=== PATIENT | male | born 1955 | race Caucasian/White ===

== ENCOUNTER 2018-05-04 19:13 | Emergency (ER) | payer OTHER ==
[2018-05-04] MEDS ORDERED: LIDOCAINE 1% MPF 2 ML AMPULE ONE (19:31)
--- NOTE | 2018-05-04 21:12 | RAD REPORT ---
EXAM DESCRIPTION: RAD - Hand Left 3 View - 05/04/2018 8:42 pm CLINICAL HISTORY: Hand pain, table saw injury, laceration to the first, second, fourth and fifth dig its. COMPARISON: None. FINDINGS: There is posttraumatic bone loss to the base and shaft of the first distal phalanx. Bandag ing is in place. No foreign body identified. There is fracture deformity of the tuft fifth distal pha lanx. Soft tissue wound is present. There is soft tissue injury second and fourth digits without asso ciated bone abnormality. Again, no foreign body seen. IMPRESSION: Bone and soft tissue wounds to the distal phalanx of the thumb and tuft of the fifth dig it. Soft tissue injury to the second and fourth digits without bone abnormality seen. No foreign body.
--- NOTE | 2018-05-04 21:56 | ER ---
Nurse's Notes [facility] Name: Juancarlos Quinones Jr Age: 62 yrs Sex: Male : 1955 Arrival Date: 05/04/2018 Time: 19:15 Bed 28 Private MD: Baltazar George S Diagnosis: Laceration without foreign body of left thumb without damage to nail;Displaced fracture of distal phalanx of left thumb;Displaced fracture of distal phalanx of left little finger;Laceration without foreign body of left little finger with damage to nail Presentation: 05/04 19:24 Presenting complaint: Patient states: pt cut thumb and all his fingers (except the tl3 middle finger) across the left hand with a table saw. Transition of care: patient was not received from another setting of care. Complicating Factors: There are no complicating factors for this patient. Onset of symptoms was May 04, 2018. Risk Assessment: Do you want to hurt yourself or someone else? Patient reports no desire to harm self or others. Initial Sepsis Screen: Does the patient meet any 2 criteria? No. Patient's initial sepsis screen is negative. Does the patient have a suspected source of infection? No. Patient's initial sepsis screen is negative. Care prior to arrival: wrapped. Mechanism of Injury: table saw. 19:24 Method Of Arrival: Ambulatory tl3 19:24 Acuity: SUNITA 3 tl3 Triage Assessment: 19:35 General: Appears distressed, uncomfortable, well groomed, well developed, well tl3 nourished, Behavior is cooperative, appropriate for age, anxious. Pain: Complains of pain in right hand. EENT: No deficits noted. No signs and/or symptoms were reported regarding the EENT system. Neuro: Level of Consciousness is awake, alert, obeys commands, Oriented to person, place, time, situation, Appropriate for age. Cardiovascular: Patient's skin is warm and dry. Respiratory: Airway is patent Respiratory effort is even, unlabored, Respiratory pattern is regular, symmetrical. Respiratory: No deficits noted. Reports. GI: No deficits noted. No signs and/or symptoms were reported involving the gastrointestinal system. : No deficits noted. No signs and/or symptoms were reported regarding the genitourinary system. Derm: Wound noted left hand. Musculoskeletal: multiple lacerations to left hand. Injury Description: Laceration sustained to left hand is jagged. Historical: - Allergies: 19:35 Codeine; tl3 19:35 Morphine; tl3 - Home Meds: 19:35 Adderall XR 20 mg oral cp24 1 cap twice a day [Active]; Clonidine Oral [Active]; tl3 Nitroglycerin Oral [Active]; OxyContin Oral [Active]; - PMHx: 19:35 Chronic pain; Hypertension; Myocardial infarction; tl3 - Immunization history:: Adult Immunizations unknown. - Social history:: Smoking status: unknown. - Ebola Screening: : No symptoms or risks identified at this time. Screenin:30 Abuse screen: Denies threats or abuse. Denies injuries from another. Nutritional rv screening: No deficits noted. Tuberculosis screening: No symptoms or risk factors identified. Fall Risk None identified. Assessment: 21:00 General: Appears in no apparent distress. uncomfortable, Behavior is calm, cooperative. rv 21:00 Pain: Complains of pain in left hand. Neuro: Level of Consciousness is awake, alert, rv obeys commands, Oriented to person, place, time, situation. Cardiovascular: Capillary refill < 3 seconds. Respiratory: Airway is patent. GI: No signs and/or symptoms were reported involving the gastrointestinal system. : No signs and/or symptoms were reported regarding the genitourinary system. EENT: No signs and/or symptoms were reported regarding the EENT system. Derm: Wound noted left hand. Musculoskeletal: Reports pain in left hand. Injury Description: Laceration sustained to left hand is clean, jagged, 0.5 to 2.5 cm long, bleeding moderately. Vital Signs: 19:35 BP 134 / 65; Pulse 64; Resp 18; Pulse Ox 96% on R/A; tl3 ED Course: 19:15 Patient arrived in ED. al2 19:15 Baltazar George MD is Private Physician. al2 19:25 Catie Mayorga FNP-C is [facility]. kb 19:25 Marvel Mora MD is Attending Physician. kb 19:28 Triage completed. tl3 19:35 Arm band placed on right ankle. tl3 19:57 X-ray completed. Portable x-ray completed in exam room. Patient tolerated procedure la2 well. 22:30 Patient has correct armband on for positive identification. Bed in low position. Call rv light in reach. Side rails up X 1. Pulse ox on. NIBP on. 22:31 No provider procedures requiring assistance completed. Patient did not have IV access rv during this emergency room visit. 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 Exp: rv 06/07/2020. Lot #: [id number]. } Route: IM; Site: right deltoid; 22:31 Follow up: Response: No adverse reaction rv 19:44 Drug: [place] 10 mg-325 mg 1 tabs Route: PO; rv 22:31 Follow up: Response: Pain is decreased rv 19:44 Drug: KeFLEX 500 mg Route: PO; rv 22:31 Follow up: Response: No adverse reaction rv Outcome: 21:56 Discharge ordered by . kb 22:33 Discharged to home ambulatory. rv 22:33 Condition: good 22:39 Discharge instructions given to patient, family, Instructed on discharge instructions, rv follow up and referral plans. medication usage, wound care, Demonstrated understanding of instructions, follow-up care, medications, wound care. 22:39 Patient left the ED. rv Signatures: Catie Mayorga, LAUNDRY MANAGER-C LAUNDRY MANAGER-Ckb Kacy Verma2 Romana Garg2 Candy Otero RN RN tl3 Ron Hinojosa, RN RN rv
--- NOTE | 2018-05-04 21:56 | EDPHYS ---
Physician Documentation [facility] Name: Juancarlos Quinones Jr Age: 62 yrs Sex: Male : 1955 Arrival Date: 05/04/2018 Time: 19:15 Bed 28 Private MD: Baltazar George S ED Physician Marvel Mora HPI: 05/04 22:29 This 62 yrs old Male presents to ER via Ambulatory with complaints of kb Laceration To Hand. 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 The injury was accidental. The laceration(s) is(are) located on the left little finger and left ring finger and left index finger and left thumb. Onset: The symptoms/episode began/occurred just prior to arrival. Associated signs and symptoms: The patient has no apparent associated signs or symptoms. The patient has not experienced similar symptoms in the past. The patient has not recently seen a physician. Pt was working with table saw. Reports he was tired and thought his hand was too close to the blade so he moved it and it went into the blade. Multiple skin flaps, avulsions and lacerations to left hand. Historical: - Allergies: 19:35 Codeine; tl3 19:35 Morphine; tl3 - Home Meds: 19:35 Adderall XR 20 mg oral cp24 1 cap twice a day [Active]; Clonidine Oral [Active]; tl3 Nitroglycerin Oral [Active]; OxyContin Oral [Active]; - PMHx: 19:35 Chronic pain; Hypertension; Myocardial infarction; tl3 - Immunization history:: Adult Immunizations unknown. - Social history:: Smoking status: unknown. - Ebola Screening: : No symptoms or risks identified at this time. ROS: 22:27 Constitutional: Negative for fever, chills, and weight loss, Cardiovascular: Negative kb for chest pain, palpitations, and edema, Respiratory: Negative for shortness of breath, cough, wheezing, and pleuritic chest pain, Abdomen/GI: Negative for abdominal pain, nausea, vomiting, diarrhea, and constipation, Back: Negative for injury and pain, Neuro: Negative for headache, weakness, numbness, tingling, and seizure. 22:27 MS/extremity: Positive for injury or acute deformity, abrasion, laceration, pain, of the left thumb, left index finger, left ring finger and left little finger. Exam: 22:27 Constitutional: This is a well developed, well nourished patient who is awake, alert, kb and in no acute distress. Head/Face: Normocephalic, atraumatic. Chest/axilla: Normal chest wall appearance and motion. Nontender with no deformity. No lesions are appreciated. Cardiovascular: Regular rate and rhythm with a normal S1 and S2. No gallops, murmurs, or rubs. Normal PMI, no JVD. No pulse deficits. Respiratory: Lungs have equal breath sounds bilaterally, clear to auscultation and percussion. No rales, rhonchi or wheezes noted. No increased work of breathing, no retractions or nasal flaring. Abdomen/GI: Soft, non-tender, with normal bowel sounds. No distension or tympany. No guarding or rebound. No evidence of tenderness throughout. MS/ Extremity: Pulses equal, no cyanosis. Neurovascular intact. Full, normal range of motion. Neuro: Awake and alert, GCS 15, oriented to person, place, time, and situation. Cranial nerves II-XII grossly intact. Motor strength 5/5 in all extremities. Sensory grossly intact. Cerebellar exam normal. Normal gait. 22:27 Skin: injury, avulsion(s), a small A moderate sized of the left little finger and left ring finger and left index finger and left thumb, multiple lacerations, abrasions, avulsions, and skin flaps noted to left thumb, index, ring and little fingers. . Vital Signs: 19:35 BP 134 / 65; Pulse 64; Resp 18; Pulse Ox 96% on R/A; tl3 Procedures: 20:43 Nerve block: (digital) of palmar aspect of proximal phalanx of left little finger and kb palmar aspect of proximal phalanx of left thumb Medication: Lidocaine 1% without epinephrine Marcaine 0.5%, Amount: 8 mls were injected, Effect: the patient has resolution of the pain, Set up for procedure. Performed by Catie HERNANDEZ Patient tolerated well. Laceration: 21:50 Wound Repair of 4cm ( 1.6in ) subcutaneous laceration to dorsal aspect of distal kb phalanx of left little finger and palmar aspect of distal phalanx of left little finger. Irregularly shaped.. Skin/tissue flap noted.. Distal neuro/vascular/tendon intact. Anesthesia: Digital block administered with 1% lidocaine. Wound prep: Extensive cleansing with betadine by nurse, Wound irrigation with saline by nurse by me. Skin closed with 4 4-0 Prolene using interrupted sutures and sterile technique. Dressed with tube gauze. Patient tolerated well. 21:50 Wound Repair of 5cm ( 2.0in ) subcutaneous laceration to palmar aspect of proximal kb phalanx of left thumb. Skin/tissue flap noted.. multiple skin flaps/avulsed areas. Distal neuro/vascular/tendon intact. Anesthesia: Digital block administered with 1% lidocaine. Wound prep: Extensive cleansing with betadine by nurse, Wound irrigation with saline by nurse by me, Wound margin revised moderately. Skin closed with 11 4-0 Prolene using interrupted sutures and sterile technique. Dressed with tube gauze. Patient tolerated well. MDM: 19:25 Patient medically screened. kb 20:44 Data reviewed: vital signs, nurses notes. Data interpreted: Pulse oximetry: on room air kb is 96 %. Interpretation: normal. 21:50 Counseling: I had a detailed discussion with the patient and/or guardian regarding: the kb historical points, exam findings, and any diagnostic results supporting the discharge/admit diagnosis, radiology results, the need for outpatient follow up, a hand specialist, to return to the emergency department if symptoms worsen or persist or if there are any questions or concerns that arise at home. ED course: wounds approximated where able, avulsed areas cleaned and dressed. 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 Exp: rv 06/07/2020. Lot #: [id number]. } Route: IM; Site: right deltoid; 22:31 Follow up: Response: No adverse reaction rv 19:44 Drug: [place] 10 mg-325 mg 1 tabs Route: PO; rv 22:31 Follow up: Response: Pain is decreased rv 19:44 Drug: KeFLEX 500 mg Route: PO; rv 22:31 Follow up: Response: No adverse reaction rv Disposition: 05/04/18 21:56 Discharged to Home. Impression: Laceration without foreign body of left thumb without damage to nail, Displaced fracture of distal phalanx of left thumb, Displaced fracture of distal phalanx of left little finger, Laceration without foreign body of left little finger with damage to nail. - Condition is Stable. - Discharge Instructions: Laceration Care, Adult, [id number]. - Prescriptions for Keflex 500 mg Oral Capsule - take 1 capsule by ORAL route every 8 hours for 10 days; 30 capsule. Tramadol 50 mg Oral Tablet - take 1 tablet by ORAL route every 8 hours as needed; 12 tablet. - Medication Reconciliation Form, Thank You Letter, Antibiotic Education, Prescription Opioid Use form. - Follow up: Private Physician; When: 2 - 3 days; Reason: Recheck today's complaints, Continuance of care, Re-evaluation by your physician. Follow up: Emergency Department; When: As needed; Reason: Worsening of condition. Signatures: Dispatcher [employer] EDMS Catie Mayorga, NGUYỄN-C DORMITORY MAID-Candy Callaway RN RN tl3 Ron Hinojosa RN RN rv Corrections: (The following items were deleted from the chart) 22:39 21:56 05/04/2018 21:56 Discharged to Home. Impression: Laceration without foreign body rv of left thumb without damage to nail; Displaced fracture of distal phalanx of left thumb; Displaced fracture of distal phalanx of left little finger; Laceration without foreign body of left little finger with damage to nail. Condition is Stable. Forms are Medication Reconciliation Form, Thank You Letter, Antibiotic Education, Prescription Opioid Use. Follow up: Private Physician; When: 2 - 3 days; Reason: Recheck today's complaints, Continuance of care, Re-evaluation by your physician. Follow up: Emergency Department; When: As needed; Reason: Worsening of condition. kb
[2018-05-04 22:45] VITALS: BP 134/65; O2SAT 96
[2018-05-05] MEDS ORDERED: CEPHALEXIN 250 MG CAP ONE (00:18)
[2018-05-05] MEDS ORDERED: LIDOCAINE 1% MPF 2 ML AMPULE ONE (00:18)
[2018-05-05] MEDS ORDERED: HYDROCODONE/APAP 10/325 TAB ONE (00:18)
[2018-05-05] MEDS ORDERED: TETANUS & DIPHTHERIA TOX,ADULT 0.5 ML VIAL ONE (00:18)
== END 2018-05-04 22:39 | disposition home or self-care (01) ==
LOC: ER 19:13
PROC: 0JQK0ZZ Repair Left Hand Subcutaneous Tissue and Fascia, Open Approach (ICD-10-PCS; principal; 2018-05-04)
DX: S61.012A Laceration without foreign body of left thumb without damage to nail, initial encounter (principal); S61.317A Laceration without foreign body of left little finger with damage to nail, initial encounter; S62.637B Displaced fracture of distal phalanx of left little finger, initial encounter for open fracture; W29.8XXA Contact with other powered hand tools and household machinery, initial encounter; Y93.89 Activity, other specified; Y92.9 Unspecified place or not applicable; Z23 Encounter for immunization; Z88.5 Allergy status to narcotic agent; I10 Essential (primary) hypertension; I25.2 Old myocardial infarction
CPT/HCPCS: 12004; 64450; 73130; 90714; 99283; J2001

== ENCOUNTER 2019-01-12 08:24 | Day surgery (SDC) | payer OTHER ==
[2019-01-08 16:20] LABS: Absolute Lymphocytes (CBC) 1.2 K/uL (0.7-4.9); Basophils % 0.7 % (0-1.3); Hematocrit 39.8 % (39.6-49.0); Lymphocytes % 20.5 % (15.3-44.8); MPV 8.3 fL (7.6-11.3); RBC Red Blood Cell Count 4.53 M/uL (4.33-5.43)
--- NOTE | 2019-01-08 16:24 | RAD REPORT ---
EXAM DESCRIPTION: RAD - Chest Pa And Lat (2 Views) - 01/08/2019 4:17 pm CLINICAL HISTORY: preop Chest pain. COMPARISON: <Comparisons> FINDINGS: The lungs are mildly emphysematous but clear. The heart is normal in size. No displaced fr actures. Sternotomy wires present. IMPRESSION: Mild COPD.
[2019-01-08 16:34] LABS: Potassium 4.2 mmol/L (3.5-5.1)
[~2019-01-12 08:24] MED LIST: FENTANYL CITR 100 MCG/2 ML ONE; LIDOCAINE 2% MPF 5 ML VIAL ONE; MIDAZOLAM HCL 2 MG/2 ML INJ ONE; PROPOFOL 200 MG/20 ML VIAL IV ONE; ROCURONIUM 50 MG/5 ML VIAL IV ONE
--- OUTSIDE RECORDS SUMMARY | 2019-01-12 08:30 | XMS REPORT | Summary of Care ---
:1955 Author Organization [facility] Address [address] [place] [id number] Care Team Providers Name Role Phone Baltazar George MD Primary Care Provider Reason for Visit Reason Comments Refill Request Encounter Details Date Type Department Care Team Description 12/15/2018 Refill [facility] Family Medicine Baltazar George MD Refill Request - [address] [place] [address] [place] [phone] Allergies Active Allergy Reactions Severity Noted Date Comments Amoxicillin-Pot Clavulanate Unknown - See comments 03/30/2015 Codeine Unknown - See comments 03/30/2015 Morphine Unknown - See comments 03/30/2015 documented as of this encounter (statuses as of 12/15/2018) Medications Medication Sig Dispensed Refills Start Date End Date Status oxyCODONE 0 03/22/2015 Active (ROXICODONE) 15 mg immediate release tablet venlafaxine XR 150 Take 1 capsule 90 capsule 1 03/28/2017 Active mg 24 hr capsule by mouth daily with breakfast. Syringe with Use as directed 10 Syringe 2 06/27/2017 Active Needle, Disp, (SYRINGE 3CC/25GX1") 3 mL 25 gauge x 1" Syrg zolpidem 10 mg Take 1 tablet by 30 tablet 5 09/24/2017 Active tablet mouth at bedtime as needed for Insomnia. pantoprazole Take 1 tablet by 90 tablet 1 03/27/2018 Active (PROTONIX) 40 mg EC mouth daily. tablet azithromycin 500 mg Take 1 tablet by 3 tablet 0 08/06/2018 Active tabletIndications: mouth daily. Rhinosinusitis dextroamphetamine-a Take 1 tablet by 60 tablet 0 12/01/2018 Active mphetamine mouth 2 (two) (ADDERALL) 20 mg times daily. tabletIndications: ADD (attention deficit disorder) without hyperactivity clonazePAM 1 mg TAKE 1 TABLET BY 120 tablet 0 12/01/2018 Active tabletIndications: MOUTH 4 TIMES A Anxiety DAY NEEDED FOR ANXIETY cyanocobalamin INJECT INTO THE 10 mL 0 12/15/2018 Active 1,000 mcg/mL MUSCLE 1 injectionIndication MILLILITERS s: Fatigue, EVERY WEEK unspecified type cyanocobalamin INJECT INTO THE 10 mL 0 09/30/2018 12/16/19 Discontinued 1,000 mcg/mL MUSCLE 1 19 injectionIndication MILLILITERS s: Fatigue, EVERY WEEK unspecified type documented as of this encounter (statuses as of 12/15/2018) Active Problems Problem Noted Date Anxiety 06/30/2018 Right inguinal hernia 04/23/2017 Insomnia 08/11/2015 Depression 04/29/2015 ADD (attention deficit disorder) without 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 documented as of this encounter Last Filed Vital Signs Not on filedocumented in this encounter Plan of Treatment Date Type Specialty Care Team Description 12/31/2018 Office Visit Family Medicine Baltazar George MD [address] [place] [phone] Health Maintenance Due Date Last Done Comments HEPATITIS C (HCV) SCREEN 1955 DTaP,Tdap,and Td Vaccines (1 - Tdap) 1972 COLONOSCOPY 08/16/2003 Zoster Recombinant Vaccine (SHINGRIX) (1 of 2) 08/16/2003 LUNG CANCER SCREEN: Recommended for age 55-80 with 30 + 2008 pack year history Medicare Wellness Visit 2018 PNEUMOCOCCAL VACCINES 65+ (1 of 2 - PCV13) 2018 INFLUENZA VACCINE 01/18/2019 documented as of this encounter Results Not on filedocumented in this encounter Visit Diagnoses Diagnosis Fatigue, unspecified type documented in this encounter Insurance Payer Benefit Plan / Subscriber ID Effective Dates Phone Address Type Group MEDICARE MEDICARE PART A xxxxxxxxxxx 2014-[place]rist[place] [id number] [place] [phone] [employer] AETNA INDEMNITY [id number] 2014-[place] Indemnity nt documented as of this encounter
--- OUTSIDE RECORDS SUMMARY | 2019-01-12 08:30 | XMS REPORT ---
:1955 [facility] Address [address] [place] [address] Dr. Murillo [address] [place] [id number] Care Team Providers Name Role Phone Unavailable Unavailable Unavailable Problems This patient has no known problems. Allergies, Adverse Reactions, Alerts This patient has no known allergies or adverse reactions. Medications This patient has no known medications.
--- OUTSIDE RECORDS SUMMARY | 2019-01-12 08:31 | XMS REPORT | Summary of Care ---
:1955 Author Organization [facility] - [facility] Address [address] [place] [id number] Care Team Providers Name Role Phone Baltazar George MD Primary Care Provider Reason for Visit Reason Comments ADD Anxiety Refill Request Encounter Details Date Type Department Care Team Description 12/31/2018 Office Visit [facility] Family Baltazar George, ADD (attention deficit disorder) without hyperactivity (Primary Dx); Medicine - Suzanna ECHOLS Anxiety; [address] Chronic fatigue; Drive [address] Fatigue, [place] [phone] Allergies Active Allergy Reactions Severity Noted Date Comments Amoxicillin-Pot Clavulanate Unknown - See comments 03/30/2015 Codeine Unknown - See comments 03/30/2015 Morphine Unknown - See comments 03/30/2015 documented as of this encounter (statuses as of 12/31/2018) Medications Medication Sig Dispensed Refills Start Date [...] Take 1 tablet by 60 tablet 0 12/31/2018 Active mphetamine mouth 2 (two) (ADDERALL) 20 mg times daily. tabletIndications: ADD (attention deficit disorder) without hyperactivity clonazePAM 1 mg TAKE 1 TABLET BY 120 tablet 0 12/31/2018 Active tabletIndications: MOUTH 4 TIMES A Anxiety DAY NEEDED FOR ANXIETY cyanocobalamin INJECT INTO THE 10 mL 0 12/31/2018 Active 1,000 mcg/mL MUSCLE 1 injectionIndication MILLILITERS s: Fatigue, EVERY WEEK unspecified type dextroamphetamine-a Take 1 tablet by 60 tablet 0 12/01/2018 01/01/20 Discontinued mphetamine mouth 2 (two) 19 (ADDERALL) 20 mg times daily. tabletIndications: ADD (attention deficit disorder) without hyperactivity clonazePAM 1 mg TAKE 1 TABLET BY 120 tablet 0 12/01/2018 01/01/20 Discontinued tabletIndications: MOUTH 4 TIMES A 19 Anxiety DAY NEEDED FOR ANXIETY cyanocobalamin INJECT INTO THE 10 mL 0 12/15/2018 01/01/20 Discontinued 1,000 mcg/mL MUSCLE 1 19 injectionIndication MILLILITERS s: Fatigue, EVERY WEEK unspecified type documented as of this encounter (statuses as of 12/31/2018) Active Problems Problem Noted Date Anxiety 06/30/2018 Right inguinal hernia 04/23/2017 Insomnia 08/11/2015 Depression 04/29/2015 ADD (attention deficit disorder) without hyperactivity 04/29/2015 Headache 04/29/2015 Sinusitis 04/29/2015 documented as of this encounter (statuses as of 12/31/2018) Social History Tobacco Use Types Packs/Day Years [...] of this encounter Last Filed Vital Signs Vital Sign Reading Time Taken Comments Blood Pressure 130/62 12/31/2018 9:20 AM CDT Pulse - - Temperature - - Respiratory Rate - - Oxygen Saturation - - Inhaled Oxygen Concentration - - Weight 74.8 kg (165 lb) 12/31/2018 9:20 AM CDT Height - - Body Mass Index 24.37 08/06/2018 4:22 PM CDT documented in this encounter Progress Notes Baltazar George MD - 12/31/2018 9:15 AM CDT Cc: ADD, anxiety, low B-12 Chief Complaint Patient presents with ADD Anxiety Refill Request Juancarlos Quinones Jr. is a 63 year old male. Here for routine f/u Allergies Juancarlos is allergic to augmentin [amoxicillin-pot clavulanate]; codeine; and morphine. Medications Outpatient Medications Prior to Visit Medication Sig Dispense Refill cyanocobalamin 1,000 mcg/mL injection INJECT INTO THE MUSCLE 1 MILLILITERS EVERY WEEK 10 mL 0 clonazePAM 1 mg tablet TAKE 1 TABLET BY MOUTH 4 TIMES A DAY NEEDED FOR ANXIETY 120 tablet 0 dextroamphetamine-amphetamine (ADDERALL) 20 mg tablet Take 1 tablet by mouth 2 (two) times daily. 60 tablet 0 Syringe with Needle, Disp, (SYRINGE 3CC/25GX1") 3 mL 25 gauge x 1" Syrg Use as directed 10 Syringe 2 oxyCODONE (ROXICODONE) 15 mg immediate release tablet 0 azithromycin 500 mg tablet Take 1 tablet by mouth daily. 3 tablet 0 pantoprazole (PROTONIX) 40 mg EC tablet Take 1 tablet by mouth daily. 90 tablet 1 zolpidem 10 mg tablet Take 1 tablet by mouth at bedtime as needed for Insomnia. 30 tablet 5 venlafaxine XR 150 mg 24 hr capsule Take 1 capsule by mouth daily with breakfast. 90 capsule 1 No facility-administered medications prior to visit. Histories Past Medical History: Diagnosis Date ADHD (attention deficit hyperactivity disorder) Anxiety CAD (coronary artery disease) Depression Hypertension Myocardial infarction 08/24/2000 Right inguinal hernia 04/23/2017 Stroke minor strokes Past Surgical History: Procedure Laterality Date CARDIOPULMONARY BYPASS 08/24/2000 CORONARY ARTERY BYPASS GRAFT HERNIA REPAIR JOINT SURGERY big toe SHOULDER ABDUCTION JOINT RIC right STENT PLACEMENT (SHX) stents placed, failed and then had triple bypass Social History Socioeconomic History Marital status: Spouse name: Not on file Number of children: Not on file Years of education: Not on file Highest education level: Not on file Occupational History Not on file Social Needs Financial resource strain: Not on file Food insecurity: Worry: Not on file Inability: Not on file Transportation needs: Medical: Not on file Non-medical: Not on file Tobacco Use Smoking status: Current Every Day Smoker Packs/day: 1.00 Types: Cigarettes Start date: 05/20/1971 Smokeless tobacco: Never Used Substance and Sexual Activity Alcohol use: No Alcohol/week: 0.0 oz Drug use: No Sexual activity: Not on file Lifestyle Physical activity: Days per week: Not on file Minutes per session: Not on file Stress: Not on file Relationships Social connections: Talks on phone: Not on file Gets together: Not on file Attends methodist service: Not on file Active member of club or organization: Not on file Attends meetings of clubs or organizations: Not on file Relationship status: Not on file Intimate partner violence: Fear of current or ex partner: Not on file Emotionally abused: Not on file Physically abused: Not on file Forced sexual activity: Not on file Other Topics Concern Not on file Social History Narrative Not on file Family History Problem Relation Age of Onset Other - see comments Mother copd Depression Mother Coronary Heart Disease Father Stroke Father Depression Sister Diabetes Sister Other - see comments Maternal Uncle copd non smoker Review of Systems Vital Signs BP 130/62 | Wt 165 lb (74.8 kg) | BMI 24.37 kg/m Physical Exam Constitutional: He is oriented to person, place, and time. He appears well- developed and well-nourished. HENT: Head: Normocephalic and atraumatic. Right Ear: External ear normal. Left Ear: External ear normal. Eyes: Pupils are equal, round, and reactive to light. EOM are normal. Cardiovascular: Normal rate, regular rhythm and normal heart sounds. Pulmonary/Chest: Effort normal. Abdominal: Soft. Musculoskeletal: Normal range of motion. Neurological: He is alert and oriented to person, place, and time. Skin: Skin is warm. Vitals reviewed. Assessment/Plan ADD, medication refill Anxiety, medication refill B-12, medication refill This visit did not involve counseling and coordination that comprised more than 50% of the visit time.Electronically signed by Baltazar George MD at 2018 9:34 AM CDTdocumented in this encounter Plan of Treatment Date Type Specialty Care Team Description 04/02/2019 Office Visit Family Medicine Baltazar George MD [address] [place] [phone] Health Maintenance Due Date Last Done [...] filedocumented in this encounter Visit Diagnoses Diagnosis ADD (attention deficit disorder) without hyperactivity - Primary Attention deficit disorder without mention of hyperactivity Anxiety Anxiety state, unspecified Fatigue, unspecified type documented in this encounter Insurance Payer Benefit Plan / Subscriber ID Effective Dates Phone Address Type Group MEDICARE MEDICARE PART A xxxxxxxxxxx 2014-[place]rist[place]ian [id number] [place] [address] [employer] AETNA INDEMNITY [id number] 2014-[place] Indemnity nt documented as of this encounter
--- OUTSIDE RECORDS SUMMARY | 2019-01-12 08:31 | XMS REPORT | Summary of Care ---
:1955 Author Organization [facility] - [facility] Address [address] [place] [address] Care Team Providers Name Role Phone Baltaazr George MD Primary Care Provider Reason for Visit Reason Comments ADD Anxiety Refill Request Encounter Details Date Type Department Care Team Description 12/31/2018 Office Visit [facility] Family Baltazar George, ADD (attention deficit disorder) without hyperactivity (Primary Dx); Medicine - Suzanna ECHOLS Anxiety; [address] Chronic fatigue; Drive [address] Fatigue, [place] [phone] Allergies Active Allergy Reactions Severity Noted Date [...] file Gets together: Not on file Attends jehovah's witness service: Not on file Active member of [...] CDTdocumented in this encounter Plan of Treatment Health Maintenance Due Date Last Done Comments [...] [address] Medicare & B [place] [id number] [place] [phone] [employer] AET[employer] INDEMNITY [id number] 2014-[place] Indemnity nt documented as of this encounter
--- OUTSIDE RECORDS SUMMARY | 2019-01-12 08:31 | XMS REPORT | Summary of Care ---
:1955 Author Organization [facility] - Health Address [address] [place] [address] Care Team Providers Name Role Phone Baltazar George MD Primary Care Provider Encounter Details Date Type Department Care Team Description 12/31/2018 Orders Only [facility] Doctor Unassigned, No [address] [facility] [place] [address] [address] [place] [address] Allergies Active Allergy Reactions Severity Noted Date Comments Amoxicillin-Pot Clavulanate Unknown - See comments 03/30/2015 Codeine Unknown - See comments 03/30/2015 Morphine Unknown - See comments 03/30/2015 documented as of this encounter (statuses as of 12/31/2018) Medications Medication Sig Dispensed Refills Start Date End Date Status oxyCODONE 0 03/22/2015 Active (ROXICODONE) 15 mg immediate release tablet venlafaxine XR 150 mg Take 1 capsule by 90 capsule 1 03/28/2017 Active 24 hr capsule mouth daily with breakfast. Syringe with Needle, Use as directed 10 Syringe 2 06/27/2017 Active Disp, (SYRINGE 3CC/25GX1") 3 mL 25 gauge x 1" Syrg zolpidem 10 mg tablet Take 1 tablet by 30 tablet 5 09/24/2017 Active mouth at bedtime as needed for Insomnia. pantoprazole Take 1 tablet by 90 tablet 1 03/27/2018 Active (PROTONIX) 40 mg EC mouth daily. tablet azithromycin 500 mg Take 1 tablet by 3 tablet 0 08/06/2018 Active tabletIndications: mouth daily. Rhinosinusitis dextroamphetamine-amp Take 1 tablet by 60 tablet 0 12/01/2018 Active hetamine (ADDERALL) mouth 2 (two) 20 mg times daily. tabletIndications: ADD (attention deficit disorder) without hyperactivity clonazePAM 1 mg TAKE 1 TABLET BY 120 tablet 0 12/01/2018 Active tabletIndications: MOUTH 4 TIMES A Anxiety DAY NEEDED FOR ANXIETY cyanocobalamin 1,000 INJECT INTO THE 10 mL 0 12/15/2018 Active mcg/mL MUSCLE 1 injectionIndications: MILLILITERS EVERY Fatigue, unspecified WEEK type documented as of this encounter (statuses [...] filedocumented in this encounter Plan of Treatment Health [...] VACCINE 01/18/2019 documented as of this encounter Procedures Procedure Name Priority Date/Time Associated Diagnosis Comments ASSIGNMENT OF BENEFITS Routine 12/31/2018 9:17 AM CDT documented in this encounter Results Not on filedocumented in this encounter Insurance Payer Benefit Plan / Subscriber ID Effective Dates Phone Address Type Group MEDICARE MEDICARE PART A xxxxxxxxxxx 2014-[place]rist[place]ian [phone] [id number] [place] [address] A[employer]NA AETNA INDEMNITY [id number] 2014-Pre[place] Indemnity nt documented as of this encounter
--- OUTSIDE RECORDS SUMMARY | 2019-01-12 08:31 | XMS REPORT | Summary of Care ---
:1955 Author Organization [facility] - [facility] Address [address] [place] [address] Care Team Providers Name Role Phone Baltazar George MD Primary Care Provider Reason for Visit Reason Comments ADD Anxiety Refill Request Encounter Details Date Type Department Care Team Description 12/31/2018 Office Visit [facility] Family Baltazar George, ADD (attention deficit disorder) without hyperactivity (Primary Dx); Medicine - Suzanna ECHOLS Anxiety; [address] Chronic fatigue; Drive [address] Fatigue, [place] [phone] Allergies Active Allergy Reactions Severity Noted Date [...] file Gets together: Not on file Attends yarsanism service: Not on file Active member of [...] [address] Medicare & B nt 82 [id number] [place] [phone] [employer] AETNA INDEMNITY [id number] 2014-[place] Indemnity nt documented as of this encounter
[2019-01-12] MEDS ORDERED: Ringers Lactate 1,000 ML IV ONE ×2 (08:40→10:28)
[2019-01-12] MEDS ORDERED: CEFOXITIN/SWI 1gm 1 GM/10 ML SYR ONE (08:43)
[2019-01-12] MEDS ORDERED: EPHEDRINE SULF 50 MG/ML VIAL ONE ×2 (09:22→10:21)
[2019-01-12] MEDS ORDERED: MIDAZOLAM HCL 2 MG/2 ML INJ ONE (10:21)
[2019-01-12] MEDS ORDERED: FENTANYL CITR 100 MCG/2 ML ONE (10:21)
[2019-01-12] MEDS ORDERED: LIDOCAINE 2% MPF 5 ML VIAL ONE (10:21)
[2019-01-12] MEDS ORDERED: ROCURONIUM 50 MG/5 ML VIAL IV ONE (10:21)
[2019-01-12] MEDS ORDERED: PROPOFOL 200 MG/20 ML VIAL IV ONE (10:21)
[2019-01-12] MEDS ORDERED: NEOSTIGMINE 1 MG/ML -10 ML VIAL ONE (10:22)
[2019-01-12] MEDS ORDERED: GLYCOPYRROLATE 0.2 MG/ML SYR ONE (10:22)
--- NOTE | 2019-01-12 10:30 | P.BOP ---
Preoperative diagnosis: right inguinal hernia Postoperative diagnosis: same Primary procedure: Laparoscopic repair of right inguinal hernia with mesh Block And Case Maker: CARLITO MALONEY (CERTIFIED PEDORTHOTIST) Estimated blood loss: <10cc Specimen: none Findings: as above Anesthesia: General Complications: None Implants: 3d mesh Transferred to: Recovery Room Condition: Good
[2019-01-12] MEDS: HYDROMORPHONE HCL 1 MG/ML INJ ONE ×2 (10:52→10:57)
[2019-01-12] MEDS: HYDROMORPHONE HCL 2 MG/ML inj ONE ×3 (11:02→11:18)
[2019-01-12] MEDS ORDERED: KETOROLAC 30 MG/ML INJ ONE (11:23)
[2019-01-12 11:34] VITALS: O2SAT 96
[2019-01-12 12:27] VITALS: BP 112/49; TEMP 97.9
--- NOTE | 2019-01-13 00:05 | OP ---
Date of Procedure: 01/12/2019 Surgeon: Juan Allison MD Materials Technician: TOYA Harris. Preoperative Diagnosis: Tender right inguinal hernia. Postoperative Diagnosis: Tender right inguinal hernia. Procedure: Laparoscopic repair of tender right inguinal hernia with mesh. Specimens: None. Anesthesia: General plus local. Implants: A 3D mesh right side medium. Indications: This is a case of a male, who comes to us with right inguinal hernia, tender. Fully ex plained benefits, alternatives, and risks of laparoscopic, possible open, repair of right inguinal he rnia with mesh which include, but not limited to infection, bleeding, damage to adjacent structures, anesthesia complications, chronic pain, chronic numbness, recurrence, ME, even . He also unders tands this may not relieve any symptoms. He might need more than one surgical intervention. He sign ed a consent. Patient was also explained mesh placement in that region, pros and cons of mesh placem ent. He was allowed to ask questions and they were answered to his satisfaction and he did allow me to use mesh. Description Of Procedure: Patient was brought to the operating room, placed in supine position. Ane sthesia was done without complication. The abdomen was prepped and draped in a sterile fashion. The patient was placed in Trendelenburg position. Local anesthesia was applied for every incision. Inc ision was made in the infraumbilical region. Incision was carried down until we found the anterior r ectus sheath that was open on the right side. The muscle retracted laterally to expose the posterior rectus sheath. A balloon tipped trocar was placed in the space directed to the pubic symphysis. A laparoscope was inserted and the balloon was inflated under direct visualization. The balloon was re moved. This created the extraperitoneal space. After we inflated the area, we placed a 5 mm trocar just above the previous symphysis, another one prison between the first and the second one. The pre peritoneal space was further developed by exposing the inferior epigastric vessels and keeping them a nterior. Emmanuel's ligament was dissected laterally to the junction with the iliac veins. The dissec tion was continued inferiorly to the iliopubic tract, avoiding damage to the femoral branch of the ge nitofemoral nerve and lateral femoral cutaneous nerve. The cord structure was identified, skeletoniz ed, hernia was identified, carefully reduced back into the abdominal cavity. At that moment the mesh was rolled and put it through the trocar site, placed into the working space. The mesh was aligned in a way that covered direct and indirect spaces. The mesh was secured in place with SorbaFix latera l and superior to the iliopubic tract and inferior and medial to the Emmanuel ligament. After ensuring adequate hemostasis and also spraying some local anesthetic, then under direct visualization holding the mesh in place and making sure the hernia sac was still reduced into the abdominal cavity, we pro ceeded to deflate the area under direct visualization. Trocars were removed. Anterior rectus sheath was approximated with #1 Vicryl and the skin in subcuticular fashion with 3-0 chromic with Steri-Str ips on top. At the end of the case the testicles were in the scrotum. Patient tolerated the procedu re well. Patient was sent to recovery in stable condition. Disposition: Home. Activity: As tolerated. No heavy lifting. Followup: Follow up in my office in 1 week. Call for appointment [phone]. Keep area dry for 48 ho urs, then may shower. Keep Steri-Strips intact. Medications: See orders. IVANNA/MODL Voice ID: [id number] Report ID: [id number]
== END 2019-01-12 12:18 | disposition home or self-care (01) ==
LOC: OR 08:24
PROVIDERS: ATTEND Surgery
PROC: 0YU54JZ Supplement Right Inguinal Region with Synthetic Substitute, Percutaneous Endoscopic Approach (ICD-10-PCS; principal; 2019-01-12 09:45)
DX: K40.90 Unilateral inguinal hernia, without obstruction or gangrene, not specified as recurrent (principal); I25.10 Atherosclerotic heart disease of native coronary artery without angina pectoris; K21.9 Gastro-esophageal reflux disease without esophagitis; Z95.1 Presence of aortocoronary bypass graft; Z98.61 Coronary angioplasty status; F17.210 Nicotine dependence, cigarettes, uncomplicated; Z88.6 Allergy status to analgesic agent; Z82.49 Family history of ischemic heart disease and other diseases of the circulatory system
CPT/HCPCS: 85025; 80048; 36415; 71046; 49650; J2704; J2710; J2250; J1170 ×2; J3010

== ENCOUNTER 2020-08-04 10:31 | Day surgery (SDC) | payer OTHER ==
[2020-08-02 13:13] VITALS: BMI 25.8
--- NOTE | 2020-08-02 13:49 | RAD REPORT ---
EXAM DESCRIPTION: RAD - Chest Pa And Lat (2 Views) - 08/02/2020 1:40 pm CLINICAL HISTORY: Pre-op cath procedure Chest pain. COMPARISON: <Comparisons> FINDINGS: The lungs are clear. The heart is normal in size. No displaced fractures. Sternotomy wires present. Old left posterior rib fractures. IMPRESSION: No acute or concerning finding suspected.
[2020-08-02 14:05] LABS: Absolute Lymphocytes (CBC) 1.2 K/uL (0.7-4.9); Basophils % 0.8 % (0-1.3); Hematocrit 43.2 % (39.6-49.0); MPV 8.2 fL (7.6-11.3); RBC Red Blood Cell Count 4.95 M/uL (4.33-5.43)
[2020-08-02 14:22] LABS: Protime INR 0.98
[2020-08-02 15:20] LABS: Potassium 4.4 mmol/L (3.5-5.1)
--- NOTE | 2020-08-03 16:49 | EKG ---
Test Date: 2020-08-02 Test Time: 12:27:55 Power Barker Operator: BARBARA MEASUREMENT RESULTS: Intervals: Rate: 56 AK: 236 QRSD: 102 QT: 434 QTc: 418 Sidney: P: 81 AK: 236 QRS: 48 T: 57 INTERPRETIVE STATEMENTS: Sinus bradycardia with 1st degree AV block Possible Left atrial enlargement Borderline ECG Compared to ECG 11/14/2016 07:39:27 Sinus rhythm no longer present Sinus arrhythmia no longer present Electronically Signed On 08-03-20 16:47:56 CDT by Eladio Hernandez
[2020-08-04] MEDS ORDERED: LIDOCAINE 1% 20 ML MDV ONE (10:51)
[2020-08-04] MEDS ORDERED: HEPA 1000U/500MLS 2,000 UNIT/1,000 ML BAG IV ONE (10:51)
[2020-08-04] MEDS ORDERED: NA CHLORIDE 0.9% 500 ML ONE (10:58)
[2020-08-04 11:17] VITALS: O2SAT 100
[2020-08-04] MEDS ORDERED: ASPIRIN 325 MG TAB ONE (11:47)
[2020-08-04] MEDS ORDERED: MIDAZOLAM HCL 2 MG/2 ML INJ ONE (11:47)
[2020-08-04] MEDS ORDERED: TICAGRELOR 90 MG TABLET PO ONE (11:47)
[2020-08-04] MEDS ORDERED: FENTANYL CITR 100 MCG/2 ML ONE (11:47)
[2020-08-04] MEDS ORDERED: NITROGLYCERIN 100 MCG/ML SYR (for cath lab use only) IV ONE (11:47)
[2020-08-04] MEDS ORDERED: ATROPINE SULF 1 MG/10 ML SYR IV ONE (11:48)
[2020-08-04] MEDS ORDERED: NITROGLYCERIN/D5W 0 MG/0 ML BTL IV ONE (11:48)
[2020-08-04] MEDS ORDERED: HEPARIN 5000 UNIT/ML 1 ML VIAL ONE (11:54)
--- NOTE | 2020-08-04 14:36 | OP ---
Date of Procedure: 08/04/2020 Surgeon: RENETTA CUTLER Procedure Performed: Selective coronary angiogram with bypass graft study. Access: Right femoral artery 6-[place]ri [place]ankan, closed with a 6-[place]ank[place] Angio-Seal. Indication: Unstable angina. Complications: None. Bleeding: Less than 10 mL. Description Of Procedure: After risks, benefits, and alternatives were explained, the patient agreed to proceed and signed informed consent. The patient was brought in the cardiac catheterization [facility], prepped and draped in usual sterile fashion. Then, we accessed the right femoral artery unde r ultrasound guidance and fluoroscopy and using micropuncture kit, placed 6-[place]ri [place]ankan Epworth sheath. Then, we took a 6-[place]ankan JL4 catheter into the aortic root over a J-wire, engaged left main, took sta ndard views and then 6-[place]ri [place]ankan JR4 catheter was taken to the aortic root, engaged the RCA and SVG to t he diagonal and took standard views. Then, the catheter was navigated into the left subclavian and e ngaged the edema and took standard views and removed the catheter and sheath was removed. A 6-[place]ankan Angio-Seal was deployed successfully with good hemostasis. Findings: 1.Left main is large, normal with luminal irregularities. 2.LAD, 100% totally occluded osteally, currently total occlusion. 3.Left circumflex, moderate-size vessel, proximal 20%, mid 30%, and the OM1 is 90% stenosis of both . 4.RCA, proximal stent 20% ISR and distal stent to 30% ISR, otherwise luminal irregularities. 5.The graft is patent TAPIA to LAD. 6.Patent SVG to diagonal 1. 7.Occluded SVG to . Conclusion: Severe [place] coronary artery disease with patent TAPIA to LAD and patent SVG to diagonal . Good flow through the RCA and left circumflex. Recommendations: Medical management. SR/MODL Voice ID: [id number] Report ID: [id number]
[2020-08-04 14:47] VITALS: TEMP 97.5
[2020-08-04 14:50] VITALS: BP 125/68
== END 2020-08-04 15:15 | disposition home or self-care (01) ==
LOC: CCL 10:31
PROVIDERS: ATTEND Internal Medicine
DX: I25.110 Atherosclerotic heart disease of native coronary artery with unstable angina pectoris (principal); T82.855A Stenosis of coronary artery stent, initial encounter; E78.5 Hyperlipidemia, unspecified; Z95.1 Presence of aortocoronary bypass graft; Z88.6 Allergy status to analgesic agent; Z20.822 Contact with and (suspected) exposure to COVID-19
CPT/HCPCS: 93005; 85025; 80048; 36415; 85610; 85730; 71046; 93455; U0003; C1893; C1760; J2250; J3010; J7040; J1644

== ENCOUNTER 2022-03-18 18:06 | Observation (INO) | payer OTHER ==
--- OUTSIDE RECORDS SUMMARY | 2022-03-18 18:12 | XMS REPORT | Continuity of Care Document ---
:1955 Author Organization [facility] t Address [address] [place] [address] Care Team Providers Name Role Phone Roberta ECHOLS, Mark Primary Care Physician MARK GRANADOS Attending Clinician Unavailable Roberta ECHOLS, Mark Attending Clinician MILAN DOBBS Attending Clinician Unavailable Lab, Ang - Db Attending Clinician Unavailable Sammie Hopkins Attending Clinician SAMMIE OCONNOR Attending Clinician Unavailable Doctor Unassigned, [place] Attending Clinician Unavailable Gopal ECHOLS, Pawel Pandya Attending Clinician Monica ECHOLS, Alexei Belle Attending Clinician Payers Payer Name Policy Type Policy Number Effective Date Expiration Date S josephce MEDICARE PART A [id number] 2014 \\T\\ B 00:00:00 [employer] INDEMNITY [id number] 2014 00:00:00 Problems Condition Condition Condition Status Onset Resolution Last Treating Co mments Source Name Details Category Date Date Treatment Clinician Date Anxiety Anxiety Disease Active Univers 2-11 ity of 00:00: [address] Right Right Disease Active 2016-05 Univers inguinal inguinal 2-05 ity of hernia hernia 00:00: [address] Insomnia Insomnia Disease Active Unive rs 3-24 ity of 00:00: [address] Depression Depression Disease Active 2014-05 U nivers 2-11 ity of 00:00: [address] ADD ADD Disease Active 2014-05 Univers (attention (attention 2-11 it y of deficit deficit 00:00: [place] disorder) disorder) 00 Medi frannie without without Branch hyperactiv hyperactiv ity ity Headache Headache Disease Active 2014-05 Unive rs 2-11 ity of 00:00: [place] 00 Medical Branch Sinusitis Sinusitis Disease Active 2014-05 Uni vers 2-11 ity of 00:00: [place] 00 Medical Branch Allergies, Adverse Reactions, Alerts Allergy Allergy Status Severity Reaction(s) Onset Inactive Treating Comm ents Source Name Type Date Date Clinician AMOXICIL DRUG Active Unknown-Cmnt 2014-05 Un karolina LUCIO-POT 1-11 ity of CLAVULAN 00:00: [place] ATE 00 Medical Branch CODEINE DRUG Active Unknown-Cmnt 2014-05 Uni vers INGREDI 1-11 ity of 00:00: [place] 00 Medical Branch MORPHINE DRUG Active Unknown-Cmnt 2014-05 Un karolina INGREDI 1-11 ity of 00:00: [place] 00 Medical Branch Amoxicil Propensi Active Unknown - 2014-05 Uni vers lucio-Pot ty to See comments 1-11 ity of Clavulan adverse 00:00: [place] ate reaction 00 Medical s Branch Codeine Propensi Active Unknown - 2014-05 Univ ers ty to See comments 1-11 ity of adverse 00:00: [place] reaction 00 Medical s Branch Morphine Propensi Active Unknown - 2014-05 Uni vers ty to See comments 1-11 ity of adverse 00:00: [place] reaction 00 Medical s Branch Social History Social Habit Start Date Stop Date Quantity Comments Source History of tobacco 1971-05-20 Cigarette Smoker University of use 00:00:00 [facility] Exposure to 2021-12-30 2022-01-09 Not sure [facility] SARS-CoV-2 (event) 00:00:00 08:58:00 [facility] Cigarettes smoked 2021-12-08 2021-12-08 Univers ity of current (pack per 00:00:00 00:00:00 ) - Reported Branch Alcohol intake 2021-12-08 2021-12-08 0 /d University of 00:00:00 00:00:00 [facility] Tobacco use and 2021-12-08 2021-12-08 Smokeless Universit y of exposure 00:00:00 00:00:00 tobacco non-user [facility] Sex [birth year] At [birth year] Universit y of 00:00:00 00:00:00 [facility] Smoking Status Start Date Stop Date Source Smokes tobacco daily 2021-12-08 00:00:00 [facility]ations Ordered Filled Start Stop Current Ordering Indication Dosage Frequency Signature Comments Components Source Medication Medication Date Date Medication? Clinician (SIG) Name Name dextroamphe 2021-05 Yes [id number] 20mg Take 1 Univers tamine-amph 0-20 tablet by ity of etamine 00:00: mouth in [place] (ADDERALL) 00 the Medical 20 mg morning Branch tablet and 1 tablet in the evening. clonazePAM 2021-05 Yes [id number] TAKE 1 U nivers 1 mg tablet 0-20 TABLET BY ity of 00:00: MOUTH 4 [place] 00 TIMES A Medical DAY Branch NEEDED FOR ANXIETY dextroamphe 2021-0 Yes [id number] 20mg Take 1 Univers tamine-amph 9-07 tablet by ity of etamine 00:00: mouth in [place] (ADDERALL) 00 the Medical 20 mg morning Branch tablet and 1 tablet in the evening. dextroamphe 2021-0 2021- No [id number] 20mg Take 1 Univers tamine-amph 9-07 10-20 tablet by it y of etamine 00:00: 00:00 mouth in [place] (ADDERALL) 00 :00 the Medical 20 mg morning Branch tablet and 1 tablet in the evening. clonazePAM 2021-0 Yes [id number] TAKE 1 U nivers 1 mg tablet 8-23 TABLET BY ity of 00:00: MOUTH 4 [place] 00 TIMES A Medical DAY Branch NEEDED FOR ANXIETY clonazePAM 2-0 Yes [id number] TAKE 1 U nivers 1 mg tablet 8-23 TABLET BY ity of 00:00: MOUTH 4 [place] 00 TIMES A Medical DAY Branch NEEDED FOR ANXIETY clonazePAM 2-0 Yes [id number] TAKE 1 U nivers 1 mg tablet 8-23 TABLET BY ity of 00:00: MOUTH 4 [place] 00 TIMES A Medical DAY Branch NEEDED FOR ANXIETY clonazePAM 2-0 2022- No [id number] TAKE 1 Univers 1 mg tablet 8-23 10-20 TABLET BY it y of 00:00: 00:00 MOUTH 4 [place] 00 :00 TIMES A Medical DAY Branch NEEDED FOR ANXIETY dextroamphe 2021-0 Yes [id number] 20mg Take 1 Univers tamine-amph 8-01 tablet by ity of etamine 00:00: mouth in [place] (ADDERALL) 00 the Medical 20 mg morning Branch tablet and 1 tablet in the evening. dextroamphe 2-0 Yes [id number] 20mg Take 1 Univers tamine-amph 8-01 tablet by ity of etamine 00:00: mouth in [place] (ADDERALL) 00 the Medical 20 mg morning Branch tablet and 1 tablet in the evening. dextroamphe 2-0 Yes [id number] 20mg Take 1 Univers tamine-amph 8-01 tablet by ity of etamine 00:00: mouth in [place] (ADDERALL) 00 the Medical 20 mg morning Branch tablet and 1 tablet in the evening. dextroamphe 2021-0 2022- No [id number] 20mg Take 1 Univers tamine-amph 8-01 09-07 tablet by it y of etamine 00:00: 00:00 mouth in [place] (ADDERALL) 00 :00 the Medical 20 mg morning Branch tablet and 1 tablet in the evening. lisinopriL 2021-0 Yes 10mg Take 10 mg U nivers 10 mg 7-04 by mouth ity of tablet 00:00: in the [place] 00 morning. Medical Branch lisinopriL 2-0 Yes 10mg Take 10 mg U nivers 10 mg 7-04 by mouth ity of tablet 00:00: in the [place] 00 morning. Medical Branch lisinopriL 2022-0 Yes 10mg Take 10 mg U nivers 10 mg 7-04 by mouth ity of tablet 00:00: in the [place] 00 morning. Medical Branch lisinopriL 2022-0 Yes 10mg Take 10 mg U nivers 10 mg 7-04 by mouth ity of tablet 00:00: in the [place] 00 morning. Medical Branch SERTraline 2-0 Yes [id number] 50mg Take 1 U nivers (ZOLOFT) 50 2-21 tablet by ity of mg tablet 00:00: mouth [place] 00 daily. Medical Branch SERTraline 2022-0 Yes [id number] 50mg Take 1 U nivers (ZOLOFT) 50 2-21 tablet by ity of mg tablet 00:00: mouth [place] 00 daily. Medical Branch SERTraline 2022-0 Yes [id number] 50mg Take 1 U nivers (ZOLOFT) 50 2-21 tablet by ity of mg tablet 00:00: mouth [place] 00 daily. Medical Branch SERTraline 0 Yes [id number] 50mg Take 1 U nivers (ZOLOFT) 50 2-21 tablet by ity of mg tablet 00:00: mouth [place] 00 daily. Medical Branch SERTraline 0 Yes [id number] 50mg Take 1 U nivers (ZOLOFT) 50 2-21 tablet by ity of mg tablet 00:00: mouth [place] 00 daily. Medical Branch sildenafiL 2020-05 Yes [id number] 50mg Take 1 Univers 50 mg 1-18 tablet by ity of tablet 00:00: mouth as [place] 00 needed for Medical Other Branch (prior to sexual activity). sildenafiL 2020-05 Yes [id number] 50mg Take 1 Univers 50 mg 1-18 tablet by ity of tablet 00:00: mouth as [place] 00 needed for Medical Other Branch (prior to sexual activity). sildenafiL 2020-05 Yes [id number] 50mg Take 1 Univers 50 mg 1-18 tablet by ity of tablet 00:00: mouth as [place] 00 needed for Medical Other Branch (prior to sexual activity). sildenafiL 2020-05 Yes [id number] 50mg Take 1 Univers 50 mg 1-18 tablet by ity of tablet 00:00: mouth as [place] 00 needed for Medical Other Branch (prior to sexual activity). sildenafiL 2020-05 Yes [id number] 50mg Take 1 Univers 50 mg 1-18 tablet by ity of tablet 00:00: mouth as [place] 00 needed for Medical Other Branch (prior to sexual activity). cyanocobala Yes [id number] INJECT Univers min 1,000 1-13 INTO THE ity of mcg/mL 00:00: MUSCLE 1 [place] injection 00 MILLILITER Medi frannie S EVERY Branch WEEK cyanocobala 0 Yes [id number] INJECT Univers min 1,000 1-13 INTO THE ity of mcg/mL 00:00: MUSCLE 1 [place] injection 00 MILLILITER Medi frannie S EVERY Branch WEEK cyanocobala Yes [id number] INJECT Univers min 1,000 1-13 INTO THE ity of mcg/mL 00:00: MUSCLE 1 [place] injection 00 MILLILITER Medi frannie S EVERY Branch WEEK cyanocobala 2021-0 Yes [id number] INJECT Univers min 1,000 1-13 INTO THE ity of mcg/mL 00:00: MUSCLE 1 [place] injection 00 MILLILITER Medi frannie S EVERY Branch WEEK cyanocobala 2020-0 Yes [id number] INJECT Univers min 1,000 1-13 INTO THE ity of mcg/mL 00:00: MUSCLE 1 [place] injection 00 MILLILITER Medi frannie S EVERY Branch WEEK pantoprazol 2020-0 Yes [id number] 40mg Take 1 Univers e 3-26 tablet by ity of (PROTONIX) 00:00: mouth [place] 40 mg EC 00 daily. Medical tablet Branch pantoprazol 2020-0 Yes [id number] 40mg Take 1 Univers e 3-26 tablet by ity of (PROTONIX) 00:00: mouth [place] 40 mg EC 00 daily. Medical tablet Branch pantoprazol 2020-0 Yes [id number] 40mg Take 1 Univers e 3-26 tablet by ity of (PROTONIX) 00:00: mouth [place] 40 mg EC 00 daily. Medical tablet Branch pantoprazol 2020-0 Yes [id number] 40mg Take 1 Univers e 3-26 tablet by ity of (PROTONIX) 00:00: mouth [place] 40 mg EC 00 daily. Medical tablet Branch pantoprazol 2020-0 Yes [id number] 40mg Take 1 Univers e 3-26 tablet by ity of (PROTONIX) 00:00: mouth [place] 40 mg EC 00 daily. Medical tablet Branch Syringe 2020-0 Yes [id number] Use as Uni vers with 2-26 directed ity of Needle, 00:00: [place] Disp, 00 Medical (SYRINGE Branch 3CC/25GX1") 3 mL 25 gauge x 1" Syrg Syringe 2020-0 Yes [id number] Use as Uni vers with 2-26 directed ity of Needle, 00:00: [place] Disp, 00 Medical (SYRINGE Branch 3CC/25GX1") 3 mL 25 gauge x 1" Syrg Syringe 2020-0 Yes [id number] Use as Uni vers with 2-26 directed ity of Needle, 00:00: [place] Disp, 00 Medical (SYRINGE Branch 3CC/25GX1") 3 mL 25 gauge x 1" Syrg Syringe 2020-0 Yes [id number] Use as Uni vers with 2-26 directed ity of Needle, 00:00: [place] Disp, 00 Medical (SYRINGE Branch 3CC/25GX1") 3 mL 25 gauge x 1" Syrg Syringe Yes [id number] Use as Uni vers with 2-26 directed ity of Needle, 00:00: [place] Disp, 00 Medical (SYRINGE Branch 3CC/25GX1") 3 mL 25 gauge x 1" Syrg zolpidem 10 Yes 10mg Take 1 Univ ers mg tablet 5-08 tablet by ity o f 00:00: mouth at [place] 00 bedtime as Medical needed for Branch Insomnia. zolpidem 10 Yes 10mg Take 1 Univ ers mg tablet 5-08 tablet by ity o f 00:00: mouth at [place] 00 bedtime as Medical needed for Branch Insomnia. zolpidem 10 Yes 10mg Take 1 Univ ers mg tablet 5-08 tablet by ity o f 00:00: mouth at [place] 00 bedtime as Medical needed for Branch Insomnia. zolpidem 10 Yes 10mg Take 1 Univ ers mg tablet 5-08 tablet by ity o f 00:00: mouth at [place] 00 bedtime as Medical needed for Branch Insomnia. zolpidem 10 Yes 10mg Take 1 Univ ers mg tablet 5-08 tablet by ity o f 00:00: mouth at [place] 00 bedtime as Medical needed for Branch Insomnia. oxyCODONE 2014-05 Yes Univers (ROXICODONE 1-03 ity of ) 15 mg 00:00: [place] immediate 00 Medical release Branch tablet oxyCODONE 2014-05 Yes Univers (ROXICODONE 1-03 ity of ) 15 mg 00:00: [place] immediate 00 Medical release Branch tablet oxyCODONE 2014-05 Yes Univers (ROXICODONE 1-03 ity of ) 15 mg 00:00: [place] immediate 00 Medical release Branch tablet oxyCODONE 2014-05 Yes Univers (ROXICODONE 1-03 ity of ) 15 mg 00:00: [place] immediate 00 Medical release Branch tablet oxyCODONE 2014-05 Yes Univers (ROXICODONE 1-03 ity of ) 15 mg 00:00: [place] immediate 00 Medical release Branch tablet Vital Signs Vital Name Observation Time Observation Value Comments Source Body height 2022-01-10 14:50:00 175.3 cm [facility] Medical Branch Body weight 2022-01-10 14:50:00 77.111 kg [facility] BMI 2022-01-10 14:50:00 25.10 kg/m2 [facility] Procedures Procedure Date / Time Performed Performing Clinician Adán riki GARCIA 2021-12-21 05:01:00 Doctor Unassigned, Kylah Hester [facility] RELEASE/CLEARANCE Name [facility] FORMS Encounters Start End Encounter Admission Attending Care Care Encounter Source Date/Time Date/Time Type Type Clinicians Facility Department ID 2022-04-10 2022-04-10 [facility] [id number] Univers 10:00:00 10:00:[address] [facility] 2022-03-08 2022-03-08 [facility] [id number] Univers 00:00:00 00:00:00 [facility] [id number] it y of [facility] [id number] Karlos as AARON?BLEA [phone] [address] MEDICAL OFFICE [facility] 2022-02-13 2022-02-13 Outpatient Hannah DOBBS [facility] [id number] Univers 09:00:00 09:00:00 MILAN [facility] [place] [facility] 2022-01-24 2022-01-24 Charity [facility] [id number] Univers 00:00:00 00:00:00 [facility] [id number] it y of [facility] [id number] Karlos as AARON?BLEA [phone] [address] MEDICAL OFFICE [facility] 2022-01-10 2022-01-10 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, Ang - Db [facility] 1.2.840.1 [id number] Univers 10:30:00 10:45:00 Visit Sammie Oconnor [facility] [id number] ity of [facility] [id number] Karlos as AARON?BLEA [phone] [facility] [address] MEDICAL OFFICE [facility] 2022-01-10 2022-01-10 Outpatient [facility] [id number] Univers 10:30:00 10:30:00 [facility] 2022-01-10 2022-01-10 Office [facility] [id number] Univers 09:45:00 10:00:00 Visit Sammie [facility] [id number] it y of [facility] [id number] Karlos as AARON?BLEA [phone] In gerda [place] [address] [facility] OFFICE [facility] 2022-01-10 2022-01-10 Outpatient R [facility] [id number] Univers 09:45:00 09:45:00 [facility] 2022-01-10 2022-01-10 Outpatient Hannah [facility] [id number] Univers 09:45:00 09:45:00 [facility] 2022-01-09 2022-01-09 Office [facility]RE[facility] [id number] Univers 08:45:00 09:04:23 Visit [facility] [id number] it y of [place] [id number] Karlos as AARON?BLEA [phone] In gerda [address] OFFICE [facility] 2022-01-09 2022-01-09 Outpatient Hannah [facility] [id number] Univers 08:45:00 09:04:[address] [facility] 2022-01-09 2022-01-09 Office [facility] [id number] [id number] Univers 08:45:00 09:04:23 Visit [facility] [id number] it y of [facility] [id number] Karlos as AARON?BLEA [phone] In gerda [address] OFFICE [facility] 2022-01-09 2022-01-09 Outpatient Hannah GRANADOS [facility] [id number] Univers 08:45:00 08:45:[address] [facility] 2022-01-09 2022-01-09 Outpatient [facility] [id number] Univers 08:45:00 08:45:[address] [facility] 2022-01-09 2022-01-09 Telephone [facility]taREH[facility] [id number] Univers 00:00:00 00:00:00 Mark HEALTH [id number] it y of [place] [id number] Karlos as AARON?BLEA [id number] In gerda [place] [address] [facility] 2022-01-08 2022-01-08 Outpatient R [facility] [id number] Univers 14:45:00 14:45:00 MARK ity [facility] 2022-01-03 2022-01-03 Outpatient R [facility] [id number] Univers 13:15:00 13:15:00 SAMMIE ity [facility] 2022-01-01 2022-01-01 Outpatient R [facility] [id number] Univers 14:15:00 14:15:00 SAMMIE ity [facility] 2022-01-01 2022-01-01 Orders Doctor MARY ALICE [id number] [id number] Univers 00:00:00 00:00:00 Only Unassigned, REINALDO [id number] ity of [place] [facility] [id number] Karlos as [id number] [address] 2021-12-25 2021-12-25 Outpatient R [facility] [id number] Univers 11:45:00 11:45:00 ity of [facility] 2021-12-22 2021-12-22 Telephone [facility]RE[facility] [id number] [id number] Univers 00:00:00 00:00:00 Pawel L HEALTH [id number] it y of [place] [id number] Karlos as AARON?BLEA [phone] In giovannamoni [place] [address] [facility] 2021-12-21 2021-12-21 Orders Doctor MARY ALICE 1.2.840.114 [id number] Univers 00:00:00 00:00:00 Only Unassigned, REINALDO [id number] ity of [place] [facility] [id number] Karlos as [id number] [address] 2021-12-14 2021-12-14 Refill [facility]RE[facility] [id number] [id number] Univers 00:00:00 00:00:00 Mark HEALTH [id number] it y of [place] [id number] Karlos as AARON?BLEA [phone] In gerda [place] [address] [facility] OFFICE [facility] 2021-12-08 2021-12-08 Office Anast[facility]RE[facility] [id number] [id number] Univers 09:15:00 09:30:00 Visit [facility] [id number] it y of [facility] [id number] Karlos as AARON?BLEA [id number] In gerda [place] [address] [facility] 2021-12-08 2021-12-08 Outpatient Hannah [facility] [id number] Univers 09:15:00 09:15:00 [facility] 2021-12-01 2021-12-01 Outpatient Hannah [facility] [id number] Univers 09:34:35 23:59:00 [facility] 2021-12-01 2021-12-01 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, Ang - [facility] 1.2.840.1 [id number] Univers 10:45:00 11:00:00 Visit Anastasia [facility] [id number] ity of [place] [id number] Karlos as AARON?BLEA [phone] In gerda [place] [address] [facility] 2021-12-01 2021-12-01 Office [facility]RE[facility] [id number] [id number] Univers 09:30:00 10:00:00 Visit [facility] [id number] it y of [place] [id number] Karlos as AARON?BLEA [id number] In gerda [place] [address] [facility] 2021-12-01 2021-12-01 Outpatient Hannah [facility] [id number] Univers 09:30:00 09:30:00 [facility] 2021-11-24 2021-11-24 Telephone RobertaREHOB[facility] [id number] Univers 00:00:00 00:00:00 [facility] [id number] it y of [place] [id number] Karlos as AARON?BLEA [id number] In gerda [place] [address] [facility] OFFICE [facility] 2021-11-23 2021-11-23 Outpatient Hannah OCONNOR [facility] [id number] Univers 15:15:00 15:15:00 SAMMIE moises [facility] 2021-11-22 2021-11-22 Refill [facility]RE[facility] [id number] [id number] Univers 00:00:00 00:00:00 [facility] [id number] it y of [place] [id number] Karlos as AARON?BLEA [phone] [facility] 044 [facility] 2021-10-25 2021-10-25 Outpatient R [facility] [id number] Univers 09:45:00 10:03:02 MARK [facility] [place] [facility] 2021-10-25 2021-10-25 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, [facility] 1.2.840.1 [id number] Univers 09:45:00 10:00:00 Visit Mark Granados [facility] [id number] ity of [place] [id number] Karlos as AARON?BLEA [phone] In gerda [place] [address] [facility] OFFICE [facility] 2021-10-25 2021-10-25 Office Rober[facility]RE[facility] [id number] [id number] Univers 09:30:00 09:45:00 Visit [facility] [id number] it y of [place] [id number] Karlos as AARON?BLEA [phone] In giovanname MER[place] 044 [facility] OFFICE [facility] 2021-10-25 2021-10-25 Outpatient Hannah [facility] [id number] Univers 09:30:00 09:30:00 MARK [facility] [place] [facility] 2021-10-09 2021-10-09 Outpatient Hannah [facility] [id number] Univers 09:45:00 09:45:[address] [facility] 2021-09-21 2021-09-21 Charity [facility]REH[facility] 1.2.840.114 [id number] Univers 00:00:00 00:00:00 Mark HEALTH [id number] it y of [place] [id number] Karlos as AARON?BLEA [id number] In gerda [place] [address] [place] [address] OFFICE [facility] 2021-09-01 2021-09-01 Outpatient Hannah [facility] [id number] Univers 09:40:00 23:59:00 [facility] 2021-09-01 2021-09-01 Office [facility]RE[facility] 1.2.840.114 [id number] Univers 09:30:00 10:46:30 Visit [facility] [id number] it y of [place] [id number] Karlos as AARON?BLEA [id number] In gerda [place] [address] [facility] OFFICE [facility] 2021-09-01 2021-09-01 Outpatient Hannah OCONNOR [facility] [id number] Univers 09:40:00 09:40:00 [facility] 2021-08-30 2021-08-30 Charity [facility]RE[facility] 1.2.840.114 [id number] Univers 00:00:00 00:00:00 [place] [facility] [id number] it y of [place] [id number] Karlos as AARON?BLEA [id number] In gerda [place] [address] [place] [address] OFFICE [facility] 2021-08-24 2021-08-24 Charity [facility]RE[facility] [id number] [id number] Univers 00:00:00 00:00:00 Mark HEALTH [id number] it y of [place] [id number] Karlos as AARON?BLEA [id number] In gerda [place] [address] [place] [address] OFFICE [facility] 2021-07-10 2021-07-10 Outpatient Hannah [facility] [id number] Univers 09:45:00 10:01:[address] [facility] 2021-07-10 2021-07-10 Office [facility]RE[facility] [id number] [id number] Univers 09:45:00 10:00:00 Visit [facility] [id number] it y of [place] [id number] Karlos as AARON?BLEA [phone] [address] MEDICAL OFFICE [facility] 2021-07-10 2021-07-10 Outpatient Hannah GRANADOS [facility] [id number] Univers 09:45:00 09:45:00 MARK [facility] 2021-06-16 2021-06-16 Telephone [facility]RE[facility] [id number] Univers 00:00:00 00:00:00 [place] [id number] it y of [place] [id number] Karlos as AARON?BLEA [phone] [address] MEDICAL OFFICE [facility] 2021-06-13 2021-06-13 Refill [facility] 1.2.840.114 [id number] Univers 00:00:00 00:00:00 [place] [id number] it y of [place] 4.2.7.2.686 Karlos as AARON?BLEA [phone] [address] OFFICE [facility] 2021-05-15 2021-05-15 Refill [facility] 1.2.840.114 [id number] Univers 00:00:00 00:00:00 [facility] 350.1.13.10 it y of [place] 4.2.7.2.686 Karlos as AARON?BLEA [phone] [address] MEDICAL OFFICE [facility] 2021-04-06 2021-04-06 Office [facility] 1.2.840.114 [id number] Univers 10:04:54 10:19:54 Visit [facility] 350.1.13.10 it y of [place] [id number] Karlos as AARON?BLEA [phone] [address] MEDICAL OFFICE [facility] 2021-04-06 2021-04-06 Outpatient R ROBERTA [facility] [id number] Univers 10:00:00 10:18:30 MARK moises [facility] 2021-04-06 2021-04-06 Outpatient Hannah GRANADOS [facility] [id number] Univers 10:00:00 10:00:00 MARK guzman [facility] 2021-03-29 2021-03-29 Charity [facility]RE[facility] 1.2.840.114 [id number] Univers 00:00:00 00:00:00 Mark HEALTH 350.1.13.10 it y of [place] 4.2.7.2.686 Karlos as AARON?BLEA [phone] [address] OFFICE [facility] 2021-03-10 2021-03-10 Charity [facility] 1.2.840.114 [id number] Univers 00:00:00 00:00:00 [facility] 350.1.13.10 it y of [place] 4.2.7.2.686 Karlos as Aaron?Blea [phone] [address] Office [facility] 2021-02-21 2021-02-21 [facility] 1.2.840.114 [id number] Univers 00:00:00 00:00:00 [facility] 350.1.13.10 it y of [place] 4.2.7.2.686 Karlos as Aaron?Blea [phone] [address] Office [facility] 2021-02-09 2021-02-09 Charity [facility] 1.2.840.114 [id number] Univers 00:00:00 00:00:00 [facility] 350.1.13.10 it y of [place] 4.2.7.2.686 Karlos as Aaron?Blea [phone] [address] Office [facility] 2021-01-05 2021-01-05 Outpatient Hannah OLIVARESGRANADOS [facility] [id number] Univers 14:15:00 14:15:00 MARK guzman [facility] 2021-01-04 2021-01-04 Outpatient Hannah OLIVARESGRANADOS [facility] [id number] Univers 14:30:00 14:30:00 MARK guzman [facility] 2021-01-04 2021-01-04 Outpatient Hannah GRANADOS [facility] [id number] Univers 13:15:00 13:15:00 MARK guzman [facility] 2021-01-04 2021-01-04 Outpatient Hannah GRANADOS [facility] [id number] Univers 09:45:00 09:45:00 MARK guzman [facility] 2020-12-16 2020-12-16 Refill [facility] 1.2.840.114 [id number] Univers 00:00:00 00:00:00 [facility] 350.1.13.10 it y of [place] 4.2.7.2.686 Karlos as Professio [phone] [address] Office [facility] 2020-12-06 2020-12-06 Refill [facility] 1.2.840.114 [id number] Univers 00:00:00 00:00:00 [facility] 350.1.13.10 it y of [place] 4.2.7.2.686 Karlos as Professio [phone] [facility] nal [address] [place] [address] Office [facility] 2020-11-24 2020-11-24 Office [facility]RE[facility] 1.2.840.114 [id number] Univers 12:44:01 13:46:00 Visit [facility] 350.1.13.10 it y of [place] 4.2.7.2.686 Karlos as Professio [phone] [address] Office [facility] 2020-11-24 2020-11-24 Outpatient R ROBERTA [facility] [id number] Univers 12:45:00 12:45:00 MARK guzman [facility] 2020-11-24 2020-11-24 Telephone RobertaREH[facility] [id number] [id number] Univers 00:00:00 00:00:00 [facility] 350.1.13.10 it y of [place] 4.2.7.2.686 Karlos as Professio [phone] [address] Office [facility] 2020-11-04 2020-11-04 Charity Gran[facility]RE[facility] 1.2.840.114 [id number] Univers 00:00:00 00:00:00 [facility] 350.1.13.10 it y of [place] 4.2.7.2.686 Karlos as Professio [phone] [facility] nal [address] [place] [address] Office [facility] 2020-10-25 2020-10-25 Charity [facility] 1.2.840.114 [id number] Univers 00:00:00 00:00:00 [facility] 350.1.13.10 it y of [place] 4.2.7.2.686 Karlos as Professio [phone] [facility] nal [address] [place] [address] Office [facility] 2020-10-05 2020-10-05 Rina [facility]RE[facility] [id number] [id number] Univers 00:00:00 00:00:00 [facility] 350.1.13.10 it y of [place] 4.2.7.2.686 Karlos as Professio [phone] [facility] nal [address] [place] [address] Office [facility] 2020-10-04 2020-10-04 Charity [facility]RE[facility] 1.2.840.114 [id number] Univers 00:00:00 00:00:00 [facility] 350.1.13.10 it y of [place] 4.2.7.2.686 Karlos as Professio [phone] [facility] nal [address] [place] [address] Office [facility] 2020-09-06 2020-09-06 Charity [facility] 1.2.840.114 [id number] Univers 00:00:00 00:00:00 [facility] 350.1.13.10 it y of [place] 4.2.7.2.686 Karlos as Professio [phone] [facility] [address] [place] [address] Office [facility] 2020-08-31 2020-08-31 Office Rober[facility]RE[facility] 1.2.840.114 [id number] Univers 09:22:05 09:37:05 Visit [facility] 350.1.13.10 it y of [place] 4.2.7.2.686 Karlos as Professio [phone] [address] Office [facility] 2020-08-31 2020-08-31 Outpatient R GRANADOS [facility] [id number] Univers 09:30:00 09:30:00 MARK guzman [facility] 2020-08-08 2020-08-08 Refkaye Gran[facility]RE[facility] 1.2.840.114 [id number] Univers 00:00:00 00:00:00 [facility] 350.1.13.10 it y of [place] 4.2.7.2.686 Karlos as Professio [phone] [address] Office [facility] 2020-07-08 2020-07-08 Refkaye RobertaREHOB[facility] 1.2.840.114 [id number] Univers 00:00:00 00:00:00 [facility] 350.1.13.10 it y of [place] 4.2.7.2.686 Karlos as Professio [phone] [address] Office [facility] 2020-07-01 2020-07-01 Telephone [facility]RE[facility] [id number] [id number] Univers 00:00:00 00:00:00 [facility] 350.1.13.10 it y of [place] 4.2.7.2.686 Karlos as Professio [phone] [address] Office [facility] 2020-06-01 2020-06-01 Office RobertaRE[facility] 1.2.840.114 [id number] Univers 09:18:52 09:33:52 Visit [facility] 350.1.13.10 it y of [place] 4.2.7.2.686 Karlos as Professio [phone] [address] Office [facility] 2020-06-01 2020-06-01 Outpatient R ROBERTA [facility] [id number] Univers 09:30:00 09:30:00 MARK ity [facility] 2020-05-04 2020-05-04 Refkaye [facility]RE[facility] 1.2.840.114 [id number] Univers 00:00:00 00:00:00 [facility] 350.1.13.10 it y of [place] 4.2.7.2.686 Karlos as Professio [phone] [address] Office [facility] 2020-04-26 2020-04-26 Refkaye Granados [facility] 1.2.840.114 [id number] Univers 00:00:00 00:00:00 [facility] 350.1.13.10 it y of [place] 4.2.7.2.686 Karlos as Professio [phone] [address] Office [facility] 2020-04-04 2020-04-04 Refkaye RobertaREH[facility] 1.2.840.114 [id number] Univers 00:00:00 00:00:00 [facility] 350.1.13.10 it y of [place] 4.2.7.2.686 Karlos as Professio [phone] [address] Office [facility] 2020-03-24 2020-03-24 Refkaye Gran[facility]RE[facility] 1.2.840.114 [id number] Univers 00:00:00 00:00:00 [facility] 350.1.13.10 it y of [place] 4.2.7.2.686 Karlos as Professio [phone] [address] Office [facility] 2020-02-29 2020-02-29 Office Roberta [facility] 1.2.840.114 [id number] Univers 13:54:59 14:09:59 Visit [facility] 350.1.13.10 it y of [place] 4.2.7.2.686 Karlos as Professio [phone] [address] Office [facility] 2020-02-29 2020-02-29 Outpatient R ROBERTA [facility] [id number] Univers 14:00:00 14:00:00 MARK ity of [facility] 2020-02-29 2020-02-29 Letter Doctor MARY ALICE 1.2.840.114 [id number] Univers 00:00:00 00:00:00 (Out) Unassigned, REINALDO 350.1.13.10 ity of [place] [facility] 4.2.7.2.686 Karlos as [phone] [address] 2020-02-18 2020-02-18 Refkaye [facility]RE[facility] 1.2.840.114 [id number] Univers 00:00:00 00:00:00 [facility] 350.1.13.10 it y of [place] 4.2.7.2.686 Karlos as Professio [phone] [address] One 2020-01-31 2020-01-31 Charity Granados, [facility] 1.2.840.114 [id number] Univers 00:00:00 00:00:00 [facility] 350.1.13.10 it y of [place] 4.2.7.2.686 Karlos as Professio [phone] [facility] nal [address] [place] [address] Office [facility] 2020-01-28 2020-01-28 Charity [facility]RE[facility] 1.2.840.114 [id number] Univers 00:00:00 00:00:00 Mark Briseno 350.1.13.10 i ty of [place].2.7.2.686 [place] Profess[place] [phone] [address] 2020-01-12 2020-01-12 Charity Gran[facility]RE[facility] 1.2.840.114 [id number] Univers 00:00:00 00:00:00 [facility] 350.1.13.10 it y of [place] 4.2.7.2.686 Karlos as Professio [phone] [address] One 2019-12-28 2019-12-28 Charity Gran[facility]RE[facility] 1.2.840.114 [id number] Univers 00:00:00 00:00:00 [facility] 350.1.13.10 it y of [place] 4.2.7.2.686 Karlos as Professio [phone] [facility] nal [address] [place] [address] Office [facility] 2019-11-25 2019-11-25 Michaelkaye Granados [facility] 1.2.840.114 [id number] Univers 00:00:00 00:00:00 [facility] 350.1.13.10 it y of [place] 4.2.7.2.686 Karlos as Professio [phone] [facility] nal [address] [place] [address] Office [facility] 2019-11-24 2019-11-24 Charity [facility]RE[facility] 1.2.840.114 [id number] Univers 00:00:00 00:00:00 [facility] 350.1.13.10 it y of [place] 4.2.7.2.686 Karlos as Professio [phone] [address] One 2019-11-12 2019-11-12 Refill Rober[facility]RE[facility] 1.2.840.114 [id number] Univers 00:00:00 00:00:00 [facility] 350.1.13.10 it y of [place] 4.2.7.2.686 Karlos as Professio [phone] [address] One 2019-10-26 2019-10-26 Outpatient Hannah GRANADOS [facility] [id number] Univers 09:15:00 09:15:00 MARK guzman [facility] 2019-10-21 2019-10-21 Telemedici RobertaREH[facility] 1.2.840.114 [id number] Univers 07:01:10 10:32:59 ne Visit Mark Briseno 350.1.13.10 ity of [place] 4.2.7.2.686 [place] Professio [phone] [address] 2019-10-21 2019-10-21 Outpatient Hannah GRANADOS [facility] [id number] Univers 10:15:00 10:15:00 MARK guzman [facility] 2019-09-17 2019-09-17 Refill Monica [facility] 1.2.840.114 [id number] Univers 00:00:00 00:00:00 [facility] 350.1.13.10 it y of [place] 4.2.7.2.686 Karlos as Professio [phone] [address] Office [facility] 2019-09-07 2019-09-07 Refill [facility]RE[facility] 1.2.840.114 [id number] Univers 00:00:00 00:00:00 [facility] 350.1.13.10 it y of [place] 4.2.7.2.686 Karlso as Professio [phone] [address] Office [facility] 2019-08-13 2019-08-13 Refkaye [facility]RE[facility] 1.2.840.114 [id number] Univers 00:00:00 00:00:00 [facility] 350.1.13.10 it y of [place] 4.2.7.2.686 Karlos as Professio [phone] [address] Office [facility] 2019-08-05 2019-08-05 Refkaye [facility]RE[facility] 1.2.840.114 [id number] Univers 00:00:00 00:00:00 [facility] 350.1.13.10 it y of [place] 4.2.7.2.686 Karlos as Professio [phone] In dical nal [address] [place] [address] Office [facility] 2019-07-28 2019-07-28 Refkaye [facility]RE[facility] 1.2.840.114 [id number] Univers 00:00:00 00:00:00 [facility] 350.1.13.10 it y of [place] 4.2.7.2.686 Karlos as Professio [phone] [facility] nal [address] [place] [address] Office [facility] 2019-07-15 2019-07-15 Office [facility] 1.2.840.114 [id number] Univers 08:50:45 09:05:45 Visit [facility] 350.1.13.10 it y of [place] 4.2.7.2.686 Karlos as Professio [phone] [address] Office [facility] 2019-07-15 2019-07-15 Outpatient R ROBERTA [facility] [id number] Univers 09:00:00 09:00:00 MARK ity of [facility] 2019-06-17 2019-06-17 Refkaye [facility]RE[facility] 1.2.840.114 [id number] Univers 00:00:00 00:00:00 [facility] 350.1.13.10 it y of [place] 4.2.7.2.686 Karlos as Professio [phone] [address] Office [facility] 2019-02-03 2019-02-03 Refkaye [facility]RE[facility] 1.2.840.114 [id number] Univers 00:00:00 00:00:00 [facility] 350.1.13.10 it y of [place] 4.2.7.2.686 Karlos as Professio [phone] [address] Office [facility] 2019-01-26 2019-01-26 Refkaye [facility] 1.2.840.114 [id number] Univers 00:00:00 00:00:00 [facility] 350.1.13.10 it y of [place] 4.2.7.2.686 Karlos as Professio [phone] [address] Office [facility] 2019-01-26 2019-01-26 Orders Doctor MARY ALICE 1.2.840.114 [id number] Univers 00:00:00 00:00:00 Only Unassigned, REINALDO 350.1.13.10 ity of [place] [facility] 4.2.7.2.686 Karols as [phone] [address] 2018-12-31 2018-12-31 [facility] 1.2.840.114 [id number] Univers 09:19:02 09:41:42 Visit [facility] 350.1.13.10 it y of [place] 4.2.7.2.686 Karlos as Professio [phone] [address] Office [facility] 2018-12-31 2018-12-31 Orders Doctor MARY ALICE 1.2.840.114 [id number] Univers 00:00:00 00:00:00 Only Unassigned, REINALDO 350.1.13.10 ity of [place] [facility] 4.2.7.2.686 Karlos as [phone] [address] 2018-12-15 2018-12-15 Refill [facility] 1.2.840.114 [id number] Univers 00:00:00 00:00:00 [facility] 350.1.13.10 it y of [place] 4.2.7.2.686 Karlos as Professio [phone] [address] Office [facility] Results This patient has no known results.
[2022-03-18 19:08] LABS: Absolute Lymphocytes (CBC) 1.5 K/uL (0.7-4.9); Hematocrit 40.5 % (39.6-49.0); Lymphocytes % 14.2 % (15.3-44.8); MCV 84.6 fL (80-100); RBC Red Blood Cell Count 4.79 M/uL (4.33-5.43)
--- NOTE | 2022-03-18 19:15 | RAD REPORT ---
EXAM DESCRIPTION: Natasha Single View03/18/2022 7:00 pm CLINICAL HISTORY: Chest pain COMPARISON: 2020 FINDINGS: The lungs appear clear of acute infiltrate. The heart is normal size IMPRESSION: No acute abnormalities displayed
[2022-03-18 19:20] LABS: Potassium 4.2 mmol/L (3.5-5.1); Troponin High Sensitivity 7.5 pg/mL (<58.9)
--- NOTE | 2022-03-18 19:52 | EDPHYS ---
Physician Documentation [facility] Name: Juancarlos Quinones Jr Age: 66 yrs Sex: Male : 1955 Arrival Date: 03/18/2022 Time: 18:08 Bed 6 Private MD: ED Physician Bakari Chowdary HPI: 03/18 19:44 This 66 yrs old Male presents to ER via Ambulatory with complaints of Chest pantera Pain. 19:44 This 66 yrs old Male presents to ER via Ambulatory with complaints of Chest pantera Pain. 19:44 The patient or guardian reports chest pain that is located primarily in the substernal pantera area. Onset: 1 day(s) ago. The pain radiates to both arms. Associated signs and symptoms: The patient has no apparent associated signs or symptoms. The chest pain is described as a pressure. Duration: The patient or guardian reports multiple episodes, with no pattern. Modifying factors: The symptoms are alleviated by nothing. the symptoms are aggravated by activity. Severity of pain: At its worst the pain was mild in the emergency department the pain is unchanged. The patient has not experienced similar symptoms in the past. Historical: - Allergies: 18:34 Codeine; ll1 18:34 Morphine; ll1 - PMHx: 18:34 Chronic pain; Hypertension; Myocardial infarction; RA; ll1 - PSHx: 18:34 triple bypass; ll1 - Immunization history:: Client reports having NOT received the Covid vaccine. - Social history:: Smoking status: Patient reports the use of cigarette tobacco products, smokes one-half pack cigarettes per day. - Family history:: not pertinent. ROS: 19:44 Constitutional: Negative for fever, chills, and weight loss, Eyes: Negative for injury, pantera pain, redness, and discharge, ENT: Negative for injury, pain, and discharge, Neck: Negative for injury, pain, and swelling, Cardiovascular: Negative for chest pain, palpitations, and edema, Respiratory: Negative for shortness of breath, cough, wheezing, and pleuritic chest pain, Abdomen/GI: Negative for abdominal pain, nausea, vomiting, diarrhea, and constipation, Back: Negative for injury and pain, : Negative for injury, bleeding, discharge, and swelling, MS/Extremity: Negative for injury and deformity, Skin: Negative for injury, rash, and discoloration, Neuro: Negative for headache, weakness, numbness, tingling, and seizure, Psych: Negative for depression, anxiety, suicide ideation, homicidal ideation, and hallucinations, Allergy/Immunology: Negative for hives, rash, and allergies, Endocrine: Negative for neck swelling, polydipsia, polyuria, polyphagia, and marked weight changes, Hematologic/Lymphatic: Negative for swollen nodes, abnormal bleeding, and unusual bruising. 19:44 MS/extremity: Negative for acute changes. Exam: 19:44 Constitutional: This is a well developed, well nourished patient who is awake, alert, pantera and in no acute distress. Head/Face: Normocephalic, atraumatic. Eyes: Pupils equal round and reactive to light, extra-ocular motions intact. Lids and lashes normal. Conjunctiva and sclera are non-icteric and not injected. Cornea within normal limits. Periorbital areas with no swelling, redness, or edema. ENT: Nares patent. No nasal discharge, no septal abnormalities noted. Tympanic membranes are normal and external auditory canals are clear. Oropharynx with no redness, swelling, or masses, exudates, or evidence of obstruction, uvula midline. Mucous membranes moist. Neck: Trachea midline, no thyromegaly or masses palpated, and no cervical lymphadenopathy. Supple, full range of motion without nuchal rigidity, or vertebral point tenderness. No Meningismus. Chest/axilla: Normal chest wall appearance and motion. Nontender with no deformity. No lesions are appreciated. Cardiovascular: Regular rate and rhythm with a normal S1 and S2. No gallops, murmurs, or rubs. Normal PMI, no JVD. No pulse deficits. Respiratory: Lungs have equal breath sounds bilaterally, clear to auscultation and percussion. No rales, rhonchi or wheezes noted. No increased work of breathing, no retractions or nasal flaring. Abdomen/GI: Soft, non-tender, with normal bowel sounds. No distension or tympany. No guarding or rebound. No evidence of tenderness throughout. Back: No spinal tenderness. No costovertebral tenderness. Full range of motion. Male : Normal genitalia with no discharge or lesions. Skin: Warm, dry with normal turgor. Normal color with no rashes, no lesions, and no evidence of cellulitis. MS/ Extremity: Pulses equal, no cyanosis. Neurovascular intact. Full, normal range of motion. Neuro: Awake and alert, GCS 15, oriented to person, place, time, and situation. Cranial nerves II-XII grossly intact. Motor strength 5/5 in all extremities. Sensory grossly intact. Cerebellar exam normal. Normal gait. Psych: Awake, alert, with orientation to person, place and time. Behavior, mood, and affect are within normal limits. 19:44 ECG was reviewed by the Attending Physician. Vital Signs: 18:33 BP 144 / 71; Pulse 65; Resp 16; Temp 97.3; Pulse Ox 100% ; Weight 77.11 kg; Height 5 ll1 ft. 9 in. (175.26 cm); Pain 7/10; 18:53 BP 172 / 75; Pulse 65; Resp 19; Pulse Ox 100% on R/A; Pain 7/10; mb9 20:35 BP 139 / 71; Pulse 56; Resp 22; Pulse Ox 97% on R/A; ll3 21:42 BP 113 / 65; Pulse 61; Resp 21; Pulse Ox 98% on R/A; ll3 18:33 Body Mass Index 25.10 (77.11 kg, 175.26 cm) ll1 MDM: 19:09 Patient medically screened. pantera 19:46 Differential diagnosis: abnormal EKG, acute myocardial infarction, acute pericarditis, pantera anxiety, chest wall pain, congestive heart failure Cholelithiasis costochondritis, hiatal hernia, pleurisy, stable angina, unstable angina. HEART Score: History: Slightly Suspicious (0), ECG: Non specific repolarization disturbance / LBTB / PM (1), Age: > 45 and < 65 years (1), Risk Factors: > or = 3 Risk factors for atherosclerotic disease (2), [Hypertension] [+ Family HX] Troponin: < or = 1 x Normal Limit (0). The patient was given aspirin in the Emergency Department. The patient's deep vein thrombosis risk score was calculated as follows: Total Score: 0. This patient was found to be at low risk for a deep vein thrombosis by using the Well's assessment criteria. The patient's pulmonary embolism risk score was calculated as follows: Total Score: 0-2 points. This patient was found to be at low risk for a pulmonary embolism by using the Well's assessment criteria. KULDIP Risk Score: 1 - Three or more CAD risk factors, [Family Hx], [HTN], [Elevated Cholesterol]. Data reviewed: vital signs, nurses notes, lab test result(s), EKG, radiologic studies, plain films. 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 Test interpretation: by ED physician or midlevel provider: ECG, plain radiologic studies. 03/18 18:45 Order name: Basic Metabolic Panel mb9 03/18 18:45 Order name: CBC with Diff mb9 03/18 18:45 Order name: Troponin HS mb9 03/18 19:09 Order name: CBC with Automated Diff EDMS 03/18 19:21 Order name: Basic Metabolic Panel EDMS 03/18 19:21 Order name: Troponin High Sensitivity EDMS 03/18 18:35 Order name: EKG; Complete Time: 18:37 ll1 03/18 18:45 Order name: XRAY Chest (1 view) mb9 03/18 19:16 Order name: RAD EDMS 03/18 19:44 Order name: SARS RAPID; Complete Time: 20:53 pantera 03/18 18:35 Order name: EKG; Complete Time: 18:37 ll1 03/18 18:35 Order name: EKG - Nurse/Tech; Complete Time: 18:35 ll1 03/18 18:45 Order name: Cardiac monitoring; Complete Time: 18:52 mb9 03/18 18:45 Order name: IV Saline Lock; Complete Time: 18:52 mb9 03/18 18:45 Order name: Labs collected and sent; Complete Time: 18:52 mb9 03/18 18:45 Order name: O2 Per Protocol; Complete Time: 18:52 mb9 03/18 18:45 Order name: O2 Sat Monitoring; Complete Time: 18:52 mb9 EC:44 Rate is 68 beats/min. Rhythm is regular. QRS [place] is Normal. [place] interval is normal. QRS pantera interval is normal. QT interval is normal. No Q waves. T waves are Normal. No ST changes noted. Clinical impression: NSR w/ Non-specific ST/T Changes and No evidence of ischemia. Interpreted by me. Reviewed by me. Administered Medications: 20:06 Drug: Dilaudid (HYDROmorphone) 1 mg Route: IVP; Site: right antecubital; ll3 20:45 Follow up: Response: No adverse reaction; Marked relief of symptoms; Pain is decreased ll3 20:06 Drug: Zofran (Ondansetron) 4 mg Route: IVP; Site: right antecubital; ll3 21:41 Follow up: Response: No adverse reaction ll3 20:06 Drug: Aspirin Chewable Tablet 162 mg Route: PO; ll3 21:41 Follow up: Response: No adverse reaction ll3 20:06 Drug: Lovenox (enoxaparin) 1 mg/kg Route: Sub-Q; Site: abdomen; ll3 21:41 Follow up: Response: No adverse reaction ll3 Disposition Summary: 03/18/22 19:51 Hospitalization Ordered Hospitalization Status: Observation pantera Provider: Curly Flores cha Location: Telemetry/MedSurg (observation) pantera Condition: Fair pantera Problem: new pantera Symptoms: have improved pantera Bed/Room Type: [facility] Room Assignment: 214(03/18/22 21:12) cg Diagnosis - Chest pain, unspecified pantera - Essential (primary) hypertension pantera Forms: - Medication Reconciliation Form pantera - SBAR form pantera Signatures: Dispatcher [employer] EDBakari Traylor MD MD cha Garcia, Cindy RN RN cg Yvette Gar RN RN ll1 Steph Santamaria RN RN ll3 Yamilka Walker PA-C PA-C sb4 Shantell Reeves RN RN mb9 Corrections: (The following items were deleted from the chart) 21:12 19:51 pantera cg
--- NOTE | 2022-03-18 19:52 | ER ---
Nurse's Notes [facility] Name: Juancarlos Quinones Jr Age: 66 yrs Sex: Male : 1955 Arrival Date: 03/18/2022 Time: 18:08 Bed 6 Private MD: Diagnosis: Chest pain, unspecified;Essential (primary) hypertension Presentation: 03/18 18:33 Chief complaint: Patient states: CP off/on for 2 days. + SOB. Coronavirus screen: ll1 Vaccine status: Patient reports being unvaccinated. Client denies travel out of the [place] in the last 14 days. At this time, the client does not indicate any symptoms associated with coronavirus-19. Ebola Screen: Patient denies travel to an Ebola-affected area in the 21 days before illness onset. Initial Sepsis Screen: Does the patient meet any 2 criteria? No. Patient's initial sepsis screen is negative. Does the patient have a suspected source of infection? No. Patient's initial sepsis screen is negative. Risk Assessment: Do you want to hurt yourself or someone else? Patient reports no desire to harm self or others. Onset of symptoms was March 17, 2022. 18:33 Method Of Arrival: Ambulatory ll1 18:33 Acuity: SUNITA 2 ll1 Historical: - Allergies: 18:34 Codeine; ll1 18:34 Morphine; ll1 - PMHx: 18:34 Chronic pain; Hypertension; Myocardial infarction; RA; ll1 - PSHx: 18:34 triple bypass; ll1 - Immunization history:: Client reports having NOT received the Covid vaccine. - Social history:: Smoking status: Patient reports the use of cigarette tobacco products, smokes one-half pack cigarettes per day. - Family history:: not pertinent. Screenin:42 Abuse screen: Denies threats or abuse. Denies injuries from another. Nutritional ll3 screening: No deficits noted. Tuberculosis screening: No symptoms or risk factors identified. Fall Risk None identified. Assessment: 18:54 General: Appears in no apparent distress. comfortable, Behavior is calm, cooperative, mb9 appropriate for age. Pain: Complains of pain in chest Pain radiates to back Pain currently is 7 out of 10 on a pain scale. Quality of pain is described as heavy, pressure, Pain began 2-3 days ago. Neuro: Level of Consciousness is awake, alert, obeys commands, Oriented to person, place, time, situation, Appropriate for age. Cardiovascular: Reports chest pain, nausea, shortness of breath, Heart tones S1 S2 present Rhythm is regular Chest pain. Respiratory: Airway is patent Respiratory effort is even, unlabored, Respiratory pattern is regular, symmetrical, Breath sounds are clear bilaterally. Parent/caregiver reports the patient having shortness of breath since this morning. GI: Abdomen is round Abdomen is tender to palpation X 4 quads. : No signs and/or symptoms were reported regarding the genitourinary system. EENT: No signs and/or symptoms were reported regarding the EENT system. Derm: Skin is pink, warm \T\ dry. Musculoskeletal: Range of motion: intact in all extremities. 19:14 Reassessment: report given to CEE Rojas. mb9 Vital Signs: 18:33 BP 144 / 71; Pulse 65; Resp 16; Temp 97.3; Pulse Ox 100% ; Weight 77.11 kg; Height 5 ll1 ft. 9 in. (175.26 cm); Pain 7/10; 18:53 BP 172 / 75; Pulse 65; Resp 19; Pulse Ox 100% on R/A; Pain 7/10; mb9 20:35 BP 139 / 71; Pulse 56; Resp 22; Pulse Ox 97% on R/A; ll3 21:42 BP 113 / 65; Pulse 61; Resp 21; Pulse Ox 98% on R/A; ll3 18:33 Body Mass Index 25.10 (77.11 kg, 175.26 cm) ll1 ED Course: 18:08 Patient arrived in ED. as 18:34 Triage completed. ll1 18:35 Arm band placed on. EKG completed in triage. Results shown to . ll1 18:44 Shantell Reeves, RN is Primary Nurse. mb9 18:52 Basic Metabolic Panel Sent. mb9 18:52 CBC with Diff Sent. mb9 18:52 Troponin HS Sent. mb9 18:53 Inserted saline lock: 20 gauge in right antecubital area, using aseptic technique. mb9 Blood collected. 18:53 EKG done, by ED staff, reviewed by Miguel Frederick MD. mb9 18:57 Placed in gown. Bed in low position. Call light in reach. Side rails up X 1. Client mb9 placed on continuous cardiac and pulse oximetry monitoring. NIBP monitoring applied. surveillance system monitor on. 19:09 Bakari Chowdary MD is Attending Physician[facility] 19:26 RAD In Process Unspecified. EDNH 19:49 Curly Flores MD is Hospitalizing Provider. pantera 21:42 Patient maintains SpO2 saturation greater than 95% on room air. ll3 21:42 No provider procedures requiring assistance completed. ll3 22:05 Patient admitted, IV remains in place. ll3 Administered Medications: 20:06 Drug: Dilaudid (HYDROmorphone) 1 mg Route: IVP; Site: right antecubital; ll3 20:45 Follow up: Response: No adverse reaction; Marked relief of symptoms; Pain is decreased ll3 20:06 Drug: Zofran (Ondansetron) 4 mg Route: IVP; Site: right antecubital; ll3 21:41 Follow up: Response: No adverse reaction ll3 20:06 Drug: Aspirin Chewable Tablet 162 mg Route: PO; ll3 21:41 Follow up: Response: No adverse reaction ll3 20:06 Drug: Lovenox (enoxaparin) 1 mg/kg Route: Sub-Q; Site: abdomen; ll3 21:41 Follow up: Response: No adverse reaction ll3 Medication: 21:42 VIS not applicable for this client. ll3 Outcome: 19:51 Decision to Hospitalize [facility] Provider[facility] 22:05 Admitted to Med/surg accompanied by tech, via wheelchair, room 214, with chart, Report ll3 called to CEE Peña 22:05 Condition: stable 22:05 Instructed on the need for admit, Demonstrated understanding of instructions. 22:06 Patient left the ED. ll3 Signatures: Dispatcher [employer] EDNH Bakari Chowdary MD MD cha Martinez, Amelia as Lewis, Lynsay, RN RN ll1 Steph Santamaria RN RN ll3 Shantell Reeves RN RN mb9
[2022-03-18] MEDS ORDERED: ASPIRIN 81 MG CHEWABLE TABLET ONE (19:54)
[2022-03-18] MEDS ORDERED: HYDROMORPHONE HCL 1 MG/ML INJ ONE (19:55)
[2022-03-18] MEDS ORDERED: ENOXAPARIN 80 MG/0.8 ML SQ ONE (19:55)
[2022-03-18] MEDS ORDERED: ONDANSETRON 4 MG/2 ML VIAL ONE (19:55)
[2022-03-18 20:25] LABS: SARS-CoV-2 Antigen Rapid Res Negative (Negative)
[2022-03-18] MEDS ORDERED: ATORVASTATIN 40 MG TAB PO SCH (22:03)
[2022-03-18] MEDS ORDERED: ONDANSETRON 4 MG/2 ML VIAL IV PRN (22:03)
[2022-03-18] MEDS ORDERED: ACETAMINOPHEN 500 MG TAB PO PRN (22:03)
[2022-03-18 22:22] VITALS: BMI 25.2
[2022-03-18] MEDS ORDERED: CYCLOBENZAPRINE 10 MG TAB PO ONE (22:37)
[2022-03-18] MEDS ORDERED: clonazePAM 1 MG TAB PO PRN (22:37)
[2022-03-18 22:40] VITALS: O2SAT 98
[2022-03-18] MEDS ORDERED: HYDROMORPHONE HCL 1 MG/ML INJ IV ONE (22:49)
--- NOTE | 2022-03-18 23:55 | P.HP ---
Certification for Inpatient Patient admitted to: Observation With expected LOS: <2 Midnights Patient will require the following post-hospital care: None Practitioner: I am a practitioner with admitting privileges, knowledge of patient current condition, hospital course, and medical plan of care. Services: Services provided to patient in accordance with Admission requirements found in Title 42 Section 412.3 of the Code of Federal Regulations Patient History Date of Service: 03/19/22 Reason for admission: Chest Pain History of Present Illness: Patient is a 61 year old male with history of CAD s/p CABG stents, hypertension, and chronic pain 2/2 spinal stenosis who presented to the ED with complaints of chest pain. He reports the chest pain has been occurring on and off for 2 days now and is associated with shortness of breath. He states it feels like pressure in the center of his chest and radiates down both arms. No alleviating or aggravating factors. His vital signs are stable today. Labs are unremarkable. Patient had a coronary angiogram with bypass graft study done about 1 year ago that revealed "Severe [place] coronary artery disease with patent TAPIA to LAD and patent SVG to diagonal. Good flow through the RCA and left circumflex." Cardiology recommended medical management. In the ED, he was given aspirin and lovenox. Given cardiac history, ED provider wishes to admit patient for observation for ACS rule out. Allergies morphine Adverse Reaction (Mild, Verified 01/08/19 16:01) Rash codeine Adverse Reaction (Verified 01/08/19 16:01) Nausea/Vomiting Home Medications: Oxycodone HCl 15 mg PO QID 11/09/16 clonazePAM [Klonopin*] 1 mg PO QID 11/09/16 Dextroamphetamine/Amphetamine [Adderall 10 mg Tablet] 20 mg PO BID 01/08/19 Aspirin [Aspirin EC] 81 mg PO DAILY 03/18/22 Lisinopril [Zestril] 1 tab PO DAILY 03/18/22 - Past Medical/Surgical History Has patient received pneumonia vaccine in the past: No Diabetic: No -: CAD -: spinal stenosis -: chronic pain (sees pain management) -: triple bypass 2000 -: 6 shoulder surgeries -: hernia repair -: knee surgery Psychosocial/ Personal History: Patient lives at home. - Family History Father -: Heart disease, Stroke Notes: heart attacks and bypass surgery half sister -: Diabetes - Social History Smoking Status: Current some day smoker Alcohol use: No CD- Drugs: No Caffeine use: Yes Place of Residence: Home Review of Systems Cardiovascular: Chest Pain Physical Examination - Vital Signs Temperature: 97.8 F Blood Pressure: 156/76 Pulse: 58 Respirations: 16 Pulse Ox (%): 100 - Physical Exam General: Alert, In no apparent distress HEENT: Atraumatic, PERRLA, EOMI, Sclerae nonicteric Neck: Supple, 2+ carotid pulse no bruit, No LAD, Without JVD or thyroid abnormality Respiratory: Clear to auscultation bilaterally, Normal air movement Cardiovascular: Regular rate/rhythm, Normal S1 S2 Gastrointestinal: Normal bowel sounds, No tenderness Musculoskeletal: No tenderness Integumentary: No rashes Neurological: Normal speech, Normal strength at 5/5 x4 extr, Normal tone, Normal affect - Studies Laboratory Data (last 24 hrs) 03/18/22 18:49: WBC 10.40, Hgb 13.8, Hct 40.5, Plt Count 345 03/18/22 18:49: Sodium 137, Potassium 4.2, BUN 14, Creatinine 1.19, Glucose 107 H Assessment and Plan - Problems (Diagnosis) (1) Hypertension Current Visit: Yes Status: Chronic Qualifiers: Hypertension type: primary hypertension Qualified Code(s): I10 - Essential (primary) hypertension (2) CAD (coronary artery disease) Current Visit: Yes Status: Acute Qualifiers: Coronary Disease-Associated Artery/Lesion type: bypass graft, autologous vein Associated angina: with unstable angina Qualified Code(s): I25.710 - Atherosclerosis of autologous vein coronary artery bypass graft(s) with unstable angina pectoris (3) Chronic pain syndrome Current Visit: Yes Status: Chronic (4) Tobacco abuse Current Visit: Yes Status: Chronic - Plan -Patient is admitted for observation. Monitor on telemetry -Initial troponin negative. Will trend -Cardiology consult. They have previously recommended medical management. -Lipid panel, TSH, and A1C ordered for morning -Aspirin and atorvastatin daily -Patient has chronic pain and has been requesting dilaudid. He does see pain management. -Tobacco cessation counseling -Monitor and replete electrolytes per protocol -Reconcile and continue home medications -Lovenox for VTE prophylaxis -Full code Discharge Plan: Home Plan to discharge in: 24 Hours - Advance Directives Does patient have a Living Will: Yes Does patient have a Durable POA for Healthcare: Yes - Code Status/Comfort Care Code Status Assessed: Yes (Full) Critical Care: No Time Spent Managing Pts Care (In Minutes): 50
[2022-03-19] MEDS: [UNRECOGNIZED DRUG - CODE] PO SCH ×2 (03:16→07:58)
[2022-03-19 03:57] LABS: Specific Gravity 1.029 (1.005-1.030); Urine Bilirubin NEGATIVE (Negative); Urine Blood Negative (Negative); Urine Clarity Clear (Clear); Urine Color Yellow (Yellow); Urine Glucose NEGATIVE (Negative); Urine Mucus 2+ /HPF (None Seen); Urine Protein TRACE (Negative); Urine RBC <5 /HPF (None Seen); Urine Urobilinogen 2+ (Normal)
[2022-03-19 04:05] LABS: Absolute Lymphocytes (CBC) 1.9 K/uL (0.7-4.9); Hematocrit 36.1 % (39.6-49.0); Lymphocytes % 25.1 % (15.3-44.8); MCV 84.5 fL (80-100); MPV 7.1 fL (7.6-11.3); RBC Red Blood Cell Count 4.28 M/uL (4.33-5.43)
[2022-03-19 04:34] LABS: Magnesium 2.1 mg/dL (1.8-2.4); Phosphorus 3.7 mg/dL (2.5-4.9); Potassium 3.9 mmol/L (3.5-5.1); Thyroid Stimulating Hormone 2.03 uIU/mL (0.360-3.740); Troponin High Sensitivity 7.2 pg/mL (<58.9)
[2022-03-19] MEDS ORDERED: INFLUENZA VACCINE (for 6+ mo) 0.5 ML DOSE IMVAC ONE (08:00)
[2022-03-19] MEDS ORDERED: PNEUMOCOCCAL VACCINE 0.5 ML IMVAC ONE (08:00)
--- NOTE | 2022-03-19 08:52 | RAD REPORT ---
EXAM DESCRIPTION: CT - Chest For Pe Angio - 03/19/2022 8:42 am CLINICAL HISTORY: Chest pain COMPARISON: None. TECHNIQUE: Dynamically enhanced axial 3 mm thick images of the chest were obtained during administra tion of <100> mL Isovue 370 IV contrast. Coronal and oblique reconstruction images were generated and reviewed. Exam utilizes a protocol for optimal evaluation of pulmonary arterial tree. Maximum intensity projections 3D imaging was utilized All CT scans are performed using dose optimization technique as appropriate and may include automated exposure control or mA/KV adjustment according to patient size. FINDINGS: A pulmonary embolus is not seen. A thoracic aortic aneurysm is not noted. Bovine aorta Minimal right pleural effusion. A pericardial effusion is not seen. A lung consolidation is not present. IMPRESSION: Negative for a pulmonary embolism.
[2022-03-19] MEDS ORDERED: ENOXAPARIN 40 MG/0.4 ML SQ SCH (09:00)
[2022-03-19] MEDS ORDERED: lisinopriL 10 MG TAB PO SCH (09:00)
[2022-03-19] MEDS ORDERED: POTASSIUM CL SA 10 MEQ TAB PO ONE (09:00)
[2022-03-19] MEDS ORDERED: ASPIRIN EC 81 MG TAB PO SCH (09:00)
[2022-03-19 12:27] VITALS: BP 128/64; TEMP 97.4
--- NOTE | 2022-03-19 14:26 | P.DS ---
Admission Date: 03/18/22 Discharge Date: 03/19/22 Disposition: ROUTINE DISCHARGE Discharge Condition: GOOD Reason for Admission: Chest Pain Consultations: Cardiology Dr. Schulte Brief History of Present Illness: 61 year old male with history of CAD s/p CABG stents, hypertension, and chronic pain 2/2 spinal stenosis who presented to the ED with complaints of chest pain. He reports the chest pain has been occurring on and off for 2 days now and is associated with shortness of breath. He states it feels like pressure in the center of his chest and radiates down both arms. No alleviating or aggravating factors. His vital signs are stable today. Labs are unremarkable. Patient had a coronary angiogram with bypass graft study done about 1 year ago that revealed "Severe [place] coronary artery disease with patent TAPIA to LAD and patent SVG to diagonal. Good flow through the RCA and left circumflex." Cardiology recommended medical management. In the ED, he was given aspirin and lovenox. Given cardiac history, ED provider wishes to admit patient for observation for ACS rule out. Hospital Course: Problem list Chest pain CAD, s/p CABG, PCI HTN Chronic Pain Syndrome, spinal stenosis Nicotine dependence Patient presented with chest discomfort and shortness of breath. EKG, troponins, chest x-ray were negative. Symptoms resolved. Dr. Schulte (Cardiology) was consulted. Recommended outpatient stress testing. D-dimer was elevated. CTA chest was done and normal / negative for pulmonary embolus. Patient without any pain / tenderness / significant swelling in lower extremities. He does report a recent diagnosis of rheumatoid arthritis which can lead to elevated d-dimer Follow up with PCP within 1 week. Follow up with Cardiology Hgb A1c was 6.6, which is past the threshold for diabetes diagnosis. Recommend follow up with PCP Discussed lifestyle modifications. Start metformin 500mg BID continue aspirin, lisinopril. Prescription for atorvastatin sent as well. Vital Signs/Physical Exam: Temp Pulse Resp BP Pulse Ox 97.4 F 43 L 16 128/64 98 03/19/22 12:00 03/19/22 12:00 03/19/22 12:00 03/19/22 12:00 03/19/22 12:00 General: Alert, In no apparent distress, Oriented x3 HEENT: EOMI, Sclerae nonicteric Neck: Supple, No LAD Respiratory: Clear to auscultation bilaterally, Normal air movement Cardiovascular: No edema, Regular rate/rhythm Gastrointestinal: Soft and benign, Non-distended, No tenderness Musculoskeletal: No contractures, No tenderness Integumentary: No significant lesion, No tenderness/swelling Neurological: Normal speech, Normal affect Laboratory Data at Discharge: WBC 7.60 K/uL (4.3-10.9) 03/19/22 03:50 Hgb 12.3 g/dL (13.6-17.9) L D 03/19/22 03:50 Hct 36.1 % (39.6-49.0) L 03/19/22 03:50 Plt Count 308 K/uL (152-406) 03/19/22 03:50 Sodium 137 mmol/L (136-145) 03/19/22 03:50 Potassium 3.9 mmol/L (3.5-5.1) 03/19/22 03:50 BUN 16 mg/dL (7-18) 03/19/22 03:50 Creatinine 1.09 mg/dL (0.55-1.3) 03/19/22 03:50 Glucose 111 mg/dL (74-106) H 03/19/22 03:50 Phosphorus 3.7 mg/dL (2.5-4.9) 03/19/22 03:50 Magnesium 2.1 mg/dL (1.8-2.4) 03/19/22 03:50 Triglycerides 143 mg/dL (<150) 03/19/22 03:50 Cholesterol 150 mg/dL (<200) 03/19/22 03:50 HDL Cholesterol 43 mg/dL (40-60) 03/19/22 03:50 Cholesterol/HDL Ratio 3.49 03/19/22 03:50 Home Medications: Oxycodone HCl 15 mg PO QID 11/09/16 clonazePAM [Klonopin*] 1 mg PO QID 11/09/16 Dextroamphetamine/Amphetamine [Adderall 10 mg Tablet] 20 mg PO BID 01/08/19 Aspirin [Aspirin EC] 81 mg PO DAILY 03/18/22 Lisinopril [Zestril] 1 tab PO DAILY 03/18/22 Atorvastatin Calcium [Lipitor*] 20 mg PO BEDTIME 30 Days #30 tab 03/19/22 Metformin HCl [Glucophage*] 500 mg PO BIDWM 30 Days #60 tab 03/19/22 New Medications: Metformin HCl [Glucophage*] 500 mg PO BIDWM 30 Days #60 tab Atorvastatin Calcium [Lipitor*] 20 mg PO BEDTIME 30 Days #30 tab Physician Discharge Instructions: Patient presented with chest discomfort and shortness of breath. EKG, troponins, chest x-ray were negative. Symptoms resolved. Dr. Schulte (Cardiology) was consulted. Recommended outpatient stress testing. D-dimer was elevated. CTA chest was done and normal / negative for pulmonary embolus. Patient without any pain / tenderness / significant swelling in lower extremities. He does report a recent diagnosis of rheumatoid arthritis which can lead to elevated d-dimer Follow up with PCP within 1 week. Follow up with Cardiology Hgb A1c was 6.6, which is past the threshold for diabetes diagnosis. Recommend follow up with PCP Discussed lifestyle modifications. Start metformin 500mg BID continue aspirin, lisinopril. Prescription for atorvastatin sent as well. Followup: Baltazar George MD [Primary Care Provider] - (Please call to schedule a follow up appointment in 1-2 weeks.) Time spent managing pt's care (in minutes): 45
--- NOTE | 2022-03-19 15:57 | EKG ---
Test Date: 2022-03-18 Test Time: 18:31:41 Long Term Care Administrator: VIANEY MEASUREMENT RESULTS: Intervals: Rate: 68 IA: 202 QRSD: 86 QT: 388 QTc: 412 Balsam: P: 79 IA: 202 QRS: 83 T: 8 INTERPRETIVE STATEMENTS: Sinus rhythm with premature supraventricular complexes Otherwise normal ECG Compared to ECG 08/02/2020 12:27:55 Atrial premature complex(es) now present Sinus bradycardia no longer present First degree AV block no longer present Electronically Signed On 03-19-22 15:56:20 CDT by Nghia Schulte
--- NOTE | 2022-03-19 20:38 | CON ---
Date of Consultation: 03/18/2022 Reason For Consultation: Chest pain. History Of Present Illness: A 66-year-old male with history of coronary artery disease status post C ABG and hypertension presented to the emergency room with chest discomfort on and off for the past 3 days with some shortness of breath, pressure like and no radiation and it is not related to exertion. Does not have any other complaints. Status post cardiac catheterization about a year ago with pacheco nt grafts. Patient is chest pain free. Past Medical History: As outlined above in HPI. Medications: Refer to reconciliation sheet for detailed list. Allergies: MORPHINE AND CODEINE. Family History: No premature coronary artery disease or cancer. Social History: He is a smoker. Does not drink or use any drugs. Review of Systems: All systems reviewed and they are negative except as mentioned in HPI. Physical Examination: Vital Signs: Reviewed. Head And Neck: Pupils are equal and reactive to light. Intact eye movements. No JVD. No cervical lymphadenopathy. Neck is supple. Thyroid is not enlarged. Lungs: Clear to auscultation bilaterally. No rhonchi, wheezing, or crackles. No accessory muscle u se. Heart: Regular rate and rhythm. No extra sounds. Abdomen: Soft, nontender. Bowel sounds positive. No organomegaly. No masses or hernia. No rigidi ty or rebound. Extremities: No edema, clubbing, or cyanosis. Intact pulses. Skin: No rash noted. Neurologic: Alert, awake, and oriented x3. No acute focal deficits appreciated. Investigations: BUN 16, creatinine 1.09. Investigations: Troponins x3 are negative and hemoglobin is 12.3. Assessment And Recommendations: 1.Chest pain. Cardiac enzymes are negative. Pain is atypical. The patient can be released and fol low up as an outpatient. We will plan for ischemia workup, if it was not done on him recently. 2.Smoker. The patient was counseled and encouraged to quit smoking. 3.Hypertension. Blood pressure is controlled. Continue home medications. SR/MODL Voice ID: [id number] Report ID: [id number]
--- NOTE | 2022-03-20 06:43 | ECHO ---
HEIGHT: 5 ft 9 in WEIGHT: 170 lb 8 oz DATE OF STUDY: 03/19/[address]: Yamilka Walker 2-DIMENSIONAL: YES M.MODE: YES DOPPLER: YES COLOR FLOW: YES TDS: PORTABLE: YES DEFINITY: BUBBLE STUDY: DIAGNOSIS: CHEST PAIN CARDIAC HISTORY: CATHERIZATION: YES SURGERY: YES PROSTHETIC VALVE: PACEMAKER: MEASUREMENTS (cm) DIASTOLIC (NORMALS) SYSTOLIC (NORMALS) IVSd 1.0 (0.6-1.2) LA Diam 3.6 (1.9-4.0) LVEF 55% LVIDd 4.6 (3.5-5.7) LVIDs 3.3 (2.0-3.5) %FS 28% LVPWd 1.3 (0.6-1.2) Ao Diam 3.0 (2.0-3.7) 2 DIMENSIONAL ASSESSMENT: RIGHT ATRIUM: NORMAL LEFT ATRIUM: NORMAL RIGHT VENTRICLE: NORMAL LEFT VENTRICLE: NORMAL TRICUSPID VALVE: NORMAL MITRAL VALVE: NORMAL PULMONIC VALVE: NORMAL AORTIC VALVE: NORMAL PERICARDIAL EFFUSION: NONE AORTIC ROOT: NORMAL LEFT VENTRICULAR WALL MOTION: NORMAL DOPPLER/COLOR FLOW: NORMAL COMMENTS: NORMAL LEFT VENTRICULAR EJECTION FRACTION 55-60%. NORMAL WALL MOTION. NORMAL DIASTOLIC FUNCTION. TECHNOLOGIST: LUIS KHAN
== END 2022-03-19 12:46 | disposition home or self-care (01) ==
LOC: ER 18:06 → ERHOLD 21:03 → 2ND 21:23
PROVIDERS: ADMIT Hospitalist; ATTEND Hospitalist
DX: R07.89 Other chest pain (principal); I25.710 Atherosclerosis of autologous vein coronary artery bypass graft(s) with unstable angina pectoris; I10 Essential (primary) hypertension; G89.4 Chronic pain syndrome; M48.00 Spinal stenosis, site unspecified; Z95.5 Presence of coronary angioplasty implant and graft; Z88.6 Allergy status to analgesic agent; Z72.0 Tobacco use; Z95.1 Presence of aortocoronary bypass graft; Z71.6 Tobacco abuse counseling; Z20.822 Contact with and (suspected) exposure to COVID-19
CPT/HCPCS: 93005; 93306; 85025 ×2; 81001; 80048 ×2; 36415; 83735; 84100; 80061; 85379; 84443; 83036; 84484 ×3; 71275; 71045; 96375; 96372; 96374; 99285; 87811; Q9967; J1650; J1170 ×2; J2405; G0378 ×3

== ENCOUNTER 2022-06-09 19:47 | Observation (INO) | payer OTHER ==
--- OUTSIDE RECORDS SUMMARY | 2022-06-09 19:52 | XMS REPORT | Continuity of Care Document ---
:1955 Author Organization [facility] t Address [address] [place] [address] Care Team Providers Name Role Phone Mark Granados MD Primary Care Physician MARK GRANADOS Attending Clinician Unavailable Mark Granados MD Attending Clinician Doctor Unassigned, [place] Attending Clinician Unavailable MILAN DOBBS Attending Clinician Unavailable Lab, Ang - Db Attending Clinician Unavailable Sammie Hopkins Attending Clinician SAMMIE OCONNOR Attending Clinician Unavailable Gopal ECHOLS, Pawel Pandya Attending Clinician Monica ECHOLS, Alexei Belle Attending Clinician Payers Payer Name Policy Type Policy Number Effective Date Expiration Date S ource Problems Condition Condition Condition Status Onset Resolution Last Treating Co mments Source Name Details Category Date Date Treatment Clinician Date Anxiety Anxiety Disease Active Univers 2-11 ity of 00:00: [place] 00 [facility] Branch Right Right Disease Active 2016-05 Univers inguinal inguinal 2-05 ity of hernia hernia 00:00: [place] 00 Medical Branch Insomnia Insomnia Disease Active Unive rs 3-24 ity of 00:00: [place] 00 Medical Branch Depression Depression Disease Active 2014-05 U nivers 2-11 ity of 00:00: [place] 00 Medical [facility] ADD ADD Disease Active 2014-05 Univers (attention [...] 1971-05-20 Cigarette Smoker University of use 00:00:00 [facility] Exposure to 2022-03-31 2022-04-10 Not sure [facility] SARS-CoV-2 (event) 00:00:00 09:44:00 [facility] Alcohol intake 2022-04-10 2022-04-10 0 /d University of 00:00:00 00:00:00 [facility] Cigarettes smoked 2021-12-08 2021-12-08 Univers ity of current (pack per 00:00:00 00:00:00 ) - Reported Branch Tobacco use and 2021-12-08 2021-12-08 Smokeless Universit y of exposure 00:00:00 00:00:00 tobacco non-user [facility] [place] [facility] Sex [birth year] Universit y of 00:00:00 00:00:00 [facility] Smoking Status Start Date Stop Date Source Smokes tobacco daily 2021-12-08 00:00:00 [facility] ity of [place] [facility] Medications Ordered Filled Start Stop Current Ordering Indication Dosage Frequency Signature Comments Components Source Medication Medication Date Date Medication? Clinician (SIG) Name Name amphetamine 0 Yes [id number] 20mg Take 1 Univers -dextroamph 1-18 capsule by it y of etamine 00:00: mouth [place] (ADDERALL 00 every Medical XR) 20 mg morning. Branch 24 hr capsule amphetamine 2022-0 Yes [id number] 20mg Take 1 Univers -dextroamph 1-09 capsule by it y of etamine 20 00:00: mouth in [place] as mg 24 hr 00 the Medical capsule morning Branch and 1 capsule in the evening. amphetamine 2022-0 Yes [id number] 20mg Take 1 Univers -dextroamph 1-09 capsule by it y of etamine 20 00:00: mouth in [place] as mg 24 hr 00 the Medical capsule morning Branch and 1 capsule in the evening. dextroamphe Yes [id number] 20mg Take 1 Univers tamine-amph 1-05 tablet by ity of etamine 00:00: mouth in [place] (ADDERALL) 00 the Medical 20 mg morning Branch tablet and 1 tablet in the evening. dextroamphe 2022-0 Yes [id number] 20mg Take 1 Univers tamine-amph 1-05 tablet by ity of etamine 00:00: mouth in [place] (ADDERALL) 00 the Medical 20 mg morning Branch tablet and 1 tablet in the evening. dextroamphe 2022-0 Yes [id number] 20mg Take 1 Univers tamine-amph 1-05 tablet by ity of etamine 00:00: mouth in [place] (ADDERALL) 00 the Medical 20 mg morning Branch tablet and 1 tablet in the evening. zolpidem 10 2021-05 Yes [id number] 10mg Take 1 Univers mg tablet 1-22 tablet by ity o f 00:00: mouth at [place] 00 bedtime as Medical needed for Branch Insomnia. lisinopriL 2021-05 Yes [id number] 10mg Take 1 U nivers 10 mg 1-22 tablet by ity of tablet 00:00: mouth in [place] 00 the Medical morning. Branch dextroamphe 2021-05 Yes [id number] 20mg Take 1 Univers tamine-amph 1-22 tablet by ity of etamine 00:00: mouth in [place] (ADDERALL) 00 the Medical 20 mg morning Branch tablet and 1 tablet in the evening. cyanocobala 2021-05 Yes [id number] INJECT Univers min 1,000 1-22 INTO THE ity of mcg/mL 00:00: MUSCLE 1 [place] injection 00 MILLILITER Medi frannie S EVERY Branch WEEK clonazePAM 2021-05 Yes [id number] TAKE 1 U nivers 1 mg tablet 1-22 TABLET BY ity of 00:00: MOUTH 4 [place] 00 TIMES A Medical DAY Branch NEEDED FOR ANXIETY zolpidem 10 2021-05 Yes [id number] 10mg Take 1 Univers mg tablet 1-22 tablet by ity o f 00:00: mouth at [place] 00 bedtime as Medical needed for Branch Insomnia. lisinopriL 2021-05 Yes [id number] 10mg Take 1 U nivers 10 mg 1-22 tablet by ity of tablet 00:00: mouth in [place] 00 the Medical morning. Branch dextroamphe 2021-05 Yes [id number] 20mg Take 1 Univers tamine-amph 1-22 tablet by ity of etamine 00:00: mouth in [place] (ADDERALL) 00 the Medical 20 mg morning Branch tablet and 1 tablet in the evening. cyanocobala 2021-05 Yes [id number] INJECT Univers min 1,000 1-22 INTO THE ity of mcg/mL 00:00: MUSCLE 1 [place] injection 00 MILLILITER Medi frannie S EVERY Branch WEEK clonazePAM 2021-05 Yes [id number] TAKE 1 U nivers 1 mg tablet 1-22 TABLET BY ity of 00:00: MOUTH 4 [place] 00 TIMES A Medical DAY Branch NEEDED FOR ANXIETY zolpidem 10 2021-05 Yes [id number] 10mg Take 1 Univers mg tablet 1-22 tablet by ity o f 00:00: mouth at [place] 00 bedtime as Medical needed for Branch Insomnia. lisinopriL 2021-05 Yes [id number] 10mg Take 1 U nivers 10 mg 1-22 tablet by ity of tablet 00:00: mouth in [place] 00 the Medical morning. Branch cyanocobala 2021-05 Yes [id number] INJECT Univers min 1,000 1-22 INTO THE ity of mcg/mL 00:00: MUSCLE 1 [place] injection 00 MILLILITER Medi frannie S EVERY Branch WEEK clonazePAM 2021-05 Yes [id number] TAKE 1 U nivers 1 mg tablet 1-22 TABLET BY ity of 00:00: MOUTH 4 [place] 00 TIMES A Medical DAY Branch NEEDED FOR ANXIETY zolpidem 10 2021-05 Yes [id number] 10mg Take 1 Univers mg tablet 1-22 tablet by ity o f 00:00: mouth at [place] 00 bedtime as Medical needed for Branch Insomnia. lisinopriL 2021-05 Yes [id number] 10mg Take 1 U nivers 10 mg 1-22 tablet by ity of tablet 00:00: mouth in [place] 00 the Medical morning. Branch cyanocobala 2021-05 Yes [id number] INJECT Univers min 1,000 1-22 INTO THE ity of mcg/mL 00:00: MUSCLE 1 [place] injection 00 MILLILITER Medi frannie S EVERY Branch WEEK clonazePAM 2021-05 Yes [id number] TAKE 1 U nivers 1 mg tablet 1-22 TABLET BY ity of 00:00: MOUTH 4 [place] 00 TIMES A Medical DAY Branch NEEDED FOR ANXIETY zolpidem 10 2021-05 Yes [id number] 10mg Take 1 Univers mg tablet 1-22 tablet by ity o f 00:00: mouth at [place] 00 bedtime as Medical needed for Branch Insomnia. lisinopriL 2021-05 Yes [id number] 10mg Take 1 U nivers 10 mg 1-22 tablet by ity of tablet 00:00: mouth in [place] 00 the Medical morning. Branch cyanocobala 2021-05 Yes [id number] INJECT Univers min 1,000 1-22 INTO THE ity of mcg/mL 00:00: MUSCLE 1 [place] injection 00 MILLILITER Medi frannie S EVERY Branch WEEK clonazePAM 2021-05 Yes [id number] TAKE 1 U nivers 1 mg tablet 1-22 TABLET BY ity of 00:00: MOUTH 4 [place] 00 TIMES A Medical DAY Branch NEEDED FOR ANXIETY dextroamphe 2021-05- No [id number] 20mg Take 1 Univers tamine-amph 1-22 01-05 tablet by it y of etamine 00:00: 00:00 mouth in [place] (ADDERALL) 00 :00 the Medical 20 mg morning Branch tablet and 1 tablet in the evening. dextroamphe 2021-05 Yes [id number] 20mg Take 1 Univers tamine-amph 0-20 tablet by ity of etamine 00:00: mouth in [place] (ADDERALL) 00 the Medical 20 mg morning Branch tablet and 1 tablet in the evening. clonazePAM 2021-05 Yes [id number] TAKE 1 U nivers 1 mg tablet 0-20 TABLET BY ity of 00:00: MOUTH 4 [place] 00 TIMES A Medical DAY Branch NEEDED FOR ANXIETY dextroamphe 2021-05 Yes [id number] 20mg Take 1 Univers tamine-amph 0-20 tablet by ity of etamine 00:00: mouth in [place] [facility] Medical 20 mg morning Branch tablet and 1 tablet in the evening. clonazePAM 2021-05 Yes [id number] TAKE 1 U nivers 1 mg tablet 0-20 TABLET BY ity of 00:00: MOUTH 4 [place] 00 TIMES A Medical DAY Branch NEEDED FOR ANXIETY dextroamphe 2021-05 Yes [id number] 20mg Take 1 Univers tamine-amph 0-20 tablet by ity of etamine 00:00: mouth in [place] ([facility]) 00 the Medical 20 mg morning Branch tablet and 1 tablet in the evening. clonazePAM 2021-05 Yes [id number] TAKE 1 U nivers 1 mg tablet 0-20 TABLET BY ity of 00:00: MOUTH 4 [place] 00 TIMES A Medical DAY Branch NEEDED FOR ANXIETY dextroamphe 2021-05- No [id number] 20mg Take 1 Univers tamine-amph 0-20 11-22 tablet by it y of etamine 00:00: 00:00 mouth in [place] ([facility]) 00 :00 the Medical 20 mg morning Branch tablet and 1 tablet in the evening. clonazePAM 2021-05- No [id number] TAKE 1 Univers 1 mg tablet 0-20 11-22 TABLET BY it y of 00:00: 00:00 MOUTH 4 [place] 00 :00 TIMES A Medical DAY Branch NEEDED FOR ANXIETY dextroamphe 2021-05- No [id number] 20mg Take 1 Univers tamine-amph 0-20 11-22 tablet by it y of etamine 00:00: 00:00 mouth in [place] [facility] :00 the Medical 20 mg morning Branch tablet and 1 tablet in the evening. clonazePAM 2021-05- No [id number] TAKE 1 Univers 1 mg tablet 0-20 11-22 TABLET BY it y of 00:00: 00:00 MOUTH 4 [place] 00 :00 TIMES A Medical DAY Branch NEEDED FOR ANXIETY dextroamphe 2-0 Yes [id number] 20mg Take 1 Univers tamine-amph 9-07 tablet by ity of etamine 00:00: mouth in [place] [facility] the Medical 20 mg morning Branch tablet and 1 tablet in the evening. dextroamphe 2022-0 2022- No [id number] 20mg Take 1 Univers tamine-amph 9-07 10-20 tablet by it y of etamine 00:00: 00:00 mouth in [place] [facility] :00 the Medical 20 mg morning Branch tablet and 1 tablet in the evening. clonazePAM 2022-0 Yes [id number] TAKE 1 U nivers 1 mg tablet 8-23 TABLET BY ity of 00:00: MOUTH 4 [place] 00 TIMES A Medical DAY Branch NEEDED FOR ANXIETY clonazePAM 2022-0 Yes [id number] TAKE 1 U nivers 1 mg tablet 8-23 TABLET BY ity of 00:00: MOUTH 4 [place] 00 TIMES A Medical DAY Branch NEEDED FOR ANXIETY clonazePAM 2022-0 Yes [id number] TAKE 1 U nivers 1 mg tablet 8-23 TABLET BY ity of 00:00: MOUTH 4 [place] 00 TIMES A Medical DAY Branch NEEDED FOR ANXIETY clonazePAM 2022-0 2022- No [id number] TAKE 1 Univers 1 mg tablet 8-23 10-20 TABLET BY it y of 00:00: 00:00 MOUTH 4 [place] 00 :00 TIMES A Medical DAY Branch NEEDED FOR ANXIETY dextroamphe 2022-0 Yes [id number] 20mg Take 1 Univers tamine-amph 8-01 tablet by ity of etamine 00:00: mouth in [place] [facility] the Medical 20 mg morning Branch tablet and 1 tablet in the evening. dextroamphe 2022-0 Yes [id number] 20mg Take 1 Univers tamine-amph 8-01 tablet by ity of etamine 00:00: mouth in [place] [facility] the Medical 20 mg morning Branch tablet and 1 tablet in the evening. dextroamphe 2022-0 Yes [id number] 20mg Take 1 Univers tamine-amph 8-01 tablet by ity of etamine 00:00: mouth in [place] [facility] the Medical 20 mg morning Branch tablet and 1 tablet in the evening. dextroamphe 2022-0 2022- No [id number] 20mg Take 1 Univers tamine-amph 12-18- tablet by it y of etamine 00:00: 00:00 mouth in [place] (ADDERALL) 00 :00 the Medical 20 mg morning Branch tablet and 1 tablet in the evening. lisinopriL 2-0 Yes 10mg Take 10 mg U nivers 10 mg 7-04 by mouth ity of tablet 00:00: in the [place] 00 morning. Medical Branch lisinopriL 2022-0 Yes 10mg Take 10 mg U nivers 10 mg 7-04 by mouth ity of tablet 00:00: in the [place] 00 morning. Medical Branch lisinopriL 2-0 Yes 10mg Take 10 mg U nivers 10 mg 7-04 by mouth ity of tablet 00:00: in the [place] 00 morning. Medical Branch lisinopriL 2-0 Yes 10mg Take 10 mg U nivers 10 mg 7-04 by mouth ity of tablet 00:00: in the [place] 00 morning. Medical Branch lisinopriL 2-0 Yes 10mg Take 10 mg U nivers 10 mg 7-04 by mouth ity of tablet 00:00: in the [place] 00 morning. Medical Branch lisinopriL 2-0 Yes 10mg Take 10 mg U nivers 10 mg 7-04 by mouth ity of tablet 00:00: in the [place] 00 morning. Medical Branch lisinopriL 2022-0 2022- No 10mg Take 10 mg Univers 10 mg 7-04 11-22 by mouth ity of tablet 00:00: 00:00 in the [place] 00 :00 morning. Medical Branch lisinopriL 2022-0 2022- No 10mg Take 10 mg Univers 10 mg 7-04 11-22 by mouth ity of tablet 00:00: 00:00 in the [place] 00 :00 morning. Medical Branch SERTraline 2-0 Yes [id number] 50mg Take 1 U nivers (ZOLOFT) 50 2-21 tablet by ity of mg tablet 00:00: mouth [place] 00 daily. Medical Branch SERTraline 2022-0 Yes [id number] 50mg Take 1 U nivers (ZOLOFT) 50 2-21 tablet by ity of mg tablet 00:00: mouth [place] 00 daily. Medical Branch SERTraline 2022-0 Yes [id number] 50mg Take 1 U nivers (ZOLOFT) 50 2-21 tablet by ity of mg tablet 00:00: mouth [place] 00 daily. Medical Branch SERTraline Yes [id number] 50mg Take 1 U nivers (ZOLOFT) 50 2-21 tablet by ity of mg tablet 00:00: mouth [place] 00 daily. Medical Branch SERTraline Yes [id number] 50mg Take 1 U nivers (ZOLOFT) 50 2-21 tablet by ity of mg tablet 00:00: mouth [place] 00 daily. Medical Branch SERTraline Yes [id number] 50mg Take 1 U nivers (ZOLOFT) 50 2-21 tablet by ity of mg tablet 00:00: mouth [place] 00 daily. Medical Branch SERTraline Yes [id number] 50mg Take 1 U nivers (ZOLOFT) 50 2-21 tablet by ity of mg tablet 00:00: mouth [place] 00 daily. Medical Branch SERTraline 2021- No [id number] 50mg Take 1 Univers (ZOLOFT) 50 2-21 11-22 tablet by it y of mg tablet 00:00: 00:00 mouth [place] 00 :00 daily. Medical Branch SERTraline 2021- No [id number] 50mg Take 1 Univers (ZOLOFT) 50 2-21 11-22 tablet by it y of mg tablet 00:00: 00:00 mouth [place] 00 :00 daily. Medical Branch sildenafiL 2020-05 Yes [id number] 50mg Take 1 Univers 50 mg 1-18 tablet by ity of tablet 00:00: mouth as [place] 00 needed for Medical Other Branch (prior to sexual activity). sildenafiL 2020-05 Yes [id number] 50mg Take 1 Univers 50 mg 1-18 tablet by ity of tablet 00:00: mouth as [place] 00 needed for Medical Other Branch (prior to sexual activity). sildenafiL 2020-05 Yes [id number] 50mg Take 1 Univers 50 mg 1-18 tablet by ity of tablet 00:00: mouth as [place] 00 needed for Medical Other Branch (prior to sexual activity). sildenafiL 2020-05 Yes [id number] 50mg Take 1 Univers 50 mg 1-18 tablet by ity of tablet 00:00: mouth as [place] 00 needed for Medical Other Branch (prior to sexual activity). sildenafiL 2020-05 Yes [id number] 50mg Take 1 Univers 50 mg 1-18 tablet by ity of tablet 00:00: mouth as [place] 00 needed for Medical Other Branch (prior to sexual activity). sildenafiL 2020-05 Yes [id number] 50mg Take 1 Univers 50 mg 1-18 tablet by ity of tablet 00:00: mouth as [place] 00 needed for Medical Other Branch (prior to sexual activity). sildenafiL 2020-05 Yes [id number] 50mg Take 1 Univers 50 mg 1-18 tablet by ity of tablet 00:00: mouth as [place] 00 needed for Medical Other Branch (prior to sexual activity). sildenafiL 2020-05 Yes [id number] 50mg Take 1 Univers 50 mg 1-18 tablet by ity of tablet 00:00: mouth as [place] 00 needed for Medical Other Branch (prior to sexual activity). sildenafiL 2020-05 Yes [id number] 50mg Take 1 Univers 50 mg 1-18 tablet by ity of tablet 00:00: mouth as [place] 00 needed for Medical Other Branch (prior to sexual activity). sildenafiL 2020-05 Yes [id number] 50mg Take 1 Univers 50 mg 1-18 tablet by ity of tablet 00:00: mouth as [place] 00 needed for Medical Other Branch (prior to sexual activity). sildenafiL 2020-05 Yes [id number] 50mg Take 1 Univers 50 mg 1-18 tablet by ity of tablet 00:00: mouth as [place] 00 needed for Medical Other Branch (prior to sexual activity). sildenafiL 2020-05 Yes [id number] 50mg Take 1 Univers 50 mg 1-18 tablet by ity of tablet 00:00: mouth as [place] 00 needed for Medical Other Branch (prior to sexual activity). cyanocobala 0 Yes [id number] INJECT Univers min 1,000 1-13 INTO THE ity of mcg/mL 00:00: MUSCLE 1 [place] injection 00 MILLILITER Medi frannie S EVERY Branch WEEK cyanocobala 0 Yes [id number] INJECT Univers min 1,000 1-13 INTO THE ity of mcg/mL 00:00: MUSCLE 1 [place] injection 00 MILLILITER Medi frannie S EVERY Branch WEEK cyanocobala 2020-0 Yes [id number] INJECT Univers min 1,000 1-13 INTO THE ity of mcg/mL 00:00: MUSCLE 1 [place] injection 00 MILLILITER Medi frannie S EVERY Branch WEEK cyanocobala 0 Yes [id number] INJECT Univers min 1,000 1-13 INTO THE ity of mcg/mL 00:00: MUSCLE 1 [place] injection 00 MILLILITER Medi frannie S EVERY Branch WEEK cyanocobala 0 Yes [id number] INJECT Univers min 1,000 1-13 INTO THE ity of mcg/mL 00:00: MUSCLE 1 [place] injection 00 MILLILITER Medi frannie S EVERY Branch WEEK cyanocobala 2020-0 Yes [id number] INJECT Univers min 1,000 1-13 INTO THE ity of mcg/mL 00:00: MUSCLE 1 [place] injection 00 MILLILITER Medi frannie S EVERY Branch WEEK cyanocobala 0 Yes [id number] INJECT Univers min 1,000 1-13 INTO THE ity of mcg/mL 00:00: MUSCLE 1 [place] injection 00 MILLILITER Medi frannie S EVERY Branch WEEK cyanocobala 2- No [id number] INJECT Univers min 1,000 1-13 11-22 INTO THE ity o f mcg/mL 00:00: 00:00 MUSCLE 1 [place] injection 00 :00 MILLILITER Medi frannie S EVERY Branch WEEK cyanocobala 2020-0 2- No [id number] INJECT Univers min 1,000 1-13 11-22 INTO THE ity o f mcg/mL 00:00: 00:00 MUSCLE 1 [place] injection 00 :00 MILLILITER Medi frannie S EVERY Branch WEEK pantoprazol 2020-0 Yes [id number] 40mg Take 1 Univers e 3-26 tablet by ity of (PROTONIX) 00:00: mouth [place] 40 mg EC 00 daily. Medical tablet Branch pantoprazol 2020-0 Yes [id number] 40mg Take 1 Univers e 3-26 tablet by ity of (PROTONIX) 00:00: mouth [place] 40 mg EC 00 daily. Medical tablet Branch pantoprazol 2020-0 Yes [id number] 40mg Take 1 Univers e 3-26 tablet by ity of (PROTONIX) 00:00: mouth [place] 40 mg EC 00 daily. Medical tablet Branch pantoprazol 2020-0 Yes [id number] 40mg Take 1 Univers e 3-26 tablet by ity of (PROTONIX) 00:00: mouth [place] 40 mg EC 00 daily. Medical tablet Branch pantoprazol 2020-0 Yes [id number] 40mg Take 1 Univers e 3-26 tablet by ity of (PROTONIX) 00:00: mouth [place] 40 mg EC 00 daily. Medical tablet Branch pantoprazol 2020-0 Yes [id number] 40mg Take 1 Univers e 3-26 tablet by ity of (PROTONIX) 00:00: mouth [place] 40 mg EC 00 daily. Medical tablet Branch pantoprazol 2020-0 Yes [id number] 40mg Take 1 Univers e 3-26 tablet by ity of (PROTONIX) 00:00: mouth [place] 40 mg EC 00 daily. Medical tablet Branch pantoprazol 2020-0 2021- No [id number] 40mg Take 1 Univers e 3-26 11-22 tablet by ity of (PROTONIX) 00:00: 00:00 mouth [place] 40 mg EC 00 :00 daily. Medical tablet Branch pantoprazol 2020-0 2021- No [id number] 40mg Take 1 Univers e 3-26 11-22 tablet by ity of (PROTONIX) 00:00: 00:00 mouth [place] 40 mg EC 00 :00 daily. Medical tablet Branch Syringe 2020-0 Yes [id number] Use as Uni vers with 2-26 directed ity of Needle, 00:00: [place] Disp, 00 Medical (SYRINGE Branch 3CC/25GX1") 3 mL 25 gauge x 1" Syrg Syringe 2020-0 Yes [id number] Use as Uni vers with 2-26 directed ity of Needle, 00:00: [place] Disp, 00 Medical (SYRINGE Branch 3CC/25GX1") 3 mL 25 gauge x 1" Syrg Syringe 2020-0 Yes [id number] Use as Uni vers with 2-26 directed ity of Needle, 00:00: [place] Disp, 00 Medical (SYRINGE Branch 3CC/25GX1") 3 mL 25 gauge x 1" Syrg Syringe 2020-0 Yes [id number] Use as Uni vers with 2-26 directed ity of Needle, 00:00: [place] Disp, 00 Medical (SYRINGE Branch 3CC/25GX1") 3 mL 25 gauge x 1" Syrg Syringe 2020-0 Yes [id number] Use as Uni vers with 2-26 directed ity of Needle, 00:00: [place] Disp, 00 Medical (SYRINGE Branch 3CC/25GX1") 3 mL 25 gauge x 1" Syrg Syringe 2020-0 Yes [id number] Use as Uni vers with 2-26 directed ity of Needle, 00:00: [place] Disp, 00 Medical (SYRINGE Branch 3CC/25GX1") 3 mL 25 gauge x 1" Syrg Syringe 2020-0 Yes [id number] Use as Uni vers with 2-26 directed ity of Needle, 00:00: [place] Disp, 00 Medical (SYRINGE Branch 3CC/25GX1") 3 mL 25 gauge x 1" Syrg Syringe 2020-0 Yes [id number] Use as Uni vers with 2-26 directed ity of Needle, 00:00: [place] Disp, 00 Medical (SYRINGE Branch 3CC/25GX1") 3 mL 25 gauge x 1" Syrg Syringe 2020-0 Yes [id number] Use as Uni vers with 2-26 directed ity of Needle, 00:00: [place] Disp, 00 Medical (SYRINGE Branch 3CC/25GX1") 3 mL 25 gauge x 1" Syrg Syringe 2020-0 Yes [id number] Use as Uni vers with 2-26 directed ity of Needle, 00:00: [place] Disp, 00 Medical (SYRINGE Branch 3CC/25GX1") 3 mL 25 gauge x 1" Syrg Syringe 2020-0 Yes [id number] Use as Uni vers with 2-26 directed ity of Needle, 00:00: [place] Disp, 00 Medical (SYRINGE Branch 3CC/25GX1") 3 mL 25 gauge x 1" Syrg Syringe 2020-0 Yes [id number] Use as Uni vers with 2-26 directed ity of Needle, 00:00: [place] Disp, 00 Medical (SYRINGE Branch 3CC/25GX1") 3 mL 25 gauge x 1" Syrg zolpidem 10 2017-0 Yes 10mg Take 1 Univ ers mg tablet 5-08 tablet by ity o f 00:00: mouth at [place] 00 bedtime as Medical needed for Branch Insomnia. zolpidem 10 2017-0 Yes 10mg Take 1 Univ ers mg tablet 5-08 tablet by ity o f 00:00: mouth at [place] 00 bedtime as Medical needed for Branch Insomnia. zolpidem 10 2017-0 Yes 10mg Take 1 Univ ers mg tablet 5-08 tablet by ity o f 00:00: mouth at [place] 00 bedtime as Medical needed for Branch Insomnia. zolpidem 10 2017-0 Yes 10mg Take 1 Univ ers mg tablet 5-08 tablet by ity o f 00:00: mouth at [place] 00 bedtime as Medical needed for Branch Insomnia. zolpidem Yes 10mg Take 1 Univ ers mg tablet 5-08 tablet by ity o f 00:00: mouth at [place] 00 bedtime as Medical needed for Branch Insomnia. zolpidem Yes 10mg Take 1 Univ ers mg tablet 5-08 tablet by ity o f 00:00: mouth at [place] 00 bedtime as Medical needed for Branch Insomnia. zolpidem Yes 10mg Take 1 Univ ers mg tablet 5-08 tablet by ity o f 00:00: mouth at [place] 00 bedtime as Medical needed for Branch Insomnia. zolpidem 2021- No 10mg Take 1 Uni vers mg tablet 09-24- tablet by ity of 00:00: 00:00 mouth at [place] 00 :00 bedtime as Medical needed for Branch Insomnia. zolpidem No 10mg Take 1 Uni vers mg tablet 09-24 tablet by ity of 00:00: 00:00 mouth at [place] 00 :00 bedtime as Medical needed for Branch Insomnia. oxyCODONE 2014-05 Yes Univers (ROXICODONE 1-03 ity of ) 15 mg 00:00: [place] immediate 00 Medical release Branch tablet oxyCODONE 2014- Yes Univers (ROXICODONE 1-03 ity of ) 15 mg 00:00: [place] immediate 00 Medical release Branch tablet oxyCODONE 2014- Yes Univers (ROXICODONE 1-03 ity of ) 15 mg 00:00: [place] immediate 00 Medical release Branch tablet oxyCODONE 2014- Yes Univers (ROXICODONE 1-03 ity of ) 15 mg 00:00: [place] immediate 00 Medical release Branch tablet oxyCODONE 2014- Yes Univers (ROXICODONE 1-03 ity of ) 15 mg 00:00: [place] immediate 00 Medical release Branch tablet oxyCODONE 2014- Yes Univers (ROXICODONE 1-03 ity of ) 15 mg 00:00: [place] immediate 00 Medical release Branch tablet oxyCODONE 2014- Yes Univers (ROXICODONE 1-03 ity of ) 15 mg 00:00: [place] immediate 00 Medical release Branch tablet oxyCODONE 2014-1 Yes Univers (ROXICODONE 1-03 ity of ) 15 mg 00:00: [place] immediate 00 Medical release Branch tablet oxyCODONE 2014-05 Yes Univers (ROXICODONE 1-03 ity of ) 15 mg 00:00: [place] immediate Medical release Branch tablet oxyCODONE 2014-05 Yes Univers (ROXICODONE 1-03 ity of ) 15 mg 00:00: [place] immediate Medical release Branch tablet oxyCODONE 2014-05 Yes Univers (ROXICODONE 1-03 ity of ) 15 mg 00:00: [place] immediate Medical release Branch tablet oxyCODONE 2014-05 Yes Univers (ROXICODONE 1-03 ity of ) 15 mg 00:00: [place] immediate 00 Medical release Branch tablet Vital Signs Vital Name Observation Time Observation Value Comments Source Systolic blood 2022-04-10 15:59:00 173 mm[facility]Hg[facility] Diastolic blood 2022-04-10 15:59:00 73 mm[facility]Hg] [facility] Heart rate 2022-04-10 15:58:00 65 /min [facility] Medical Branch Body height 2022-04-10 15:58:00 175.3 cm [facility] Medical Branch Body weight 2022-04-10 15:58:00 79.742 kg [facility] Medical Branch BMI 2022-04-10 15:58:00 25.96 kg/m2 [place] [facility] Oxygen saturation 2022-04-10 15:58:00 99 /min [facility] in Arterial blood Medical Br anch by Pulse oximetry Body height 2022-01-10 14:50:00 175.3 cm [facility] Body weight 2022-01-10 14:50:00 77.111 kg [facility] Medical Branch BMI 2022-01-10 14:50:00 25.10 kg/m2 [facility] Procedures Procedure Date / Time Performed Performing Clinician Sour e EXTERNAL PROVIDER 2022-03-28 06:01:00 Doctor Unassigned, No [facility] RECORDS Name Medical Branch MEDICAL 2021-12-21 05:01:00 Doctor Unassigned, No Univer [facility] RELEASE/CLEARANCE Name Medical Branch FORMS Encounters Start End Encounter Admission Attending Care Care Encounter Source Date/Time Date/Time Type Type Clinicians Facility Department ID 2022-06-04 2022-06-04 [facility] [id number] Univers 00:00:00 00:00:00 [facility] 350.1.13.10 it y of [place] 4.2.7.2.686 Karlos as AARON?BLEA [id number] [address] [facility] 2022-05-28 2022-05-28 Telephone [facility] [id number] Univers 00:00:00 00:00:00 [facility] 350.1.13.10 [facility] 4.2.7.2.686 Karlos as AARON?BLEA [id number] [address] [facility] 2022-05-24 2022-05-24 Refill [facility] 1.2.840.114 [id number] Univers 00:00:00 00:00:00 [facility] 350.1.13.10 [facility] 4.2.7.2.686 Karlos as AARON?BLEA [phone] [address] [facility] 2022-04-10 2022-04-10 Outpatient R ROBERTA [facility] [id number] Univers 10:00:00 10:13:[address] [facility] 2022-04-10 2022-04-10 Office [facility] 1.2.840.114 [id number] Univers 10:00:00 10:13:24 Visit [facility] 350.1.13.10 [facility] 4.2.7.2.686 Karlos as AARON?BLEA [phone] [address] [facility] 2022-04-10 2022-04-10 Letter Doctor WHEAT 1.2.840.114 [id number] Univers 00:00:00 00:00:00 (Out) Unassigned, REINALDO 350.1.13.10 ity of [place] [facility] 4.2.7.2.686 Karlos as [phone] [address] 2022-03-28 2022-03-28 Orders Doctor MARY ALICE 1.2.840.114 [id number] Univers 00:00:00 00:00:00 Only Unassigned, REINALDO 350.1.13.10 ity of [place] [facility] 4.2.7.2.686 Karlos as [phone] [address] 2022-03-08 2022-03-08 Charity [facility] 1.2.840.114 [id number] Univers 00:00:00 00:00:00 [facility] 350.1.13.10 [facility] 4.2.7.2.686 Karlos as AARON?BLEA [phone] [address] [facility] 2022-02-13 2022-02-13 Outpatient R DILIA [facility] [id number] Univers 09:00:00 09:00:00 MILAN [facility] 2022-01-24 2022-01-24 Charity [facility] 1.2.840.114 [id number] Univers 00:00:00 00:00:00 [facility] 350.1.13.10 it y of [place] 4.2.7.2.686 Karlos as AARON?BLEA [phone] [address] [facility] 2022-01-10 2022-01-10 Manager Development Lab, [facility] 1.2.840.1 [id number] Univers 10:30:00 10:45:00 [facility] 350.1.13.10 ity of [place] 4.2.7.2.686 Karlos as AARON?BLEA [phone] [facility] [address] [facility] 2022-01-10 2022-01-10 Outpatient [facility] [id number] Univers 10:30:00 10:30:00 [facility] 2022-01-10 2022-01-10 Office [facility] 1.2.840.114 [id number] Univers 09:45:00 10:00:00 Visit [facility] 350.1.13.10 it [facility] 4.2.7.2.686 Karlos as AARON?BLEA [phone] Md egrda [place] [address] [facility] 2022-01-10 2022-01-10 Outpatient Hannah OCONNOR [facility] [id number] Univers 09:45:00 09:45:[address] [facility] 2022-01-10 2022-01-10 Outpatient Hannah OCONNOR [facility] [id number] Univers 09:45:00 09:45:00 SAMMIE [facility] 2022-01-09 2022-01-09 Office [facility] 1.2.840.114 [id number] Univers 08:45:00 09:04:23 Visit [facility] 350.1.13.10 it y of [place] 4.2.7.2.686 Karlos as AARON?BLEA [phone] Md gerda [place] [address] [place] [address] [facility] 2022-01-09 2022-01-09 [facility] [id number] Univers 08:45:00 09:04:[address] [facility] 2022-01-09 2022-01-09 Office [facility] 1.2.840.114 [id number] Univers 08:45:00 09:04:23 Visit [facility] 350.1.13.10 it y of [place] 4.2.7.2.686 Karlos as AARON?BLEA [phone] Md gerda [place] [address] [place] [address] [facility] 2022-01-09 2022-01-09 Outpatient R ROBERTA [facility] [id number] Univers 08:45:00 08:45:[address] [facility] 2022-01-09 2022-01-09 Outpatient R ROBERTA [facility] [id number] Univers 08:45:00 08:45:[address] [facility] 2022-01-09 2022-01-09 Telephone [facility] 1.2.651.754 [id number] Univers 00:00:00 00:00:00 [facility] 350.1.13.10 it y of [place] 4.2.7.2.686 Karlos as AARON?BLEA [phone] [facility] [address] [place] [address] [facility] 2022-01-08 2022-01-08 [facility] [id number] Univers 14:45:00 14:45:00 [facility] 2022-01-03 2022-01-03 Out[facility] [id number] Univers 13:15:00 13:15:00 [facility] 2022-01-01 2022-01-01 Outpatient [facility] [id number] Univers 14:15:00 14:15:00 [facility] 2022-01-01 2022-01-01 Orders Doctor MARY ALICE 1.2.840.114 [id number] Univers 00:00:00 00:00:00 Only Unassigned, REINALDO 350.1.13.10 ity of [place] [facility] 4.2.7.2.686 Karlos as [phone] [address] 2021-12-25 2021-12-25 Outpatient R [facility] [id number] Univers 11:45:00 11:45:[address] [facility] 2021-12-22 2021-12-22 Telephone [facility] 1.2.840.114 [id number] Univers 00:00:00 00:00:00 Pawel L HEALTH 350.1.13.10 it y of [place] 4.2.7.2.686 Karlos as AARON?BLEA [phone] [facility] [address] [facility] [address] [facility] 2021-12-21 2021-12-21 Orders Doctor MARY ALICE 1.2.840.114 [id number] Univers 00:00:00 00:00:00 Only Unassigned, REINALDO 350.1.13.10 ity of [place] HOSPITAL 4.2.7.2.686 Karlos as [phone] [address] 2021-12-14 2021-12-14 Refill [facility] 1.2.840.114 [id number] Univers 00:00:00 00:00:00 Mark HEALTH 350.1.13.10 it y of [place] 4.2.7.2.686 Karlos as AARON?BLEA [phone] [address] [facility] 2021-12-08 2021-12-08 Office [facility] 1.2.840.114 [id number] Univers 09:15:00 09:30:00 Visit [facility] 350.1.13.10 it y of [place] 4.2.7.2.686 Karlos as AARON?BLEA [id number] Me gerda [place] [address] [facility] [facility] 2021-12-08 2021-12-08 Outpatient [facility] [id number] Univers 09:15:00 09:15:00 [facility] 2021-12-01 2021-12-01 Outpatient R [facility] [id number] Univers 09:34:35 23:59:00 [facility] 2021-12-01 2021-12-01 Manager Development Lab, [facility] 1.2.840.1 14 [id number] Univers 10:45:00 11:00:00 Visit [facility] 350.1.13.10 [facility]y [facility] 4.2.7.2.686 Karlos as AARON?BLEA [phone] Md gerda [place] [address] [facility] [address] [facility] 2021-12-01 2021-12-01 Office [facility] 1.2.840.114 [id number] Univers 09:30:00 10:00:00 Visit [facility] 350.1.13.10 it y of [place] 4.2.7.2.686 Karlos as AARON?BLEA [phone] Md gerda [place] [address] [facility] [facility] 2021-12-01 2021-12-01 Outpatient R [facility] [id number] Univers 09:30:00 09:30:00 [facility] 2021-11-24 2021-11-24 Telephone [facility] 1.2.793.227 [id number] Univers 00:00:00 00:00:00 [place] [facility] 350.1.13.10 it y of [place] 4.2.7.2.686 Karlos as AARON?BLEA [phone] Md gerda [place] [address] [facility] OFFICE BUILDING 2021-11-23 2021-11-23 Outpatient Hannah OCONNOR [facility] [id number] Univers 15:15:00 15:15:[address] [facility] 2021-11-22 2021-11-22 Refill [facility] 1.2.840.114 [id number] Univers 00:00:00 00:00:00 [facility] 350.1.13.10 it y of [place] 4.2.7.2.686 Karlos as AARON?BLEA [phone] [facility] RE[facility]AN [address] [facility] [facility] 2021-10-25 2021-10-25 Outpatient Hannah GRANADOS [facility] [id number] Univers 09:45:00 10:03:[address] [facility] 2021-10-25 2021-10-25 Manager Development Lab, [facility] 1.2.840.1 [id number] Univers 09:45:00 10:00:00 Visit Roberta Mark [facility] 350.1.13.10 ity of [place] 4.2.7.2.686 Karlos as AARON?BLEA [phone] Md gerda REAGAN [address] [facility] [facility] 2021-10-25 2021-10-25 Office [facility] 1.2.840.114 [id number] Univers 09:30:00 09:45:00 Visit [facility] 350.1.13.10 it y of [place] 4.2.7.2.686 Karlos as AARON?BLEA [phone] [address] [facility] 2021-10-25 2021-10-25 Outpatient Hannah GRANADOS [facility] [id number] Univers 09:30:00 09:30:[address] [facility] 2021-10-09 2021-10-09 Outpatient Hannah GRANADOS [facility] [id number] Univers 09:45:00 09:45:[address] [facility] 2021-09-21 2021-09-21 Refill [facility] 1.2.840.114 [id number] Univers 00:00:00 00:00:00 [facility] 350.1.13.10 it y of [place] 4.2.7.2.686 Karlos as AARON?BLEA [phone] Md gerda [place] [address] [facility] [facility] 2021-09-01 2021-09-01 Outpatient [facility] [id number] Univers 09:40:00 23:59:00 [facility] 2021-09-01 2021-09-01 Office [facility] 1.2.840.114 [id number] Univers 09:30:00 10:46:30 Visit [facility] 350.1.13.10 it y of [place] 4.2.7.2.686 Karlos as AARON?BLEA [phone] Md gerda [place] [address] [facility] [facility] 2021-09-01 2021-09-01 Outpatient Hannah [facility] [id number] Univers 09:40:00 09:40:00 [facility] 2021-08-30 2021-08-30 [facility] 1.2.840.114 [id number] Univers 00:00:00 00:00:00 [facility] 350.1.13.10 it y of [place] 4.2.7.2.686 Karlos as AARON?BLEA [phone] Md gerda [place] [address] [facility] [facility] 2021-08-24 2021-08-24 [facility] 1.2.840.114 [id number] Univers 00:00:00 00:00:00 [facility] 350.1.13.10 it y of [place] 4.2.7.2.686 Karlos as AARON?BLEA [phone] Md gerda [place] [address] [place] [address] [facility] 2021-07-10 2021-07-10 Outpatient [facility] [id number] Univers 09:45:00 10:01:24 [facility] 2021-07-10 2021-07-10 Office [facility] 1.2.840.114 [id number] Univers 09:45:00 10:00:00 Visit [facility] 350.1.13.10 it y of [place] 4.2.7.2.686 Karlos as AARON?BLEA [phone] [address] [facility] [facility] 2021-07-10 2021-07-10 Outpatient R ROBERTA [facility] [id number] Univers 09:45:00 09:45:[address] [facility] 2021-06-16 2021-06-16 Telephone [facility] 1.2.364.705 [id number] Univers 00:00:00 00:00:00 [place] [facility] 350.1.13.10 it y of [place] 4.2.7.2.686 Karlos as AARON?BLEA [phone] [address] MEDICAL OFF[facility] 2021-06-13 2021-06-13 [facility] 1.2.840.114 [id number] Univers 00:00:00 00:00:00 Mark HEALTH 350.1.13.10 it y of [place] 4.2.7.2.686 Karlos as AARON?BLEA [phone] [address] MEDICAL OFF[facility] 2021-05-15 2021-05-15 [facility] 1.2.840.114 [id number] Univers 00:00:00 00:00:00 Mark HEALTH 350.1.13.10 it y of [place] 4.2.7.2.686 Karlos as AARON?BLEA [phone] [address] [facility] 2021-04-06 2021-04-06 Office [facility] 1.2.840.114 [id number] Univers 10:04:54 10:19:54 Visit [facility] 350.1.13.10 it y of [place] 4.2.7.2.686 Karlos as AARON?BLEA [id number] [address] [facility] 2021-04-06 2021-04-06 Outpatient Hannah GRANADOS [facility] [id number] Univers 10:00:00 10:18:[address] [facility] 2021-04-06 2021-04-06 Outpatient Hannah GRANADOS [facility] [id number] Univers 10:00:00 10:00:00 MARK [facility] 2021-03-29 2021-03-29 Charity [facility] 1.2.840.114 [id number] Univers 00:00:00 00:00:00 Mark HEALTH 350.1.13.10 it y of [place] 4.2.7.2.686 Karlos as AARON?BLEA [phone] [address] [facility] 2021-03-10 2021-03-10 Charity [facility] 1.2.840.114 [id number] Univers 00:00:00 00:00:00 [facility] 350.1.13.10 it y of [place] 4.2.7.2.686 Karlos as Aaron?Blea [phone] [address] 2021-02-21 2021-02-21 Charity [facility] 1.2.840.114 [id number] Univers 00:00:00 00:00:00 [facility] 350.1.13.10 it y of [place] 4.2.7.2.686 Karlos as Aaron?Blea [phone] [address] 2021-02-09 2021-02-09 Charity [facility] 1.2.840.114 [id number] Univers 00:00:00 00:00:00 [facility] 350.1.13.10 it y of [place] 4.2.7.2.686 Karlos as Aaron?Blea [id number] [address] 2021-01-05 2021-01-05 Outpatient Hannah GRANADOS [facility] [id number] Univers 14:15:00 14:15:[address] [facility] 2021-01-04 2021-01-04 Outpatient Hannah GRANADOS [facility] [id number] Univers 14:30:00 14:30:[address] [facility] 2021-01-04 2021-01-04 Outpatient Hannah GRANADOS [facility] [id number] Univers 13:15:00 13:15:[address] [facility] 2021-01-04 2021-01-04 Out[facility] [id number] Univers 09:45:00 09:45:[address] [facility] 2020-12-16 2020-12-16 Refkaye [facility] 1.2.840.114 [id number] Univers 00:00:00 00:00:00 [facility] 350.1.13.10 it y of [place] 4.2.7.2.686 Karlos as Professio [phone] Md dical nal [address] [place] [address] Office [facility] One 2020-12-06 2020-12-06 Refkaye [facility] 1.2.840.114 [id number] Univers 00:00:00 00:00:00 [facility] 350.1.13.10 it y of [place] 4.2.7.2.686 Karlos as Professio [phone] Md dical nal [address] [place] [address] One 2020-11-24 2020-11-24 Office [facility] 1.2.840.114 [id number] Univers 12:44:01 13:46:00 Visit [facility] 350.1.13.10 it y of [place] 4.2.7.2.686 Karlos as Professio [phone] [facility] nal [address] [place] [address] One 2020-11-24 2020-11-24 Outpatient Hannah [facility] [id number] Univers 12:45:00 12:45:[address] [facility] 2020-11-24 2020-11-24 Telephone [facility] 1.2.339.137 [id number] Univers 00:00:00 00:00:00 [place] [facility] 350.1.13.10 it y of [place] 4.2.7.2.686 Karlos as Professio [phone] Md dical nal [address] [place] [address] One 2020-11-04 2020-11-04 Refkaye [facility] 1.2.840.114 [id number] Univers 00:00:00 00:00:00 [facility] 350.1.13.10 it y of [place] 4.2.7.2.686 Karlos as Professio [phone] [address] Office [facility] One 2020-10-25 2020-10-25 Refkaye [facility] 1.2.840.114 [id number] Univers 00:00:00 00:00:00 [facility] 350.1.13.10 it y of [place] 4.2.7.2.686 Karlos as Professio [phone] [address] Office [facility] One 2020-10-05 2020-10-05 Telephone [facility] 1.2.501.080 [id number] Univers 00:00:00 00:00:00 [facility] 350.1.13.10 it y of [place] 4.2.7.2.686 Karlos as Professio [phone] [address] One 2020-10-04 2020-10-04 Refkaye [facility] 1.2.840.114 [id number] Univers 00:00:00 00:00:00 [facility] 350.1.13.10 it y of [place] 4.2.7.2.686 Karlos as Professio [phone] [address] Office [facility] One 2020-09-06 2020-09-06 Refkaye [facility] 1.2.840.114 [id number] Univers 00:00:00 00:00:00 [facility] 350.1.13.10 it y of [place] 4.2.7.2.686 Karlos as Professio [phone] [address] Office [facility] One 2020-08-31 2020-08-31 Office Roberta [facility] 1.2.840.114 [id number] Univers 09:22:05 09:37:05 Visit [facility] 350.1.13.10 it y of [place] 4.2.7.2.686 Karlos as Professio [phone] [address] Office [facility] One 2020-08-31 2020-08-31 Outpatient R ROBERTA [facility] [id number] Univers 09:30:00 09:30:00 MARK bordeny of [facility] 2020-08-08 2020-08-08 Refkaye [facility] 1.2.840.114 [id number] Univers 00:00:00 00:00:00 [facility] 350.1.13.10 it y of [place] 4.2.7.2.686 Karlos as Professio [phone] [address] Office [facility] One 2020-07-08 2020-07-08 Refkaye [facility] 1.2.840.114 [id number] Univers 00:00:00 00:00:00 [facility] 350.1.13.10 it y of [place] 4.2.7.2.686 Karlos as Professio [phone] [facility] nal [address] [place] [address] Office Building One 2020-07-01 2020-07-01 Telephone [facility] 1.2.704.339 [id number] Univers 00:00:00 00:00:00 [facility] 350.1.13.10 it y of [place] 4.2.7.2.686 Karlos as Professio [phone] [address] Office [facility] One 2020-06-01 2020-06-01 [facility] 1.2.840.114 [id number] Univers 09:18:52 09:33:52 Visit [facility] 350.1.13.10 it y of [place] 4.2.7.2.686 Karlos as Professio [phone] [address] Office [facility] One 2020-06-01 2020-06-01 Outpatient [facility] [id number] Univers 09:30:00 09:30:00 MARK ity of [facility] 2020-05-04 2020-05-04 Refkaye [facility] 1.2.840.114 [id number] Univers 00:00:00 00:00:00 [facility] 350.1.13.10 it y of [place] 4.2.7.2.686 Karlos as Professio [phone] [address] Office [facility] One 2020-04-26 2020-04-26 [facility] 1.2.840.114 [id number] Univers 00:00:00 00:00:00 [facility] 350.1.13.10 it y of [place] 4.2.7.2.686 Karlos as Professio [phone] [address] Office Building One 2020-04-04 2020-04-04 Refill [facility] 1.2.840.114 [id number] Univers 00:00:00 00:00:00 [facility] 350.1.13.10 it y of [place] 4.2.7.2.686 Karlos as Professio [phone] [address] Office [facility] 2020-03-24 2020-03-24 Refill [facility] 1.2.840.114 [id number] Univers 00:00:00 00:00:00 [facility] 350.1.13.10 it y of [place] 4.2.7.2.686 Karlos as Professio [phone] [address] Office [facility] One 2020-02-29 2020-02-29 Office [facility] 1.2.840.114 [id number] Univers 13:54:59 14:09:59 Visit [facility] 350.1.13.10 it y of [place] 4.2.7.2.686 Karlos as Professio [phone] [address] Office [facility] One 2020-02-29 2020-02-29 Outpatient R ROBERTA [facility] [id number] Univers 14:00:00 14:00:00 MARK ity of [facility] 2020-02-29 2020-02-29 Letter Doctor [facility] 1.2.840.114 [id number] Univers 00:00:00 00:00:00 (Out) Unassigned, REINALDO 350.1.13.10 ity of [place] [facility] 4.2.7.2.686 Karlos as [phone] [address] 2020-02-18 2020-02-18 Refkaye [facility] 1.2.840.114 [id number] Univers 00:00:00 00:00:00 [place] [facility] 350.1.13.10 it y of [place] [id number] Karlos as Professio [phone] [address] Office [facility] 2020-01-31 2020-01-31 Charity [facility] 1.2.840.114 [id number] Univers 00:00:00 00:00:00 [facility] [id number] it y of [place] [id number] Karlos as Professio [phone] Md dical nal [address] [place] [address] Office [facility] 2020-01-28 2020-01-28 [facility] 1.2.840.114 [id number] Univers 00:00:00 00:00:00 Mark Briseno [id number] i ty [place] [id number] [phone] Md dical nal [address] [place] [address] 2020-01-12 2020-01-12 [facility] 1.2.840.114 [id number] Univers 00:00:00 00:00:00 [facility] [id number] it y of [place] [id number] Karl[place] as Professio [phone] [facility] [address] [place] [address] Office [facility] One 2019-12-28 2019-12-28 [facility] 1.2.840.114 [id number] Univers 00:00:00 00:00:00 [facility] [id number] it y of [place] [id number] [place] as Professio [phone] Md dical nal [address] [place] [address] Office [facility] One 2019-11-25 2019-11-25 [facility] 1.2.840.114 [id number] Univers 00:00:00 00:00:00 [facility] [id number] it y of [place] [id number] Karl[place] as Professio [phone] Md dical nal [address] [place] [address] Office Building [facility] 2019-11-24 2019-11-24 [facility] 1.2.840.114 [id number] Univers 00:00:00 00:00:00 [facility] [id number] it y of [place] [id number] [place] as Professio [phone] [facility] [address] [place], [place] [address] [address] One 2019-11-12 2019-11-12 [facility] 1.2.840.114 [id number] Univers 00:00:00 00:00:00 [facility] [id number] it y of [place] [id number] Karl[place] as Professio [phone] [address] One 2019-10-26 2019-10-26 Outpatient [facility] [id number] Univers 09:15:00 09:15:[address] [facility] 2019-10-21 2019-10-21 Telemedici [facility] 1.2.840.114 [id number] Univers 07:01:10 10:32:59 ne Visit Mark Briseno [id number] ity of [id number] [phone] [address] 2019-10-21 2019-10-21 Outpatient Hannah GRANADOS [facility] [id number] Univers 10:15:00 10:15:[address] [facility] 2019-09-17 2019-09-17 [facility] 1.2.840.114 [id number] Univers 00:00:00 00:00:00 [facility] [id number] it y [place] [id number] [place] as Professio [phone] [address] One 2019-09-07 2019-09-07 Charity [facility] 1.2.840.114 [id number] Univers 00:00:00 00:00:00 [facility] [id number] it y of [place] [id number] [place] as Professio [phone] [address] One 2019-08-13 2019-08-13 Charity [facility] 1.2.840.114 [id number] Univers 00:00:00 00:00:00 [facility] [id number] it y of [place] [id number] [place] as Professio [phone] [address] One 2019-08-05 2019-08-05 Ref[facility]e [facility] 1.2.840.114 [id number] Univers 00:00:00 00:00:00 [facility] [id number] it y of [place] [id number] [place] as Professio [phone] [address] Office [facility] One 2019-07-28 2019-07-28 Refkaye [facility] 1.2.840.114 [id number] Univers 00:00:00 00:00:00 [facility] [id number] it y of [place] [id number] [place] as Professio [phone] [address] One 2019-07-15 2019-07-15 Office [facility] 1.2.840.114 [id number] Univers 08:50:45 09:05:45 Visit [facility] [id number] it y of [place] [id number] [place] as Professio [phone] [address] Office [facility] One 2019-07-15 2019-07-15 Outpatient R ROBERTA [facility] [id number] Univers 09:00:00 09:00:[address] [facility] 2019-06-17 2019-06-17 Charity [facility] 1.2.840.114 [id number] Univers 00:00:00 00:00:00 [facility] [id number] it y of [place] [id number] [place] as Professio [phone] [address] Office [facility] One 2019-02-03 2019-02-03 Refkaye [facility] 1.2.840.114 [id number] Univers 00:00:00 00:00:00 [facility] [id number] it y of [place] [id number] [place] as Professio [phone] [address] Office [facility] One 2019-01-26 2019-01-26 Refkaye [facility] 1.2.840.114 [id number] Univers 00:00:00 00:00:00 [facility] [id number] it y of [place] [id number] [place] as Professio [phone] [address] Office [facility] One 2019-01-26 2019-01-26 Orders Doctor MARY ALICE 1.2.840.114 [id number] Univers 00:00:00 00:00:00 Only Unassigned, REINALDO [id number] ity of [place] [facility] [id number] Karlos as [phone] [address] 2018-12-31 2018-12-31 Office [facility] 1.2.840.114 [id number] Univers 09:19:02 09:41:42 Visit [facility] [id number] it y of [place] [id number] [place] as Professio [phone] [address] One 2018-12-31 2018-12-31 Orders Doctor MARY ALICE 1.2.840.114 [id number] Univers 00:00:00 00:00:00 Only Unassigned, REINALDO [id number] ity of [place] [facility] [id number] Karlos as [phone] [address] 2018-12-15 2018-12-15 Refill [facility] 1.2.840.114 [id number] Univers 00:00:00 00:00:00 [facility] [id number] it y of [place] [id number] [place] as Professio [phone] [address] One Results This patient has no known results.
[2022-06-09] MEDS ORDERED: ONDANSETRON 4 MG/2 ML VIAL ONE (20:11)
[2022-06-09] MEDS ORDERED: ASPIRIN 81 MG CHEWABLE TABLET ONE (20:11)
[2022-06-09] MEDS ORDERED: NITROGLYCERIN 0.4 MG/TAB SL ONE (20:11)
[2022-06-09 20:39] LABS: Absolute Lymphocytes (CBC) 1.8 K/uL (0.7-4.9); Hematocrit 39.8 % (39.6-49.0); Lymphocytes % 26.1 % (15.3-44.8); MCV 86.2 fL (80-100); MPV 7.2 fL (7.6-11.3); RBC Red Blood Cell Count 4.61 M/uL (4.33-5.43)
[2022-06-09 20:51] LABS: Albumin 3.8 g/dL (3.4-5.0); Bilirubin Total 0.4 mg/dL (0.2-1.0); Potassium 3.8 mmol/L (3.5-5.1); Protein, Total 7.3 g/dL (6.4-8.2); Troponin High Sensitivity 7.2 pg/mL (<58.9)
--- NOTE | 2022-06-09 21:25 | RAD REPORT ---
EXAM DESCRIPTION: RAD - Chest Single View - 06/09/2022 8:54 pm CLINICAL HISTORY: CHEST PAIN COMPARISON: Portable 03/18/2022 TECHNIQUE: AP portable chest image was obtained 06/09/2022 8:54 pm . FINDINGS: Lungs are clear. Sternotomy wires are in place. CABG surgical clips are noted. Heart and v asculature are normal. No measurable pleural effusion and no pneumothorax. No acute bony abnormality seen. No acute aortic findings suspected. No significant change from comparison study. IMPRESSION: No acute cardiopulmonary process.
--- NOTE | 2022-06-09 21:31 | EDPHYS ---
Physician Documentation [facility] Name: Juancarlos Quinones Jr Age: 66 yrs Sex: Male : 1955 Arrival Date: 06/09/2022 Time: 19:50 Bed 5 Private MD: ED Physician Mahendra Pavon HPI: 06/09 20:43 This 66 yrs old Male presents to ER via Wheelchair with complaints of Chest Pain, Chest rt Tightness, Shortness Of Breath, General Weakness, Headache. 20:43 The patient or guardian reports chest pain that is located primarily in the substernal rt area. Onset: 2 day(s) ago. The pain does not radiate. Associated signs and symptoms: Pertinent positives: nausea, shortness of breath. The chest pain is described as a pressure. Modifying factors: the symptoms are aggravated by activity. Severity of pain: At its worst the pain was moderate. Presents to the ED with a chest pain, intermittent over the past 2 days, constant over the past 2 hours, worse with exertion. Denies other aggravating alleviating factors. Symptoms are moderate in severity. Denies other associated symptoms other than otherwise noted.. Historical: - Allergies: 20:04 Codeine; tw5 20:04 Morphine; tw5 - PMHx: 20:04 Chronic pain; Hypertension; Myocardial infarction; RA; tw5 - PSHx: 20:04 triple bypass; left shoulder; right shoulder; tw5 - Immunization history:: Adult Immunizations Flu vaccine is not up to date. - Social history:: Smoking status: unknown. - Family history:: not pertinent. ROS: 20:43 Constitutional: Negative for fever, chills, and weight loss, Eyes: Negative for injury, rt pain, redness, and discharge, MS/Extremity: Negative for injury and deformity, Skin: Negative for injury, rash, and discoloration, Neuro: Negative for headache, weakness, numbness, tingling, and seizure, Psych: Negative for depression, anxiety, suicide ideation, homicidal ideation, and hallucinations. 20:43 Cardiovascular: Positive for chest pain, Negative for 20:43 Respiratory: Positive for shortness of breath, Negative for wheezing. 20:43 Abdomen/GI: Positive for nausea, Negative for abdominal pain. Exam: 20:43 Constitutional: This is a well developed, well nourished patient who is awake, alert, rt and in no acute distress. Head/Face: Normocephalic, atraumatic. Eyes: Pupils equal round and reactive to light, extra-ocular motions intact. Lids and lashes normal. Conjunctiva and sclera are non-icteric and not injected. Cornea within normal limits. Periorbital areas with no swelling, redness, or edema. ENT: Nares patent. No nasal discharge, no septal abnormalities noted. Tympanic membranes are normal and external auditory canals are clear. Oropharynx with no redness, swelling, or masses, exudates, or evidence of obstruction, uvula midline. Mucous membranes moist. Chest/axilla: Normal chest wall appearance and motion. Nontender with no deformity. No lesions are appreciated. Cardiovascular: Regular rate and rhythm with a normal S1 and S2. No gallops, murmurs, or rubs. Normal PMI, no JVD. No pulse deficits. Respiratory: Lungs have equal breath sounds bilaterally, clear to auscultation and percussion. No rales, rhonchi or wheezes noted. No increased work of breathing, no retractions or nasal flaring. Abdomen/GI: Soft, non-tender, with normal bowel sounds. No distension or tympany. No guarding or rebound. No evidence of tenderness throughout. Skin: Warm, dry with normal turgor. Normal color with no rashes, no lesions, and no evidence of cellulitis. MS/ Extremity: Pulses equal, no cyanosis. Neurovascular intact. Full, normal range of motion. Neuro: Awake and alert, GCS 15, oriented to person, place, time, and situation. Cranial nerves II-XII grossly intact. Motor strength 5/5 in all extremities. Sensory grossly intact. Cerebellar exam normal. Normal gait. Psych: Awake, alert, with orientation to person, place and time. Behavior, mood, and affect are within normal limits. 20:43 ECG was reviewed by the Attending Physician. Vital Signs: 20:03 BP 175 / 77; Pulse 60; Resp 18; Temp 97.9; Pulse Ox 100% on R/A; Weight 79.38 kg; tw5 Height 5 ft. 9 in. (175.26 cm); Pain 10/10; 20:31 BP 111 / 67; Pulse 53; Resp 20 S; Pulse Ox 99% on R/A; aa9 20:51 BP 105 / 61; Pulse 61; Resp 21 S; Pulse Ox 99% on R/A; as6 21:00 BP 113 / 56; Pulse 55; Resp 22 S; Pulse Ox 98% on R/A; aa9 21:45 BP 126 / 60; Pulse 51; Resp 17 S; Pulse Ox 100% on R/A; aa9 22:15 BP 123 / 63; Pulse 54; Resp 23 S; Pulse Ox 97% on R/A; aa9 23:23 BP 123 / 66; Pulse 54; Resp 12 S; Pulse Ox 99% on R/A; as6 20:03 Body Mass Index 25.84 (79.38 kg, 175.26 cm) tw5 MDM: 20:01 Patient medically screened. rt 21:30 Differential diagnosis: acute myocardial infarction, acute pericarditis, coronary rt artery disease chest wall pain, congestive heart failure pneumonia, pneumothorax, pulmonary embolus. HEART Score: History: Highly Suspicious (2), ECG: Normal (0), Age: > or = 65 years (2), Risk Factors: > or = 3 Risk factors for atherosclerotic disease (2), Troponin: < or = 1 x Normal Limit (0), Total Score = 6. Data reviewed: vital signs, nurses notes, old medical records, lab test result(s), EKG, radiologic studies. Consideration of Admission/Observation Patient was admitted/placed on observation. Management of patient was discussed with the following: Hospitalist: agrees to admit. I considered the following discharge prescriptions or medication management in the emergency department Medications were administered in the Emergency Department. See MAR. Independent interpretation of the following test(s) in the Emergency Department X-Ray: My interpretation is no infiltrates. telemetry monitor: rate is 70 beats/min, Rhythm is normal sinus rhythm, with no ectopy. Test considered but Not performed: Other Details low risk for pe, cta not indicated. External Records Reviewed: Inpatient record: cardiac cath lab manager from 2020 shows severe multivessel disease. Care significantly affected by the following chronic conditions: CAD. Response to treatment: the patient's symptoms have mildly improved after treatment. 06/09 20:04 Order name: CBC with Diff; Complete Time: 20:52 rt 06/09 20:04 Order name: CMP; Complete Time: 22:22 rt 06/09 20:04 Order name: Troponin High Sensitivity; Complete Time: 22:22 rt 06/09 21:28 Order name: SARS RAPID; Complete Time: 22:22 la1 06/09 21:35 Order name: NT PRO-BNP; Complete Time: 22:22 EDMS 06/09 20:04 Order name: Chest Single View XRAY; Complete Time: 21:26 rt 06/09 21:48 Order name: DD; Complete Time: 22:21 la1 06/09 22:37 Order name: CT Chest For PE Angio rt 06/09 20:04 Order name: EKG; Complete Time: 20:04 rt 06/09 20:04 Order name: EKG - Nurse/Tech; Complete Time: 20:17 rt EC:43 Rate is 62 beats/min. Rhythm is regular, Normal Sinus Rhythm with No ectopy. QRS [place] rt is Normal. NV interval is normal. QRS interval is normal. QT interval is normal. No Q waves. T waves are Normal. No ST changes noted. Interpreted by me. Administered Medications: 20:10 Drug: Nitroglycerin 0.4 mg Route: Sublingual; aa9 20:12 Drug: Zofran (Ondansetron) 4 mg Route: IVP; Site: right antecubital; aa9 20:32 Follow up: Response: No adverse reaction; Nausea is decreased aa9 20:16 Drug: Nitroglycerin 0.4 mg Route: Sublingual; aa9 20:33 Follow up: Response: No adverse reaction aa9 20:18 Drug: Aspirin Chewable Tablet 243 mg Route: PO; aa9 20:33 Follow up: Response: No adverse reaction aa9 21:53 Drug: fentaNYL (PF) 50 mcg Route: IVP; Site: right antecubital; aa9 23:29 Follow up: Response: No adverse reaction aa9 21:54 Not Given (Patient Refused; states I already took 500 mg 2 tabs of it earlier): Tylenol aa9 1000 mg PO once Disposition Summary: 06/09/22 21:30 Hospitalization Ordered Hospitalization Status: Observation rt Provider: Ravindra Vo rt Location: Telemetry/MedSurg (observation) rt Condition: Stable rt Problem: an acute exacerbation rt Symptoms: are unchanged rt Bed/Room Type: Standard rt Room Assignment: 220(06/09/22 23:18) cg Diagnosis - Chest pain, unspecified rt Forms: - Medication Reconciliation Form rt - SBAR form rt Signatures: Dispatcher [employer] EDMS Cabrera Jarvis, RAIMANN MACHINE OPERATOR-C RAIMANN MACHINE OPERATOR-Cla1 Yoli Joshua, RN RN Helga Moore tw5 Merari Walker RN RN aa9 Mahendra Pavon MD MD rt Corrections: (The following items were deleted from the chart) 21:39 21:29 PROBNP+C.LAB.BRZ ordered. EDMS EDMS 23:18 21:30 rt cg
--- NOTE | 2022-06-09 21:31 | ER ---
Nurse's Notes [facility] Name: Juancarlos Quinones Jr Age: 66 yrs Sex: Male : 1955 Arrival Date: 06/09/2022 Time: 19:50 Bed 5 Private MD: Diagnosis: Chest pain, unspecified Presentation: 06/09 20:03 Chief complaint: Patient states: "I started having chest pain two days ago. I was tw5 hoping that it would go away, but it didn't. It feels similar to when I had my first heart attack.". Coronavirus screen: Vaccine status: Patient reports being unvaccinated. Ebola Screen: Patient negative for fever greater than or equal to 101.5 degrees Fahrenheit, and additional compatible Ebola Virus Disease symptoms Patient denies exposure to infectious person. Patient denies travel to an Ebola-affected area in the 21 days before illness onset. Initial Sepsis Screen: Does the patient meet any 2 criteria? No. Patient's initial sepsis screen is negative. Does the patient have a suspected source of infection? No. Patient's initial sepsis screen is negative. Risk Assessment: Do you want to hurt yourself or someone else? Patient reports no desire to harm self or others. Onset of symptoms was June 07, 2021. 20:03 Method Of Arrival: Wheelchair tw5 20:03 Acuity: SUNITA 2 tw5 Triage Assessment: 20:04 General: Appears uncomfortable, Behavior is calm, cooperative, appropriate for age. tw5 Pain: Complains of pain in chest Pain currently is 10 out of 10 on a pain scale. Cardiovascular: Capillary refill < 3 seconds is brisk in bilateral fingers. Historical: - Allergies: 20:04 Codeine; tw5 20:04 Morphine; tw5 - PMHx: 20:04 Chronic pain; Hypertension; Myocardial infarction; RA; tw5 - PSHx: 20:04 triple bypass; left shoulder; right shoulder; tw5 - Immunization history:: Adult Immunizations Flu vaccine is not up to date. - Social history:: Smoking status: unknown. - Family history:: not pertinent. Screenin:25 [facility] ED Fall Risk Assessment (Adult) History of falling in the last 3 months, aa9 including since admission No falls in past 3 months (0 pts) Confusion or Disorientation No (0 pts) Intoxicated or Sedated No (0 pts) Impaired Gait No (0 pts) Mobility Assist Device Used No (0 pt) Altered Elimination No (0 pt) Score/Fall Risk Level 0 - 2 = Low Risk. Abuse screen: Denies threats or abuse. Denies injuries from another. Nutritional screening: No deficits noted. Tuberculosis screening: No symptoms or risk factors identified. Assessment: 20:18 General: Appears in no apparent distress. Behavior is cooperative, appropriate for age. aa9 General: patient states,"The chest pain seems to be about the same after the nitro.". Pain: Complains of pain in chest. Neuro: Level of Consciousness is awake, alert, obeys commands, Oriented to person, place, time, situation, Appropriate for age. Respiratory: Airway is patent Respiratory effort is even, unlabored. GI: No signs and/or symptoms were reported involving the gastrointestinal system. : No signs and/or symptoms were reported regarding the genitourinary system. 22:47 Reassessment: Patient appears in no apparent distress at this time. Patient and/or aa9 family updated on plan of care and expected duration. Pain level reassessed. Patient is alert, oriented x 3, equal unlabored respirations, skin warm/dry/pink. 23:26 Pain: Pain radiates to right arm and left arm Pain began. aa9 06/10 00:02 Reassessment: Patient appears in no apparent distress at this time. Patient and/or aa9 family updated on plan of care and expected duration. Pain level reassessed. Patient is alert, oriented x 3, equal unlabored respirations, skin warm/dry/pink. Vital Signs: 06/09 20:03 BP 175 / 77; Pulse 60; Resp 18; Temp 97.9; Pulse Ox 100% on R/A; Weight 79.38 kg; tw5 Height 5 ft. 9 in. (175.26 cm); Pain 10/10; 20:31 BP 111 / 67; Pulse 53; Resp 20 S; Pulse Ox 99% on R/A; aa9 20:51 BP 105 / 61; Pulse 61; Resp 21 S; Pulse Ox 99% on R/A; as6 21:00 BP 113 / 56; Pulse 55; Resp 22 S; Pulse Ox 98% on R/A; aa9 21:45 BP 126 / 60; Pulse 51; Resp 17 S; Pulse Ox 100% on R/A; aa9 22:15 BP 123 / 63; Pulse 54; Resp 23 S; Pulse Ox 97% on R/A; aa9 23:23 BP 123 / 66; Pulse 54; Resp 12 S; Pulse Ox 99% on R/A; as6 20:03 Body Mass Index 25.84 (79.38 kg, 175.26 cm) tw5 ED Course: 19:50 Patient arrived in ED. jj6 19:54 Mahendra aPvon MD is Attending Physician. rt 20:00 Venkat Hurtado, CEE is Primary Nurse. as6 20:04 Triage completed. tw5 20:05 Patient has correct armband on for positive identification. Placed in gown. Bed in low tw5 position. Call light in reach. Side rails up X 1. Client placed on continuous cardiac and pulse oximetry monitoring. NIBP monitoring applied. Door closed. Noise minimized. Lights dimmed. Warm blanket given. Verbal reassurance given. 20:05 EKG done, by radiochemical technician. reviewed by Mahendra Pavon MD. tw5 20:17 Inserted saline lock: 20 gauge in right antecubital area, using aseptic technique. ds4 Blood collected. 20:56 Chest Single View XRAY In Process Unspecified. EDMS 21:29 Ravindra Vo MD is Hospitalizing Provider. rt 21:55 SARS RAPID Sent. aa9 23:25 No provider procedures requiring assistance completed. Patient admitted, IV remains in aa9 place. Patient maintains SpO2 saturation greater than 95% on room air. 23:26 Arm band placed on. aa9 Administered Medications: 20:10 Drug: Nitroglycerin 0.4 mg Route: Sublingual; aa9 20:12 Drug: Zofran (Ondansetron) 4 mg Route: IVP; Site: right antecubital; aa9 20:32 Follow up: Response: No adverse reaction; Nausea is decreased aa9 20:16 Drug: Nitroglycerin 0.4 mg Route: Sublingual; aa9 20:33 Follow up: Response: No adverse reaction aa9 20:18 Drug: Aspirin Chewable Tablet 243 mg Route: PO; aa9 20:33 Follow up: Response: No adverse reaction aa9 21:53 Drug: fentaNYL (PF) 50 mcg Route: IVP; Site: right antecubital; aa9 23:29 Follow up: Response: No adverse reaction aa9 21:54 Not Given (Patient Refused; states I already took 500 mg 2 tabs of it earlier): Tylenol aa9 1000 mg PO once Medication: 23:25 VIS not applicable for this client. aa9 Outcome: 21:30 Decision to Hospitalize by Provider. rt 23:25 Condition: stable aa9 06/10 00:01 Admitted to Med/surg accompanied by tech, room 220, with chart, Report called to jose King RN Instructed on the need for admit. 00:09 Patient left the ED. aa9 Signatures: Dispatcher [employer] EDMS Yosi King ds4 Helga Milian tw5 Minna Berkowitzj6 Venkat Hurtado, CEE RN as6 Merari Walker RN RN aa9 Mahendra Pavon MD MD rt
[2022-06-09] MEDS ORDERED: FENTANYL CITR 100 MCG/2 ML ONE (21:42)
[2022-06-09] MEDS ORDERED: ACETAMINOPHEN 500 MG TAB ONE (21:42)
--- NOTE | 2022-06-09 21:57 | P.HP ---
Certification for Inpatient Patient admitted to: Observation With expected LOS: <2 Midnights Patient will require the following post-hospital care: None Practitioner: I am a practitioner with admitting privileges, knowledge of patient current condition, hospital course, and medical plan of care. Services: Services provided to patient in accordance with Admission requirements found in Title 42 Section 412.3 of the Code of Federal Regulations <Cabrera Jarvis - Last Filed: 06/09/22 21:55> Patient History Date of Service: 06/09/22 Reason for admission: Chest pain History of Present Illness: 66-year-old male with history of hypertension, CAD status post CABG, RA, chronic pain presents emerged department with chest pain. He reports intermittent chest tightness over the course of the last 24 to 48 hours worse with exertion with associated shortness of breath, radiating pain to neck/shoulder/jaw. He was evaluated here in the emergency department initial high sensory troponin 7.2 BNP 111 D-dimer level is pending chest x-ray unremarkable EKG without STEMI criteria. He was given aspirin in the emergency department, ED provider wishes to admit under observation for ACS rule out. - Past Medical/Surgical History Diabetic: No -: CAD -: spinal stenosis -: chronic pain (sees pain management) -: triple bypass 2000 -: 6 shoulder surgeries -: hernia repair -: knee surgery Psychosocial/ Personal History: Patient lives at home. - Family History Father -: Heart disease, Stroke Notes: heart attacks and bypass surgery half sister -: Diabetes - Social History Smoking Status: Current every day smoker Counseled patient to stop smoking for: less than 10 minutes Smoking therapy provided: No (Patient declined) Alcohol use: No CD- Drugs: No Caffeine use: Yes <Cabrera Jarvis - Last Filed: 06/09/22 21:55> Date of Service: 06/10/22 <Ravindra Vo - Last Filed: 06/10/22 13:58> Allergies morphine Adverse Reaction (Mild, Verified 01/08/19 16:01) Rash codeine Adverse Reaction (Verified 01/08/19 16:01) Nausea/Vomiting Home Medications: RX: Oxycodone HCl 15 mg PO QID 11/09/16 RX: clonazePAM [Klonopin*] 1 mg PO QID 11/09/16 RX: Dextroamphetamine/Amphetamine [Adderall 10 mg Tablet] 20 mg PO DAILY 01/08/19 RX: Aspirin [Aspirin EC] 81 mg PO DAILY 03/18/22 RX: Lisinopril [Zestril] 1 tab PO DAILY 03/18/22 Review of Systems 10-point ROS is otherwise unremarkable Respiratory: Shortness of Breath Cardiovascular: Chest Pain <Cabrera Jarvis - Last Filed: 06/09/22 21:55> Physical Examination - Physical Exam General: Alert, In no apparent distress, Oriented x3 HEENT: Atraumatic, PERRLA, Mucous membr. moist/pink, EOMI, Sclerae nonicteric Neck: Supple, 2+ carotid pulse no bruit, No LAD, Without JVD or thyroid abnormality Respiratory: Clear to auscultation bilaterally, Normal air movement Cardiovascular: Regular rate/rhythm, Normal S1 S2 Gastrointestinal: Normal bowel sounds, No tenderness Musculoskeletal: No tenderness Integumentary: No rashes Neurological: Normal gait, Normal speech, Normal strength at 5/5 x4 extr, Normal tone, Normal affect - Studies Laboratory Data (last 24 hrs) 06/09/22 20:14: Sodium 142, Potassium 3.8, BUN 18, Creatinine 1.33 H, Glucose 143 H, Total Bilirubin 0.4, AST 10 L, ALT 17, Alkaline Phosphatase 91 06/09/22 20:14: WBC 6.80, Hgb 13.5 L, Hct 39.8, Plt Count 286 <Cabrera Jarvis - Last Filed: 06/09/22 21:55> - Studies Laboratory Data (last 24 hrs) 06/09/22 20:14: Sodium 142, Potassium 3.8, BUN 18, Creatinine 1.33 H, Glucose 143 H, Total Bilirubin 0.4, AST 10 L, ALT 17, Alkaline Phosphatase 91 06/09/22 20:14: WBC 6.80, Hgb 13.5 L, Hct 39.8, Plt Count 286 <Ravindra Vo - Last Filed: 06/10/22 13:58> Assessment and Plan - Plan Assessment: Chest pain rule out ACShistory CAD with previous CABG Hypertension RA/chronic pain Plan: Chest pain rule out ACShistory CAD with previous CABG: Trend troponin, monitor on telemetry, cardiology consult in place. Will obtain D-dimer as well to rule out pulmonary embolism. Continue aspirin, statin. Hypertension: Continue lisinopril RA/chronic pain: Continue home medications once verified. Patient follows with pain management. DVT PPX: Lovenox Code status: Full Discharge Plan: Home Plan to discharge in: 24 Hours - Advance Directives Does patient have a Living Will: Yes Does patient have a Durable POA for Healthcare: Yes - Code Status/Comfort Care Code Status Assessed: Yes (Full code) Critical Care: No Time Spent Managing Pts Care (In Minutes): 55 <Cabrera Jarvis - Last Filed: 06/09/22 21:55> Physician Review: Patient Assessed, Agree with Above Assessment and Plan <Ravindra Vo - Last Filed: 06/10/22 13:58>
[2022-06-09 22:10] LABS: SARS-CoV-2 Antigen Rapid Res Negative (Negative)
[2022-06-10] MEDS ORDERED: NITROGLYCERIN 0.4 MG/TAB SL PRN (00:27)
[2022-06-10] MEDS ORDERED: ONDANSETRON 4 MG/2 ML VIAL IV PRN (00:27)
[2022-06-10 00:43] VITALS: BMI 25.0
[2022-06-10] MEDS ORDERED: HYDROMORPHONE HCL 0.5 MG/0.5 ML INJ IV ONE (01:42)
[2022-06-10 03:08] VITALS: O2SAT 99
[2022-06-10] MEDS: OXYCODONE HCL 5 MG TAB PO SCH ×2 (05:58→12:20)
[2022-06-10 06:20] LABS: Hematocrit 38.3 % (39.6-49.0); Lymphocytes % 27.1 % (15.3-44.8); MCV 85.5 fL (80-100); MPV 7.1 fL (7.6-11.3); RBC Red Blood Cell Count 4.48 M/uL (4.33-5.43)
[2022-06-10 06:41] LABS: Potassium 3.8 mmol/L (3.5-5.1)
[2022-06-10] MEDS: clonazePAM 1 MG TAB PO SCH ×2 (08:40→12:20)
[2022-06-10] MEDS ORDERED: ENOXAPARIN 40 MG/0.4 ML SQ SCH (09:00)
[2022-06-10] MEDS ORDERED: ASPIRIN EC 81 MG TAB PO SCH (09:00)
[2022-06-10] MEDS ORDERED: lisinopriL 10 MG TAB PO SCH (09:00)
--- NOTE | 2022-06-10 14:02 | P.DS ---
Admission Date: 06/09/22 Discharge Date: 06/10/22 Disposition: ROUTINE DISCHARGE Discharge Condition: GOOD Reason for Admission: Chest pain Consultations: 1. Cardiology Hospital Course: DIAGNOSES: # Atypical Chest Pain # Coronary Artery Disease s/p CABG (2000) # Hypertension # Rheumatoid Arthritis # Chronic Pain Syndrome HOSPITAL COURSE: Mr. Juancarlos Quinones is a pleasant 66 year old male with a past medical history significant for coronary artery disease s/p CABG, hypertension, and rheumatoid arthritis who was admitted to the [facility] on 06/09/2022 for chest pain. He was admitted to the Medicine service. Upon further evaluation, his EKG revealed normal sinus rhythm without STEMI criteria. His NT Pro-BNP was 111 and his d-dimer was 657. His troponin trend was 7.2 -> 7.5 -> 8.2. His chest x-ray revealed, "no acute cardiopulmonary process." His CT chest angiogram revealed, "No CT evidence of pulmonary embolus. Status post CABG. Probable small right upper pole calculus." Cardiology was consulted and his case was reviewed by Dr. Schulte. Mr. Quinones is currently in the process of scheduling an outpatient stress test with Dr. Schulte. Given that he is no longer having chest pain, Dr. Schulte has cleared him for discharge with outpatient stress test. On review of his prior records, he underwent a selective coronary angiogram with bypass graft study on 08/04/2020. Per Dr. Schulte's note, it revealed, "severe cocopah coronary artery disease with patent TAPIA to LAD and patent SVG to diagonal. Good flow through the RCA and left circumflex." His recommendation at that time was medical management. On 06/10/2022, he was seen on rounds and deemed medically stable for discharge. He was discharged with instructions to schedule follow-up appointments with his PCP (Dr. George) and with his [employer] Plant Manager (Dr. Shculte). He was provided a prescription for atorvastatin. He was given the opportunity to ask questions and reported no further questions. Furthermore, all questions were answered to the best of my ability. A copy of this discharge summary will be sent to the above providers to facilitate continuity of care. Today, I personally spent 25 minutes on his case, of which greater than 50% of the time was spent in patient education, counseling, and coordination of care as described above. Vital Signs/Physical Exam: Temp Pulse Resp BP Pulse Ox 98.2 F 52 18 110/56 L 98 06/10/22 08:10 06/10/22 08:10 06/10/22 12:20 06/10/22 08:10 06/10/22 12:20 General: Alert, In no apparent distress, Oriented x3 HEENT: Atraumatic, Mucous membr. moist/pink, EOMI, Sclerae nonicteric Neck: JVD not distended Respiratory: Clear to auscultation bilaterally, Normal air movement Cardiovascular: No edema, Regular rate/rhythm, Normal S1 S2, No gallops, No rubs, No murmurs Gastrointestinal: Normal bowel sounds, Soft and benign, Non-distended, No tenderness, No rebound, No guarding Musculoskeletal: No clubbing Integumentary: No rashes Neurological: Normal speech, Abnormal speech Laboratory Data at Discharge: WBC 7.50 K/uL (4.3-10.9) 06/10/22 06:06 Hgb 13.1 g/dL (13.6-17.9) L 06/10/22 06:06 Hct 38.3 % (39.6-49.0) L 06/10/22 06:06 Plt Count 275 K/uL (152-406) 06/10/22 06:06 Sodium 139 mmol/L (136-145) 06/10/22 06:06 Potassium 3.8 mmol/L (3.5-5.1) 06/10/22 06:06 BUN 19 mg/dL (7-18) H 06/10/22 06:06 Creatinine 1.14 mg/dL (0.70-1.30) 06/10/22 06:06 Glucose 137 mg/dL (74-106) H 06/10/22 06:06 Total Bilirubin 0.4 mg/dL (0.2-1.0) 06/09/22 20:14 AST 10 U/L (15-37) L 06/09/22 20:14 ALT 17 U/L (16-61) 06/09/22 20:14 Alkaline Phosphatase 91 U/L (45-117) 06/09/22 20:14 Triglycerides 221 mg/dL (<150) H 06/10/22 06:06 Cholesterol 168 mg/dL (<200) 06/10/22 06:06 HDL Cholesterol 52 mg/dL (40-60) 06/10/22 06:06 Cholesterol/HDL Ratio 3.23 06/10/22 06:06 Home Medications: RX: Oxycodone HCl 15 mg PO QID 11/09/16 RX: clonazePAM [Klonopin*] 1 mg PO QID 11/09/16 RX: Dextroamphetamine/Amphetamine [Adderall 10 mg Tablet] 20 mg PO DAILY 01/08/19 RX: Aspirin [Aspirin EC] 81 mg PO DAILY 03/18/22 RX: Lisinopril [Zestril] 1 tab PO DAILY 03/18/22 RX: Atorvastatin Calcium [Lipitor] 40 mg PO BEDTIME #30 tab 06/10/22 New Medications: RX: Atorvastatin Calcium [Lipitor] 40 mg PO BEDTIME #30 tab Physician Discharge Instructions: 1. Please call and schedule a follow-up appointment with your PCP (Dr. George) in 3-5 days 2. Please call and schedule a follow-up appointment with your [employer] Manager (Dr. Schulte) in 3-5 days - Please schedule an outpatient cardiac stress test with Dr. Schulte Diet: AHA Activity: Ad juaquin Followup: Baltazar George MD [Primary Care Provider] - Nghia Schulte MD [ACTIVE - CAN ADMIT] - Time spent managing pt's care (in minutes): 25
[2022-06-10 15:01] VITALS: BP 142/70; TEMP 97.2
[2022-06-10] MEDS ORDERED: ATORVASTATIN 40 MG TAB PO SCH (21:00)
--- NOTE | 2022-06-11 13:53 | RAD REPORT ---
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 TECHNIQUE: Multiple transaxial tomograms of the chest were obtained from the lung apices through the lung bases utilizing 2 mm slice thickness at 2 mm interval reconstruction after the administration o f large bolus of IV contrast for complete opacification of the pulmonary arteries. Subsequent 3-D maximum intensity projection images were generated in the coronal and sagittal plane f or review. This exam was performed according to our departmental dose-optimization protocol, which includes auto mated exposure control, adjustment of the mA and/or kV according to patient size and/or use of iterat robert reconstruction technique. FINDINGS: The lungs parenchyma demonstrate very minimal dependent atelectatic changes lung bases. No evidence for pneumothorax. No significant masses, nodules and/or consolidations are identified. The trachea mainstem bronchus demonstrate to be normal. There is no significant pericardial or pleura l effusions. The thoracic aorta demonstrate minimal intimal calcification of the aortic arch and descending thorac ic aorta.. Sternotomy wires and pericardiac clips correspond to previous CABG The heart is normal in size. No evidence for right ventricular strain. There are coronary artery calcifications. There is no significant mediastinal and/or hilar lymphadenopathy. The axillary regions demonstrate to be clear. Pulmonary arteries demonstrate to be normal, no intraluminal defect are seen that would suggest pulmo nary embolus. The bone windows demonstrate diffuse anterior spondylosis at T12 the thoracic spine. Minimal degenera tive changes bilateral shoulders. The visualized portions of the upper abdomen demonstrate probable small right upper pole calculus on axial image 1. IMPRESSION: No CT evidence of pulmonary embolus. Status post CABG. Probable small right upper pole calculus. Electronically signed by: Dion Sharma MD 06/09/2022 11:56 PM [employer] ENGINE MECHANIC Due to temporary technical issues with the PACS/Fluency reporting system, reports are being signed by the in house radiologists without review as a courtesy to insure prompt reporting. The interpreting radiologist is fully responsible for the content of the report
--- NOTE | 2022-06-11 16:53 | EKG ---
Test Date: 2022-06-09 Test Time: 20:02:03 Outbound Sales Advisor: MICHELLE MEASUREMENT RESULTS: Intervals: Rate: 62 MO: 200 QRSD: 90 QT: 422 QTc: 428 [place]: P: 77 MO: 200 QRS: 71 T: 58 INTERPRETIVE STATEMENTS: Normal sinus rhythm with sinus arrhythmia Normal ECG Compared to ECG 03/18/2022 18:31:41 Atrial premature complex(es) no longer present Electronically Signed On 06-11-22 16:50:59 [employer] by Nghia Schulte
== END 2022-06-10 14:42 | disposition home or self-care (01) ==
LOC: ER 19:47 → ERHOLD 21:51 → 2ND 23:33
PROVIDERS: ADMIT Internal Medicine; ATTEND Internal Medicine
DX: R07.9 Chest pain, unspecified (principal); I25.10 Atherosclerotic heart disease of native coronary artery without angina pectoris; I10 Essential (primary) hypertension; Z95.1 Presence of aortocoronary bypass graft; M06.9 Rheumatoid arthritis, unspecified; G89.29 Other chronic pain; Z82.49 Family history of ischemic heart disease and other diseases of the circulatory system; Z83.3 Family history of diabetes mellitus; Z20.822 Contact with and (suspected) exposure to COVID-19
CPT/HCPCS: 93005; 85025 ×2; 80048; 36415; 80061; 85379; 84484 ×3; 80053; 83880; 71275; 71045; 96375; 96374; 99285; 87811; Q9967; J1650; J3010; J1170; J2405; G0378 ×3

== ENCOUNTER 2022-06-11 20:31 | Emergency (ER) | payer OTHER ==
--- OUTSIDE RECORDS SUMMARY | 2022-06-11 20:55 | XMS REPORT | Continuity of Care Document ---
:1955 Author Organization [facility] t Address [address] [place] [address] Care Team Providers Name Role Phone Mark Granados MD Primary Care Physician MARK GRANADOS Attending Clinician Unavailable Mark Granados MD Attending Clinician Doctor Unassigned, Evan Attending Clinician Unavailable MILAN DOBBS Attending Clinician [...] 1971-05-20 Cigarette Smoker University of use 00:00:00 [facility] Exposure to 2022-03-31 2022-04-10 Not sure [facility] SARS-CoV-2 (event) 00:00:00 09:44:00 [facility] Alcohol intake 2022-04-10 2022-04-10 0 /d University of 00:00:00 00:00:00 [facility] Cigarettes smoked 2021-12-08 2021-12-08 Univers ity of current (pack per 00:00:00 00:00:00 ) - Reported Branch Tobacco use and 2021-12-08 2021-12-08 Smokeless Universit y of exposure 00:00:00 00:00:00 tobacco non-user [facility] Sex Ass[birth year] At [birth year] Universit y of 00:00:00 00:00:00 [facility] Smoking Status Start Date Stop Date Source Smokes tobacco daily 2021-12-08 00:00:00 [facility] [place] [facility] Medications Ordered Filled Start Stop Current Ordering Indication Dosage Frequency Signature Comments Components Source Medication Medication Date Date Medication? Clinician (SIG) Name Name amphetamine 0 Yes [id number] 20mg Take 1 Univers -dextroamph 1-18 capsule by it y of etamine 00:00: mouth [place] (ADDERALL 00 every Medical XR) 20 mg morning. Branch 24 hr capsule amphetamine 2022-0 Yes [id number] 20mg Take 1 Univers -dextroamph 1-09 capsule by it y of etamine 20 00:00: mouth in [place] mg 24 hr 00 the Medical capsule morning Branch and 1 capsule in the evening. amphetamine 2022-0 Yes [id number] 20mg Take 1 Univers -dextroamph 1-09 capsule by it y of etamine 20 00:00: mouth in [place] mg 24 hr 00 the Medical capsule morning Branch and 1 capsule in the evening. dextroamphe Yes [id number] 20mg Take 1 Univers tamine-amph 1-05 tablet by ity of etamine 00:00: mouth in [place] (ADDERALL) 00 the Medical 20 mg morning Branch tablet and 1 tablet in the evening. dextroamphe 2022-0 Yes [id number] 20mg Take 1 Univers tamine-amph 1-05 tablet by ity of etamine 00:00: mouth in [place] (ADDERALL) 00 the Medical 20 mg morning Branch tablet and 1 tablet in the evening. dextroamphe 2022-0 Yes [id number] 20mg Take 1 Univers tamine-amph 1-05 tablet by ity of etamine 00:00: mouth in [place] (ADDERALL) 00 the Medical 20 mg morning Branch tablet and 1 tablet in the evening. zolpidem 10 2021-05 Yes [id number] 10mg Take 1 Univers mg tablet 1-22 tablet by ity o f 00:00: mouth at [place] 00 bedtime as Medical needed for Branch Insomnia. lisinopriL 2021-05 Yes [id number] 10mg Take 1 U nivers 10 mg 1-22 tablet by ity of tablet 00:00: mouth in [place] 00 the Medical morning. Branch dextroamphe 2021-05 Yes [id number] 20mg Take 1 Univers tamine-amph 1-22 tablet by ity of etamine 00:00: mouth in [place] (ADDERALL) 00 the Medical 20 mg morning Branch tablet and 1 tablet in the evening. cyanocobala 2021-05 Yes [id number] INJECT Univers min 1,000 1-22 INTO THE ity of mcg/mL 00:00: MUSCLE 1 [place] injection 00 MILLILITER Medi frannie S EVERY Branch WEEK clonazePAM 2021-05 Yes [id number] TAKE 1 U nivers 1 mg tablet 1-22 TABLET BY ity of 00:00: MOUTH 4 [place] 00 TIMES A Medical DAY Branch NEEDED FOR ANXIETY zolpidem 10 2021-05 Yes [id number] 10mg Take 1 Univers mg tablet 1-22 tablet by ity o f 00:00: mouth at [place] 00 bedtime as Medical needed for Branch Insomnia. lisinopriL 2021-05 Yes [id number] 10mg Take 1 U nivers 10 mg 1-22 tablet by ity of tablet 00:00: mouth in [place] 00 the Medical morning. Branch dextroamphe 2021-05 Yes [id number] 20mg Take 1 Univers tamine-amph 1-22 tablet by ity of etamine 00:00: mouth in [place] (ADDERALL) 00 the Medical 20 mg morning Branch tablet and 1 tablet in the evening. cyanocobala 2021-05 Yes [id number] INJECT Univers min 1,000 1-22 INTO THE ity of mcg/mL 00:00: MUSCLE 1 [place] injection 00 MILLILITER Medi frannie S EVERY Branch WEEK clonazePAM 2021-05 Yes [id number] TAKE 1 U nivers 1 mg tablet 1-22 TABLET BY ity of 00:00: MOUTH 4 [place] 00 TIMES A Medical DAY Branch NEEDED FOR ANXIETY zolpidem 10 2021-05 Yes [id number] 10mg Take 1 Univers mg tablet 1-22 tablet by ity o f 00:00: mouth at [place] 00 bedtime as Medical needed for Branch Insomnia. lisinopriL 2021-05 Yes [id number] 10mg Take 1 U nivers 10 mg 1-22 tablet by ity of tablet 00:00: mouth in [place] 00 the Medical morning. Branch cyanocobala 2021-05 Yes [id number] INJECT Univers min 1,000 1-22 INTO THE ity of mcg/mL 00:00: MUSCLE 1 [place] injection 00 MILLILITER Medi frannie S EVERY Branch WEEK clonazePAM 2021-05 Yes [id number] TAKE 1 U nivers 1 mg tablet 1-22 TABLET BY ity of 00:00: MOUTH 4 [place] 00 TIMES A Medical DAY Branch NEEDED FOR ANXIETY zolpidem 10 2021-05 Yes [id number] 10mg Take 1 Univers mg tablet 1-22 tablet by ity o f 00:00: mouth at [place] 00 bedtime as Medical needed for Branch Insomnia. lisinopriL 2021-05 Yes [id number] 10mg Take 1 U nivers 10 mg 1-22 tablet by ity of tablet 00:00: mouth in [place] 00 the Medical morning. Branch cyanocobala 2021-05 Yes [id number] INJECT Univers min 1,000 1-22 INTO THE ity of mcg/mL 00:00: MUSCLE 1 [place] injection 00 MILLILITER Medi frannie S EVERY Branch WEEK clonazePAM 2021-05 Yes [id number] TAKE 1 U nivers 1 mg tablet 1-22 TABLET BY ity of 00:00: MOUTH 4 [place] 00 TIMES A Medical DAY Branch NEEDED FOR ANXIETY zolpidem 10 2021-05 Yes [id number] 10mg Take 1 Univers mg tablet 1-22 tablet by ity o f 00:00: mouth at [place] 00 bedtime as Medical needed for Branch Insomnia. lisinopriL 2021-05 Yes [id number] 10mg Take 1 U nivers 10 mg 1-22 tablet by ity of tablet 00:00: mouth in [place] 00 the Medical morning. Branch cyanocobala 2021-05 Yes [id number] INJECT Univers min 1,000 1-22 INTO THE ity of mcg/mL 00:00: MUSCLE 1 [place] injection 00 MILLILITER Medi frannie S EVERY Branch WEEK clonazePAM 2021-05 Yes [id number] TAKE 1 U nivers 1 mg tablet 1-22 TABLET BY ity of 00:00: MOUTH 4 [place] 00 TIMES A Medical DAY Branch NEEDED FOR ANXIETY dextroamphe 2021-05- No [id number] 20mg Take 1 Univers tamine-amph 1-22 01-05 tablet by it y of etamine 00:00: 00:00 mouth in [place] (ADDERALL) 00 :00 the Medical 20 mg morning Branch tablet and 1 tablet in the evening. dextroamphe 2021-05 Yes [id number] 20mg Take 1 Univers tamine-amph 0-20 tablet by ity of etamine 00:00: mouth in [place] (ADDERALL) 00 the Medical 20 mg morning Branch tablet and 1 tablet in the evening. clonazePAM 2021-05 Yes [id number] TAKE 1 U nivers 1 mg tablet 0-20 TABLET BY ity of 00:00: MOUTH 4 [place] 00 TIMES A Medical DAY Branch NEEDED FOR ANXIETY dextroamphe 2021-05 Yes [id number] 20mg Take 1 Univers tamine-amph 0-20 tablet by ity of etamine 00:00: mouth in [place] [facility] Medical 20 mg morning Branch tablet and 1 tablet in the evening. clonazePAM 2021-05 Yes [id number] TAKE 1 U nivers 1 mg tablet 0-20 TABLET BY ity of 00:00: MOUTH 4 [place] 00 TIMES A Medical DAY Branch NEEDED FOR ANXIETY dextroamphe 2021-05 Yes [id number] 20mg Take 1 Univers tamine-amph 0-20 tablet by ity of etamine 00:00: mouth in [place] ([facility]) 00 the Medical 20 mg morning Branch tablet and 1 tablet in the evening. clonazePAM 2021-05 Yes [id number] TAKE 1 U nivers 1 mg tablet 0-20 TABLET BY ity of 00:00: MOUTH 4 [place] 00 TIMES A Medical DAY Branch NEEDED FOR ANXIETY dextroamphe 2021-05- No [id number] 20mg Take 1 Univers tamine-amph 0-20 11-22 tablet by it y of etamine 00:00: 00:00 mouth in [place] ([facility]) 00 :00 the Medical 20 mg morning Branch tablet and 1 tablet in the evening. clonazePAM 2021-05- No [id number] TAKE 1 Univers 1 mg tablet 0-20 11-22 TABLET BY it y of 00:00: 00:00 MOUTH 4 [place] 00 :00 TIMES A Medical DAY Branch NEEDED FOR ANXIETY dextroamphe 2021-05- No [id number] 20mg Take 1 Univers tamine-amph 0-20 11-22 tablet by it y of etamine 00:00: 00:00 mouth in [place] [facility] :00 the Medical 20 mg morning Branch tablet and 1 tablet in the evening. clonazePAM 2021-05- No [id number] TAKE 1 Univers 1 mg tablet 0-20 11-22 TABLET BY it y of 00:00: 00:00 MOUTH 4 [place] 00 :00 TIMES A Medical DAY Branch NEEDED FOR ANXIETY dextroamphe 2-0 Yes [id number] 20mg Take 1 Univers tamine-amph 9-07 tablet by ity of etamine 00:00: mouth in [place] [facility] the Medical 20 mg morning Branch tablet and 1 tablet in the evening. dextroamphe 2022-0 2022- No [id number] 20mg Take 1 Univers tamine-amph 9-07 10-20 tablet by it y of etamine 00:00: 00:00 mouth in [place] ([facility] :00 the Medical 20 mg morning Branch tablet and 1 tablet in the evening. clonazePAM 2022-0 Yes [id number] TAKE 1 U nivers 1 mg tablet 8-23 TABLET BY ity of 00:00: MOUTH 4 [place] 00 TIMES A Medical DAY Branch NEEDED FOR ANXIETY clonazePAM 2022-0 Yes [id number] TAKE 1 U nivers 1 mg tablet 8-23 TABLET BY ity of 00:00: MOUTH 4 [place] 00 TIMES A Medical DAY Branch NEEDED FOR ANXIETY clonazePAM 2022-0 Yes [id number] TAKE 1 U nivers 1 mg tablet 8-23 TABLET BY ity of 00:00: MOUTH 4 [place] 00 TIMES A Medical DAY Branch NEEDED FOR ANXIETY clonazePAM 2022-0 2022- No [id number] TAKE 1 Univers 1 mg tablet 8-23 10-20 TABLET BY it y of 00:00: 00:00 MOUTH 4 [place] 00 :00 TIMES A Medical DAY Branch NEEDED FOR ANXIETY dextroamphe 2022-0 Yes [id number] 20mg Take 1 Univers tamine-amph 8-01 tablet by ity of etamine 00:00: mouth in [place] [facility] the Medical 20 mg morning Branch tablet and 1 tablet in the evening. dextroamphe 2022-0 Yes [id number] 20mg Take 1 Univers tamine-amph 8-01 tablet by ity of etamine 00:00: mouth in [place] ([facility] the Medical 20 mg morning Branch tablet and 1 tablet in the evening. dextroamphe 2022-0 Yes [id number] 20mg Take 1 Univers tamine-amph 8-01 tablet by ity of etamine 00:00: mouth in [place] ([facility] the Medical 20 mg morning Branch tablet and 1 tablet in the evening. dextroamphe 2022-0 2022- No [id number] 20mg Take 1 Univers tamine-amph 12-18- tablet by it y of etamine 00:00: 00:00 mouth in [place] (ADDERALL) 00 :00 the Medical 20 mg morning Branch tablet and 1 tablet in the evening. lisinopriL 2-0 Yes 10mg Take 10 mg U nivers 10 mg 7-04 by mouth ity of tablet 00:00: in the [place] 00 morning. Medical Branch lisinopriL 2022-0 Yes 10mg Take 10 mg U nivers 10 mg 7-04 by mouth ity of tablet 00:00: in the [place] 00 morning. Medical Branch lisinopriL 2-0 Yes 10mg Take 10 mg U nivers 10 mg 7-04 by mouth ity of tablet 00:00: in the [place] 00 morning. Medical Branch lisinopriL 2-0 Yes 10mg Take 10 mg U nivers 10 mg 7-04 by mouth ity of tablet 00:00: in the [place] 00 morning. Medical Branch lisinopriL 2-0 Yes 10mg Take 10 mg U nivers 10 mg 7-04 by mouth ity of tablet 00:00: in the [place] 00 morning. Medical Branch lisinopriL 2-0 Yes 10mg Take 10 mg U nivers 10 mg 7-04 by mouth ity of tablet 00:00: in the [place] 00 morning. Medical Branch lisinopriL 2022-0 2022- No 10mg Take 10 mg Univers 10 mg 7-04 11-22 by mouth ity of tablet 00:00: 00:00 in the [place] 00 :00 morning. Medical Branch lisinopriL 2022-0 2022- No 10mg Take 10 mg Univers 10 mg 7-04 11-22 by mouth ity of tablet 00:00: 00:00 in the [place] 00 :00 morning. Medical Branch SERTraline 2-0 Yes [id number] 50mg Take 1 U nivers (ZOLOFT) 50 2-21 tablet by ity of mg tablet 00:00: mouth [place] 00 daily. Medical Branch SERTraline 2022-0 Yes [id number] 50mg Take 1 U nivers (ZOLOFT) 50 2-21 tablet by ity of mg tablet 00:00: mouth [place] 00 daily. Medical Branch SERTraline 2022-0 Yes [id number] 50mg Take 1 U nivers (ZOLOFT) 50 2-21 tablet by ity of mg tablet 00:00: mouth [place] 00 daily. Medical Branch SERTraline Yes [id number] 50mg Take 1 U nivers (ZOLOFT) 50 2-21 tablet by ity of mg tablet 00:00: mouth [place] 00 daily. Medical Branch SERTraline Yes [id number] 50mg Take 1 U nivers (ZOLOFT) 50 2-21 tablet by ity of mg tablet 00:00: mouth [place] 00 daily. Medical Branch SERTraline Yes [id number] 50mg Take 1 U nivers (ZOLOFT) 50 2-21 tablet by ity of mg tablet 00:00: mouth [place] 00 daily. Medical Branch SERTraline Yes [id number] 50mg Take 1 U nivers (ZOLOFT) 50 2-21 tablet by ity of mg tablet 00:00: mouth [place] 00 daily. Medical Branch SERTraline 2021- No [id number] 50mg Take 1 Univers (ZOLOFT) 50 2-21 11-22 tablet by it y of mg tablet 00:00: 00:00 mouth [place] 00 :00 daily. Medical Branch SERTraline 2021- No [id number] 50mg Take 1 Univers (ZOLOFT) 50 2-21 11-22 tablet by it y of mg tablet 00:00: 00:00 mouth [place] 00 :00 daily. Medical Branch sildenafiL 2020-05 Yes [id number] 50mg Take 1 Univers 50 mg 1-18 tablet by ity of tablet 00:00: mouth as [place] 00 needed for Medical Other Branch (prior to sexual activity). sildenafiL 2020-05 Yes [id number] 50mg Take 1 Univers 50 mg 1-18 tablet by ity of tablet 00:00: mouth as [place] 00 needed for Medical Other Branch (prior to sexual activity). sildenafiL 2020-05 Yes [id number] 50mg Take 1 Univers 50 mg 1-18 tablet by ity of tablet 00:00: mouth as [place] 00 needed for Medical Other Branch (prior to sexual activity). sildenafiL 2020-05 Yes [id number] 50mg Take 1 Univers 50 mg 1-18 tablet by ity of tablet 00:00: mouth as [place] 00 needed for Medical Other Branch (prior to sexual activity). sildenafiL 2020-05 Yes [id number] 50mg Take 1 Univers 50 mg 1-18 tablet by ity of tablet 00:00: mouth as [place] 00 needed for Medical Other Branch (prior to sexual activity). sildenafiL 2020-05 Yes [id number] 50mg Take 1 Univers 50 mg 1-18 tablet by ity of tablet 00:00: mouth as [place] 00 needed for Medical Other Branch (prior to sexual activity). sildenafiL 2020-05 Yes [id number] 50mg Take 1 Univers 50 mg 1-18 tablet by ity of tablet 00:00: mouth as [place] 00 needed for Medical Other Branch (prior to sexual activity). sildenafiL 2020-05 Yes [id number] 50mg Take 1 Univers 50 mg 1-18 tablet by ity of tablet 00:00: mouth as [place] 00 needed for Medical Other Branch (prior to sexual activity). sildenafiL 2020-05 Yes [id number] 50mg Take 1 Univers 50 mg 1-18 tablet by ity of tablet 00:00: mouth as [place] 00 needed for Medical Other Branch (prior to sexual activity). sildenafiL 2020-05 Yes [id number] 50mg Take 1 Univers 50 mg 1-18 tablet by ity of tablet 00:00: mouth as [place] 00 needed for Medical Other Branch (prior to sexual activity). sildenafiL 2020-05 Yes [id number] 50mg Take 1 Univers 50 mg 1-18 tablet by ity of tablet 00:00: mouth as [place] 00 needed for Medical Other Branch (prior to sexual activity). sildenafiL 2020-05 Yes [id number] 50mg Take 1 Univers 50 mg 1-18 tablet by ity of tablet 00:00: mouth as [place] 00 needed for Medical Other Branch (prior to sexual activity). cyanocobala 0 Yes [id number] INJECT Univers min 1,000 1-13 INTO THE ity of mcg/mL 00:00: MUSCLE 1 [place] injection 00 MILLILITER Medi frannie S EVERY Branch WEEK cyanocobala 0 Yes [id number] INJECT Univers min 1,000 1-13 INTO THE ity of mcg/mL 00:00: MUSCLE 1 [place] injection 00 MILLILITER Medi frannie S EVERY Branch WEEK cyanocobala 2020-0 Yes [id number] INJECT Univers min 1,000 1-13 INTO THE ity of mcg/mL 00:00: MUSCLE 1 [place] injection 00 MILLILITER Medi frannie S EVERY Branch WEEK cyanocobala 0 Yes [id number] INJECT Univers min 1,000 1-13 INTO THE ity of mcg/mL 00:00: MUSCLE 1 [place] injection 00 MILLILITER Medi frannie S EVERY Branch WEEK cyanocobala 0 Yes [id number] INJECT Univers min 1,000 1-13 INTO THE ity of mcg/mL 00:00: MUSCLE 1 [place] injection 00 MILLILITER Medi frannie S EVERY Branch WEEK cyanocobala 2020-0 Yes [id number] INJECT Univers min 1,000 1-13 INTO THE ity of mcg/mL 00:00: MUSCLE 1 [place] injection 00 MILLILITER Medi frannie S EVERY Branch WEEK cyanocobala 0 Yes [id number] INJECT Univers min 1,000 1-13 INTO THE ity of mcg/mL 00:00: MUSCLE 1 [place] injection 00 MILLILITER Medi frannie S EVERY Branch WEEK cyanocobala 2- No [id number] INJECT Univers min 1,000 1-13 11-22 INTO THE ity o f mcg/mL 00:00: 00:00 MUSCLE 1 [place] injection 00 :00 MILLILITER Medi frannie S EVERY Branch WEEK cyanocobala 2020-0 2- No [id number] INJECT Univers min 1,000 1-13 11-22 INTO THE ity o f mcg/mL 00:00: 00:00 MUSCLE 1 [place] injection 00 :00 MILLILITER Medi frannie S EVERY Branch WEEK pantoprazol 2020-0 Yes [id number] 40mg Take 1 Univers e 3-26 tablet by ity of (PROTONIX) 00:00: mouth [place] 40 mg EC 00 daily. Medical tablet Branch pantoprazol 2020-0 Yes [id number] 40mg Take 1 Univers e 3-26 tablet by ity of (PROTONIX) 00:00: mouth [place] 40 mg EC 00 daily. Medical tablet Branch pantoprazol 2020-0 Yes [id number] 40mg Take 1 Univers e 3-26 tablet by ity of (PROTONIX) 00:00: mouth [place] 40 mg EC 00 daily. Medical tablet Branch pantoprazol 2020-0 Yes [id number] 40mg Take 1 Univers e 3-26 tablet by ity of (PROTONIX) 00:00: mouth [place] 40 mg EC 00 daily. Medical tablet Branch pantoprazol 2020-0 Yes [id number] 40mg Take 1 Univers e 3-26 tablet by ity of (PROTONIX) 00:00: mouth [place] 40 mg EC 00 daily. Medical tablet Branch pantoprazol 2020-0 Yes [id number] 40mg Take 1 Univers e 3-26 tablet by ity of (PROTONIX) 00:00: mouth [place] 40 mg EC 00 daily. Medical tablet Branch pantoprazol 2020-0 Yes [id number] 40mg Take 1 Univers e 3-26 tablet by ity of (PROTONIX) 00:00: mouth [place] 40 mg EC 00 daily. Medical tablet Branch pantoprazol 2020-0 2021- No [id number] 40mg Take 1 Univers e 3-26 11-22 tablet by ity of (PROTONIX) 00:00: 00:00 mouth [place] 40 mg EC 00 :00 daily. Medical tablet Branch pantoprazol 2020-0 2021- No [id number] 40mg Take 1 Univers e 3-26 11-22 tablet by ity of (PROTONIX) 00:00: 00:00 mouth [place] 40 mg EC 00 :00 daily. Medical tablet Branch Syringe 2020-0 Yes [id number] Use as Uni vers with 2-26 directed ity of Needle, 00:00: [place] Disp, 00 Medical (SYRINGE Branch 3CC/25GX1") 3 mL 25 gauge x 1" Syrg Syringe 2020-0 Yes [id number] Use as Uni vers with 2-26 directed ity of Needle, 00:00: [place] Disp, 00 Medical (SYRINGE Branch 3CC/25GX1") 3 mL 25 gauge x 1" Syrg Syringe 2020-0 Yes [id number] Use as Uni vers with 2-26 directed ity of Needle, 00:00: [place] Disp, 00 Medical (SYRINGE Branch 3CC/25GX1") 3 mL 25 gauge x 1" Syrg Syringe 2020-0 Yes [id number] Use as Uni vers with 2-26 directed ity of Needle, 00:00: [place] Disp, 00 Medical (SYRINGE Branch 3CC/25GX1") 3 mL 25 gauge x 1" Syrg Syringe 2020-0 Yes [id number] Use as Uni vers with 2-26 directed ity of Needle, 00:00: [place] Disp, 00 Medical (SYRINGE Branch 3CC/25GX1") 3 mL 25 gauge x 1" Syrg Syringe 2020-0 Yes [id number] Use as Uni vers with 2-26 directed ity of Needle, 00:00: [place] Disp, 00 Medical (SYRINGE Branch 3CC/25GX1") 3 mL 25 gauge x 1" Syrg Syringe 2020-0 Yes [id number] Use as Uni vers with 2-26 directed ity of Needle, 00:00: [place] Disp, 00 Medical (SYRINGE Branch 3CC/25GX1") 3 mL 25 gauge x 1" Syrg Syringe 2020-0 Yes [id number] Use as Uni vers with 2-26 directed ity of Needle, 00:00: [place] Disp, 00 Medical (SYRINGE Branch 3CC/25GX1") 3 mL 25 gauge x 1" Syrg Syringe 2020-0 Yes [id number] Use as Uni vers with 2-26 directed ity of Needle, 00:00: [place] Disp, 00 Medical (SYRINGE Branch 3CC/25GX1") 3 mL 25 gauge x 1" Syrg Syringe 2020-0 Yes [id number] Use as Uni vers with 2-26 directed ity of Needle, 00:00: [place] Disp, 00 Medical (SYRINGE Branch 3CC/25GX1") 3 mL 25 gauge x 1" Syrg Syringe 2020-0 Yes [id number] Use as Uni vers with 2-26 directed ity of Needle, 00:00: [place] Disp, 00 Medical (SYRINGE Branch 3CC/25GX1") 3 mL 25 gauge x 1" Syrg Syringe 2020-0 Yes [id number] Use as Uni vers with 2-26 directed [...] by ity o f 00:00: mouth at [place] 00 bedtime as Medical needed for Branch [...] Systolic blood 2022-04-10 15:59:00 173 mm[Hg] [facility] [place] [facility] Branch Diastolic blood 2022-04-10 15:59:00 73 mm[Hg] [facility] [place] [facility] pressure Medical Branch Heart rate 2022-04-10 15:58:00 65 /min [facility] Medical Branch Body height 2022-04-10 15:58:00 175.3 cm [facility] Medical Branch Body weight 2022-04-10 15:58:00 79.742 kg [facility] Medical Branch BMI 2022-04-10 15:58:00 25[facility]96 [facility] O[facility] 2022-04-10 15:58:00 99 /min [facility] in Arterial blood Medical Br anch by Pulse oximetry Body height 2022-01-10 14:50:00 175.3 cm [facility] Medical Branch Body weight 2022-01-10 14:50:00 77.111 kg [facility] Medical Branch BMI 2022-01-10 14:50:00 25.10 kg/m2 [facility] Procedures Procedure Date / Time Performed Performing Clinician Sour e EXTERNAL PROVIDER 2022-03-28 06:01:00 Doctor Unassigned, No [facility] [place] RECORDS Name Medical Branch MEDICAL 2021-12-21 05:01:00 Doctor Unassigned, No Univer [facility] [place] RELEASE/CLEARANCE Name Medical Branch FORMS Encounters Start End Encounter Admission Attending Care Care Encounter Source Date/Time Date/Time Type Type Clinicians Facility Department ID 2022-06-04 2022-06-04 [id number] Univers 00:00:00 00:00:00 [facility] [id number] it y of [place] 4.2.7.2.686 [place] AARON?BLEA [id number] [address] OFFICE [facility] 2022-05-28 2022-05-28 [facility] [id number] Univers 00:00:00 00:00:00 [facility] [id number] [facility] [id number] [place] AARON?BLEA [id number] [address] OFFICE [facility] 2022-05-24 2022-05-24 [facility] [id number] Univers 00:00:00 00:00:00 [facility] [id number] it y [facility] [id number] [place] AARON?BLEA [id number] [address] OFFICE [facility] 2022-04-10 2022-04-10 Outpatient R ROBERTA [facility] [id number] Univers 10:00:00 10:13:24 MARK ity [facility] 2022-04-10 2022-04-10 [facility] [id number] Univers 10:00:00 10:13:24 Visit [facility] [id number] it y [facility] [id number] [place] AARON?BLEA [id number] [address] OFFICE [facility] 2022-04-10 2022-04-10 Letter Doctor WHEAT [id number] Univers 00:00:00 00:00:00 (Out) Unassigned, REINALDO [id number] ity of [place] [facility] 4.2.7.2.686 [place] as [id number] [address] 2022-03-28 2022-03-28 Orders Doctor MARY ALICE [id number] Univers 00:00:00 00:00:00 Only Unassigned, REINALDO [id number] ity of [place] [facility] 4.2.7.2.686 [place] [id number] [address] 2022-03-08 2022-03-08 [facility] [id number] Univers 00:00:00 00:00:00 [facility] [id number] it y of [facility] [id number] [place] AARON?BLEA [id number] [address] MEDICAL OFFICE [facility] 2022-02-13 2022-02-13 Outpatient R DILIA [facility] [id number] Univers 09:00:00 09:00:00 MILAN [facility] 2022-01-24 2022-01-24 [facility] [id number] Univers 00:00:00 00:00:00 [facility] [id number] it y of [place] 4.2.7.2.686 [place] as AARON?BLEA [id number] [address] MEDICAL OFFICE [facility] 2022-01-10 2022-01-10 [facility], [place] - [facility] [id number] Univers 10:30:00 10:45:00 [facility] [id number] [facility] of [place] [id number] [place] as AARON?BLEA [id number] [facility] [address] MEDICAL OFFICE [facility] 2022-01-10 2022-01-10 [facility] [id number] Univers 10:30:00 10:30:00 [facility] 2022-01-10 2022-01-10 [facility] [id number] Univers 09:45:00 10:00:00 Visit [facility] [id number] it y [facility] 4.2.7.2.686 Karlos as AARON?BLEA [phone] Fl gerda PEACOCK [address] [place] MEDICAL OFFICE [facility] 2022-01-10 2022-01-10 Outpatient Hannah OCONNOR [facility] [id number] Univers 09:45:00 09:45:00 SAMMIE moises [facility] 2022-01-10 2022-01-10 Outpatient Hannah [facility] [id number] Univers 09:45:00 09:45:00 SAMMIE [facility] 2022-01-09 2022-01-09 [facility] 1.2.840.114 [id number] Univers 08:45:00 09:04:23 Visit [facility] 350.1.13.10 it y of [place] 4.2.7.2.686 Karlos as AARON?BLEA [phone] Fl gerda PEACOCK [address] [place] [address] OFFICE [facility] 2022-01-09 2022-01-09 [facility] [id number] Univers 08:45:00 09:04:23 MARK thomas [facility] 2022-01-09 2022-01-09 Office [facility] 1.2.840.114 [id number] Univers 08:45:00 09:04:23 Visit [facility] 350.1.13.10 it y of [place] 4.2.7.2.686 Karlos as AARON?BLEA [phone] Fl gerda PEACOCK [address] [place] [address] OFFICE [facility] 2022-01-09 2022-01-09 Outpatient R ROBERTA [facility] [id number] Univers 08:45:00 08:45:00 MARK thomas [facility] 2022-01-09 2022-01-09 Outpatient R ROBERTA [facility] [id number] Univers 08:45:00 08:45:00 MARK thomas [facility] 2022-01-09 2022-01-09 Telephone [facility] [id number] Univers 00:00:00 00:00:00 [facility] 350.1.13.10 it y of [place] 4.2.7.2.686 Karlos as AARON?BLEA [phone] [facility] [address] [place] [address] OFFICE [facility] 2022-01-08 2022-01-08 [facility] [id number] Univers 14:45:00 14:45:00 [facility] 2022-01-03 2022-01-03 Outpatient [facility] [id number] Univers 13:15:00 13:15:00 [facility] 2022-01-01 2022-01-01 Outpatient [facility] [id number] Univers 14:15:00 14:15:00 [facility] 2022-01-01 2022-01-01 Orders Doctor MARY ALICE 1.2.840.114 [id number] Univers 00:00:00 00:00:00 Only Unassigned, REINALDO 350.1.13.10 ity of [place] [facility] 4.2.7.2.686 Karlos as [phone] [address] 2021-12-25 2021-12-25 Outpatient R [facility] [id number] Univers 11:45:00 11:45:00 ity [facility] 2021-12-22 2021-12-22 Telephone [facility] 1.2.840.114 [id number] Univers 00:00:00 00:00:00 Pawel L HEALTH 350.1.13.10 it y of [place] 4.2.7.2.686 Karlos as AARON?BLEA [phone] Fl giovannaMary [facility] [address] [facility] OFFICE [facility] 2021-12-21 2021-12-21 Orders Doctor MARY ALICE 1.2.840.114 [id number] Univers 00:00:00 00:00:00 Only Unassigned, REINALDO 350.1.13.10 [place]y of [place] [facility] 4.2.7.2.686 Karlos as [id number] [address] 2021-12-14 2021-12-14 Refill [facility] 1.2.840.114 [id number] Univers 00:00:00 00:00:00 Mark HEALTH 350.1.13.10 it y of [place] 4.2.7.2.686 Karlos as AARON?BLEA [phone] [address] MEDICAL OFFICE [facility] 2021-12-08 2021-12-08 Office [facility] 1.2.840.114 [id number] Univers 09:15:00 09:30:00 Visit [facility] 350.1.13.10 it y of [place] 4.2.7.2.686 Karlos as AARON?BLEA [phone] Me gerda PEACOCK 198 [facility] OFFICE [facility] 2021-12-08 2021-12-08 Outpatient [facility] [id number] Univers 09:15:00 09:15:00 [facility] 2021-12-01 2021-12-01 Outpatient R [facility] [id number] Univers 09:34:35 23:59:00 [facility] 2021-12-01 2021-12-01 [facility] 1.2.840.1 14 [id number] Univers 10:45:00 11:00:00 Visit [facility] 350.1.13.10 [facility] 4.2.7.2.686 Karlos as AARON?BLEA [phone] Fl gerda PEACOCK [address] [facility] OFFICE [facility] 2021-12-01 2021-12-01 Office [facility] 1.2.840.114 [id number] Univers 09:30:00 10:00:00 Visit [facility] 350.1.13.10 it y of [place] 4.2.7.2.686 Karlos as AARON?BLEA [phone] Fl gerda PEACOCK 198 [facility] OFFICE [facility] 2021-12-01 2021-12-01 Outpatient [facility] [id number] Univers 09:30:00 09:30:00 [facility] 2021-11-24 2021-11-24 Telephone [facility] 1.2.073.911 [id number] Univers 00:00:00 00:00:00 [place] [facility] 350.1.13.10 it y of [place] 4.2.7.2.686 Karlos as AARON?BLEA [phone] Fl gerda PEACOCK [address] [facility] OFFICE BUILDING 2021-11-23 2021-11-23 Outpatient Hannah [facility] [id number] Univers 15:15:00 15:15:00 SAMMIE thomas [facility] 2021-11-22 2021-11-22 Refill [facility] 1.2.840.114 [id number] Univers 00:00:00 00:00:00 [facility] 350.1.13.10 it y of [place] 4.2.7.2.686 Karlos as AARON?BLEA [phone] [facility] REAGAN [address] [facility] OFFICE [facility] 2021-10-25 2021-10-25 Outpatient Hannah [facility] [id number] Univers 09:45:00 10:03:02 MARK guzman [facility] 2021-10-25 2021-10-25 [facility], [facility] 1.2.840.1 14 [id number] Univers 09:45:00 10:00:00 Visit Roberta Mark [facility] 350.1.13.10 ity of [place] 4.2.7.2.686 Karlos as AARON?BLEA [phone] Fl gerda REAGAN [address] [facility] OFFICE [facility] 2021-10-25 2021-10-25 Office [facility] 1.2.840.114 [id number] Univers 09:30:00 09:45:00 Visit [facility] 350.1.13.10 it y of [place] 4.2.7.2.686 Karlos as AARON?BLEA [phone] [address] OFFICE [facility] 2021-10-25 2021-10-25 Outpatient Hannah GRANADOS [facility] [id number] Univers 09:30:00 09:30:00 MARK moises [facility] 2021-10-09 2021-10-09 Outpatient Hannah [facility]OS [facility] [id number] Univers 09:45:00 09:45:00 MARK moises [facility] 2021-09-21 2021-09-21 Refill [facility] 1.2.840.114 [id number] Univers 00:00:00 00:00:00 [facility] 350.1.13.10 it y of [place] 4.2.7.2.686 Karlos as AARON?BLEA [phone] Fl gerda PEACOCK 0[address] [facility] OFFICE [facility] 2021-09-01 2021-09-01 Outpatient [facility] [id number] Univers 09:40:00 23:59:00 [facility] 2021-09-01 2021-09-01 Office [facility] 1.2.840.114 [id number] Univers 09:30:00 10:46:30 Visit [facility] 350.1.13.10 it y of [place] 4.2.7.2.686 Karlos as AARON?BLEA [phone] Fl gerda PEACOCK 198 [facility] OFFICE [facility] 2021-09-01 2021-09-01 Outpatient Hannah [facility] [id number] Univers 09:40:00 09:40:00 [facility] 2021-08-30 2021-08-30 [facility] 1.2.840.114 [id number] Univers 00:00:00 00:00:00 [facility] 350.1.13.10 it y of [place] 4.2.7.2.686 Karlos as AARON?BLEA [phone] Fl gerda PEACOCK 044 [facility] OFFICE [facility] 2021-08-24 2021-08-24 [facility] 1.2.840.114 [id number] Univers 00:00:00 00:00:00 [facility] 350.1.13.10 it y of [place] 4.2.7.2.686 Karlos as AARON?BLEA [phone] Fl gerda PEACOCK [address] [place] [address] OFFICE [facility] 2021-07-10 2021-07-10 Out[facility] [id number] Univers 09:45:00 10:01:24 [facility] 2021-07-10 2021-07-10 Office [facility] 1.2.840.114 [id number] Univers 09:45:00 10:00:00 Visit [facility] 350.1.13.10 it y of [place] 4.2.7.2.686 Karlos as AARON?BLEA [phone] [address] MEDICAL OFFICE [facility] 2021-07-10 2021-07-10 Outpatient R ROBERTA [facility] [id number] Univers 09:45:00 09:45:00 MARK guzman [facility] 2021-06-16 2021-06-16 Telephone [facility] 1.2.372.427 [id number] Univers 00:00:00 00:00:00 [place] [facility] 350.1.13.10 it y of [place] 4.2.7.2.686 Karlos as AARON?BLEA [phone] [address] MEDICAL OFFICE [facility] 2021-06-13 2021-06-13 [facility] 1.2.840.114 [id number] Univers 00:00:00 00:00:00 Mark HEALTH 350.1.13.10 it y of [place] 4.2.7.2.686 Karlos as AARON?BLEA [phone] [address] MEDICAL OFFICE [facility] 2021-05-15 2021-05-15 [facility] 1.2.840.114 [id number] Univers 00:00:00 00:00:00 Mark HEALTH 350.1.13.10 it y of [place] 4.2.7.2.686 Karlos as AARON?BLEA [phone] [address] OFFICE [facility] 2021-04-06 2021-04-06 Office [facility] 1.2.840.114 [id number] Univers 10:04:54 10:19:54 Visit [facility] 350.1.13.10 it y of [place] 4.2.7.2.686 Karlos as AARON?BLEA [id number] [address] OFFICE [facility] 2021-04-06 2021-04-06 Outpatient Hannah [facility]DOS [facility] [id number] Univers 10:00:00 10:18:30 MARK guzman [facility] 2021-04-06 2021-04-06 Outpatient Hannah [facility]DOS [facility] [id number] Univers 10:00:00 10:00:00 MARK [facility] 2021-03-29 2021-03-29 Charity [facility] 1.2.840.114 [id number] Univers 00:00:00 00:00:00 Mark HEALTH 350.1.13.10 it y of [place] 4.2.7.2.686 Karlos as AARON?BLEA [id number] [address] OFFICE [facility] 2021-03-10 2021-03-10 Charity [facility] 1.2.840.114 [id number] Univers 00:00:00 00:00:00 [facility] 350.1.13.10 it y of [place] 4.2.7.2.686 Karlos as Aaron?Blea [phone] [address] 2021-02-21 2021-02-21 Charity [facility] 1.2.840.114 [id number] Univers 00:00:00 00:00:00 [facility] 350.1.13.10 it y of [place] 4.2.7.2.686 Karlos as Aaron?Blea [phone] [address] 2021-02-09 2021-02-09 Charity [facility] 1.2.840.114 [id number] Univers 00:00:00 00:00:00 [facility] 350.1.13.10 it y of [place] 4.2.7.2.686 Karlos as Aaron?Blea [phone] [address] 2021-01-05 2021-01-05 Outpatient Hannah [facility]DOS [facility] [id number] Univers 14:15:00 14:15:00 MARK guzman [facility] 2021-01-04 2021-01-04 Outpatient Hannah [facility]OS [facility] [id number] Univers 14:30:00 14:30:00 MARK guzman [facility] 2021-01-04 2021-01-04 Outpatient Hannah [facility]OS [facility] [id number] Univers 13:15:00 13:15:00 MARK guzman [facility] 2021-01-04 2021-01-04 Out[facility] [id number] Univers 09:45:00 09:45:00 MARK guzman [facility] 2020-12-16 2020-12-16 Refkaye [facility] 1.2.840.114 [id number] Univers 00:00:00 00:00:00 [facility] 350.1.13.10 it y of [place] 4.2.7.2.686 Karlos as Professio [phone] Fl dical nal [address] [place] [address] Office [facility] One 2020-12-06 2020-12-06 Refkaye [facility] 1.2.840.114 [id number] Univers 00:00:00 00:00:00 [facility] 350.1.13.10 it y of [place] 4.2.7.2.686 Karlos as Professio [phone] Fl dical nal [address] [place] [address] One 2020-11-24 2020-11-24 Office [facility] 1.2.840.114 [id number] Univers 12:44:01 13:46:00 Visit [facility] 350.1.13.10 it y of [place] 4.2.7.2.686 Karlos as Professio [phone] [facility] nal [address] [place] [address] One 2020-11-24 2020-11-24 Outpatient [facility] [id number] Univers 12:45:00 12:45:00 MARK guzman [facility] 2020-11-24 2020-11-24 Telephone [facility] 1.2.321.866 [id number] Univers 00:00:00 00:00:00 [place] 350.1.13.10 it y of [place] 4.2.7.2.686 Karlos as Professio [phone] Fl dical nal [address] [place] [address] One 2020-11-04 2020-11-04 Refkaye [facility] 1.2.840.114 [id number] Univers 00:00:00 00:00:00 [facility] 350.1.13.10 it y of [place] 4.2.7.2.686 Karlos as Professio [phone] [address] Office [facility] One 2020-10-25 2020-10-25 Refkaye [facility] 1.2.840.114 [id number] Univers 00:00:00 00:00:00 [facility] 350.1.13.10 it y of [place] 4.2.7.2.686 Karlos as Professio [phone] [address] Office [facility] One 2020-10-05 2020-10-05 Telephone [facility] 1.2.802.532 [id number] Univers 00:00:00 00:00:00 [facility] 350.1.13.10 it y of [place] 4.2.7.2.686 Karlos as Professio [id number] [address] One 2020-10-04 2020-10-04 Refkaye [facility] 1.2.840.114 [id number] Univers 00:00:00 00:00:00 [facility] 350.1.13.10 it y of [place] 4.2.7.2.686 Karlos as Professio [phone] [address] Office [facility] One 2020-09-06 2020-09-06 Refkaye [facility] 1.2.840.114 [id number] Univers 00:00:00 00:00:00 [facility] 350.1.13.10 it y of [place] 4.2.7.2.686 Karlos as Professio [phone] [address] Office [facility] One 2020-08-31 2020-08-31 Office Roberta [facility] 1.2.840.114 [id number] Univers 09:22:05 09:37:05 Visit [facility] 350.1.13.10 it y of [place] 4.2.7.2.686 Karlos as Professio [phone] [address] Office [facility] One 2020-08-31 2020-08-31 Outpatient R ROBERTA [facility] [id number] Univers 09:30:00 09:30:00 MARK bordeny of [facility] 2020-08-08 2020-08-08 Refkaye [facility] 1.2.840.114 [id number] Univers 00:00:00 00:00:00 [facility] 350.1.13.10 it y of [place] 4.2.7.2.686 Karlos as Professio [phone] [address] Office [facility] One 2020-07-08 2020-07-08 Refkaye [facility] 1.2.840.114 [id number] Univers 00:00:00 00:00:00 [facility] 350.1.13.10 it y of [place] 4.2.7.2.686 Karlos as Professio [phone] [facility] nal [address] [place] [address] Office Building One 2020-07-01 2020-07-01 Telephone [facility] 1.2.056.290 [id number] Univers 00:00:00 00:00:00 [facility] 350.1.13.10 it y of [place] 4.2.7.2.686 Karlos as Professio [phone] [address] Office [facility] One 2020-06-01 2020-06-01 [facility] 1.2.840.114 [id number] Univers 09:18:52 09:33:52 Visit [facility] 350.1.13.10 it y of [place] 4.2.7.2.686 Karlos as Professio [phone] [address] Office [facility] 2020-06-01 2020-06-01 Outpatient [facility] [id number] Univers 09:30:00 09:30:00 MARK ity of [facility] 2020-05-04 2020-05-04 Refkaye [facility] 1.2.840.114 [id number] Univers 00:00:00 00:00:00 [facility] 350.1.13.10 it y of [place] 4.2.7.2.686 Karlos as Professio [phone] [address] Office [facility] One 2020-04-26 2020-04-26 [facility] 1.2.840.114 [id number] Univers 00:00:00 00:00:00 [facility] 350.1.13.10 it y of [place] 4.2.7.2.686 Karlos as Professio [id number] [address] Office Building One 2020-04-04 2020-04-04 Refill [facility] 1.2.840.114 [id number] Univers 00:00:00 00:00:00 [facility] 350.1.13.10 it y of [place] 4.2.7.2.686 Karlos as Professio [id number] [address] Office Building One 2020-03-24 2020-03-24 Refill [facility] 1.2.840.114 [id number] Univers 00:00:00 00:00:00 [facility] 350.1.13.10 it y of [place] 4.2.7.2.686 Karlos as Professio [phone] [address] Office [facility] 2020-02-29 2020-02-29 Office [facility] 1.2.840.114 [id number] Univers 13:54:59 14:09:59 Visit [facility] 350.1.13.10 it y of [place] 4.2.7.2.686 Karlos as Professio [phone] [address] Office [facility] 2020-02-29 2020-02-29 Outpatient R ROBERTA [facility] [id number] Univers 14:00:00 14:00:00 MARK ity of [facility] 2020-02-29 2020-02-29 Letter Doctor [facility] 1.2.840.114 [id number] Univers 00:00:00 00:00:00 (Out) Unassigned, REINALDO 350.1.13.10 ity of [place] [facility] 4.2.7.2.686 Karlos as [phone] [address] 2020-02-18 2020-02-18 Refkaye [facility] 1.2.840.114 [id number] Univers 00:00:00 00:00:00 [place] 350.1.13.10 it y of [place] 4.2.7.2.686 Karlos as Professio [phone] [address] Office Building One 2020-01-31 2020-01-31 Charity [facility] 1.2.840.114 [id number] Univers 00:00:00 00:00:00 [facility] 350.1.13.10 it y of [place] 4.2.7.2.686 Karlos as Professio [phone] Fl dical nal [address] [place] [address] Office Building One 2020-01-28 2020-01-28 Charity [facility] 1.2.840.114 [id number] Univers 00:00:00 00:00:00 Mark Briseno 350.1.13.10 i ty of [place]2.7.2.[place] Profess[place] [phone] Fl dical nal [address] [place] [address] 2020-01-12 2020-01-12 Charity [facility] 1.2.840.114 [id number] Univers 00:00:00 00:00:00 [facility] 350.1.13.10 it y of [place] 4.2.7.2.686 Karlos as Professio [phone] [facility] [address] [place] [address] Office [facility] One 2019-12-28 2019-12-28 Charity [facility] 1.2.840.114 [id number] Univers 00:00:00 00:00:00 [facility] 350.1.13.10 it y of [place] 4.2.7.2.686 Karlos as Professio [phone] Fl dical nal [address] [place] [address] Office [facility] One 2019-11-25 2019-11-25 Charity [facility] 1.2.840.114 [id number] Univers 00:00:00 00:00:00 [facility] 350.1.13.10 it y of [place] 4.2.7.2.686 Karlos as Professio [phone] Fl dical nal [address] [place] [address] Office Building One 2019-11-24 2019-11-24 Charity [facility] 1.2.840.114 [id number] Univers 00:00:00 00:00:00 [facility] 350.1.13.10 it y of [place] 4.2.7.2.686 Karlos as Professio [phone] [facility] [address] [place] [address] Office Building One 2019-11-12 2019-11-12 Refkaye [facility] 1.2.840.114 [id number] Univers 00:00:00 00:00:00 [facility] 350.1.13.10 it y of [place] 4.2.7.2.686 Karlos as Professio [phone] [address] One 2019-10-26 2019-10-26 Outpatient [facility] [id number] Univers 09:15:00 09:15:00 MARK guzman [facility] 2019-10-21 2019-10-21 Telemedici [facility] 1.2.840.114 [id number] Univers 07:01:10 10:32:59 ne Visit Mark Briseno 350.1.13.10 ity of [place] 4[place]2.7.2.[place] Profess[place] [phone] [address] 2019-10-21 2019-10-21 Outpatient Hannah GRANADOS [facility] [id number] Univers 10:15:00 10:15:00 MARK guzman [facility] 2019-09-17 2019-09-17 Refkaye [facility] 1.2.840.114 [id number] Univers 00:00:00 00:00:00 [facility] 350.1.13.10 it y of [place] 4.2.7.2.686 Karlos as Professio [phone] [address] One 2019-09-07 2019-09-07 Charity [facility] 1.2.840.114 [id number] Univers 00:00:00 00:00:00 [facility] 350.1.13.10 it y of [place] 4.2.7.2.686 Karlos as Professio [phone] [address] One 2019-08-13 2019-08-13 Charity [facility] 1.2.840.114 [id number] Univers 00:00:00 00:00:00 [facility] 350.1.13.10 it y of [place] 4.2.7.2.686 Karlos as Professio [phone] [address] One 2019-08-05 2019-08-05 Refkaye [facility] 1.2.840.114 [id number] Univers 00:00:00 00:00:00 [facility] 350.1.13.10 it y of [place] 4.2.7.2.686 Karlos as Professio [phone] [address] Office [facility] 2019-07-28 2019-07-28 Refkaye [facility] 1.2.840.114 [id number] Univers 00:00:00 00:00:00 [facility] 350.1.13.10 it y of [place] 4.2.7.2.686 Karlos as Professio [phone] [address] One 2019-07-15 2019-07-15 Office [facility] 1.2.840.114 [id number] Univers 08:50:45 09:05:45 Visit [facility] 350.1.13.10 it y of [place] 4.2.7.2.686 Karlos as Professio [phone] [address] Office [facility] 2019-07-15 2019-07-15 Outpatient R ROBERTA [facility] [id number] Univers 09:00:00 09:00:00 MARK michimoises [facility] 2019-06-17 2019-06-17 Charity [facility] 1.2.840.114 [id number] Univers 00:00:00 00:00:00 [facility] 350.1.13.10 it y of [place] 4.2.7.2.686 Karlos as Professio [phone] [address] Office [facility] 2019-02-03 2019-02-03 [facility] 1.2.840.114 [id number] Univers 00:00:00 00:00:00 [facility] 350.1.13.10 it y of [place] 4.2.7.2.686 Karlos as Professio [phone] [address] Office [facility] 2019-01-26 2019-01-26 [facility] 1.2.840.114 [id number] [employer] 00:00:00 00:00:00 [facility] 350.1.13.10 it y of [place] 4.2.7.2.686 Karlos as Professio [phone] [address] Office [facility] 2019-01-26 2019-01-26 Orders Doctor MARY ALICE 1.2.840.114 [id number] [employer] 00:00:00 00:00:00 Only Unassigned, REINALDO 350.1.13.10 [facility] [place] [facility] 4.2.7.2.686 Karlos as [phone] [address] 2018-12-31 2018-12-31 [facility] 1.2.840.114 [id number] Univers 09:19:02 09:41:42 Visit [facility] 350.1.13.10 it y of [place] 4.2.7.2.686 Karlos as Professio [phone] [address] One 2018-12-31 2018-12-31 Orders Doctor MARY ALICE 1.2.840.114 [id number] [employer] 00:00:00 00:00:00 Only Unassigned, REINALDO 350.1.13.10 [facility] [place] [facility] 4.2.7.2.686 Karlos as [phone] [address] 2018-12-15 2018-12-15 [facility] 1.2.840.114 [id number] [employer] 00:00:00 00:00:00 [facility] 350.1.13.10 it y of [place] 4.2.7.2.686 Karlos as Professio [phone] [address] One Results This patient has no known results.
[2022-06-11] MEDS ORDERED: FENTANYL CITR 100 MCG/2 ML ONE (21:50)
[2022-06-11] MEDS ORDERED: HYDROMORPHONE HCL 1 MG/ML INJ ONE (22:16)
[2022-06-11 22:30] LABS: Absolute Lymphocytes (CBC) 1.5 K/uL (0.7-4.9); Hematocrit 41.7 % (39.6-49.0); Lymphocytes % 17.4 % (15.3-44.8); MCV 85.8 fL (80-100); MPV 7.3 fL (7.6-11.3); RBC Red Blood Cell Count 4.85 M/uL (4.33-5.43)
[2022-06-11 22:44] LABS: Magnesium 2.5 mg/dL (1.6-2.4); Potassium 4.3 mmol/L (3.5-5.1)
[2022-06-11] MEDS ORDERED: ONDANSETRON 4 MG/2 ML VIAL ONE (22:48)
--- NOTE | 2022-06-12 00:48 | EDPHYS ---
Physician Documentation [facility] Name: Juancarlos Quinones Jr Age: 66 yrs Sex: Male : 1955 Arrival Date: 06/11/2022 Time: 20:35 Bed 13 Private MD: ED Physician Gael Flores HPI: 06/11 21:00 This 66 yrs old Male presents to ER via Ambulatory with complaints of Nausea, Chest cp Pain. 21:00 The patient presents to the emergency department with nausea. cp 21:00 The patient or guardian reports chest pain that is located primarily in the substernal cp area. 21:00 Onset: 2 hour(s) ago. The pain does not radiate. Associated signs and symptoms: cp Pertinent positives: nausea, Pertinent negatives: abdominal pain, fever, vomiting. 21:00 Patient given sublingual nitro times 2 and aspirin by EMS w/o pain relief. cp Historical: - Allergies: 20:54 Codeine; pf1 20:54 Morphine; pf1 - Home Meds: 20:54 Adderall XR 20 mg Oral cp24 1 cap twice a day [Active]; Clonidine Oral [Active]; pf1 Nitroglycerin Oral [Active]; OxyContin Oral [Active]; - PMHx: 20:54 Chronic pain; Hypertension; Myocardial infarction; RA; pf1 - PSHx: 20:54 left shoulder; right shoulder; triple bypass; pf1 - Immunization history:: Adult Immunizations up to date, Client reports having NOT received the Covid vaccine. Last tetanus immunization: > 10 years ago Pneumococcal vaccine is not up to date, patient has never been vaccinated, Flu vaccine is not up to date. Patient has never been vaccinated. - Social history:: Smoking status: Patient denies any tobacco usage or history of. ROS: 06/12 21:05 Constitutional: Negative for body aches, chills, fever, poor PO intake. cp 21:05 Eyes: Negative for injury, pain, redness, and discharge. cp 21:05 ENT: Negative for drainage from ear(s), ear pain, sore throat, difficulty swallowing, difficulty handling secretions. 21:05 Cardiovascular: Positive for chest pain, Negative for edema, palpitations. 21:05 Respiratory: Negative for cough, shortness of breath, wheezing. 21:05 Abdomen/GI: Positive for nausea, Negative for abdominal pain, vomiting, diarrhea, constipation. 21:05 Back: Negative for pain at rest, pain with movement. 21:05 Neuro: Negative for altered mental status, dizziness, headache, numbness, syncope, weakness. 21:05 All other systems are negative. Exam: 06/11 20:57 ECG was reviewed by the Attending Physician. cp 21:10 Constitutional: The patient appears in no acute distress, alert, awake, cp non-diaphoretic, non-toxic, well developed, well nourished. 21:10 Head/Face: Normocephalic, atraumatic. cp 21:10 Eyes: Periorbital structures: appear normal, Conjunctiva: normal, no exudate, no injection, Sclera: no appreciated abnormality, Lids and lashes: appear normal, bilaterally. 21:10 ENT: External ear(s): are unremarkable, Nose: is normal, Mouth: Lips: moist, Oral mucosa: pink and intact, moist, Posterior pharynx: is normal, airway is patent, no erythema, no exudate. 21:10 Chest/axilla: Inspection: normal. 21:10 Cardiovascular: Rate: normal, Rhythm: regular, Edema: is not appreciated, JVD: is not appreciated. 21:10 Respiratory: the patient does not display signs of respiratory distress, Respirations: normal, no use of accessory muscles, no retractions, labored breathing, is not present, Breath sounds: are clear throughout, no decreased breath sounds, no stridor, no wheezing. 21:10 Abdomen/GI: Inspection: abdomen appears normal, Bowel sounds: active, all quadrants, Palpation: abdomen is soft and non-tender, in all quadrants. 21:10 Neuro: Orientation: to person, place \T\ time. Mentation: is normal, Motor: moves all fours, strength is normal, Sensation: is normal. 06/12 00:17 ECG was reviewed by the Attending Physician. cp Vital Signs: 06/11 20:40 BP 122 / 68; Pulse 71; Resp 18; Temp 98.8; Pulse Ox 100% on R/A; Weight 76.66 kg; pf1 Height 5 ft. 9 in. (175.26 cm); Pain 7/10; 22:21 BP 136 / 79; Pulse 58; Resp 15 S; Pulse Ox 100% on R/A; as6 23:11 BP 152 / 67; Pulse 60; Resp 13 S; Pulse Ox 100% on R/A; as6 06/12 00:30 BP 137 / 72; Pulse 55; Resp 21 S; Pulse Ox 100% on R/A; as6 06/11 20:40 Body Mass Index 24.96 (76.66 kg, 175.26 cm) pf1 MDM: 06/11 20:42 Patient medically screened. cp 06/12 00:46 The patient was not given aspirin in the Emergency Department. Administered by EMS. cp 00:46 Data reviewed: vital signs, nurses notes, lab test result(s), EKG, radiologic studies, cp plain films. Consideration of Admission/Observation Escalation of care including admission/observation considered. I considered the following discharge prescriptions or medication management in the emergency department Medications were administered in the Emergency Department. See MAR. Test considered but Not performed: CT: chest for PE. Care significantly affected by the following chronic conditions: history of chronic pain. 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 Response to treatment: the patient's symptoms have markedly improved after treatment. ED course: Patient discharged from [facility] yesterday after evaluation for chest pain. \T\ sets of troponin negative today, EKG negative for significant change. Will discharge to home for continued monitoring. 06/11 20:56 Order name: Basic Metabolic Panel; Complete Time: 22:47 cp 06/11 22:47 Interpretation: Normal except: GLUC 112; BUN 22; GFR 64. cp 06/11 20:56 Order name: CBC with Diff; Complete Time: 22:47 cp 06/11 22:48 Interpretation: Normal except: MPV 7.3; HUGH% 74.0. cp 06/11 20:56 Order name: Magnesium; Complete Time: 22:47 cp 06/11 20:56 Order name: NT PRO-BNP; Complete Time: 22:47 cp 06/11 20:56 Order name: PT-INR; Complete Time: 22:47 cp 06/11 20:56 Order name: Troponin HS; Complete Time: 22:47 cp 06/12 00:44 Interpretation: Reviewed. cp 06/11 20:56 Order name: XRAY Chest (1 view) cp 06/11 20:56 Order name: EKG; Complete Time: 20:57 cp 06/11 20:56 Order name: Cardiac monitoring; Complete Time: 21:51 cp 06/11 20:56 Order name: EKG - Nurse/Tech; Complete Time: 20:58 cp 06/12 00:02 Order name: Troponin HS; Complete Time: 00:44 cp 06/12 00:44 Interpretation: Reviewed. 06/11 20:56 Order name: IV Saline Lock; Complete Time: 22:11 cp 06/11 20:56 Order name: Labs collected and sent; Complete Time: 22:11 cp 06/11 20:56 Order name: O2 Per Protocol; Complete Time: 21:51 cp 06/11 20:56 Order name: O2 Sat Monitoring; Complete Time: 21:51 cp 06/12 00:02 Order name: EKG - Nurse/Tech; Complete Time: 00:30 cp EC/23 20:57 Rate is 64 beats/min. Rhythm is regular. KS interval is prolonged at 212 msec. QRS cp interval is normal. QT interval is normal. T waves are Inverted in lead aVR. Interpreted by me. Reviewed by me. 06/12 00:17 Rate is 50 beats/min. Rhythm is regular. KS interval is prolonged at 264 msec. QRS cp interval is normal. QT interval is normal. T waves are Inverted in lead aVR. Interpreted by me. Reviewed by me. Administered Medications: 06/11 22:11 Not Given (Patient Refused): fentaNYL (PF) 25 mcg IVP once as6 22:20 Drug: Dilaudid (HYDROmorphone) 1 mg Route: IVP; Site: right antecubital; as6 06/12 01:01 Follow up: Response: No adverse reaction as6 06/11 22:50 Drug: Zofran (Ondansetron) 4 mg Route: IVP; Site: right antecubital; as6 06/12 01:01 Follow up: Response: No adverse reaction as6 Disposition: 01:07 Co-signature as Attending Physician, Gael Flores MD I reviewed the patient's care rn provided by the Advanced Practice Provider and agree with the diagnosis and treatment plan. Disposition Summary: 06/12/22 00:47 Discharge Ordered Location: Home cp Problem: new cp Symptoms: have improved cp Condition: Stable cp Diagnosis - Chest pain, unspecified cp - Nausea cp Followup: cp - With: Nghia Schulte MD - When: 2 - 3 days - Reason: Recheck today's complaints Discharge Instructions: - Discharge Summary Sheet cp - Nonspecific Chest Pain, Adult cp - Nausea, Adult cp - Aspirin and Your Heart cp Forms: - Medication Reconciliation Form cp - Thank You Letter cp - Antibiotic Education cp - Prescription Opioid Use cp Prescriptions: - Zofran 4 mg Oral Tablet - take 1 tablet by ORAL route every 12 hours As needed; 20 tablet; Refills: 0, cp Product Selection Permitted Signatures: Dispatcher [employer] EDGael Shabazz MD MD rn Bakari Kim PA PA cp Venkat Hurtado RN RN as6 Anne wong RN RN pf1
--- NOTE | 2022-06-12 00:48 | ER ---
Nurse's Notes [facility] Name: Juancarlos Quinones Jr Age: 66 yrs Sex: Male : 1955 Arrival Date: 06/11/2022 Time: 20:35 Bed 13 Private MD: Diagnosis: Chest pain, unspecified;Nausea Presentation: 06/11 20:40 Chief complaint: Patient states: substernal chest pain of 7,onset 2 hours ago with pf1 nausea. Patient stated took Nitro x 2 tablets SL and ASA 81mg 2 hours ago. Patient stated history of MT and triple bypass in 2000. Patient stated was here on Saturday and was admitted for CP. Coronavirus screen: Vaccine status: Patient reports being unvaccinated. Client denies travel out of the [place] in the last 14 days. At this time, the client does not indicate any symptoms associated with coronavirus-19. Ebola Screen: Patient negative for fever greater than or equal to 101.5 degrees Fahrenheit, and additional compatible Ebola Virus Disease symptoms. Initial Sepsis Screen: Does the patient meet any 2 criteria? No. Patient's initial sepsis screen is negative. Does the patient have a suspected source of infection? No. Patient's initial sepsis screen is negative. Risk Assessment: Do you want to hurt yourself or someone else? Patient reports no desire to harm self or others. 20:40 Method Of Arrival: Ambulatory pf1 20:40 Acuity: SUNITA 2 pf1 06/12 01:01 Onset of symptoms was June 11, 2022. as6 Historical: - Allergies: 06/11 20:54 Codeine; pf1 20:54 Morphine; pf1 - Home Meds: 20:54 Adderall XR 20 mg Oral cp24 1 cap twice a day [Active]; Clonidine Oral [Active]; pf1 Nitroglycerin Oral [Active]; OxyContin Oral [Active]; - PMHx: 20:54 Chronic pain; Hypertension; Myocardial infarction; RA; pf1 - PSHx: 20:54 left shoulder; right shoulder; triple bypass; pf1 - Immunization history:: Adult Immunizations up to date, Client reports having NOT received the Covid vaccine. Last tetanus immunization: > 10 years ago Pneumococcal vaccine is not up to date, patient has never been vaccinated, Flu vaccine is not up to date. Patient has never been vaccinated. - Social history:: Smoking status: Patient denies any tobacco usage or history of. Screenin:57 [facility] ED Fall Risk Assessment (Adult) History of falling in the last 3 months, pf1 including since admission No falls in past 3 months (0 pts) Confusion or Disorientation No (0 pts) Intoxicated or Sedated No (0 pts) Impaired Gait No (0 pts) Mobility Assist Device Used No (0 pt) Altered Elimination No (0 pt) Score/Fall Risk Level 0 - 2 = Low Risk Oriented to surroundings, Maintained a safe environment, Educated pt \T\ family on fall prevention, incl call for assistance when getting out of bed, Assessed \T\ reinforced patient's understanding of fall precautions, Provided non-skid footwear, Hourly rounding (assess needs \T\ fall precautionary measures) done, Used ambulatory aids as needed (educated on \T\ assisted with), Used gait belt as appropriate. Abuse screen: Denies threats or abuse. Nutritional screening: No deficits noted. Tuberculosis screening: No symptoms or risk factors identified. Assessment: 22:20 General: Appears uncomfortable, Behavior is calm, cooperative. Pain: Complains of pain as6 in chest. Neuro: Level of Consciousness is awake, alert, obeys commands, Oriented to person, place, time, situation. Cardiovascular: Reports chest pain, Denies shortness of breath, Capillary refill < 3 seconds Patient's skin is warm and dry. Rhythm is sinus rhythm. Respiratory: Respiratory effort is even, unlabored, Respiratory pattern is regular, symmetrical. GI: Reports nausea. 23:11 Reassessment: Patient and/or family updated on plan of care and expected duration. Pain as6 level reassessed. Patient is alert, oriented x 3, equal unlabored respirations, skin warm/dry/pink. Patient states feeling better. 06/12 00:31 Reassessment: Patient appears in no apparent distress at this time. Patient and/or as6 family updated on plan of care and expected duration. Pain level reassessed. Patient is alert, oriented x 3, equal unlabored respirations, skin warm/dry/pink. Patient states feeling better. Patient states symptoms have improved. Vital Signs: 06/11 20:40 BP 122 / 68; Pulse 71; Resp 18; Temp 98.8; Pulse Ox 100% on R/A; Weight 76.66 kg; pf1 Height 5 ft. 9 in. (175.26 cm); Pain 7/10; 22:21 BP 136 / 79; Pulse 58; Resp 15 S; Pulse Ox 100% on R/A; as6 23:11 BP 152 / 67; Pulse 60; Resp 13 S; Pulse Ox 100% on R/A; as6 06/12 00:30 BP 137 / 72; Pulse 55; Resp 21 S; Pulse Ox 100% on R/A; as6 06/11 20:40 Body Mass Index 24.96 (76.66 kg, 175.26 cm) pf1 ED Course: 06/11 20:35 Patient arrived in ED. rg4 20:39 Bakari Kim PA is PHCP. cp 20:39 Gael Flores MD is Attending Physician. cp 20:44 Triage completed. pf1 20:58 Patient has correct armband on for positive identification. pf1 21:34 Venkat Hurtado, CEE is Primary Nurse. as6 22:11 Basic Metabolic Panel Sent. as6 22:11 CBC with Diff Sent. as6 22:11 Inserted saline lock: 20 gauge in right antecubital area, using aseptic technique. rv1 Blood collected. 22:12 Magnesium Sent. as6 22:12 NT PRO-BNP Sent. as6 22:12 PT-INR Sent. as6 22:12 Troponin HS Sent. as6 22:41 XRAY Chest (1 view) In Process Unspecified. EDMS 06/12 00:45 Nghia Schulte MD is Referral Physician. cp 01:01 Arm band placed on. as6 01:02 No provider procedures requiring assistance completed. IV discontinued, intact, as6 bleeding controlled, No redness/swelling at site. Pressure dressing applied. Administered Medications: 06/11 22:11 Not Given (Patient Refused): fentaNYL (PF) 25 mcg IVP once as6 22:20 Drug: Dilaudid (HYDROmorphone) 1 mg Route: IVP; Site: right antecubital; as6 06/12 01:01 Follow up: Response: No adverse reaction as6 06/11 22:50 Drug: Zofran (Ondansetron) 4 mg Route: IVP; Site: right antecubital; as6 06/12 01:01 Follow up: Response: No adverse reaction as6 Medication: 01:01 VIS not applicable for this client. as6 Outcome: 00:47 Discharge ordered by . melody 01:02 Discharged to home ambulatory. as6 01:02 Condition: stable 01:02 Discharge instructions given to patient, Instructed on discharge instructions, follow up and referral plans. medication usage, Demonstrated understanding of instructions, follow-up care, medications, Prescriptions given X 1. 01:02 Patient left the ED. as6 Signatures: Dispatcher [employer] EDMS Bakari Kim PA PA cp Garcia, Rubi rg4 Venkat Hurtado RN RN as6 Anne wong RN RN pf1 Ale Amador rv1
[2022-06-12 02:41] VITALS: TEMP 98.8; O2SAT 100
[2022-06-12 02:56] VITALS: BP 137/72
--- NOTE | 2022-06-12 08:13 | RAD REPORT ---
EXAM DESCRIPTION: RAD - Chest Single View - 06/11/2022 10:38 pm CLINICAL HISTORY: The patient is 66 years old and is Male; CHEST PAIN TECHNIQUE: Frontal view of the chest. COMPARISON: No relevant prior studies available. FINDINGS: LUNGS: Unremarkable. No consolidation. PLEURAL SPACE: Unremarkable. No pneumothorax. HEART: Unremarkable. No cardiomegaly. MEDIASTINUM: Unremarkable. BONES/JOINTS: Evidence of median sternotomy is noted. Multilevel degenerative change of the sp ine is present. VASCULATURE: Atherosclerosis of the aorta is present. UPPER ABDOMEN: Unremarkable as visualized. IMPRESSION: No acute cardiopulmonary process. Electronically signed by: Pepper Richardson MD 06/11/2022 11:00 PM INTERN ARCHITECT Due to temporary technical issues with the PACS/Fluency reporting system, reports are being signed by the in house radiologists without review as a courtesy to insure prompt reporting. The interpreting radiologist is fully responsible for the content of the report
--- NOTE | 2022-06-12 12:26 | EKG ---
Test Date: 2022-06-11 Test Time: 20:50:13 [place] Supervisor: COMFORT MEASUREMENT RESULTS: Intervals: Rate: 64 SC: 212 QRSD: 100 QT: 398 QTc: 410 [place]: P: 18 SC: 212 QRS: 63 T: 58 INTERPRETIVE STATEMENTS: Sinus rhythm with 1st degree AV block Otherwise normal ECG Compared to ECG 06/09/2022 20:02:03 First degree AV block now present Sinus arrhythmia no longer present Electronically Signed On 06-12-22 12:24:40 SALES MANAGEMENT INTERN by Nghia Schulte
--- NOTE | 2022-06-14 18:13 | EKG ---
Test Date: 2022-06-12 Test Time: 00:11:24 [employer]yclable Materials Sorter: MEASUREMENT RESULTS: Intervals: Rate: 50 [place]: 264 QRSD: 100 QT: 436 QTc: 397 [place]: P: 75 [place]: 264 QRS: 48 T: 62 INTERPRETIVE STATEMENTS: Sinus bradycardia with sinus arrhythmia with 1st degree AV block Otherwise normal ECG Compared to ECG 06/11/2022 20:50:13 Sinus rhythm no longer present Electronically Signed On 06-14-22 18:11:11 FIBERGLASS FABRICATOR by Nghia Schulte
== END 2022-06-12 01:02 | disposition home or self-care (01) ==
LOC: ER 20:31
DX: R07.89 Other chest pain (principal); R11.0 Nausea; I10 Essential (primary) hypertension; Z88.5 Allergy status to narcotic agent
CPT/HCPCS: 93005 ×2; 85025; 80048; 36415; 83735; 85610; 84484 ×2; 83880; 71045; 96375; 96374; 99284; J1170; J2405; J3010

== ENCOUNTER 2023-08-03 18:24 | Observation (INO) | payer OTHER ==
--- OUTSIDE RECORDS SUMMARY | 2023-08-03 18:31 | XMS REPORT | Continuity of Care Document ---
Author Name Unknown Address [address] [facility] [place] [address] [facility] Address [address] [facility] [place] [address] Care Team Providers Care Pump Tender Name Role Phone Mark Granados MD Primary Care Physician [phone] MARK GRANADOS Attending Clinician Unavailable NANCY DILLON Attending Clinician UnavailNANCY Pisano Attending Clinician UnavailMark Lagos MD Attending Clinician [phone] UNKNOWN, ATTENDING Attending Clinician Unavailab Cristofer Pro MD Attending Clinician [phone] CRISTOFER MITCHELL Attending Clinician Unavail able CRISTOFER MITCHELL Attending Clinician Unavail able MORIS ACOSTA Attending Clinician Unavailable Lab, Ang - Db Attending Clinician Unavailable DANIA DARBY Attending Clinician Nasreen vailable Doctor Unassigned, [place] Attending Clinician U daron DOBBS MILANHAYLEY MONTEROMI Attending Clinician Unavail able Sammie Hopkins Attending Clinician [phone] SAMMIE OCONNOR Attending Clinician Unavailable Nancy Dillon MD Attending Clinician [phone] Alexei Anderson MD Attending Clinician + [phone] MORIS ACOSTA Admitting Clinician Unavailable CRISTOFER MITCHELL Admitting Clinician Unavail able Payers Payer Name Policy Type Policy Number Effective Date Expirati on Date Source [employer] [id number] 2022 00:00:00 Problems Condition Name Condition Details Condition Category Status Onset Date Resolution Date Last Treatment Date Treating Clinician Comments Source Anxiety Anxiety Disease Active 06-30 00:00: 00 [facility] Right inguinal hernia Right inguinal hernia Disease Active 2016-05 00:00: 00 [facility] Insomnia Insomnia Disease Active 08-10 00:00: 00 [facility] Depression Depression Disease Active 2014-05 00:00: 00 [facility] ADD (attention deficit disorder) without hyperactiv ity ADD (attention deficit disorder) without hyperactiv ity Disease Active 2014-05 00:00: 00 [facility] Headache Headache Disease Active 2014-05 00:00: 00 [facility] Sinusitis Sinusitis Disease Active 2014-05 00:00: 00 [facility] Allergies, Adverse Reactions, Alerts Allergy Name Allergy Type Status Severity Reaction(s) Onset Date Inactive Date Treating Clinician Comments Source AMOXICIL LUCIO-POT CLAVULAN ATE DRUG Active Unknown-Cmnt 2014-05 00:00: 00 [facility] CODEINE DRUG INGREDI Active Unknown-Cmnt 2014-05 00:00: 00 [facility] MORPHINE DRUG INGREDI Active Unknown-Cmnt 2014-05 00:00: 00 [facility] Amoxicil lucio-Pot Clavulan ate Propensi ty to adverse reaction s Active Unknown - See comments 2014-05 00:00: 00 [facility] Codeine Propensi ty to adverse reaction s Active Unknown - See comments 2014-05 00:00: 00 [facility] Morphine Propensi ty to adverse reaction s Active Unknown - See comments 2014-05 00:00: 00 [facility] Social History Social Habit Start Date Stop Date Quantity Comments Source History of tobacco use 1971-05-20 00:00:00 Cigarette Smoker [facility] Gender identity [facility] 2023-05-07 00:00:00 2023-05-07 00:00:00 0 /d [facility] Exposure to SARS-CoV-2 (event) 2022-09-21 00:00:00 2022-10-01 08:53:00 Not sure [facility] History of Social function 2022-09-13 00:00:00 2022-09-13 00:00:00 [facility] Cigarettes smoked current (pack per day) - Reported 2021-12-08 00:00:00 2021-12-08 00:00:00 [facility] Tobacco use and exposure 2021-12-08 00:00:00 2021-12-08 00:00:00 Smokeless tobacco non-user [facility] Sex Ass[birth year] At 1955 00:00:00 1955 00:00:00 [facility] Smoking Status Start Date Stop Date Source Smokes tobacco daily 2021-12-08 00:00:00 [facility] Medications Ordered Medication Name Filled Medication Name Start Date Stop Date Current Medication? Ordering Clinician Indication Dosage Frequency Signature (SIG) Comments Components Source dextroamphe tamine-amph etamine (ADDERALL) 20 mg tablet 3-14 00:00: 00 Yes [id number] 20mg Take 1 tablet by mouth in the morning and 1 tablet in the evening. [facility] diazePAM (VALIUM) 10 mg tablet 0 3-11 00:00: 00 Yes [id number] 10mg Take 1 tablet by mouth in the morning and 1 tablet at noon and 1 tablet in the evening. [facility] diazePAM (VALIUM) 10 mg tablet 0 3-11 00:00: 00 Yes [id number] 10mg Take 1 tablet by mouth in the morning and 1 tablet at noon and 1 tablet in the evening. [facility] diazePAM (VALIUM) 10 mg tablet 2023-0 3-11 00:00: 00 Yes [id number] 10mg Take 1 tablet by mouth in the morning and 1 tablet at noon and 1 tablet in the evening. [facility] dextroamphe tamine-amph etamine (ADDERALL) 20 mg tablet 2-15 00:00: 00 Yes [id number] 20mg Take 1 tablet by mouth in the morning and 1 tablet in the evening. [facility] dextroamphe tamine-amph etamine (ADDERALL) 20 mg tablet 2-15 00:00: 00 Yes [id number] 20mg Take 1 tablet by mouth in the morning and 1 tablet in the evening. [facility] dextroamphe tamine-amph etamine (ADDERALL) 20 mg tablet 15 00:00: 00 Yes [id number] 20mg Take 1 tablet by mouth in the morning and 1 tablet in the evening. [facility] dextroamphe tamine-amph etamine (ADDERALL) 20 mg tablet 15 00:00: 00 07-31 00:00 :00 No [id number] 20mg Take 1 tablet by mouth in the morning and 1 tablet in the evening. [facility] dextroamphe tamine-amph etamine (ADDERALL) 20 mg tablet 18 00:00: 00 Yes [id number] 20mg Take 1 tablet by mouth in the morning and 1 tablet in the evening. [facility] dextroamphe tamine-amph etamine (ADDERALL) 20 mg tablet 18 00:00: 00 07-04 00:00 :00 No [id number] 20mg Take 1 tablet by mouth in the morning and 1 tablet in the evening. [facility] METOPROLOL SUCCINATE XL 50 mg 24 hr tablet 2022-05 00:00: 00 Yes [id number] TAKE 1 TABLET BY MOUTH EVERY DAY IN THE MORNING [facility] METOPROLOL SUCCINATE XL 50 mg 24 hr tablet 2022-05 00:00: 00 Yes [id number] TAKE 1 TABLET BY MOUTH EVERY DAY IN THE MORNING [facility] METOPROLOL SUCCINATE XL 50 mg 24 hr tablet 2022-05 00:00: 00 Yes [id number] TAKE 1 TABLET BY MOUTH EVERY DAY IN THE MORNING [facility] METOPROLOL SUCCINATE XL 50 mg 24 hr tablet 2022-05 00:00: 00 Yes [id number] TAKE 1 TABLET BY MOUTH EVERY DAY IN THE MORNING [facility] METOPROLOL SUCCINATE XL 50 mg 24 hr tablet 2022-05 00:00: 00 Yes [id number] TAKE 1 TABLET BY MOUTH EVERY DAY IN THE MORNING [facility] METOPROLOL SUCCINATE XL 50 mg 24 hr tablet 2022-05 00:00: 00 Yes [id number] TAKE 1 TABLET BY MOUTH EVERY DAY IN THE MORNING [facility] dextroamphe tamine-amph etamine (ADDERALL) 20 mg tablet 2022-05 00:00: 00 Yes [id number] 20mg Take 1 tablet by mouth in the morning and 1 tablet in the evening. [facility] dextroamphe tamine-amph etamine (ADDERALL) 20 mg tablet 2022-05 00:00: 00 Yes [id number] 20mg Take 1 tablet by mouth in the morning and 1 tablet in the evening. [facility] dextroamphe tamine-amph etamine (ADDERALL) 20 mg tablet 2022-05 00:00: 00 Yes [id number] 20mg Take 1 tablet by mouth in the morning and 1 tablet in the evening. [facility] dextroamphe tamine-amph etamine (ADDERALL) 20 mg tablet 2022-05 00:00: 00 06-06 00:00 :00 No [id number] 20mg Take 1 tablet by mouth in the morning and 1 tablet in the evening. [facility] diazePAM (VALIUM) 10 mg tablet 2022-05 00:00: 00 Yes [id number] 10mg Take 1 tablet by mouth in the morning and 1 tablet at noon and 1 tablet in the evening. [facility] diazePAM (VALIUM) 10 mg tablet 2022-05 00:00: 00 Yes [id number] 10mg Take 1 tablet by mouth in the morning and 1 tablet at noon and 1 tablet in the evening. [facility] diazePAM (VALIUM) 10 mg tablet 2022-05 00:00: 00 Yes [id number] 10mg Take 1 tablet by mouth in the morning and 1 tablet at noon and 1 tablet in the evening. [facility] diazePAM (VALIUM) 10 mg tablet 2022-05 00:00: 00 Yes [id number] 10mg Take 1 tablet by mouth in the morning and 1 tablet at noon and 1 tablet in the evening. [facility] diazePAM (VALIUM) 10 mg tablet 2022-05 00:00: 00 Yes [id number] 10mg Take 1 tablet by mouth in the morning and 1 tablet at noon and 1 tablet in the evening. [facility] diazePAM (VALIUM) 10 mg tablet 2022-05 00:00: 00 Yes [id number] 10mg Take 1 tablet by mouth in the morning and 1 tablet at noon and 1 tablet in the evening. [facility] diazePAM (VALIUM) 10 mg tablet 2022-05 00:00: 00 07-28 00:00 :00 No [id number] 10mg Take 1 tablet by mouth in the morning and 1 tablet at noon and 1 tablet in the evening. [facility] dextroamphe tamine-amph etamine (ADDERALL) 20 mg tablet 2022-05 00:00: 00 Yes [id number] 20mg Take 1 tablet by mouth in the morning and 1 tablet in the evening. [facility] dextroamphe tamine-amph etamine (ADDERALL) 20 mg tablet 2022-05 00:00: 00 Yes [id number] 20mg Take 1 tablet by mouth in the morning and 1 tablet in the evening. [facility] dextroamphe tamine-amph etamine (ADDERALL) 20 mg tablet 2022-05 00:00: 00 05-07 00:00 :00 No [id number] 20mg Take 1 tablet by mouth in the morning and 1 tablet in the evening. [facility] dextroamphe tamine-amph etamine (ADDERALL) 20 mg tablet 2022-05 00:00: 00 05-07 00:00 :00 No [id number] 20mg Take 1 tablet by mouth in the morning and 1 tablet in the evening. [facility] dextroamphe tamine-amph etamine (ADDERALL) 20 mg tablet 2022-05 0 00:00: 00 Yes [id number] 20mg Take 1 tablet by mouth in the morning and 1 tablet in the evening. [facility] dextroamphe tamine-amph etamine (ADDERALL) 20 mg tablet 2022-05 011 00:00: 00 Yes [id number] 20mg Take 1 tablet by mouth in the morning and 1 tablet in the evening. [facility] dextroamphe tamine-amph etamine (ADDERALL) 20 mg tablet 2022-05 0-11 00:00: 00 16 00:00 :00 No [id number] 20mg Take 1 tablet by mouth in the morning and 1 tablet in the evening. [facility] METOPROLOL SUCCINATE XL 50 mg 24 hr tablet 15 00:00: 00 Yes [id number] TAKE 1 TABLET BY MOUTH EVERY DAY IN THE MORNING [facility] LISINOPRIL 20 mg tablet 0 15 00:00: 00 Yes [id number] 20mg TAKE 1 TABLET BY MOUTH EVERY DAY IN THE MORNING [facility] METOPROLOL SUCCINATE XL 50 mg 24 hr tablet 0 15 00:00: 00 Yes [id number] TAKE 1 TABLET BY MOUTH EVERY DAY IN THE MORNING [facility] LISINOPRIL 20 mg tablet 0 15 00:00: 00 Yes [id number] 20mg TAKE 1 TABLET BY MOUTH EVERY DAY IN THE MORNING [facility] METOPROLOL SUCCINATE XL 50 mg 24 hr tablet 0 15 00:00: 00 Yes [id number] TAKE 1 TABLET BY MOUTH EVERY DAY IN THE MORNING [facility] LISINOPRIL 20 mg tablet 2022-0 15 00:00: 00 Yes [id number] 20mg TAKE 1 TABLET BY MOUTH EVERY DAY IN THE MORNING [facility] METOPROLOL SUCCINATE XL 50 mg 24 hr tablet 2022-0 15 00:00: 00 Yes [id number] TAKE 1 TABLET BY MOUTH EVERY DAY IN THE MORNING [facility] LISINOPRIL 20 mg tablet 2022-0 15 00:00: 00 Yes [id number] 20mg TAKE 1 TABLET BY MOUTH EVERY DAY IN THE MORNING [facility] METOPROLOL SUCCINATE XL 50 mg 24 hr tablet 2022-0 15 00:00: 00 Yes [id number] TAKE 1 TABLET BY MOUTH EVERY DAY IN THE MORNING [facility] LISINOPRIL 20 mg tablet 2022-0 15 00:00: 00 Yes [id number] 20mg TAKE 1 TABLET BY MOUTH EVERY DAY IN THE MORNING [facility] METOPROLOL SUCCINATE XL 50 mg 24 hr tablet 2022-0 15 00:00: 00 Yes [id number] TAKE 1 TABLET BY MOUTH EVERY DAY IN THE MORNING [facility] LISINOPRIL 20 mg tablet 2022-0 15 00:00: 00 Yes [id number] 20mg TAKE 1 TABLET BY MOUTH EVERY DAY IN THE MORNING [facility] METOPROLOL SUCCINATE XL 50 mg 24 hr tablet 2022-0 15 00:00: 00 Yes [id number] TAKE 1 TABLET BY MOUTH EVERY DAY IN THE MORNING [facility] LISINOPRIL 20 mg tablet 3-0 15 00:00: 00 Yes [id number] 20mg TAKE 1 TABLET BY MOUTH EVERY DAY IN THE MORNING [facility] METOPROLOL SUCCINATE XL 50 mg 24 hr tablet 2022-0 15 00:00: 00 Yes [id number] TAKE 1 TABLET BY MOUTH EVERY DAY IN THE MORNING [facility] LISINOPRIL 20 mg tablet 2022-0 15 00:00: 00 Yes [id number] 20mg TAKE 1 TABLET BY MOUTH EVERY DAY IN THE MORNING [facility] LISINOPRIL 20 mg tablet 2022-0 15 00:00: 00 Yes [id number] 20mg TAKE 1 TABLET BY MOUTH EVERY DAY IN THE MORNING [facility] LISINOPRIL 20 mg tablet 2022-0 15 00:00: 00 Yes [id number] 20mg TAKE 1 TABLET BY MOUTH EVERY DAY IN THE MORNING [facility] LISINOPRIL 20 mg tablet 3-0 15 00:00: 00 Yes [id number] 20mg TAKE 1 TABLET BY MOUTH EVERY DAY IN THE MORNING [facility] LISINOPRIL 20 mg tablet 3-0 15 00:00: 00 Yes [id number] 20mg TAKE 1 TABLET BY MOUTH EVERY DAY IN THE MORNING [facility] LISINOPRIL 20 mg tablet 3-0 15 00:00: 00 Yes [id number] 20mg TAKE 1 TABLET BY MOUTH EVERY DAY IN THE MORNING [facility] LISINOPRIL 20 mg tablet 02-01 00:00: 00 Yes [id number] 20mg TAKE 1 TABLET BY MOUTH EVERY DAY IN THE MORNING [facility] METOPROLOL SUCCINATE XL 50 mg 24 hr tablet 02-01 00:00: 00 05-14 00:00 :00 No [id number] TAKE 1 TABLET BY MOUTH EVERY DAY IN THE MORNING [facility] dextroamphe tamine-amph etamine (ADDERALL) 20 mg tablet 01-22 00:00: 00 Yes [id number] 20mg Take 1 tablet by mouth in the morning and 1 tablet in the evening. [facility] dextroamphe tamine-amph etamine (ADDERALL) 20 mg tablet 01-22 00:00: 00 Yes [id number] 20mg Take 1 tablet by mouth in the morning and 1 tablet in the evening. [facility] dextroamphe tamine-amph etamine (ADDERALL) 20 mg tablet 01-22 00:00: 00 Yes [id number] 20mg Take 1 tablet by mouth in the morning and 1 tablet in the evening. [facility] dextroamphe tamine-amph etamine (ADDERALL) 20 mg tablet 01-22 00:00: 00 Yes [id number] 20mg Take 1 tablet by mouth in the morning and 1 tablet in the evening. [facility] dextroamphe tamine-amph etamine (ADDERALL) 20 mg tablet 01-22 00:00: 00 02-27 00:00 :00 No [id number] 20mg Take 1 tablet by mouth in the morning and 1 tablet in the evening. [facility] donepeziL (ARICEPT) 5 mg tablet 01-14 00:00: 00 Yes [id number] 5mg Take 1 tablet by mouth at bedtime. [facility] donepeziL (ARICEPT) 5 mg tablet 01-14 00:00: 00 Yes [id number] 5mg Take 1 tablet by mouth at bedtime. [facility] donepeziL (ARICEPT) 5 mg tablet 3-0 01-14 00:00: 00 Yes [id number] 5mg Take 1 tablet by mouth at bedtime. [facility] donepeziL (ARICEPT) 5 mg tablet 3-0 01-14 00:00: 00 Yes [id number] 5mg Take 1 tablet by mouth at bedtime. [facility] donepeziL (ARICEPT) 5 mg tablet 3-0 01-14 00:00: 00 Yes [id number] 5mg Take 1 tablet by mouth at bedtime. [facility] donepeziL (ARICEPT) 5 mg tablet 3-0 01-14 00:00: 00 Yes [id number] 5mg Take 1 tablet by mouth at bedtime. [facility] donepeziL (ARICEPT) 5 mg tablet 3-0 01-14 00:00: 00 Yes [id number] 5mg Take 1 tablet by mouth at bedtime. [facility] donepeziL (ARICEPT) 5 mg tablet 2022-0 01-14 00:00: 00 Yes [id number] 5mg Take 1 tablet by mouth at bedtime. [facility] donepeziL (ARICEPT) 5 mg tablet 2022-0 01-14 00:00: 00 Yes [id number] 5mg Take 1 tablet by mouth at bedtime. [facility] donepeziL (ARICEPT) 5 mg tablet 3-0 01-14 00:00: 00 Yes [id number] 5mg Take 1 tablet by mouth at bedtime. [facility] donepeziL (ARICEPT) 5 mg tablet 3-0 01-14 00:00: 00 Yes [id number] 5mg Take 1 tablet by mouth at bedtime. [facility] donepeziL (ARICEPT) 5 mg tablet 3-0 01-14 00:00: 00 Yes [id number] 5mg Take 1 tablet by mouth at bedtime. [facility] donepeziL (ARICEPT) 5 mg tablet 3-0 828 00:00: 00 Yes [id number] 5mg Take 1 tablet by mouth at bedtime. [facility] donepeziL (ARICEPT) 5 mg tablet 0 01-14 00:00: 00 Yes [id number] 5mg Take 1 tablet by mouth at bedtime. [facility] donepeziL (ARICEPT) 5 mg tablet 0 01-14 00:00: 00 Yes [id number] 5mg Take 1 tablet by mouth at bedtime. [facility] donepeziL (ARICEPT) 5 mg tablet 0 01-14 00:00: 00 Yes [id number] 5mg Take 1 tablet by mouth at bedtime. [facility] donepeziL (ARICEPT) 5 mg tablet 0 01-14 00:00: 00 Yes [id number] 5mg Take 1 tablet by mouth at bedtime. [facility] donepeziL (ARICEPT) 5 mg tablet 0 01-14 00:00: 00 Yes [id number] 5mg Take 1 tablet by mouth at bedtime. [facility] donepeziL (ARICEPT) 5 mg tablet 0 01-14 00:00: 00 Yes [id number] 5mg Take 1 tablet by mouth at bedtime. [facility] donepeziL (ARICEPT) 5 mg tablet 0 01-14 00:00: 00 Yes [id number] 5mg Take 1 tablet by mouth at bedtime. [facility] lidocaine 1% (PF) (XYLOCAINE) injection 01-02 16:24: 00 Yes PRN, Starting on Sat01/02/23 at 1124, Until Discontinu ed, Routine, Intra-op [facility] lidocaine 1% (PF) (XYLOCAINE) injection 01-02 16:24: 00 01-03 09:04 :27 No PRN, Starting on Sat01/02/23 at 1124, Until Yumiko 01/03/23 at 0404, Routine, Intra-op [facility] dextroamphe tamine-amph etamine (ADDERALL) 20 mg tablet 12-17 00:00: 00 Yes [id number] 20mg Take 1 tablet by mouth in the morning and 1 tablet in the evening. [facility] diazePAM (VALIUM) 10 mg tablet 12-17 00:00: 00 Yes [id number] 10mg Take 1 tablet by mouth in the morning and 1 tablet at noon and 1 tablet in the evening. [facility] dextroamphe tamine-amph etamine (ADDERALL) 20 mg tablet 12-17 00:00: 00 Yes [id number] 20mg Take 1 tablet by mouth in the morning and 1 tablet in the evening. [facility] diazePAM (VALIUM) 10 mg tablet 12-17 00:00: 00 Yes [id number] 10mg Take 1 tablet by mouth in the morning and 1 tablet at noon and 1 tablet in the evening. [facility] RIVASTIGMIN E TARTRATE 1.5 mg capsule 12-17 00:00: 00 Yes [id number] 1.5mg TAKE 1 CAPSULE BY MOUTH EVERY MORNING AND EVENING. [facility] dextroamphe tamine-amph etamine (ADDERALL) 20 mg tablet 12-17 00:00: 00 Yes [id number] 20mg Take 1 tablet by mouth in the morning and 1 tablet in the evening. [facility] diazePAM (VALIUM) 10 mg tablet 12-17 00:00: 00 Yes [id number] 10mg Take 1 tablet by mouth in the morning and 1 tablet at noon and 1 tablet in the evening. [facility] RIVASTIGMIN E TARTRATE 1.5 mg capsule 12-17 00:00: 00 Yes [id number] 1.5mg TAKE 1 CAPSULE BY MOUTH EVERY MORNING AND EVENING. [facility] dextroamphe tamine-amph etamine (ADDERALL) 20 mg tablet 12-17 00:00: 00 Yes [id number] 20mg Take 1 tablet by mouth in the morning and 1 tablet in the evening. [facility] diazePAM (VALIUM) 10 mg tablet 12-17 00:00: 00 Yes [id number] 10mg Take 1 tablet by mouth in the morning and 1 tablet at noon and 1 tablet in the evening. [facility] RIVASTIGMIN E TARTRATE 1.5 mg capsule 12-17 00:00: 00 Yes [id number] 1.5mg TAKE 1 CAPSULE BY MOUTH EVERY MORNING AND EVENING. [facility] dextroamphe tamine-amph etamine (ADDERALL) 20 mg tablet 12-17 00:00: 00 Yes [id number] 20mg Take 1 tablet by mouth in the morning and 1 tablet in the evening. [facility] diazePAM (VALIUM) 10 mg tablet 12-17 00:00: 00 Yes [id number] 10mg Take 1 tablet by mouth in the morning and 1 tablet at noon and 1 tablet in the evening. [facility] dextroamphe tamine-amph etamine (ADDERALL) 20 mg tablet 12-17 00:00: 00 Yes [id number] 20mg Take 1 tablet by mouth in the morning and 1 tablet in the evening. [facility] diazePAM (VALIUM) 10 mg tablet 12-17 00:00: 00 Yes [id number] 10mg Take 1 tablet by mouth in the morning and 1 tablet at noon and 1 tablet in the evening. [facility] dextroamphe tamine-amph etamine (ADDERALL) 20 mg tablet 12-17 00:00: 00 Yes [id number] 20mg Take 1 tablet by mouth in the morning and 1 tablet in the evening. [facility] diazePAM (VALIUM) 10 mg tablet 12-17 00:00: 00 Yes [id number] 10mg Take 1 tablet by mouth in the morning and 1 tablet at noon and 1 tablet in the evening. [facility] dextroamphe tamine-amph etamine (ADDERALL) 20 mg tablet 12-17 00:00: 00 Yes [id number] 20mg Take 1 tablet by mouth in the morning and 1 tablet in the evening. [facility] diazePAM (VALIUM) 10 mg tablet 12-17 00:00: 00 Yes [id number] 10mg Take 1 tablet by mouth in the morning and 1 tablet at noon and 1 tablet in the evening. [facility] diazePAM (VALIUM) 10 mg tablet 12-17 00:00: 00 Yes [id number] 10mg Take 1 tablet by mouth in the morning and 1 tablet at noon and 1 tablet in the evening. [facility] diazePAM (VALIUM) 10 mg tablet 12-17 00:00: 00 Yes [id number] 10mg Take 1 tablet by mouth in the morning and 1 tablet at noon and 1 tablet in the evening. [facility] diazePAM (VALIUM) 10 mg tablet 12-17 00:00: 00 Yes [id number] 10mg Take 1 tablet by mouth in the morning and 1 tablet at noon and 1 tablet in the evening. [facility] diazePAM (VALIUM) 10 mg tablet 12-17 00:00: 00 Yes [id number] 10mg Take 1 tablet by mouth in the morning and 1 tablet at noon and 1 tablet in the evening. [facility] diazePAM (VALIUM) 10 mg tablet 12-17 00:00: 00 Yes [id number] 10mg Take 1 tablet by mouth in the morning and 1 tablet at noon and 1 tablet in the evening. [facility] diazePAM (VALIUM) 10 mg tablet 12-17 00:00: 00 Yes [id number] 10mg Take 1 tablet by mouth in the morning and 1 tablet at noon and 1 tablet in the evening. [facility] diazePAM (VALIUM) 10 mg tablet 12-17 00:00: 00 Yes [id number] 10mg Take 1 tablet by mouth in the morning and 1 tablet at noon and 1 tablet in the evening. [facility] diazePAM (VALIUM) 10 mg tablet 12-17 00:00: 00 04-08 00:00 :00 No [id number] 10mg Take 1 tablet by mouth in the morning and 1 tablet at noon and 1 tablet in the evening. [facility] dextroamphe tamine-amph etamine (ADDERALL) 20 mg tablet 12-17 00:00: 00 01-22 00:00 :00 No [id number] 20mg Take 1 tablet by mouth in the morning and 1 tablet in the evening. [facility] dextroamphe tamine-amph etamine (ADDERALL) 20 mg tablet 12-17 00:00: 00 01-22 00:00 :00 No [id number] 20mg Take 1 tablet by mouth in the morning and 1 tablet in the evening. [facility] RIVASTIGMIN E TARTRATE 1.5 mg capsule 12-17 00:00: 00 01-14 00:00 :00 No [id number] 1.5mg TAKE 1 CAPSULE BY MOUTH EVERY MORNING AND EVENING. [facility] RIVASTIGMIN E TARTRATE 1.5 mg capsule 12-17 00:00: 00 01-14 00:00 :00 No [id number] 1.5mg TAKE 1 CAPSULE BY MOUTH EVERY MORNING AND EVENING. [facility] RIVASTIGMIN E TARTRATE 1.5 mg capsule 12-14 00:00: 00 Yes [id number] 1.5mg TAKE 1 CAPSULE BY MOUTH EVERY MORNING AND EVENING. [facility] RIVASTIGMIN E TARTRATE 1.5 mg capsule 12-14 00:00: 00 12-17 00:00 :00 No [id number] 1.5mg TAKE 1 CAPSULE BY MOUTH EVERY MORNING AND EVENING. [facility] dextroamphe tamine-amph etamine (ADDERALL) 20 mg tablet 11-11 00:00: 00 Yes [id number] 20mg Take 1 tablet by mouth in the morning and 1 tablet in the evening. [facility] dextroamphe tamine-amph etamine (ADDERALL) 20 mg tablet 11-11 00:00: 00 Yes [id number] 20mg Take 1 tablet by mouth in the morning and 1 tablet in the evening. [facility] dextroamphe tamine-amph etamine (ADDERALL) 20 mg tablet 11-11 00:00: 00 Yes [id number] 20mg Take 1 tablet by mouth in the morning and 1 tablet in the evening. [facility] dextroamphe tamine-amph etamine (ADDERALL) 20 mg tablet 11-11 00:00: 00 12-17 00:00 :00 No [id number] 20mg Take 1 tablet by mouth in the morning and 1 tablet in the evening. [facility] METOPROLOL SUCCINATE XL 50 mg 24 hr tablet 0 16 00:00: 00 Yes [id number] TAKE 1 TABLET BY MOUTH EVERY DAY IN THE MORNING [facility] METOPROLOL SUCCINATE XL 50 mg 24 hr tablet 0 16 00:00: 00 Yes [id number] TAKE 1 TABLET BY MOUTH EVERY DAY IN THE MORNING [facility] METOPROLOL SUCCINATE XL 50 mg 24 hr tablet 0 16 00:00: 00 Yes [id number] TAKE 1 TABLET BY MOUTH EVERY DAY IN THE MORNING [facility] METOPROLOL SUCCINATE XL 50 mg 24 hr tablet 0 16 00:00: 00 Yes [id number] TAKE 1 TABLET BY MOUTH EVERY DAY IN THE MORNING [facility] METOPROLOL SUCCINATE XL 50 mg 24 hr tablet 0 16 00:00: 00 Yes [id number] TAKE 1 TABLET BY MOUTH EVERY DAY IN THE MORNING [facility] METOPROLOL SUCCINATE XL 50 mg 24 hr tablet 0 16 00:00: 00 Yes [id number] TAKE 1 TABLET BY MOUTH EVERY DAY IN THE MORNING [facility] METOPROLOL SUCCINATE XL 50 mg 24 hr tablet 0 16 00:00: 00 Yes [id number] TAKE 1 TABLET BY MOUTH EVERY DAY IN THE MORNING [facility] METOPROLOL SUCCINATE XL 50 mg 24 hr tablet 0 16 00:00: 00 Yes [id number] TAKE 1 TABLET BY MOUTH EVERY DAY IN THE MORNING [facility] METOPROLOL SUCCINATE XL 50 mg 24 hr tablet 0 16 00:00: 00 Yes [id number] TAKE 1 TABLET BY MOUTH EVERY DAY IN THE MORNING [facility] METOPROLOL SUCCINATE XL 50 mg 24 hr tablet 0 16 00:00: 00 Yes [id number] TAKE 1 TABLET BY MOUTH EVERY DAY IN THE MORNING [facility] METOPROLOL SUCCINATE XL 50 mg 24 hr tablet 0 16 00:00: 00 Yes [id number] TAKE 1 TABLET BY MOUTH EVERY DAY IN THE MORNING [facility] METOPROLOL SUCCINATE XL 50 mg 24 hr tablet 0 16 00:00: 00 Yes [id number] TAKE 1 TABLET BY MOUTH EVERY DAY IN THE MORNING [facility] METOPROLOL SUCCINATE XL 50 mg 24 hr tablet 0 16 00:00: 00 Yes [id number] TAKE 1 TABLET BY MOUTH EVERY DAY IN THE MORNING [facility] METOPROLOL SUCCINATE XL 50 mg 24 hr tablet 0 16 00:00: 00 Yes [id number] TAKE 1 TABLET BY MOUTH EVERY DAY IN THE MORNING [facility] METOPROLOL SUCCINATE XL 50 mg 24 hr tablet 0 16 00:00: 00 02-01 00:00 :00 No [id number] TAKE 1 TABLET BY MOUTH EVERY DAY IN THE MORNING [facility] rivastigmin e tartrate 1.5 mg capsule 10-29 00:00: 00 Yes [id number] 1.5mg Take 1 capsule by mouth every morning and evening. [facility] rivastigmin e tartrate 1.5 mg capsule 2022-0 10-29 00:00: 00 Yes [id number] 1.5mg Take 1 capsule by mouth every morning and evening. [facility] rivastigmin e tartrate 1.5 mg capsule 2022-0 12 00:00: 00 Yes [id number] 1.5mg Take 1 capsule by mouth every morning and evening. [facility] rivastigmin e tartrate 1.5 mg capsule 2022-0 12 00:00: 00 Yes [id number] 1.5mg Take 1 capsule by mouth every morning and evening. [facility] rivastigmin e tartrate 1.5 mg capsule 2022-0 12 00:00: 00 Yes [id number] 1.5mg Take 1 capsule by mouth every morning and evening. [facility] rivastigmin e tartrate 1.5 mg capsule 2022-0 12 00:00: 00 Yes [id number] 1.5mg Take 1 capsule by mouth every morning and evening. [facility] rivastigmin e tartrate 1.5 mg capsule 10-29 00:00: 00 12-14 00:00 :00 No [id number] 1.5mg Take 1 capsule by mouth every morning and evening. [facility] rivastigmin e tartrate 1.5 mg capsule 10-29 00:00: 00 12-14 00:00 :00 No [id number] 1.5mg Take 1 capsule by mouth every morning and evening. [facility] gadobenate dimeglumine (MULTIHANCE -15 mL) injection 0.2 mL/kg 10-18 16:45: 00 10-18 16:36 :00 No [id number] .2mL/kg 0.2 mL/kg, Intravenou s, ONCE, 1 dose, On [place] 10/18/22 at 1145, Routine [facility] CYANOCOBALA MIN 1,000 mcg/mL injection 10-12 00:00: 00 Yes [id number] INJECT INTO THE MUSCLE 1 MILLILITER S EVERY WEEK [facility] CYANOCOBALA MIN 1,000 mcg/mL injection 0 10-12 00:00: 00 Yes [id number] INJECT INTO THE MUSCLE 1 MILLILITER S EVERY WEEK [facility] CYANOCOBALA MIN 1,000 mcg/mL injection 0 10-12 00:00: 00 Yes [id number] INJECT INTO THE MUSCLE 1 MILLILITER S EVERY WEEK [facility] CYANOCOBALA MIN 1,000 mcg/mL injection 0 10-12 00:00: 00 Yes [id number] INJECT INTO THE MUSCLE 1 MILLILITER S EVERY WEEK [facility] CYANOCOBALA MIN 1,000 mcg/mL injection 0 10-12 00:00: 00 Yes [id number] INJECT INTO THE MUSCLE 1 MILLILITER S EVERY WEEK [facility] CYANOCOBALA MIN 1,000 mcg/mL injection 2022-0 10-12 00:00: 00 Yes [id number] INJECT INTO THE MUSCLE 1 MILLILITER S EVERY WEEK [facility] CYANOCOBALA MIN 1,000 mcg/mL injection 2022-0 10-12 00:00: 00 Yes [id number] INJECT INTO THE MUSCLE 1 MILLILITER S EVERY WEEK [facility] CYANOCOBALA MIN 1,000 mcg/mL injection 2022-0 10-12 00:00: 00 Yes [id number] INJECT INTO THE MUSCLE 1 MILLILITER S EVERY WEEK [facility] CYANOCOBALA MIN 1,000 mcg/mL injection 2022-0 10-12 00:00: 00 Yes [id number] INJECT INTO THE MUSCLE 1 MILLILITER S EVERY WEEK [facility] CYANOCOBALA MIN 1,000 mcg/mL injection 2022-0 10-12 00:00: 00 Yes [id number] INJECT INTO THE MUSCLE 1 MILLILITER S EVERY WEEK [facility] CYANOCOBALA MIN 1,000 mcg/mL injection 2022-0 10-12 00:00: 00 Yes [id number] INJECT INTO THE MUSCLE 1 MILLILITER S EVERY WEEK [facility] CYANOCOBALA MIN 1,000 mcg/mL injection 2022-0 10-12 00:00: 00 Yes [id number] INJECT INTO THE MUSCLE 1 MILLILITER S EVERY WEEK [facility] CYANOCOBALA MIN 1,000 mcg/mL injection 2022-0 10-12 00:00: 00 Yes [id number] INJECT INTO THE MUSCLE 1 MILLILITER S EVERY WEEK [facility] CYANOCOBALA MIN 1,000 mcg/mL injection 2022-0 10-12 00:00: 00 Yes [id number] INJECT INTO THE MUSCLE 1 MILLILITER S EVERY WEEK [facility] CYANOCOBALA MIN 1,000 mcg/mL injection 2022-0 10-12 00:00: 00 Yes [id number] INJECT INTO THE MUSCLE 1 MILLILITER S EVERY WEEK [facility] CYANOCOBALA MIN 1,000 mcg/mL injection 2022-0 10-12 00:00: 00 Yes [id number] INJECT INTO THE MUSCLE 1 MILLILITER S EVERY WEEK [facility] CYANOCOBALA MIN 1,000 mcg/mL injection 2022-0 10-12 00:00: 00 Yes [id number] INJECT INTO THE MUSCLE 1 MILLILITER S EVERY WEEK [facility] CYANOCOBALA MIN 1,000 mcg/mL injection 2022-0 10-12 00:00: 00 Yes [id number] INJECT INTO THE MUSCLE 1 MILLILITER S EVERY WEEK [facility] CYANOCOBALA MIN 1,000 mcg/mL injection 3-0 10-12 00:00: 00 Yes [id number] INJECT INTO THE MUSCLE 1 MILLILITER S EVERY WEEK [facility] CYANOCOBALA MIN 1,000 mcg/mL injection 3-0 10-12 00:00: 00 Yes [id number] INJECT INTO THE MUSCLE 1 MILLILITER S EVERY WEEK [facility] CYANOCOBALA MIN 1,000 mcg/mL injection 3-0 10-12 00:00: 00 Yes [id number] INJECT INTO THE MUSCLE 1 MILLILITER S EVERY WEEK [facility] CYANOCOBALA MIN 1,000 mcg/mL injection 2022-0 10-12 00:00: 00 Yes [id number] INJECT INTO THE MUSCLE 1 MILLILITER S EVERY WEEK [facility] CYANOCOBALA MIN 1,000 mcg/mL injection 3-0 10-12 00:00: 00 Yes [id number] INJECT INTO THE MUSCLE 1 MILLILITER S EVERY WEEK [facility] CYANOCOBALA MIN 1,000 mcg/mL injection 3-0 10-12 00:00: 00 Yes [id number] INJECT INTO THE MUSCLE 1 MILLILITER S EVERY WEEK [facility] CYANOCOBALA MIN 1,000 mcg/mL injection 2022-0 10-12 00:00: 00 Yes [id number] INJECT INTO THE MUSCLE 1 MILLILITER S EVERY WEEK [facility] CYANOCOBALA MIN 1,000 mcg/mL injection 3-0 10-12 00:00: 00 Yes [id number] INJECT INTO THE MUSCLE 1 MILLILITER S EVERY WEEK [facility] CYANOCOBALA MIN 1,000 mcg/mL injection 3-0 10-12 00:00: 00 Yes [id number] INJECT INTO THE MUSCLE 1 MILLILITER S EVERY WEEK [facility] CYANOCOBALA MIN 1,000 mcg/mL injection 3-0 10-12 00:00: 00 Yes [id number] INJECT INTO THE MUSCLE 1 MILLILITER S EVERY WEEK [facility] CYANOCOBALA MIN 1,000 mcg/mL injection 2022-0 10-12 00:00: 00 Yes [id number] INJECT INTO THE MUSCLE 1 MILLILITER S EVERY WEEK [facility] CYANOCOBALA MIN 1,000 mcg/mL injection 2022-0 10-12 00:00: 00 Yes [id number] INJECT INTO THE MUSCLE 1 MILLILITER S EVERY WEEK [facility] CYANOCOBALA MIN 1,000 mcg/mL injection 2022-0 10-12 00:00: 00 Yes [id number] INJECT INTO THE MUSCLE 1 MILLILITER S EVERY WEEK [facility] CYANOCOBALA MIN 1,000 mcg/mL injection 2022-0 10-12 00:00: 00 Yes [id number] INJECT INTO THE MUSCLE 1 MILLILITER S EVERY WEEK [facility] CYANOCOBALA MIN 1,000 mcg/mL injection 2022-0 10-12 00:00: 00 Yes [id number] INJECT INTO THE MUSCLE 1 MILLILITER S EVERY WEEK [facility] CYANOCOBALA MIN 1,000 mcg/mL injection 2022-0 10-12 00:00: 00 Yes [id number] INJECT INTO THE MUSCLE 1 MILLILITER S EVERY WEEK [facility] dextroamphe tamine-amph etamine (ADDERALL) 20 mg tablet 09-25 00:00: 00 Yes [id number] 20mg Take 1 tablet by mouth in the morning and 1 tablet in the evening. [facility] dextroamphe tamine-amph etamine (ADDERALL) 20 mg tablet 09-25 00:00: 00 Yes [id number] 20mg Take 1 tablet by mouth in the morning and 1 tablet in the evening. [facility] dextroamphe tamine-amph etamine (ADDERALL) 20 mg tablet 09-25 00:00: 00 Yes [id number] 20mg Take 1 tablet by mouth in the morning and 1 tablet in the evening. [facility] dextroamphe tamine-amph etamine (ADDERALL) 20 mg tablet 09-25 00:00: 00 Yes [id number] 20mg Take 1 tablet by mouth in the morning and 1 tablet in the evening. [facility] dextroamphe tamine-amph etamine (ADDERALL) 20 mg tablet 09-25 00:00: 00 Yes [id number] 20mg Take 1 tablet by mouth in the morning and 1 tablet in the evening. [facility] dextroamphe tamine-amph etamine (ADDERALL) 20 mg tablet 09-25 00:00: 00 Yes [id number] 20mg Take 1 tablet by mouth in the morning and 1 tablet in the evening. [facility] dextroamphe tamine-amph etamine (ADDERALL) 20 mg tablet 09-25 00:00: 00 Yes [id number] 20mg Take 1 tablet by mouth in the morning and 1 tablet in the evening. [facility] dextroamphe tamine-amph etamine (ADDERALL) 20 mg tablet 09-25 00:00: 00 Yes [id number] 20mg Take 1 tablet by mouth in the morning and 1 tablet in the evening. [facility] dextroamphe tamine-amph etamine (ADDERALL) 20 mg tablet 09-25 00:00: 00 Yes [id number] 20mg Take 1 tablet by mouth in the morning and 1 tablet in the evening. [facility] dextroamphe tamine-amph etamine (ADDERALL) 20 mg tablet 09-25 00:00: 00 Yes [id number] 20mg Take 1 tablet by mouth in the morning and 1 tablet in the evening. [facility] dextroamphe tamine-amph etamine (ADDERALL) 20 mg tablet 09-25 00:00: 00 Yes [id number] 20mg Take 1 tablet by mouth in the morning and 1 tablet in the evening. [facility] dextroamphe tamine-amph etamine (ADDERALL) 20 mg tablet 09-25 00:00: 00 Yes [id number] 20mg Take 1 tablet by mouth in the morning and 1 tablet in the evening. [facility] dextroamphe tamine-amph etamine (ADDERALL) 20 mg tablet 09-25 00:00: 00 Yes [id number] 20mg Take 1 tablet by mouth in the morning and 1 tablet in the evening. [facility] dextroamphe tamine-amph etamine (ADDERALL) 20 mg tablet 09-25 00:00: 00 11-11 00:00 :00 No [id number] 20mg Take 1 tablet by mouth in the morning and 1 tablet in the evening. [facility] amphetamine -dextroamph etamine (ADDERALL XR) 20 mg 24 hr capsule 09-20 00:00: 00 Yes [id number] 20mg Take 1 capsule by mouth every morning. [facility] amphetamine -dextroamph etamine (ADDERALL XR) 20 mg 24 hr capsule 09-20 00:00: 00 09-25 00:00 :00 No [id number] 20mg Take 1 capsule by mouth every morning. [facility] diazePAM (VALIUM) 10 mg tablet 09-19 00:00: 00 Yes [id number] 10mg Take 1 tablet by mouth in the morning and 1 tablet at noon and 1 tablet in the evening. [facility] diazePAM (VALIUM) 10 mg tablet 09-19 00:00: 00 Yes [id number] 10mg Take 1 tablet by mouth in the morning and 1 tablet at noon and 1 tablet in the evening. [facility] diazePAM (VALIUM) 10 mg tablet 09-19 00:00: 00 Yes [id number] 10mg Take 1 tablet by mouth in the morning and 1 tablet at noon and 1 tablet in the evening. [facility] diazePAM (VALIUM) 10 mg tablet 09-19 00:00: 00 Yes [id number] 10mg Take 1 tablet by mouth in the morning and 1 tablet at noon and 1 tablet in the evening. [facility] diazePAM (VALIUM) 10 mg tablet 09-19 00:00: 00 Yes [id number] 10mg Take 1 tablet by mouth in the morning and 1 tablet at noon and 1 tablet in the evening. [facility] diazePAM (VALIUM) 10 mg tablet 0 09-19 00:00: 00 Yes [id number] 10mg Take 1 tablet by mouth in the morning and 1 tablet at noon and 1 tablet in the evening. [facility] diazePAM (VALIUM) 10 mg tablet 2022-0 - 00:00: 00 Yes [id number] 10mg Take 1 tablet by mouth in the morning and 1 tablet at noon and 1 tablet in the evening. [facility] diazePAM (VALIUM) 10 mg tablet 2022-0 5- 00:00: 00 Yes [id number] 10mg Take 1 tablet by mouth in the morning and 1 tablet at noon and 1 tablet in the evening. [facility] diazePAM (VALIUM) 10 mg tablet 2022-0 5- 00:00: 00 Yes [id number] 10mg Take 1 tablet by mouth in the morning and 1 tablet at noon and 1 tablet in the evening. [facility] diazePAM (VALIUM) 10 mg tablet 2022-0 5- 00:00: 00 Yes [id number] 10mg Take 1 tablet by mouth in the morning and 1 tablet at noon and 1 tablet in the evening. [facility] diazePAM (VALIUM) 10 mg tablet 2022-0 5- 00:00: 00 Yes [id number] 10mg Take 1 tablet by mouth in the morning and 1 tablet at noon and 1 tablet in the evening. [facility] diazePAM (VALIUM) 10 mg tablet 2022-0 -03 00:00: 00 Yes [id number] 10mg Take 1 tablet by mouth in the morning and 1 tablet at noon and 1 tablet in the evening. [facility] diazePAM (VALIUM) 10 mg tablet 2022-0 5-03 00:00: 00 Yes [id number] 10mg Take 1 tablet by mouth in the morning and 1 tablet at noon and 1 tablet in the evening. [facility] diazePAM (VALIUM) 10 mg tablet 3-0 5-03 00:00: 00 Yes [id number] 10mg Take 1 tablet by mouth in the morning and 1 tablet at noon and 1 tablet in the evening. [facility] diazePAM (VALIUM) 10 mg tablet 3-0 5-03 00:00: 00 Yes [id number] 10mg Take 1 tablet by mouth in the morning and 1 tablet at noon and 1 tablet in the evening. [facility] diazePAM (VALIUM) 10 mg tablet 09-19 00:00: 00 Yes [id number] 10mg Take 1 tablet by mouth in the morning and 1 tablet at noon and 1 tablet in the evening. [facility] diazePAM (VALIUM) 10 mg tablet 09-19 00:00: 00 Yes [id number] 10mg Take 1 tablet by mouth in the morning and 1 tablet at noon and 1 tablet in the evening. [facility] diazePAM (VALIUM) 10 mg tablet 09-19 00:00: 00 Yes [id number] 10mg Take 1 tablet by mouth in the morning and 1 tablet at noon and 1 tablet in the evening. [facility] diazePAM (VALIUM) 10 mg tablet 09-19 00:00: 00 12-17 00:00 :00 No [id number] 10mg Take 1 tablet by mouth in the morning and 1 tablet at noon and 1 tablet in the evening. [facility] dextroamphe tamine-amph etamine (ADDERALL) 20 mg tablet 08-08 00:00: 00 Yes [id number] 20mg Take 1 tablet by mouth in the morning and 1 tablet in the evening. [facility] diazePAM (VALIUM) 10 mg tablet 08-08 00:00: 00 Yes [id number] 10mg Take 1 tablet by mouth in the morning and 1 tablet at noon and 1 tablet in the evening. [facility] DULoxetine 60 mg capsule 08-08 00:00: 00 Yes [id number] 60mg Take 1 capsule by mouth in the morning. [facility] metoprolol succinate XL 50 mg 24 hr tablet 08-08 00:00: 00 Yes [id number] 50mg Take 1 tablet by mouth in the morning. [facility] dextroamphe tamine-amph etamine (ADDERALL) 20 mg tablet 08-08 00:00: 00 Yes [id number] 20mg Take 1 tablet by mouth in the morning and 1 tablet in the evening. [facility] diazePAM (VALIUM) 10 mg tablet 08-08 00:00: 00 Yes [id number] 10mg Take 1 tablet by mouth in the morning and 1 tablet at noon and 1 tablet in the evening. [facility] DULoxetine 60 mg capsule 08-08 00:00: 00 Yes [id number] 60mg Take 1 capsule by mouth in the morning. [facility] metoprolol succinate XL 50 mg 24 hr tablet 08-08 00:00: 00 Yes [id number] 50mg Take 1 tablet by mouth in the morning. [facility] dextroamphe tamine-amph etamine (ADDERALL) 20 mg tablet 08-08 00:00: 00 Yes [id number] 20mg Take 1 tablet by mouth in the morning and 1 tablet in the evening. [facility] diazePAM (VALIUM) 10 mg tablet 08-08 00:00: 00 Yes [id number] 10mg Take 1 tablet by mouth in the morning and 1 tablet at noon and 1 tablet in the evening. [facility] DULoxetine 60 mg capsule 08-08 00:00: 00 Yes [id number] 60mg Take 1 capsule by mouth in the morning. [facility] metoprolol succinate XL 50 mg 24 hr tablet 08-08 00:00: 00 Yes [id number] 50mg Take 1 tablet by mouth in the morning. [facility] dextroamphe tamine-amph etamine (ADDERALL) 20 mg tablet 08-08 00:00: 00 Yes [id number] 20mg Take 1 tablet by mouth in the morning and 1 tablet in the evening. [facility] diazePAM (VALIUM) 10 mg tablet 08-08 00:00: 00 Yes [id number] 10mg Take 1 tablet by mouth in the morning and 1 tablet at noon and 1 tablet in the evening. [facility] DULoxetine 60 mg capsule 08-08 00:00: 00 Yes [id number] 60mg Take 1 capsule by mouth in the morning. [facility] metoprolol succinate XL 50 mg 24 hr tablet 08-08 00:00: 00 Yes [id number] 50mg Take 1 tablet by mouth in the morning. [facility] dextroamphe tamine-amph etamine (ADDERALL) 20 mg tablet 08-08 00:00: 00 Yes [id number] 20mg Take 1 tablet by mouth in the morning and 1 tablet in the evening. [facility] diazePAM (VALIUM) 10 mg tablet 08-08 00:00: 00 Yes [id number] 10mg Take 1 tablet by mouth in the morning and 1 tablet at noon and 1 tablet in the evening. [facility] DULoxetine 60 mg capsule 08-08 00:00: 00 Yes [id number] 60mg Take 1 capsule by mouth in the morning. [facility] metoprolol succinate XL 50 mg 24 hr tablet 08-08 00:00: 00 Yes [id number] 50mg Take 1 tablet by mouth in the morning. [facility] dextroamphe tamine-amph etamine (ADDERALL) 20 mg tablet 08-08 00:00: 00 Yes [id number] 20mg Take 1 tablet by mouth in the morning and 1 tablet in the evening. [facility] diazePAM (VALIUM) 10 mg tablet 08-08 00:00: 00 Yes [id number] 10mg Take 1 tablet by mouth in the morning and 1 tablet at noon and 1 tablet in the evening. [facility] DULoxetine 60 mg capsule 08-08 00:00: 00 Yes [id number] 60mg Take 1 capsule by mouth in the morning. [facility] metoprolol succinate XL 50 mg 24 hr tablet 0 08-08 00:00: 00 Yes [id number] 50mg Take 1 tablet by mouth in the morning. [facility] dextroamphe tamine-amph etamine (ADDERALL) 20 mg tablet 08-08 00:00: 00 Yes [id number] 20mg Take 1 tablet by mouth in the morning and 1 tablet in the evening. [facility] diazePAM (VALIUM) 10 mg tablet 2022-0 08-08 00:00: 00 Yes [id number] 10mg Take 1 tablet by mouth in the morning and 1 tablet at noon and 1 tablet in the evening. [facility] DULoxetine 60 mg capsule 2022-0 08-08 00:00: 00 Yes [id number] 60mg Take 1 capsule by mouth in the morning. [facility] metoprolol succinate XL 50 mg 24 hr tablet 2022-0 08-08 00:00: 00 Yes [id number] 50mg Take 1 tablet by mouth in the morning. [facility] dextroamphe tamine-amph etamine (ADDERALL) 20 mg tablet 0 08-08 00:00: 00 Yes [id number] 20mg Take 1 tablet by mouth in the morning and 1 tablet in the evening. [facility] DULoxetine 60 mg capsule 0 08-08 00:00: 00 Yes [id number] 60mg Take 1 capsule by mouth in the morning. [facility] metoprolol succinate XL 50 mg 24 hr tablet 2022-0 08-08 00:00: 00 Yes [id number] 50mg Take 1 tablet by mouth in the morning. [facility] dextroamphe tamine-amph etamine (ADDERALL) 20 mg tablet 0 08-08 00:00: 00 Yes [id number] 20mg Take 1 tablet by mouth in the morning and 1 tablet in the evening. [facility] DULoxetine 60 mg capsule 0 08-08 00:00: 00 Yes [id number] 60mg Take 1 capsule by mouth in the morning. [facility] metoprolol succinate XL 50 mg 24 hr tablet 2022-0 08-08 00:00: 00 Yes [id number] 50mg Take 1 tablet by mouth in the morning. [facility] DULoxetine 60 mg capsule 2022-0 08-08 00:00: 00 Yes [id number] 60mg Take 1 capsule by mouth in the morning. [facility] metoprolol succinate XL 50 mg 24 hr tablet 2022-0 08-08 00:00: 00 Yes [id number] 50mg Take 1 tablet by mouth in the morning. [facility] DULoxetine 60 mg capsule 2022-0 08-08 00:00: 00 Yes [id number] 60mg Take 1 capsule by mouth in the morning. [facility] metoprolol succinate XL 50 mg 24 hr tablet 3-0 08-08 00:00: 00 Yes [id number] 50mg Take 1 tablet by mouth in the morning. [facility] DULoxetine 60 mg capsule 3-0 08-08 00:00: 00 Yes [id number] 60mg Take 1 capsule by mouth in the morning. [facility] metoprolol succinate XL 50 mg 24 hr tablet 3-0 08-08 00:00: 00 Yes [id number] 50mg Take 1 tablet by mouth in the morning. [facility] DULoxetine 60 mg capsule 3-0 08-08 00:00: 00 Yes [id number] 60mg Take 1 capsule by mouth in the morning. [facility] metoprolol succinate XL 50 mg 24 hr tablet 3-0 08-08 00:00: 00 Yes [id number] 50mg Take 1 tablet by mouth in the morning. [facility] DULoxetine 60 mg capsule 3-0 08-08 00:00: 00 Yes [id number] 60mg Take 1 capsule by mouth in the morning. [facility] metoprolol succinate XL 50 mg 24 hr tablet 2022-0 08-08 00:00: 00 Yes [id number] 50mg Take 1 tablet by mouth in the morning. [facility] DULoxetine 60 mg capsule 3-0 08-08 00:00: 00 Yes [id number] 60mg Take 1 capsule by mouth in the morning. [facility] metoprolol succinate XL 50 mg 24 hr tablet 3-0 08-08 00:00: 00 Yes [id number] 50mg Take 1 tablet by mouth in the morning. [facility] DULoxetine 60 mg capsule 3-0 08-08 00:00: 00 Yes [id number] 60mg Take 1 capsule by mouth in the morning. [facility] metoprolol succinate XL 50 mg 24 hr tablet 3-0 08-08 00:00: 00 Yes [id number] 50mg Take 1 tablet by mouth in the morning. [facility] DULoxetine 60 mg capsule 3-0 08-08 00:00: 00 Yes [id number] 60mg Take 1 capsule by mouth in the morning. [facility] metoprolol succinate XL 50 mg 24 hr tablet 3-0 08-08 00:00: 00 Yes [id number] 50mg Take 1 tablet by mouth in the morning. [facility] DULoxetine 60 mg capsule 3-0 08-08 00:00: 00 Yes [id number] 60mg Take 1 capsule by mouth in the morning. [facility] metoprolol succinate XL 50 mg 24 hr tablet 3-0 08-08 00:00: 00 Yes [id number] 50mg Take 1 tablet by mouth in the morning. [facility] DULoxetine 60 mg capsule 3-0 08-08 00:00: 00 Yes [id number] 60mg Take 1 capsule by mouth in the morning. [facility] metoprolol succinate XL 50 mg 24 hr tablet 2022-0 08-08 00:00: 00 Yes [id number] 50mg Take 1 tablet by mouth in the morning. [facility] DULoxetine 60 mg capsule 3-0 08-08 00:00: 00 Yes [id number] 60mg Take 1 capsule by mouth in the morning. [facility] metoprolol succinate XL 50 mg 24 hr tablet 2022-0 08-08 00:00: 00 Yes [id number] 50mg Take 1 tablet by mouth in the morning. [facility] DULoxetine 60 mg capsule 3-0 08-08 00:00: 00 Yes [id number] 60mg Take 1 capsule by mouth in the morning. [facility] metoprolol succinate XL 50 mg 24 hr tablet 3-0 08-08 00:00: 00 Yes [id number] 50mg Take 1 tablet by mouth in the morning. [facility] DULoxetine 60 mg capsule 3-0 08-08 00:00: 00 Yes [id number] 60mg Take 1 capsule by mouth in the morning. [facility] DULoxetine 60 mg capsule 3-0 08-08 00:00: 00 Yes [id number] 60mg Take 1 capsule by mouth in the morning. [facility] DULoxetine 60 mg capsule 3-0 08-08 00:00: 00 Yes [id number] 60mg Take 1 capsule by mouth in the morning. [facility] DULoxetine 60 mg capsule 3-0 3 00:00: 00 Yes [id number] 60mg Take 1 capsule by mouth in the morning. [facility] DULoxetine 60 mg capsule 3-0 322 00:00: 00 Yes [id number] 60mg Take 1 capsule by mouth in the morning. [facility] DULoxetine 60 mg capsule 3-0 3 00:00: 00 Yes [id number] 60mg Take 1 capsule by mouth in the morning. [facility] DULoxetine 60 mg capsule 3-0 3 00:00: 00 Yes [id number] 60mg Take 1 capsule by mouth in the morning. [facility] DULoxetine 60 mg capsule 3-0 3 00:00: 00 Yes [id number] 60mg Take 1 capsule by mouth in the morning. [facility] DULoxetine 60 mg capsule 3-0 3 00:00: 00 Yes [id number] 60mg Take 1 capsule by mouth in the morning. [facility] DULoxetine 60 mg capsule 3-0 3 00:00: 00 Yes [id number] 60mg Take 1 capsule by mouth in the morning. [facility] DULoxetine 60 mg capsule 3-0 3 00:00: 00 Yes [id number] 60mg Take 1 capsule by mouth in the morning. [facility] DULoxetine 60 mg capsule 3-0 3 00:00: 00 Yes [id number] 60mg Take 1 capsule by mouth in the morning. [facility] DULoxetine 60 mg capsule 3-0 3 00:00: 00 Yes [id number] 60mg Take 1 capsule by mouth in the morning. [facility] DULoxetine 60 mg capsule 3-0 3 00:00: 00 Yes [id number] 60mg Take 1 capsule by mouth in the morning. [facility] DULoxetine 60 mg capsule 3-0 3 00:00: 00 Yes [id number] 60mg Take 1 capsule by mouth in the morning. [facility] DULoxetine 60 mg capsule 3-0 322 00:00: 00 Yes [id number] 60mg Take 1 capsule by mouth in the morning. [facility] DULoxetine 60 mg capsule 3-0 3 00:00: 00 Yes [id number] 60mg Take 1 capsule by mouth in the morning. [facility] DULoxetine 60 mg capsule 3-0 3 00:00: 00 Yes [id number] 60mg Take 1 capsule by mouth in the morning. [facility] DULoxetine 60 mg capsule 3-0 3 00:00: 00 Yes [id number] 60mg Take 1 capsule by mouth in the morning. [facility] DULoxetine 60 mg capsule 3-0 08-08 00:00: 00 Yes [id number] 60mg Take 1 capsule by mouth in the morning. [facility] DULoxetine 60 mg capsule 3-0 08-08 00:00: 00 Yes [id number] 60mg Take 1 capsule by mouth in the morning. [facility] DULoxetine 60 mg capsule 3-0 08-08 00:00: 00 Yes [id number] 60mg Take 1 capsule by mouth in the morning. [facility] DULoxetine 60 mg capsule 3-0 08-08 00:00: 00 Yes [id number] 60mg Take 1 capsule by mouth in the morning. [facility] DULoxetine 60 mg capsule 3-0 08-08 00:00: 00 Yes [id number] 60mg Take 1 capsule by mouth in the morning. [facility] DULoxetine 60 mg capsule 3-0 08-08 00:00: 00 Yes [id number] 60mg Take 1 capsule by mouth in the morning. [facility] DULoxetine 60 mg capsule 3-0 08-08 00:00: 00 Yes [id number] 60mg Take 1 capsule by mouth in the morning. [facility] DULoxetine 60 mg capsule 3-0 08-08 00:00: 00 Yes [id number] 60mg Take 1 capsule by mouth in the morning. [facility] DULoxetine 60 mg capsule 3-0 08-08 00:00: 00 Yes [id number] 60mg Take 1 capsule by mouth in the morning. [facility] metoprolol succinate XL 50 mg 24 hr tablet 2022-0 08-08 00:00: 00 11-02 00:00 :00 No [id number] 50mg Take 1 tablet by mouth in the morning. [facility] dextroamphe tamine-amph etamine (ADDERALL) 20 mg tablet 08-08 00:00: 00 09-25 00:00 :00 No [id number] 20mg Take 1 tablet by mouth in the morning and 1 tablet in the evening. [facility] diazePAM (VALIUM) 10 mg tablet 08-08 00:00: 00 09-19 00:00 :00 No [id number] 10mg Take 1 tablet by mouth in the morning and 1 tablet at noon and 1 tablet in the evening. [facility] lisinopriL 20 mg tablet 0 -15 00:00: 00 Yes [id number] 20mg Take 1 tablet by mouth in the morning. [facility] lisinopriL 20 mg tablet 2022-0 3-15 00:00: 00 Yes [id number] 20mg Take 1 tablet by mouth in the morning. [facility] lisinopriL 20 mg tablet 2022-0 -15 00:00: 00 Yes [id number] 20mg Take 1 tablet by mouth in the morning. [facility] lisinopriL 20 mg tablet 2022-0 3-15 00:00: 00 Yes [id number] 20mg Take 1 tablet by mouth in the morning. [facility] lisinopriL 20 mg tablet 2022-0 3-15 00:00: 00 Yes [id number] 20mg Take 1 tablet by mouth in the morning. [facility] lisinopriL 20 mg tablet 2022-0 3-15 00:00: 00 Yes [id number] 20mg Take 1 tablet by mouth in the morning. [facility] lisinopriL 20 mg tablet 2022-0 3-15 00:00: 00 Yes [id number] 20mg Take 1 tablet by mouth in the morning. [facility] lisinopriL 20 mg tablet 2022-0 3-15 00:00: 00 Yes [id number] 20mg Take 1 tablet by mouth in the morning. [facility] lisinopriL 20 mg tablet 2022-0 3-15 00:00: 00 Yes [id number] 20mg Take 1 tablet by mouth in the morning. [facility] lisinopriL 20 mg tablet 2023-0 3-15 00:00: 00 Yes [id number] 20mg Take 1 tablet by mouth in the morning. [facility] lisinopriL 20 mg tablet 2023-0 3-15 00:00: 00 Yes [id number] 20mg Take 1 tablet by mouth in the morning. [facility] lisinopriL 20 mg tablet 2023-0 3-15 00:00: 00 Yes [id number] 20mg Take 1 tablet by mouth in the morning. [facility] lisinopriL 20 mg tablet 2023-0 3-15 00:00: 00 Yes [id number] 20mg Take 1 tablet by mouth in the morning. [facility] lisinopriL 20 mg tablet 2023-0 3-15 00:00: 00 Yes [id number] 20mg Take 1 tablet by mouth in the morning. [facility] lisinopriL 20 mg tablet 2023-0 3-15 00:00: 00 Yes [id number] 20mg Take 1 tablet by mouth in the morning. [facility] lisinopriL 20 mg tablet 2023-0 3-15 00:00: 00 Yes [id number] 20mg Take 1 tablet by mouth in the morning. [facility] lisinopriL 20 mg tablet 2023-0 3-15 00:00: 00 Yes [id number] 20mg Take 1 tablet by mouth in the morning. [facility] lisinopriL 20 mg tablet 2023-0 3-15 00:00: 00 Yes [id number] 20mg Take 1 tablet by mouth in the morning. [facility] lisinopriL 20 mg tablet 2023-0 3-15 00:00: 00 Yes [id number] 20mg Take 1 tablet by mouth in the morning. [facility] lisinopriL 20 mg tablet 2023-0 3-15 00:00: 00 Yes [id number] 20mg Take 1 tablet by mouth in the morning. [facility] lisinopriL 20 mg tablet 2023-0 3-15 00:00: 00 Yes [id number] 20mg Take 1 tablet by mouth in the morning. [facility] lisinopriL 20 mg tablet 3-0 3-15 00:00: 00 Yes [id number] 20mg Take 1 tablet by mouth in the morning. [facility] lisinopriL 20 mg tablet 3-0 3-15 00:00: 00 Yes [id number] 20mg Take 1 tablet by mouth in the morning. [facility] lisinopriL 20 mg tablet 3-0 3-15 00:00: 00 Yes [id number] 20mg Take 1 tablet by mouth in the morning. [facility] lisinopriL 20 mg tablet 3-0 3-15 00:00: 00 Yes [id number] 20mg Take 1 tablet by mouth in the morning. [facility] lisinopriL 20 mg tablet 3-0 3-15 00:00: 00 Yes [id number] 20mg Take 1 tablet by mouth in the morning. [facility] lisinopriL 20 mg tablet 3-0 3-15 00:00: 00 Yes [id number] 20mg Take 1 tablet by mouth in the morning. [facility] lisinopriL 20 mg tablet 3-0 3-15 00:00: 00 Yes [id number] 20mg Take 1 tablet by mouth in the morning. [facility] lisinopriL 20 mg tablet 3-0 3-15 00:00: 00 Yes [id number] 20mg Take 1 tablet by mouth in the morning. [facility] lisinopriL 20 mg tablet 3-0 3-15 00:00: 00 Yes [id number] 20mg Take 1 tablet by mouth in the morning. [facility] lisinopriL 20 mg tablet 3-0 3-15 00:00: 00 Yes [id number] 20mg Take 1 tablet by mouth in the morning. [facility] lisinopriL 20 mg tablet 3-0 3-15 00:00: 00 Yes [id number] 20mg Take 1 tablet by mouth in the morning. [facility] lisinopriL 20 mg tablet 2023-0 3-15 00:00: 00 Yes [id number] 20mg Take 1 tablet by mouth in the morning. [facility] lisinopriL 20 mg tablet 2022-0 3-15 00:00: 00 Yes [id number] 20mg Take 1 tablet by mouth in the morning. [facility] lisinopriL 20 mg tablet 2022-0 3-15 00:00: 00 Yes [id number] 20mg Take 1 tablet by mouth in the morning. [facility] lisinopriL 20 mg tablet 2022-0 3-15 00:00: 00 Yes [id number] 20mg Take 1 tablet by mouth in the morning. [facility] lisinopriL 20 mg tablet 2022-0 3-15 00:00: 00 Yes [id number] 20mg Take 1 tablet by mouth in the morning. [facility] lisinopriL 20 mg tablet 2022-0 -15 00:00: 00 15 00:00 :00 No [id number] 20mg Take 1 tablet by mouth in the morning. [facility] clonazePAM 1 mg tablet 2022-0 2- 00:00: 00 Yes [id number] TAKE 1 TABLET BY MOUTH 4 TIMES A DAY NEEDED FOR ANXIETY [facility] dextroamphe tamine-amph etamine (ADDERALL) 20 mg tablet 0 2 00:00: 00 Yes [id number] 20mg Take 1 tablet by mouth in the morning and 1 tablet in the evening. [facility] dextroamphe tamine-amph etamine (ADDERALL) 20 mg tablet 2022-0 2 00:00: 00 Yes [id number] 20mg Take 1 tablet by mouth in the morning and 1 tablet in the evening. [facility] clonazePAM 1 mg tablet 2022-0 2-22 00:00: 00 Yes [id number] TAKE 1 TABLET BY MOUTH 4 TIMES A DAY NEEDED FOR ANXIETY [facility] dextroamphe tamine-amph etamine (ADDERALL) 20 mg tablet 2022-0 2-22 00:00: 00 Yes [id number] 20mg Take 1 tablet by mouth in the morning and 1 tablet in the evening. [facility] clonazePAM 1 mg tablet 2022-0 2-22 00:00: 00 Yes [id number] TAKE 1 TABLET BY MOUTH 4 TIMES A DAY NEEDED FOR ANXIETY [facility] dextroamphe tamine-amph etamine (ADDERALL) 20 mg tablet 2- 00:00: 00 Yes [id number] 20mg Take 1 tablet by mouth in the morning and 1 tablet in the evening. [facility] clonazePAM 1 mg tablet 2- 00:00: 00 Yes [id number] TAKE 1 TABLET BY MOUTH 4 TIMES A DAY NEEDED FOR ANXIETY [facility] dextroamphe tamine-amph etamine (ADDERALL) 20 mg tablet 07-11 00:00: 00 Yes [id number] 20mg Take 1 tablet by mouth in the morning and 1 tablet in the evening. [facility] clonazePAM 1 mg tablet 07-11 00:00: 00 08-08 00:00 :00 No [id number] TAKE 1 TABLET BY MOUTH 4 TIMES A DAY NEEDED FOR ANXIETY [facility] dextroamphe tamine-amph etamine (ADDERALL) 20 mg tablet 07-11 00:00: 00 08-08 00:00 :00 No [id number] 20mg Take 1 tablet by mouth in the morning and 1 tablet in the evening. [facility] clonazePAM 1 mg tablet 07-11 00:00: 00 08-08 00:00 :00 No [id number] TAKE 1 TABLET BY MOUTH 4 TIMES A DAY NEEDED FOR ANXIETY [facility] dextroamphe tamine-amph etamine (ADDERALL) 20 mg tablet - 00:00: 00 08-08 00:00 :00 No [id number] 20mg Take 1 tablet by mouth in the morning and 1 tablet in the evening. [facility] amphetamine -dextroamph etamine (ADDERALL XR) 20 mg 24 hr capsule 2022-0 1-18 00:00: 00 Yes [id number] 20mg Take 1 capsule by mouth every morning. [facility] -dextroamph etamine (ADDERALL XR) 20 mg 24 hr capsule 2022-0 1-18 00:00: 00 Yes [id number] 20mg Take 1 capsule by mouth every morning. [facility] amphetamine -dextroamph etamine (ADDERALL XR) 20 mg 24 hr capsule 3-0 1-18 00:00: 00 Yes [id number] 20mg Take 1 capsule by mouth every morning. [facility] amphetamine -dextroamph etamine (ADDERALL XR) 20 mg 24 hr capsule 3-0 1-18 00:00: 00 Yes [id number] 20mg Take 1 capsule by mouth every morning. [facility] amphetamine -dextroamph etamine (ADDERALL XR) 20 mg 24 hr capsule 3-0 1-18 00:00: 00 Yes [id number] 20mg Take 1 capsule by mouth every morning. [facility] amphetamine -dextroamph etamine (ADDERALL XR) 20 mg 24 hr capsule 2022-0 1-18 00:00: 00 Yes [id number] 20mg Take 1 capsule by mouth every morning. [facility] amphetamine -dextroamph etamine (ADDERALL XR) 20 mg 24 hr capsule 2022-0 1-18 00:00: 00 Yes [id number] 20mg Take 1 capsule by mouth every morning. [facility] amphetamine -dextroamph etamine (ADDERALL XR) 20 mg 24 hr capsule 2022-0 1-18 00:00: 00 Yes [id number] 20mg Take 1 capsule by mouth every morning. [facility] amphetamine -dextroamph etamine (ADDERALL XR) 20 mg 24 hr capsule 3-0 1-18 00:00: 00 Yes [id number] 20mg Take 1 capsule by mouth every morning. [facility] amphetamine -dextroamph etamine (ADDERALL XR) 20 mg 24 hr capsule 3-0 1-18 00:00: 00 Yes [id number] 20mg Take 1 capsule by mouth every morning. [facility] amphetamine -dextroamph etamine (ADDERALL XR) 20 mg 24 hr capsule 3-0 1-18 00:00: 00 Yes [id number] 20mg Take 1 capsule by mouth every morning. [facility] amphetamine -dextroamph etamine (ADDERALL XR) 20 mg 24 hr capsule 3-0 1-18 00:00: 00 Yes [id number] 20mg Take 1 capsule by mouth every morning. [facility] amphetamine -dextroamph etamine (ADDERALL XR) 20 mg 24 hr capsule 3-0 -18 00:00: 00 Yes [id number] 20mg Take 1 capsule by mouth every morning. [facility] amphetamine -dextroamph etamine (ADDERALL XR) 20 mg 24 hr capsule 3-0 -18 00:00: 00 Yes [id number] 20mg Take 1 capsule by mouth every morning. [facility] amphetamine -dextroamph etamine (ADDERALL XR) 20 mg 24 hr capsule 3-0 -18 00:00: 00 Yes [id number] 20mg Take 1 capsule by mouth every morning. [facility] amphetamine -dextroamph etamine (ADDERALL XR) 20 mg 24 hr capsule 2022-0 18 00:00: 00 09-20 00:00 :00 No [id number] 20mg Take 1 capsule by mouth every morning. [facility] amphetamine -dextroamph etamine 20 mg 24 hr capsule 3-0 - 00:00: 00 Yes [id number] 20mg Take 1 capsule by mouth in the morning and 1 capsule in the evening. [facility] amphetamine -dextroamph etamine 20 mg 24 hr capsule 3-0 - 00:00: 00 Yes [id number] 20mg Take 1 capsule by mouth in the morning and 1 capsule in the evening. [facility] amphetamine -dextroamph etamine 20 mg 24 hr capsule 3-0 - 00:00: 00 Yes [id number] 20mg Take 1 capsule by mouth in the morning and 1 capsule in the evening. [facility] amphetamine -dextroamph etamine 20 mg 24 hr capsule 3-0 - 00:00: 00 Yes [id number] 20mg Take 1 capsule by mouth in the morning and 1 capsule in the evening. [facility] amphetamine -dextroamph etamine 20 mg 24 hr capsule 3-0 - 00:00: 00 Yes [id number] 20mg Take 1 capsule by mouth in the morning and 1 capsule in the evening. [facility] amphetamine -dextroamph etamine 20 mg 24 hr capsule 3-0 - 00:00: 00 Yes [id number] 20mg Take 1 capsule by mouth in the morning and 1 capsule in the evening. [facility] amphetamine -dextroamph etamine 20 mg 24 hr capsule 3-0 05-28 00:00: 00 Yes [id number] 20mg Take 1 capsule by mouth in the morning and 1 capsule in the evening. [facility] amphetamine -dextroamph etamine 20 mg 24 hr capsule 3-0 - 00:00: 00 Yes [id number] 20mg Take 1 capsule by mouth in the morning and 1 capsule in the evening. [facility] amphetamine -dextroamph etamine 20 mg 24 hr capsule 3-0 05-28 00:00: 00 Yes [id number] 20mg Take 1 capsule by mouth in the morning and 1 capsule in the evening. [facility] amphetamine -dextroamph etamine 20 mg 24 hr capsule 3-0 - 00:00: 00 Yes [id number] 20mg Take 1 capsule by mouth in the morning and 1 capsule in the evening. [facility] amphetamine -dextroamph etamine 20 mg 24 hr capsule 3-0 - 00:00: 00 Yes [id number] 20mg Take 1 capsule by mouth in the morning and 1 capsule in the evening. [facility] amphetamine -dextroamph etamine 20 mg 24 hr capsule 3-0 05-28 00:00: 00 Yes [id number] 20mg Take 1 capsule by mouth in the morning and 1 capsule in the evening. [facility] amphetamine -dextroamph etamine 20 mg 24 hr capsule 3-0 05-28 00:00: 00 Yes [id number] 20mg Take 1 capsule by mouth in the morning and 1 capsule in the evening. [facility] amphetamine -dextroamph etamine 20 mg 24 hr capsule 3-0 - 00:00: 00 Yes [id number] 20mg Take 1 capsule by mouth in the morning and 1 capsule in the evening. [facility] amphetamine -dextroamph etamine 20 mg 24 hr capsule 3-0 - 00:00: 00 Yes [id number] 20mg Take 1 capsule by mouth in the morning and 1 capsule in the evening. [facility] amphetamine -dextroamph etamine 20 mg 24 hr capsule 05-28 00:00: 00 Yes [id number] 20mg Take 1 capsule by mouth in the morning and 1 capsule in the evening. [facility] amphetamine -dextroamph etamine 20 mg 24 hr capsule 05-28 00:00: 00 Yes [id number] 20mg Take 1 capsule by mouth in the morning and 1 capsule in the evening. [facility] amphetamine -dextroamph etamine 20 mg 24 hr capsule 05-28 00:00: 00 09-25 00:00 :00 No [id number] 20mg Take 1 capsule by mouth in the morning and 1 capsule in the evening. [facility] dextroamphe tamine-amph etamine (ADDERALL) 20 mg tablet 05-24 00:00: 00 Yes [id number] 20mg Take 1 tablet by mouth in the morning and 1 tablet in the evening. [facility] dextroamphe tamine-amph etamine (ADDERALL) 20 mg tablet 05-24 00:00: 00 Yes [id number] 20mg Take 1 tablet by mouth in the morning and 1 tablet in the evening. [facility] dextroamphe tamine-amph etamine (ADDERALL) 20 mg tablet 05-24 00:00: 00 Yes [id number] 20mg Take 1 tablet by mouth in the morning and 1 tablet in the evening. [facility] dextroamphe tamine-amph etamine (ADDERALL) 20 mg tablet 05-24 00:00: 00 Yes [id number] 20mg Take 1 tablet by mouth in the morning and 1 tablet in the evening. [facility] dextroamphe tamine-amph etamine (ADDERALL) 20 mg tablet 05-24 00:00: 00 07-11 00:00 :00 No [id number] 20mg Take 1 tablet by mouth in the morning and 1 tablet in the evening. [facility] zolpidem 10 mg tablet 2021-05 00:00: 00 Yes [id number] 10mg Take 1 tablet by mouth at bedtime as needed for Insomnia. [facility] lisinopriL 10 mg tablet 2021-05 00:00: 00 Yes [id number] 10mg Take 1 tablet by mouth in the morning. [facility] dextroamphe tamine-amph etamine (ADDERALL) 20 mg tablet 2021-05 00:00: 00 Yes [id number] 20mg Take 1 tablet by mouth in the morning and 1 tablet in the evening. [facility] cyanocobala min 1,000 mcg/mL injection 2021-05 00:00: 00 Yes [id number] INJECT INTO THE MUSCLE 1 MILLILITER S EVERY WEEK [facility] clonazePAM 1 mg tablet 2021-05 00:00: 00 Yes [id number] TAKE 1 TABLET BY MOUTH 4 TIMES A DAY NEEDED FOR ANXIETY [facility] zolpidem 10 mg tablet 2021-05 00:00: 00 Yes [id number] 10mg Take 1 tablet by mouth at bedtime as needed for Insomnia. [facility] lisinopriL 10 mg tablet 2021-05 00:00: 00 Yes [id number] 10mg Take 1 tablet by mouth in the morning. [facility] dextroamphe tamine-amph etamine (ADDERALL) 20 mg tablet 2021-05 00:00: 00 Yes [id number] 20mg Take 1 tablet by mouth in the morning and 1 tablet in the evening. [facility] cyanocobala min 1,000 mcg/mL injection 2021-05 00:00: 00 Yes [id number] INJECT INTO THE MUSCLE 1 MILLILITER S EVERY WEEK [facility] clonazePAM 1 mg tablet 2021-05 00:00: 00 Yes [id number] TAKE 1 TABLET BY MOUTH 4 TIMES A DAY NEEDED FOR ANXIETY [facility] zolpidem 10 mg tablet 2021-05 00:00: 00 Yes [id number] 10mg Take 1 tablet by mouth at bedtime as needed for Insomnia. [facility] lisinopriL 10 mg tablet 2021-05 00:00: 00 Yes [id number] 10mg Take 1 tablet by mouth in the morning. [facility] cyanocobala min 1,000 mcg/mL injection 2021-05 00:00: 00 Yes [id number] INJECT INTO THE MUSCLE 1 MILLILITER S EVERY WEEK [facility] clonazePAM 1 mg tablet 2021-05 00:00: 00 Yes [id number] TAKE 1 TABLET BY MOUTH 4 TIMES A DAY NEEDED FOR ANXIETY [facility] zolpidem 10 mg tablet 2021-05 00:00: 00 Yes [id number] 10mg Take 1 tablet by mouth at bedtime as needed for Insomnia. [facility] lisinopriL 10 mg tablet 2021-05 00:00: 00 Yes [id number] 10mg Take 1 tablet by mouth in the morning. [facility] cyanocobala min 1,000 mcg/mL injection 2021-05 00:00: 00 Yes [id number] INJECT INTO THE MUSCLE 1 MILLILITER S EVERY WEEK [facility] clonazePAM 1 mg tablet 2021-05 00:00: 00 Yes [id number] TAKE 1 TABLET BY MOUTH 4 TIMES A DAY NEED[facility]XIETY [facility] 2021-05 00:00: 00 Yes [id number] 10mg Take 1 tablet by mouth at bedtime as needed for Insomnia. [facility] lisinopriL 10 mg tablet 2021-05 00:00: 00 Yes [id number] 10mg Take 1 tablet by mouth in the morning. [facility] cyanocobala min 1,000 mcg/mL injection 2021-05 00:00: 00 Yes [id number] INJECT INTO THE MUSCLE 1 MILLILITER S EVERY WEEK [facility] clonazePAM 1 mg tablet 2021-05 00:00: 00 Yes [id number] TAKE 1 TABLET BY MOUTH 4 TIMES A DAY NEEDED FOR ANXIETY [facility] zolpidem 10 mg tablet 2021-05 00:00: 00 Yes [id number] 10mg Take 1 tablet by mouth at bedtime as needed for Insomnia. [facility] lisinopriL 10 mg tablet 2021-05 00:00: 00 Yes [id number] 10mg Take 1 tablet by mouth in the morning. [facility] cyanocobala min 1,000 mcg/mL injection 2021-05 00:00: 00 Yes [id number] INJECT INTO THE MUSCLE 1 MILLILITER S EVERY WEEK [facility] clonazePAM 1 mg tablet 2021-05 00:00: 00 Yes [id number] TAKE 1 TABLET BY MOUTH 4 TIMES A DAY NEEDED FOR ANXIETY [facility] zolpidem 10 mg tablet 2021-05 00:00: 00 Yes [id number] 10mg Take 1 tablet by mouth at bedtime as needed for Insomnia. [facility] lisinopriL 10 mg tablet 2021-05 00:00: 00 Yes [id number] 10mg Take 1 tablet by mouth in the morning. [facility] cyanocobala min 1,000 mcg/mL injection 2021-05 00:00: 00 Yes [id number] INJECT INTO THE MUSCLE 1 MILLILITER S EVERY WEEK [facility] zolpidem 10 mg tablet 2021-05 00:00: 00 Yes [id number] 10mg Take 1 tablet by mouth at bedtime as needed for Insomnia. [facility] lisinopriL 10 mg tablet 2021-05 00:00: 00 Yes [id number] 10mg Take 1 tablet by mouth in the morning. [facility] cyanocobala min 1,000 mcg/mL injection 2021-05 00:00: 00 Yes [id number] INJECT INTO THE MUSCLE 1 MILLILITER S EVERY WEEK [facility] zolpidem 10 mg tablet 2021-05 00:00: 00 Yes [id number] 10mg Take 1 tablet by mouth at bedtime as needed for Insomnia. [facility] lisinopriL 10 mg tablet 2021-05 00:00: 00 Yes [id number] 10mg Take 1 tablet by mouth in the morning. [facility] cyanocobala min 1,000 mcg/mL injection 2021-05 00:00: 00 Yes [id number] INJECT INTO THE MUSCLE [address] M[address] S EVERY WEEK [facility] z[facility]em [facility] mg tablet 2021-05 00:00: 00 Yes [id number] 10mg Take 1 tablet by mouth at bedtime as needed for Insomnia. [facility] lisinopriL 10 mg tablet 2021-05 00:00: 00 Yes [id number] 10mg Take 1 tablet by mouth in the morning. [facility] cyanocobala min 1,000 mcg/mL injection 2021-05 00:00: 00 Yes [id number] INJECT INTO THE MUSCLE 1 MILLILITER S EVERY WEEK [facility] zolpidem 10 mg tablet 2021-05 00:00: 00 Yes [id number] 10mg Take 1 tablet by mouth at bedtime as needed for Insomnia. [facility] lisinopriL 10 mg tablet 2021-05 00:00: 00 Yes [id number] 10mg Take 1 tablet by mouth in the morning. [facility] cyanocobala min 1,000 mcg/mL injection 2021-05 00:00: 00 Yes [id number] INJECT INTO THE MUSCLE 1 MILLILITER S EVERY WEEK [facility] zolpidem 10 mg tablet 2021-05 00:00: 00 Yes [id number] 10mg Take 1 tablet by mouth at bedtime as needed for Insomnia. [facility] cyanocobala min 1,000 mcg/mL injection 2021-05 00:00: 00 Yes [id number] INJECT INTO THE MUSCLE 1 MILLILITER S EVERY WEEK [facility] zolpidem 10 mg tablet 2021-05 00:00: 00 Yes [id number] 10mg Take 1 tablet by mouth at bedtime as needed for Insomnia. [facility] cyanocobala min 1,000 mcg/mL injection 2021-05 00:00: 00 Yes [id number] INJECT INTO THE MUSCLE [address] MILL[address] S EVERY WEEK [facility] z[facility]em 10 mg tablet 2021-05 00:00: 00 Yes [id number] 10mg Take 1 tablet by mouth at bedtime as needed for Insomnia. [facility] cyanocobala min 1,000 mcg/mL injection 2021-05 00:00: 00 Yes [id number] INJECT INTO THE MUSCLE 1 MILLILITER S EVERY WEEK [facility] zolpidem 10 mg tablet 2021-05 00:00: 00 Yes [id number] 10mg Take 1 tablet by mouth at bedtime as needed for Insomnia. [facility] cyanocobala min 1,000 mcg/mL injection 2021-05 00:00: 00 Yes [id number] INJECT INTO THE MUSCLE 1 MILLILITER S EVERY WEEK [facility] zolpidem 10 mg tablet 2021-05 00:00: 00 Yes [id number] 10mg Take 1 tablet by mouth at bedtime as needed for Insomnia. [facility] cyanocobala min 1,000 mcg/mL injection 2021-05 00:00: 00 Yes [id number] INJECT INTO THE MUSCLE 1 MILLILITER S EVERY WEEK [facility] zolpidem 10 mg tablet 2021-05 00:00: 00 Yes [id number] 10mg Take 1 tablet by mouth at bedtime as needed for Insomnia. [facility] cyanocobala min 1,000 mcg/mL injection 2021-05 00:00: 00 Yes [id number] INJECT INTO THE MUSCLE 1 MILLILITER S EVERY WEEK [facility] zolpidem 10 mg tablet 2021-05 00:00: 00 Yes [id number] 10mg Take 1 tablet by mouth at bedtime as needed for Insomnia. [facility] cyanocobala min 1,000 mcg/mL injection 2021-05 00:00: 00 Yes [id number] INJECT INTO THE MUSCLE 1 MILLILITER S EVERY WEEK [facility] zolpidem 10 mg tablet 2021-05 00:00: 00 Yes [id number] 10mg Take 1 tablet by mouth at bedtime as needed for Insomnia. [facility] cyanocobala min 1,000 mcg/mL injection 2021-05 00:00: 00 Yes [id number] INJECT INTO THE MUSCLE 1 MILLILITER S EVERY WEEK [facility] zolpidem 10 mg tablet 2021-05 00:00: 00 Yes [id number] 10mg Take 1 tablet by mouth at bedtime as needed for Insomnia. [facility] cyanocobala min 1,000 mcg/mL injection 2021-05 00:00: 00 Yes [id number] INJECT INTO THE MUSCLE 1 MILLILITER S EVERY WEEK [facility] zolpidem 10 mg tablet 2021-05 00:00: 00 Yes [id number] 10mg Take 1 tablet by mouth at bedtime as needed for Insomnia. [facility] cyanocobala min 1,000 mcg/mL injection 2021-05 00:00: 00 Yes [id number] INJECT INTO THE MUSCLE 1 MILLILITER S EVERY WEEK [facility] z[facility]em [facility] mg tablet 2021-05 00:00: 00 Yes [id number] 10mg Take 1 tablet by mouth at bedtime as needed for Insomnia. [facility] cyanocobala min 1,000 mcg/mL injection 2021-05 00:00: 00 Yes [id number] INJECT INTO THE MUSCLE [address] S EVERY WEEK [facility] zolpidem 10 mg tablet 2021-05 00:00: 00 Yes [id number] 10mg Take 1 tablet by mouth at bedtime as needed for Insomnia. [facility] cyanocobala min 1,000 mcg/mL injection 2021-05 00:00: 00 Yes [id number] INJECT INTO THE MUSCLE 1 MILLILITER S EVERY WEEK [facility] zolpidem 10 mg tablet 2021-05 00:00: 00 Yes [id number] 10mg Take 1 tablet by mouth at bedtime as needed for Insomnia. [facility] cyanocobala min 1,000 mcg/mL injection 2021-05 00:00: 00 Yes [id number] INJECT INTO THE MUSCLE 1 MILLILITER S EVERY WEEK [facility] zolpidem 10 mg tablet 2021-05 00:00: 00 Yes [id number] 10mg Take 1 tablet by mouth at bedtime as needed for Insomnia. [facility] zolpidem 10 mg tablet 2021-05 00:00: 00 Yes [id number] 10mg Take 1 tablet by mouth at bedtime as needed for Insomnia. [facility] zolpidem 10 mg tablet 2021-05 00:00: 00 Yes [id number] 10mg Take 1 tablet by mouth at bedtime as needed for Insomnia. [facility] zolpidem 10 mg tablet 2021-05 00:00: 00 Yes [id number] 10mg Take 1 tablet by mouth at bedtime as needed for Insomnia. [facility] zolpidem 10 mg tablet 2021-05 00:00: 00 Yes [id number] 10mg Take 1 tablet by mouth at bedtime as needed for Insomnia. [facility] zolpidem 10 mg tablet 2021-05 00:00: 00 Yes [id number] 10mg Take 1 tablet by mouth at bedtime as needed for Insomnia. [facility] zolpidem 10 mg tablet 2021-05 00:00: 00 Yes [id number] 10mg Take 1 tablet by mouth at bedtime as needed for Insomnia. [facility] zolpidem 10 mg tablet 2021-05 00:00: 00 Yes [id number] 10mg Take 1 tablet by mouth at bedtime as needed for Insomnia. [facility] zolpidem 10 mg tablet 2021-05 00:00: 00 Yes [id number] 10mg Take 1 tablet by mouth at bedtime as needed for Insomnia. [facility] zolpidem 10 mg tablet 2021-05 00:00: 00 Yes [id number] 10mg Take 1 tablet by mouth at bedtime as needed for Insomnia. [facility] zolpidem 10 mg tablet 2021-05 00:00: 00 Yes [id number] 10mg Take 1 tablet by mouth at bedtime as needed for Insomnia. [facility] zolpidem 10 mg tablet 2021-05 00:00: 00 Yes [id number] 10mg Take 1 tablet by mouth at bedtime as needed for Insomnia. [facility] zolpidem 10 mg tablet 2021-05 00:00: 00 Yes [id number] 10mg Take 1 tablet by mouth at bedtime as needed for Insomnia. [facility] zolpidem 10 mg tablet 2021-05 00:00: 00 Yes [id number] 10mg Take 1 tablet by mouth at bedtime as needed for Insomnia. [facility] zolpidem 10 mg tablet 2021-05 00:00: 00 Yes [id number] 10mg Take 1 tablet by mouth at bedtime as needed for Insomnia. [facility] zolpidem 10 mg tablet 2021-05 00:00: 00 Yes [id number] 10mg Take 1 tablet by mouth at bedtime as needed for Insomnia. [facility] zolpidem 10 mg tablet 2021-05 00:00: 00 Yes [id number] 10mg Take 1 tablet by mouth at bedtime as needed for Insomnia. [facility] zolpidem 10 mg tablet 2021-05 00:00: 00 Yes [id number] 10mg Take 1 tablet by mouth at bedtime as needed for Insomnia. [facility] zolpidem 10 mg tablet 2021-05 00:00: 00 Yes [id number] 10mg Take 1 tablet by mouth at bedtime as needed for Insomnia. [facility] zolpidem 10 mg tablet 2021-05 00:00: 00 Yes [id number] 10mg Take 1 tablet by mouth at bedtime as needed for Insomnia. [facility] zolpidem 10 mg tablet 2021-05 00:00: 00 Yes [id number] 10mg Take 1 tablet by mouth at bedtime as needed for Insomnia. [facility] zolpidem 10 mg tablet 2021-05 00:00: 00 Yes [id number] 10mg Take 1 tablet by mouth at bedtime as needed for Insomnia. [facility] zolpidem 10 mg tablet 2021-05 00:00: 00 Yes [id number] 10mg Take 1 tablet by mouth at bedtime as needed for Insomnia. [facility] zolpidem 10 mg tablet 2021-05 00:00: 00 Yes [id number] 10mg Take 1 tablet by mouth at bedtime as needed for Insomnia. [facility] zolpidem 10 mg tablet 2021-05 00:00: 00 Yes [id number] 10mg Take 1 tablet by mouth at bedtime as needed for Insomnia. [facility] zolpidem 10 mg tablet 2021-05 00:00: 00 Yes [id number] 10mg Take 1 tablet by mouth at bedtime as needed for Insomnia. [facility] zolpidem 10 mg tablet 2021-05 00:00: 00 Yes [id number] 10mg Take 1 tablet by mouth at bedtime as needed for Insomnia. [facility] zolpidem 10 mg tablet 2021-05 00:00: 00 Yes [id number] 10mg Take 1 tablet by mouth at bedtime as needed for Insomnia. [facility] zolpidem 10 mg tablet 2021-05 00:00: 00 05-07 00:00 :00 No [id number] 10mg Take 1 tablet by mouth at bedtime as needed for Insomnia. [facility] zolpidem 10 mg tablet 2021-05 00:00: 00 05-07 00:00 :00 No [id number] 10mg Take 1 tablet by mouth at bedtime as needed for Insomnia. [facility] cyanocobala min 1,000 mcg/mL injection 2021-05 00:00: 00 10-12 00:00 :00 No [id number] INJECT INTO THE MUSCLE 1 MILLILITER S EVERY WEEK [facility] cyanocobala min 1,000 mcg/mL injection 2021-05 00:00: 00 10-12 00:00 :00 No [id number] INJECT INTO THE MUSCLE 1 MILLILITER S EVERY WEEK [facility] cyanocobala min 1,000 mcg/mL injection 2021-05 00:00: 00 10-12 00:00 :00 No [id number] INJECT INTO THE MUSCLE 1 MILLILITER S EVERY WEEK [facility] lisinopriL 10 mg tablet 2021-05 00:00: 00 08-08 00:00 :00 No [id number] 10mg Take 1 tablet by mouth in the morning. [facility] lisinopriL 10 mg tablet 2021-05 00:00: 00 08-08 00:00 :00 No [id number] 10mg Take 1 tablet by mouth in the morning. [facility] clonazePAM 1 mg tablet 2021-05 00:00: 00 07-11 00:00 :00 No [id number] TAKE 1 TABLET BY MOUTH 4 TIMES A DAY NEEDED FOR ANXIETY [facility] dextroamphe tamine-amph etamine (ADDERALL) 20 mg tablet 2021-05 00:00: 00 05-24 00:00 :00 No [id number] 20mg Take 1 tablet by mouth in the morning and 1 tablet in the evening. [facility] dextroamphe tamine-amph etamine (ADDERALL) 20 mg tablet 2021-05 0 00:00: 00 Yes [id number] 20mg Take 1 tablet by mouth in the morning and 1 tablet in the evening. [facility] clonazePAM 1 mg tablet 2021-05 020 00:00: 00 Yes [id number] TAKE 1 TABLET BY MOUTH 4 TIMES A DAY NEEDED FOR ANXIETY [facility] dextroamphe tamine-amph etamine (ADDERALL) 20 mg tablet 2021-05 020 00:00: 00 Yes [id number] 20mg Take 1 tablet by mouth in the morning and 1 tablet in the evening. [facility] clonazePAM 1 mg tablet 2021-05 0-20 00:00: 00 Yes [id number] TAKE 1 TABLET BY MOUTH 4 TIMES A DAY NEEDED FOR ANXIETY [facility] dextroamphe tamine-amph etamine (ADDERALL) 20 mg tablet 2021-05 0-20 00:00: 00 Yes [id number] 20mg Take 1 tablet by mouth in the morning and 1 tablet in the evening. [facility] clonazePAM 1 mg tablet 2021-05 0- 00:00: 00 Yes [id number] TAKE 1 TABLET BY MOUTH 4 TIMES A DAY NEEDED FOR ANXIETY [facility] dextroamphe tamine-amph etamine (ADDERALL) 20 mg tablet 2021-05 0 00:00: 00 04-10 00:00 :00 No [id number] 20mg Take 1 tablet by mouth in the morning and 1 tablet in the evening. [facility] clon[facility]AM [facility] mg tablet 2021-05 0 00:00: 00 04-10 00:00 :00 No [id number] TAKE 1 TABLET BY MOUTH 4 TIMES A DAY NEEDED FOR ANXIETY [facility] dextroamphe tamine-amph etamine (ADDERALL) 20 mg tablet 2021-05 00:00: 00 04-10 00:00 :00 No [id number] 20mg Take 1 tablet by mouth in the morning and 1 tablet in the evening. [facility] clonazePAM 1 mg tablet 2021-05 0 00:00: 00 04-10 00:00 :00 No [id number] TAKE 1 TABLET BY MOUTH 4 TIMES A DAY NEEDED FOR ANXIETY [facility] dextroamphe tamine-amph etamine (ADDERALL) 20 mg tablet 01-24 00:00: 00 Yes [id number] 20mg Take 1 tablet by mouth in the morning and 1 tablet in the evening. [facility] dextroamphe tamine-amph etamine (ADDERALL) 20 mg tablet 01-24 00:00: 00 03-08 00:00 :00 No [id number] 20mg Take 1 tablet by mouth in the morning and 1 tablet in the evening. [facility] clonazePAM 1 mg tablet 01-09 00:00: 00 Yes [id number] TAKE 1 TABLET BY MOUTH 4 TIMES A DAY NEEDED FOR ANXIETY [facility] clonazePAM 1 mg tablet 01-09 00:00: 00 Yes [id number] TAKE 1 TABLET BY MOUTH 4 TIMES A DAY NEEDED FOR ANXIETY [facility] clonazePAM 1 mg tablet 01-09 00:00: 00 Yes [id number] TAKE 1 TABLET BY MOUTH 4 TIMES A DAY NEEDED FOR ANXIETY [facility] clonazePAM 1 mg tablet 01-09 00:00: 00 10 00:00 :00 No [id number] TAKE 1 TABLET BY MOUTH 4 TIMES A DAY NEEDED FOR ANXIETY [facility] dextroamphe tamine-amph etamine (ADDERALL) 20 mg tablet 12-18 00:00: 00 Yes [id number] 20mg Take 1 tablet by mouth in the morning and 1 tablet in the evening. [facility] dextroamphe tamine-amph etamine (ADDERALL) 20 mg tablet 12-18 00:00: 00 Yes [id number] 20mg Take 1 tablet by mouth in the morning and 1 tablet in the evening. [facility] dextroamphe tamine-amph etamine (ADDERALL) 20 mg tablet 12-18 00:00: 00 Yes [id number] 20mg Take 1 tablet by mouth in the morning and 1 tablet in the evening. [facility] dextroamphe tamine-amph etamine (ADDERALL) 20 mg tablet 12-18 00:00: 00 01-24 00:00 :00 No [id number] 20mg Take 1 tablet by mouth in the morning and 1 tablet in the evening. [facility] lisinopriL 10 mg tablet 11-20 00:00: 00 Yes 10mg Take 10 mg by mouth in the morning. [facility] lisinopriL 10 mg tablet 0 11-20 00:00: 00 Yes 10mg Take 10 mg by mouth in the morning. [facility] lisinopriL 10 mg tablet 0 11-20 00:00: 00 Yes 10mg Take 10 mg by mouth in the morning. [facility] lisinopriL 10 mg tablet 11-20 00:00: 00 Yes 10mg Take 10 mg by mouth in the morning. [facility] lisinopriL 10 mg tablet 0 11-20 00:00: 00 Yes 10mg Take 10 mg by mouth in the morning. [facility] lisinopriL 10 mg tablet 0 11-20 00:00: 00 Yes 10mg Take 10 mg by mouth in the morning. [facility] lisinopriL 10 mg tablet 0 11-20 00:00: 00 04-10 00:00 :00 No 10mg Take 10 mg by mouth in the morning. [facility] lisinopriL 10 mg tablet 0 11-20 00:00: 00 04-10 00:00 :00 No 10mg Take 10 mg by mouth in the morning. [facility] SERTraline (ZOLOFT) 50 mg tablet 0 07-10 00:00: 00 Yes [id number] 50mg Take 1 tablet by mouth daily. [facility] SERTraline (ZOLOFT) 50 mg tablet 2021-0 07-10 00:00: 00 Yes [id number] 50mg Take 1 tablet by mouth daily. [facility] SERTraline (ZOLOFT) 50 mg tablet 0 07-10 00:00: 00 Yes [id number] 50mg Take 1 tablet by mouth daily. [facility] SERTraline (ZOLOFT) 50 mg tablet 2021-0 2- 00:00: 00 Yes [id number] 50mg Take 1 tablet by mouth daily. [facility] SERTraline (ZOLOFT) 50 mg tablet 2021-0 2- 00:00: 00 Yes [id number] 50mg Take 1 tablet by mouth daily. [facility] SERTraline (ZOLOFT) 50 mg tablet 2021-0 2- 00:00: 00 Yes [id number] 50mg Take 1 tablet by mouth daily. [facility] SERTraline (ZOLOFT) 50 mg tablet 2021-0 2-21 00:00: 00 Yes [id number] 50mg Take 1 tablet by mouth daily. [facility] SERTraline (ZOLOFT) 50 mg tablet 2 00:00: 00 04-10 00:00 :00 No [id number] 50mg Take 1 tablet by mouth daily. [facility] SERTraline (ZOLOFT) 50 mg tablet 2 00:00: 00 04-10 00:00 :00 No [id number] 50mg Take 1 tablet by mouth daily. [facility] sildenafiL 50 mg tablet 2020-05 00:00: 00 Yes [id number] 50mg Take 1 tablet by mouth as needed for Other (prior to sexual activity). [facility] sildenafiL 50 mg tablet 2020-05 00:00: 00 Yes [id number] 50mg Take 1 tablet by mouth as needed for Other (prior to sexual activity). [facility] sildenafiL 50 mg tablet 2020-05 00:00: 00 Yes [id number] 50mg Take 1 tablet by mouth as needed for Other (prior to sexual activity). [facility] sildenafiL 50 mg tablet 2020-05 00:00: 00 Yes [id number] 50mg Take 1 tablet by mouth as needed for Other (prior to sexual activity). [facility] sildenafiL 50 mg tablet 2020-05 00:00: 00 Yes [id number] 50mg Take 1 tablet by mouth as needed for Other (prior to sexual activity). [facility] sildenafiL 50 mg tablet 2020-05 00:00: 00 Yes [id number] 50mg Take 1 tablet by mouth as needed for Other (prior to sexual activity). [facility] sildenafiL 50 mg tablet 2020-05 00:00: 00 Yes [id number] 50mg Take 1 tablet by mouth as needed for Other (prior to sexual activity). [facility] sildenafiL 50 mg tablet 2020-05 00:00: 00 Yes [id number] 50mg Take 1 tablet by mouth as needed for Other (prior to sexual activity). [facility] sildenafiL 50 mg tablet 2020-05 00:00: 00 Yes [id number] 50mg Take 1 tablet by mouth as needed for Other (prior to sexual activity). [facility] sildenafiL 50 mg tablet 2020-05 00:00: 00 Yes [id number] 50mg Take 1 tablet by mouth as needed for Other (prior to sexual activity). [facility] sildenafiL 50 mg tablet 2020-05 00:00: 00 Yes [id number] 50mg Take 1 tablet by mouth as needed for Other (prior to sexual activity). [facility] sildenafiL 50 mg tablet 2020-05 00:00: 00 Yes [id number] 50mg Take 1 tablet by mouth as needed for Other (prior to sexual activity). [facility] sildenafiL 50 mg tablet 2020-05 00:00: 00 Yes [id number] 50mg Take 1 tablet by mouth as needed for Other (prior to sexual activity). [facility] sildenafiL 50 mg tablet 2020-05 00:00: 00 Yes [id number] 50mg Take 1 tablet by mouth as needed for Other (prior to sexual activity). [facility] sildenafiL 50 mg tablet 2020-05 00:00: 00 Yes [id number] 50mg Take 1 tablet by mouth as needed for Other (prior to sexual activity). [facility] sildenafiL 50 mg tablet 2020-05 00:00: 00 Yes [id number] 50mg Take 1 tablet by mouth as needed for Other (prior to sexual activity). [facility] sildenafiL 50 mg tablet 2020-05 00:00: 00 Yes [id number] 50mg Take 1 tablet by mouth as needed for Other (prior to sexual activity). [facility] sildenafiL 50 mg tablet 2020-05 00:00: 00 Yes [id number] 50mg Take 1 tablet by mouth as needed for Other (prior to sexual activity). [facility] sildenafiL 50 mg tablet 2020-05 00:00: 00 Yes [id number] 50mg Take 1 tablet by mouth as needed for Other (prior to sexual activity). [facility] sildenafiL 50 mg tablet 2020-05 00:00: 00 Yes [id number] 50mg Take 1 tablet by mouth as needed for Other (prior to sexual activity). [facility] sildenafiL 50 mg tablet 2020-05 00:00: 00 Yes [id number] 50mg Take 1 tablet by mouth as needed for Other (prior to sexual activity). [facility] sildenafiL 50 mg tablet 2020-05 00:00: 00 Yes [id number] 50mg Take 1 tablet by mouth as needed for Other (prior to sexual activity). [facility] sildenafiL 50 mg tablet 2020-05 00:00: 00 Yes [id number] 50mg Take 1 tablet by mouth as needed for Other (prior to sexual activity). [facility] sildenafiL 50 mg tablet 2020-05 00:00: 00 Yes [id number] 50mg Take 1 tablet by mouth as needed for Other (prior to sexual activity). [facility] sildenafiL 50 mg tablet 2020-05 00:00: 00 Yes [id number] 50mg Take 1 tablet by mouth as needed for Other (prior to sexual activity). [facility] sildenafiL 50 mg tablet 2020-05 00:00: 00 Yes [id number] 50mg Take 1 tablet by mouth as needed for Other (prior to sexual activity). [facility] sildenafiL 50 mg tablet 2020-05 00:00: 00 Yes [id number] 50mg Take 1 tablet by mouth as needed for Other (prior to sexual activity). [facility] sildenafiL 50 mg tablet 2020-05 00:00: 00 Yes [id number] 50mg Take 1 tablet by mouth as needed for Other (prior to sexual activity). [facility] sildenafiL 50 mg tablet 2020-05 00:00: 00 Yes [id number] 50mg Take 1 tablet by mouth as needed for Other (prior to sexual activity). [facility] sildenafiL 50 mg tablet 2020-05 00:00: 00 Yes [id number] 50mg Take 1 tablet by mouth as needed for Other (prior to sexual activity). [facility] sildenafiL 50 mg tablet 2020-05 00:00: 00 Yes [id number] 50mg Take 1 tablet by mouth as needed for Other (prior to sexual activity). [facility] sildenafiL 50 mg tablet 2020-05 00:00: 00 Yes [id number] 50mg Take 1 tablet by mouth as needed for Other (prior to sexual activity). [facility] sildenafiL 50 mg tablet 2020-05 00:00: 00 Yes [id number] 50mg Take 1 tablet by mouth as needed for Other (prior to sexual activity). [facility] sildenafiL 50 mg tablet 2020-05 00:00: 00 Yes [id number] 50mg Take 1 tablet by mouth as needed for Other (prior to sexual activity). [facility] sildenafiL 50 mg tablet 2020-05 00:00: 00 Yes [id number] 50mg Take 1 tablet by mouth as needed for Other (prior to sexual activity). [facility] sildenafiL 50 mg tablet 2020-05 00:00: 00 Yes [id number] 50mg Take 1 tablet by mouth as needed for Other (prior to sexual activity). [facility] sildenafiL 50 mg tablet 2020-05 00:00: 00 Yes [id number] 50mg Take 1 tablet by mouth as needed for Other (prior to sexual activity). [facility] sildenafiL 50 mg tablet 2020-05 00:00: 00 Yes [id number] 50mg Take 1 tablet by mouth as needed for Other (prior to sexual activity). [facility] sildenafiL 50 mg tablet 2020-05 00:00: 00 Yes [id number] 50mg Take 1 tablet by mouth as needed for Other (prior to sexual activity). [facility] sildenafiL 50 mg tablet 2020-05 00:00: 00 Yes [id number] 50mg Take 1 tablet by mouth as needed for Other (prior to sexual activity). [facility] sildenafiL 50 mg tablet 2020-05 00:00: 00 Yes [id number] 50mg Take 1 tablet by mouth as needed for Other (prior to sexual activity). [facility] sildenafiL 50 mg tablet 2020-05 00:00: 00 Yes [id number] 50mg Take 1 tablet by mouth as needed for Other (prior to sexual activity). [facility] sildenafiL 50 mg tablet 2020-05 00:00: 00 Yes [id number] 50mg Take 1 tablet by mouth as needed for Other (prior to sexual activity). [facility] sildenafiL 50 mg tablet 2020-05 00:00: 00 Yes [id number] 50mg Take 1 tablet by mouth as needed for Other (prior to sexual activity). [facility] sildenafiL 50 mg tablet 2020-05 00:00: 00 Yes [id number] 50mg Take 1 tablet by mouth as needed for Other (prior to sexual activity). [facility] sildenafiL 50 mg tablet 2020-05 00:00: 00 Yes [id number] 50mg Take 1 tablet by mouth as needed for Other (prior to sexual activity). [facility] sildenafiL 50 mg tablet 2020-05 00:00: 00 Yes [id number] 50mg Take 1 tablet by mouth as needed for Other (prior to sexual activity). [facility] sildenafiL 50 mg tablet 2020-05 00:00: 00 Yes [id number] 50mg Take 1 tablet by mouth as needed for Other (prior to sexual activity). [facility] sildenafiL 50 mg tablet 2020-05 00:00: 00 Yes [id number] 50mg Take 1 tablet by mouth as needed for Other (prior to sexual activity). [facility] sildenafiL 50 mg tablet 2020-05 00:00: 00 Yes [id number] 50mg Take 1 tablet by mouth as needed for Other (prior to sexual activity). [facility] sildenafiL 50 mg tablet 2020-05 00:00: 00 Yes [id number] 50mg Take 1 tablet by mouth as needed for Other (prior to sexual activity). [facility] sildenafiL 50 mg tablet 2020-05 00:00: 00 Yes [id number] 50mg Take 1 tablet by mouth as needed for Other (prior to sexual activity). [facility] sildenafiL 50 mg tablet 2020-05 00:00: 00 Yes [id number] 50mg Take 1 tablet by mouth as needed for Other (prior to sexual activity). [facility] sildenafiL 50 mg tablet 2020-05 00:00: 00 Yes [id number] 50mg Take 1 tablet by mouth as needed for Other (prior to sexual activity). [facility] sildenafiL 50 mg tablet 2020-05 00:00: 00 Yes [id number] 50mg Take 1 tablet by mouth as needed for Other (prior to sexual activity). [facility] sildenafiL 50 mg tablet 2020-05 00:00: 00 Yes [id number] 50mg Take 1 tablet by mouth as needed for Other (prior to sexual activity). [facility] sildenafiL 50 mg tablet 2020-05 00:00: 00 Yes [id number] 50mg Take 1 tablet by mouth as needed for Other (prior to sexual activity). [facility] sildenafiL 50 mg tablet 2020-05 00:00: 00 Yes [id number] 50mg Take 1 tablet by mouth as needed for Other (prior to sexual activity). [facility] sildenafiL 50 mg tablet 2020-05 00:00: 00 Yes [id number] 50mg Take 1 tablet by mouth as needed for Other (prior to sexual activity). [facility] sildenafiL 50 mg tablet 2020-05 00:00: 00 Yes [id number] 50mg Take 1 tablet by mouth as needed for Other (prior to sexual activity). [facility] sildenafiL 50 mg tablet 2020-05 00:00: 00 Yes [id number] 50mg Take 1 tablet by mouth as needed for Other (prior to sexual activity). [facility] sildenafiL 50 mg tablet 2020-05 00:00: 00 Yes [id number] 50mg Take 1 tablet by mouth as needed for Other (prior to sexual activity). [facility] sildenafiL 50 mg tablet 2020-05 00:00: 00 Yes [id number] 50mg Take 1 tablet by mouth as needed for Other (prior to sexual activity). [facility] sildenafiL 50 mg tablet 2020-05 00:00: 00 Yes [id number] 50mg Take 1 tablet by mouth as needed for Other (prior to sexual activity). [facility] sildenafiL 50 mg tablet 2020-05 00:00: 00 Yes [id number] 50mg Take 1 tablet by mouth as needed for Other (prior to sexual activity). [facility] sildenafiL 50 mg tablet 2020-05 00:00: 00 Yes [id number] 50mg Take 1 tablet by mouth as needed for Other (prior to sexual activity). [facility] sildenafiL 50 mg tablet 2020-05 00:00: 00 Yes [id number] 50mg Take 1 tablet by mouth as needed for Other (prior to sexual activity). [facility] cyanocobala min 1,000 mcg/mL injection 0 06-01 00:00: 00 Yes [id number] INJECT INTO THE MUSCLE 1 MILLILITER S EVERY WEEK [facility] cyanocobala min 1,000 mcg/mL injection 2020-0 06-01 00:00: 00 Yes [id number] INJECT INTO THE MUSCLE 1 MILLILITER S EVERY WEEK [facility] cyanocobala min 1,000 mcg/mL injection 2020-0 06-01 00:00: 00 Yes [id number] INJECT INTO THE MUSCLE 1 MILLILITER S EVERY WEEK [facility] cyanocobala min 1,000 mcg/mL injection 2020-0 06-01 00:00: 00 Yes [id number] INJECT INTO THE MUSCLE 1 MILLILITER S EVERY WEEK [facility] cyanocobala min 1,000 mcg/mL injection 2020-0 06-01 00:00: 00 Yes [id number] INJECT INTO THE MUSCLE 1 MILLILITER S EVERY WEEK [facility] cyanocobala min 1,000 mcg/mL injection 2020-0 06-01 00:00: 00 Yes [id number] INJECT INTO THE MUSCLE 1 MILLILITER S EVERY WEEK [facility] cyanocobala min 1,000 mcg/mL injection 2020-0 06-01 00:00: 00 Yes [id number] INJECT INTO THE MUSCLE 1 MILLILITER S EVERY WEEK [facility] cyanocobala min 1,000 mcg/mL injection 1-13 00:00: 00 04-10 00:00 :00 No [id number] INJECT INTO THE MUSCLE 1 MILLILITER S EVERY WEEK [facility] cyanocobala min 1,000 mcg/mL injection 1-13 00:00: 00 04-10 00:00 :00 No [id number] INJECT INTO THE MUSCLE 1 MILLILITER S EVERY WEEK [facility] pantoprazol e (PROTONIX) 40 mg EC tablet 08-12 00:00: 00 Yes [id number] 40mg Take 1 tablet by mouth daily. [facility] pantoprazol e (PROTONIX) 40 mg EC tablet 08-12 00:00: 00 Yes [id number] 40mg Take 1 tablet by mouth daily. [facility] pantoprazol e (PROTONIX) 40 mg EC tablet 08-12 00:00: 00 Yes [id number] 40mg Take 1 tablet by mouth daily. [facility] pantoprazol e (PROTONIX) 40 mg EC tablet 08-12 00:00: 00 Yes [id number] 40mg Take 1 tablet by mouth daily. [facility] pantoprazol e (PROTONIX) 40 mg EC tablet 08-12 00:00: 00 Yes [id number] 40mg Take 1 tablet by mouth daily. [facility] pantoprazol e (PROTONIX) 40 mg EC tablet 08-12 00:00: 00 Yes [id number] 40mg Take 1 tablet by mouth daily. [facility] pantoprazol e (PROTONIX) 40 mg EC tablet 08-12 00:00: 00 Yes [id number] 40mg Take 1 tablet by mouth daily. [facility] pantoprazol e (PROTONIX) 40 mg EC tablet 08-12 00:00: 00 04-10 00:00 :00 No [id number] 40mg Take 1 tablet by mouth daily. [facility] pantoprazol e (PROTONIX) 40 mg EC tablet 08-12 00:00: 00 04-10 00:00 :00 No [id number] 40mg Take 1 tablet by mouth daily. [facility] Syringe with Needle, Disp, (SYRINGE 3CC/25GX1") 3 mL 25 gauge x 1" Syrg 2020-0 2-26 00:00: 00 Yes [id number] Use as directed [facility] Syringe with Needle, Disp, (SYRINGE 3CC/25GX1") 3 mL 25 gauge x 1" Syrg 2020-0 2-26 00:00: 00 Yes [id number] Use as directed [facility] Syringe with Needle, Disp, (SYRINGE 3CC/25GX1") 3 mL 25 gauge x 1" Syrg 2020-0 2-26 00:00: 00 Yes [id number] Use as directed [facility] Syringe with Needle, Disp, (SYRINGE 3CC/25GX1") 3 mL 25 gauge x 1" Syrg 2020-0 2-26 00:00: 00 Yes [id number] Use as directed [facility] Syringe with Needle, Disp, (SYRINGE 3CC/25GX1") 3 mL 25 gauge x 1" Syrg 2020-0 2-26 00:00: 00 Yes [id number] Use as directed [facility] Syringe with Needle, Disp, (SYRINGE 3CC/25GX1") 3 mL 25 gauge x 1" Syrg 2020-0 2-26 00:00: 00 Yes [id number] Use as directed [facility] Syringe with Needle, Disp, (SYRINGE 3CC/25GX1") 3 mL 25 gauge x 1" Syrg 2020-0 2-26 00:00: 00 Yes [id number] Use as directed [facility] Syringe with Needle, Disp, (SYRINGE 3CC/25GX1") 3 mL 25 gauge x 1" Syrg 2020-0 2-26 00:00: 00 Yes [id number] Use as directed [facility] Syringe with Needle, Disp, (SYRINGE 3CC/25GX1") 3 mL 25 gauge x 1" Syrg 2020-0 2-26 00:00: 00 Yes [id number] Use as directed [facility] Syringe with Needle, Disp, (SYRINGE 3CC/25GX1") 3 mL 25 gauge x 1" Syrg 2020-0 2-26 00:00: 00 Yes [id number] Use as directed [facility] Syringe with Needle, Disp, (SYRINGE 3CC/25GX1") 3 mL 25 gauge x 1" Syrg 2020-0 2-26 00:00: 00 Yes [id number] Use as directed [facility] Syringe with Needle, Disp, (SYRINGE 3CC/25GX1") 3 mL 25 gauge x 1" Syrg 2020-0 2-26 00:00: 00 Yes [id number] Use as directed [facility] Syringe with Needle, Disp, (SYRINGE 3CC/25GX1") 3 mL 25 gauge x 1" Syrg 2020-0 2-26 00:00: 00 Yes [id number] Use as directed [facility] Syringe with Needle, Disp, (SYRINGE 3CC/25GX1") 3 mL 25 gauge x 1" Syrg 2020-0 2-26 00:00: 00 Yes [id number] Use as directed [facility] Syringe with Needle, Disp, (SYRINGE 3CC/25GX1") 3 mL 25 gauge x 1" Syrg 2020-0 2-26 00:00: 00 Yes [id number] Use as directed [facility] Syringe with Needle, Disp, (SYRINGE 3CC/25GX1") 3 mL 25 gauge x 1" Syrg 2020-0 2-26 00:00: 00 Yes [id number] Use as directed [facility] Syringe with Needle, Disp, (SYRINGE 3CC/25GX1") 3 mL 25 gauge x 1" Syrg 2020-0 2-26 00:00: 00 Yes [id number] Use as directed [facility] Syringe with Needle, Disp, (SYRINGE 3CC/25GX1") 3 mL 25 gauge x 1" Syrg 2020-0 2-26 00:00: 00 Yes [id number] Use as directed [facility] Syringe with Needle, Disp, (SYRINGE 3CC/25GX1") 3 mL 25 gauge x 1" Syrg 2020-0 2-26 00:00: 00 Yes [id number] Use as directed [facility] Syringe with Needle, Disp, (SYRINGE 3CC/25GX1") 3 mL 25 gauge x 1" Syrg 2020-0 2-26 00:00: 00 Yes [id number] Use as directed [facility] Syringe with Needle, Disp, (SYRINGE 3CC/25GX1") 3 mL 25 gauge x 1" Syrg 2020-0 2-26 00:00: 00 Yes [id number] Use as directed [facility] Syringe with Needle, Disp, (SYRINGE 3CC/25GX1") 3 mL 25 gauge x 1" Syrg 2020-0 2-26 00:00: 00 Yes [id number] Use as directed [facility] Syringe with Needle, Disp, (SYRINGE 3CC/25GX1") 3 mL 25 gauge x 1" Syrg 2020-0 2-26 00:00: 00 Yes [id number] Use as directed [facility] Syringe with Needle, Disp, (SYRINGE 3CC/25GX1") 3 mL 25 gauge x 1" Syrg 2020-0 2-26 00:00: 00 Yes [id number] Use as directed [facility] Syringe with Needle, Disp, (SYRINGE 3CC/25GX1") 3 mL 25 gauge x 1" Syrg 2020-0 2-26 00:00: 00 Yes [id number] Use as directed [facility] Syringe with Needle, Disp, (SYRINGE 3CC/25GX1") 3 mL 25 gauge x 1" Syrg 2020-0 2-26 00:00: 00 Yes [id number] Use as directed [facility] Syringe with Needle, Disp, (SYRINGE 3CC/25GX1") 3 mL 25 gauge x 1" Syrg 2020-0 2-26 00:00: 00 Yes [id number] Use as directed [facility] Syringe with Needle, Disp, (SYRINGE 3CC/25GX1") 3 mL 25 gauge x 1" Syrg 2020-0 2-26 00:00: 00 Yes [id number] Use as directed [facility] Syringe with Needle, Disp, (SYRINGE 3CC/25GX1") 3 mL 25 gauge x 1" Syrg 2020-0 2-26 00:00: 00 Yes [id number] Use as directed [facility] Syringe with Needle, Disp, (SYRINGE 3CC/25GX1") 3 mL 25 gauge x 1" Syrg 2020-0 2-26 00:00: 00 Yes [id number] Use as directed [facility] Syringe with Needle, Disp, (SYRINGE 3CC/25GX1") 3 mL 25 gauge x 1" Syrg 2020-0 2-26 00:00: 00 Yes [id number] Use as directed [facility] Syringe with Needle, Disp, (SYRINGE 3CC/25GX1") 3 mL 25 gauge x 1" Syrg 2020-0 2-26 00:00: 00 Yes [id number] Use as directed [facility] Syringe with Needle, Disp, (SYRINGE 3CC/25GX1") 3 mL 25 gauge x 1" Syrg 2020-0 2-26 00:00: 00 Yes [id number] Use as directed [facility] Syringe with Needle, Disp, (SYRINGE 3CC/25GX1") 3 mL 25 gauge x 1" Syrg 2020-0 2-26 00:00: 00 Yes [id number] Use as directed [facility] Syringe with Needle, Disp, (SYRINGE 3CC/25GX1") 3 mL 25 gauge x 1" Syrg 2020-0 2-26 00:00: 00 Yes [id number] Use as directed [facility] Syringe with Needle, Disp, (SYRINGE 3CC/25GX1") 3 mL 25 gauge x 1" Syrg 2020-0 2-26 00:00: 00 Yes [id number] Use as directed [facility] Syringe with Needle, Disp, (SYRINGE 3CC/25GX1") 3 mL 25 gauge x 1" Syrg 2020-0 2-26 00:00: 00 Yes [id number] Use as directed [facility] Syringe with Needle, Disp, (SYRINGE 3CC/25GX1") 3 mL 25 gauge x 1" Syrg 2020-0 2-26 00:00: 00 Yes [id number] Use as directed [facility] Syringe with Needle, Disp, (SYRINGE 3CC/25GX1") 3 mL 25 gauge x 1" Syrg 2020-0 2-26 00:00: 00 Yes [id number] Use as directed [facility] Syringe with Needle, Disp, (SYRINGE 3CC/25GX1") 3 mL 25 gauge x 1" Syrg 2020-0 2-26 00:00: 00 Yes [id number] Use as directed [facility] Syringe with Needle, Disp, (SYRINGE 3CC/25GX1") 3 mL 25 gauge x 1" Syrg 2020-0 2-26 00:00: 00 Yes [id number] Use as directed [facility] Syringe with Needle, Disp, (SYRINGE 3CC/25GX1") 3 mL 25 gauge x 1" Syrg 2020-0 2-26 00:00: 00 Yes [id number] Use as directed [facility] Syringe with Needle, Disp, (SYRINGE 3CC/25GX1") 3 mL 25 gauge x 1" Syrg 2020-0 2-26 00:00: 00 Yes [id number] Use as directed [facility] Syringe with Needle, Disp, (SYRINGE 3CC/25GX1") 3 mL 25 gauge x 1" Syrg 2020-0 2-26 00:00: 00 Yes [id number] Use as directed [facility] Syringe with Needle, Disp, (SYRINGE 3CC/25GX1") 3 mL 25 gauge x 1" Syrg 2020-0 2-26 00:00: 00 Yes [id number] Use as directed [facility] Syringe with Needle, Disp, (SYRINGE 3CC/25GX1") 3 mL 25 gauge x 1" Syrg 2020-0 2-26 00:00: 00 Yes [id number] Use as directed [facility] Syringe with Needle, Disp, (SYRINGE 3CC/25GX1") 3 mL 25 gauge x 1" Syrg 2020-0 2-26 00:00: 00 Yes [id number] Use as directed [facility] Syringe with Needle, Disp, (SYRINGE 3CC/25GX1") 3 mL 25 gauge x 1" Syrg 2020-0 2-26 00:00: 00 Yes [id number] Use as directed [facility] Syringe with Needle, Disp, (SYRINGE 3CC/25GX1") 3 mL 25 gauge x 1" Syrg 2020-0 2-26 00:00: 00 Yes [id number] Use as directed [facility] Syringe with Needle, Disp, (SYRINGE 3CC/25GX1") 3 mL 25 gauge x 1" Syrg 2020-0 2-26 00:00: 00 Yes [id number] Use as directed [facility] Syringe with Needle, Disp, (SYRINGE 3CC/25GX1") 3 mL 25 gauge x 1" Syrg 2020-0 2-26 00:00: 00 Yes [id number] Use as directed [facility] Syringe with Needle, Disp, (SYRINGE 3CC/25GX1") 3 mL 25 gauge x 1" Syrg 2020-0 2-26 00:00: 00 Yes [id number] Use as directed [facility] Syringe with Needle, Disp, (SYRINGE 3CC/25GX1") 3 mL 25 gauge x 1" Syrg 2020-0 2-26 00:00: 00 Yes [id number] Use as directed [facility] Syringe with Needle, Disp, (SYRINGE 3CC/25GX1") 3 mL 25 gauge x 1" Syrg 2020-0 2-26 00:00: 00 Yes [id number] Use as directed [facility] Syringe with Needle, Disp, (SYRINGE 3CC/25GX1") 3 mL 25 gauge x 1" Syrg 2020-0 2-26 00:00: 00 Yes [id number] Use as directed [facility] Syringe with Needle, Disp, (SYRINGE 3CC/25GX1") 3 mL 25 gauge x 1" Syrg 2020-0 2-26 00:00: 00 Yes [id number] Use as directed [facility] Syringe with Needle, Disp, (SYRINGE 3CC/25GX1") 3 mL 25 gauge x 1" Syrg 2020-0 2-26 00:00: 00 Yes [id number] Use as directed [facility] Syringe with Needle, Disp, (SYRINGE 3CC/25GX1") 3 mL 25 gauge x 1" Syrg 2020-0 2-26 00:00: 00 Yes [id number] Use as directed [facility] Syringe with Needle, Disp, (SYRINGE 3CC/25GX1") 3 mL 25 gauge x 1" Syrg 2020-0 2-26 00:00: 00 Yes [id number] Use as directed [facility] Syringe with Needle, Disp, (SYRINGE 3CC/25GX1") 3 mL 25 gauge x 1" Syrg 2020-0 2-26 00:00: 00 Yes [id number] Use as directed [facility] Syringe with Needle, Disp, (SYRINGE 3CC/25GX1") 3 mL 25 gauge x 1" Syrg 2020-0 2-26 00:00: 00 Yes [id number] Use as directed [facility] Syringe with Needle, Disp, (SYRINGE 3CC/25GX1") 3 mL 25 gauge x 1" Syrg 2020-0 2-26 00:00: 00 Yes [id number] Use as directed [facility] Syringe with Needle, Disp, (SYRINGE 3CC/25GX1") 3 mL 25 gauge x 1" Syrg 2020-0 2-26 00:00: 00 Yes [id number] Use as directed [facility] Syringe with Needle, Disp, (SYRINGE 3CC/25GX1") 3 mL 25 gauge x 1" Syrg 2020-0 2-26 00:00: 00 Yes [id number] Use as directed [facility] Syringe with Needle, Disp, (SYRINGE 3CC/25GX1") 3 mL 25 gauge x 1" Syrg 2020-0 2-26 00:00: 00 Yes [id number] Use as directed [facility] Syringe with Needle, Disp, (SYRINGE 3CC/25GX1") 3 mL 25 gauge x 1" Syrg 2020-0 2-26 00:00: 00 Yes [id number] Use as directed [facility] Syringe with Needle, Disp, (SYRINGE 3CC/25GX1") 3 mL 25 gauge x 1" Syrg 2020-0 2-26 00:00: 00 Yes [id number] Use as directed [facility] zolpidem 10 mg tablet 09-24 00:00: 00 Yes 10mg Take 1 tablet by mouth at bedtime as needed for Insomnia. [facility] zolpidem 10 mg tablet 09-24 00:00: 00 Yes 10mg Take 1 tablet by mouth at bedtime as needed for Insomnia. [facility] zolpidem 10 mg tablet 09-24 00:00: 00 Yes 10mg Take 1 tablet by mouth at bedtime as needed for Insomnia. [facility] zolpidem 10 mg tablet 09-24 00:00: 00 Yes 10mg Take 1 tablet by mouth at bedtime as needed for Insomnia. [facility] zolpidem 10 mg tablet 09-24 00:00: 00 Yes 10mg Take 1 tablet by mouth at bedtime as needed for Insomnia. [facility] zolpidem 10 mg tablet 09-24 00:00: 00 Yes 10mg Take 1 tablet by mouth at bedtime as needed for Insomnia. [facility] zolpidem 10 mg tablet 09-24 00:00: 00 Yes 10mg Take 1 tablet by mouth at bedtime as needed for Insomnia. [facility] zolpidem 10 mg tablet 09-24 00:00: 00 04-10 00:00 :00 No 10mg Take 1 tablet by mouth at bedtime as needed for Insomnia. [facility] zolpidem 10 mg tablet 09-24 00:00: 00 04-10 00:00 :00 No 10mg Take 1 tablet by mouth at bedtime as needed for Insomnia. [facility] oxyCODONE (ROXICODONE ) 15 mg immediate release tablet 2014-05 00:00: 00 Yes [facility] oxyCODONE (ROXICODONE ) 15 mg immediate release tablet 2014-05 00:00: 00 Yes [facility] oxyCODONE (ROXICODONE ) 15 mg immediate release tablet 2014-05 00:00: 00 Yes [facility] oxyCODONE (ROXICODONE ) 15 mg immediate release tablet 2014-05 00:00: 00 Yes [facility] oxyCODONE (ROXICODONE ) 15 mg immediate release tablet 2014-05 00:00: 00 Yes [facility] oxyCODONE (ROXICODONE ) 15 mg immediate release tablet 2014-05 00:00: 00 Yes [facility] oxyCODONE (ROXICODONE ) 15 mg immediate release tablet 2014-05 00:00: 00 Yes [facility] oxyCODONE (ROXICODONE ) 15 mg immediate release tablet 2014-05 00:00: 00 Yes [facility] oxyCODONE (ROXICODONE ) 15 mg immediate release tablet 2014-05 00:00: 00 Yes [facility] oxyCODONE (ROXICODONE ) 15 mg immediate release tablet 2014-05 00:00: 00 Yes [facility] oxyCODONE (ROXICODONE ) 15 mg immediate release tablet 2014-05 00:00: 00 Yes [facility] oxyCODONE (ROXICODONE ) 15 mg immediate release tablet 2014-05 00:00: 00 Yes [facility] oxyCODONE (ROXICODONE ) 15 mg immediate release tablet 2014-05 00:00: 00 Yes [facility] oxyCODONE (ROXICODONE ) 15 mg immediate release tablet 2014-05 00:00: 00 Yes [facility] oxyCODONE (ROXICODONE ) 15 mg immediate release tablet 2014-05 00:00: 00 Yes [facility] oxyCODONE (ROXICODONE ) 15 mg immediate release tablet 2014-05 00:00: 00 Yes [facility] oxyCODONE (ROXICODONE ) 15 mg immediate release tablet 2014-05 00:00: 00 Yes [facility] oxyCODONE (ROXICODONE ) 15 mg immediate release tablet 2014-05 00:00: 00 Yes [facility] oxyCODONE (ROXICODONE ) 15 mg immediate release tablet 2014-05 00:00: 00 Yes [facility] oxyCODONE (ROXICODONE ) 15 mg immediate release tablet 2014-05 00:00: 00 Yes [facility] oxyCODONE (ROXICODONE ) 15 mg immediate release tablet 2014-05 00:00: 00 Yes [facility] oxyCODONE (ROXICODONE ) 15 mg immediate release tablet 2014-05 00:00: 00 Yes [facility] oxyCODONE (ROXICODONE ) 15 mg immediate release tablet 2014-05 00:00: 00 Yes [facility] oxyCODONE (ROXICODONE ) 15 mg immediate release tablet 2014-05 00:00: 00 Yes [facility] oxyCODONE (ROXICODONE ) 15 mg immediate release tablet 2014-05 00:00: 00 Yes [facility] oxyCODONE (ROXICODONE ) 15 mg immediate release tablet 2014-05 00:00: 00 Yes [facility] oxyCODONE (ROXICODONE ) 15 mg immediate release tablet 2014-05 00:00: 00 Yes [facility] oxyCODONE (ROXICODONE ) 15 mg immediate release tablet 2014-05 00:00: 00 Yes [facility] oxyCODONE (ROXICODONE ) 15 mg immediate release tablet 2014-05 00:00: 00 Yes [facility] oxyCODONE (ROXICODONE ) 15 mg immediate release tablet 2014-05 00:00: 00 Yes [facility] oxyCODONE (ROXICODONE ) 15 mg immediate release tablet 2014-05 00:00: 00 Yes [facility] oxyCODONE (ROXICODONE ) 15 mg immediate release tablet 2014-05 00:00: 00 Yes [facility] oxyCODONE (ROXICODONE ) 15 mg immediate release tablet 2014-05 00:00: 00 Yes [facility] oxyCODONE (ROXICODONE ) 15 mg immediate release tablet 2014-05 00:00: 00 Yes [facility] oxyCODONE (ROXICODONE ) 15 mg immediate release tablet 2014-05 00:00: 00 Yes [facility] oxyCODONE (ROXICODONE ) 15 mg immediate release tablet 2014-05 00:00: 00 Yes [facility] oxyCODONE (ROXICODONE ) 15 mg immediate release tablet 2014-05 00:00: 00 Yes [facility] oxyCODONE (ROXICODONE ) 15 mg immediate release tablet 2014-05 00:00: 00 Yes [facility] oxyCODONE (ROXICODONE ) 15 mg immediate release tablet 2014-05 00:00: 00 Yes [facility] oxyCODONE (ROXICODONE ) 15 mg immediate release tablet 2014-05 00:00: 00 Yes [facility] oxyCODONE (ROXICODONE ) 15 mg immediate release tablet 2014-05 00:00: 00 Yes [facility] oxyCODONE (ROXICODONE ) 15 mg immediate release tablet 2014-05 00:00: 00 Yes [facility] oxyCODONE (ROXICODONE ) 15 mg immediate release tablet 2014-05 00:00: 00 Yes [facility] oxyCODONE (ROXICODONE ) 15 mg immediate release tablet 2014-05 00:00: 00 Yes [facility] oxyCODONE (ROXICODONE ) 15 mg immediate release tablet 2014-05 00:00: 00 Yes [facility] oxyCODONE (ROXICODONE ) 15 mg immediate release tablet 2014-05 00:00: 00 Yes [facility] oxyCODONE (ROXICODONE ) 15 mg immediate release tablet 2014-05 00:00: 00 Yes [facility] oxyCODONE (ROXICODONE ) 15 mg immediate release tablet 2014-05 00:00: 00 Yes [facility] oxyCODONE (ROXICODONE ) 15 mg immediate release tablet 2014-05 00:00: 00 Yes [facility] oxyCODONE (ROXICODONE ) 15 mg immediate release tablet 2014-05 00:00: 00 Yes [facility] oxyCODONE (ROXICODONE ) 15 mg immediate release tablet 2014-05 00:00: 00 Yes [facility] oxyCODONE (ROXICODONE ) 15 mg immediate release tablet 2014-05 00:00: 00 Yes [facility] oxyCODONE (ROXICODONE ) 15 mg immediate release tablet 2014-05 00:00: 00 Yes [facility] oxyCODONE (ROXICODONE ) 15 mg immediate release tablet 2014-05 00:00: 00 Yes [facility] oxyCODONE (ROXICODONE ) 15 mg immediate release tablet 2014-05 00:00: 00 Yes [facility] oxyCODONE (ROXICODONE ) 15 mg immediate release tablet 2014-05 00:00: 00 Yes [facility] oxyCODONE (ROXICODONE ) 15 mg immediate release tablet 2014-05 00:00: 00 Yes [facility] oxyCODONE (ROXICODONE ) 15 mg immediate release tablet 2014-05 00:00: 00 Yes [facility] oxyCODONE (ROXICODONE ) 15 mg immediate release tablet 2014-05 00:00: 00 Yes [facility] oxyCODONE (ROXICODONE ) 15 mg immediate release tablet 2014-05 00:00: 00 Yes [facility] oxyCODONE (ROXICODONE ) 15 mg immediate release tablet 2014-05 00:00: 00 Yes [facility] oxyCODONE (ROXICODONE ) 15 mg immediate release tablet 2014-05 00:00: 00 Yes [facility] oxyCODONE (ROXICODONE ) 15 mg immediate release tablet 2014-05 00:00: 00 Yes [facility] oxyCODONE (ROXICODONE ) 15 mg immediate release tablet 2014-05 00:00: 00 Yes [facility] oxyCODONE (ROXICODONE ) 15 mg immediate release tablet 2014-05 00:00: 00 Yes [facility] oxyCODONE (ROXICODONE ) 15 mg immediate release tablet 2014-05 00:00: 00 Yes [facility] oxyCODONE (ROXICODONE ) 15 mg immediate release tablet 2014-05 00:00: [address] [facility] Vital Signs Vital Name Observation Time Observation Value Comments S our Systolic blood pressure 2023-05-07 14:16:00 150 mm[Hg] [facility] Diastolic blood pressure 2023-05-07 14:16:00 82 mm[Hg] [facility] Heart rate 2023-05-07 14:15:00 65 /min Unive [facility] Respiratory rate 2023-05-07 14:15:00 18 /min [facility] Body height 2023-05-07 14:15:00 175.3 cm [facility] Body weight 2023-05-07 14:15:00 81.058 kg [facility] BMI 2023-05-07 14:15:00 26.39 kg/m2 [facility] Oxygen saturation in Arterial blood by Pulse oximetry 2023-05-07 14:15:00 99 /min [facility] Systolic blood pressure 2023-01-22 14:15:00 133 mm[Hg] [facility] Diastolic blood pressure 2023-01-22 14:15:00 64 mm[Hg] [facility] Heart rate 2023-01-22 14:15:00 62 /min [facility] Respiratory rate 2023-01-22 14:15:00 18 /min [facility] Body height 2023-01-22 14:15:00 175.3 cm [facility] Body weight 2023-01-22 14:15:00 77.248 kg [facility] BMI 2023-01-22 14:15:00 25.15 kg/m2 [facility] Oxygen saturation in Arterial blood by Pulse oximetry 2023-01-22 14:15:00 98 /min [facility] Systolic blood pressure 2023-01-14 15:02:00 152 mm[Hg] [facility] Diastolic blood pressure 2023-01-14 15:02:00 68 mm[Hg] [facility] Heart rate 2023-01-14 15:01:00 57 /min [facility]ive [facility] Respiratory rate 2023-01-14 15:01:00 18 /min [facility] Body height 2023-01-14 15:01:00 175.3 cm Univ [facility] Body weight 2023-01-14 15:01:00 79.833 kg [facility] BMI 2023-01-14 15:01:00 25.99 kg/m2 [facility] Oxygen saturation in Arterial blood by Pulse oximetry 2023-01-14 15:01:00 98 /min [facility] Systolic blood pressure 2023-01-02 16:55:00 182 mm[Hg] [facility] Diastolic blood pressure 2023-01-02 16:55:00 85 mm[Hg] [facility] Heart rate 2023-01-02 16:55:00 89 /min [facility]ive [facility] Respiratory rate 2023-01-02 16:55:00 18 /min [facility] Oxygen saturation in Arterial blood by Pulse oximetry 2023-01-02 16:55:00 97 /min [facility] Body temperature 2023-01-02 15:55:00 36.78 Destiny [facility] Systolic blood pressure 2022-10-29 13:10:00 168 mm[Hg] [facility] Diastolic blood pressure 2022-10-29 13:10:00 74 mm[Hg] [facility] Heart rate 2022-10-29 13:10:00 73 /min [facility]ive [facility] Body height 2022-10-29 13:10:00 175.3 cm Univ [facility] Body weight 2022-10-29 13:10:00 77.338 kg [facility] BMI 2022-10-29 13:10:00 25.18 kg/m2 Univ [facility] Systolic blood pressure 2022-10-01 14:05:00 180 mm[Hg] [facility] Diastolic blood pressure 2022-10-01 14:05:00 70 mm[Hg] [facility] Heart rate 2022-10-01 14:04:00 61 /min [facility]ive [facility] Respiratory rate 2022-10-01 14:04:00 18 /min [facility] Body height 2022-10-01 14:04:00 175.3 cm [facility] Body weight 2022-10-01 14:04:00 78.2 kg Univ [facility] BMI 2022-10-01 14:04:00 25.46 kg/m2 [facility] Oxygen saturation in Arterial blood by Pulse oximetry 2022-10-01 14:04:00 99 /min [facility] Systolic blood pressure 2022-09-13 20:37:00 86 mm[Hg] [facility] Diastolic blood pressure 2022-09-13 20:37:00 46 mm[Hg] [facility] Heart rate 2022-09-13 20:37:00 62 /min [facility] Body height 2022-09-13 20:30:00 175.3 cm [facility] Body weight 2022-09-13 20:30:00 76.386 kg [facility] BMI 2022-09-13 20:30:00 24.87 kg/m2 [facility] Oxygen saturation in Arterial blood by Pulse oximetry 2022-09-13 20:30:00 93 /min [facility] Systolic blood pressure 2022-08-08 15:09:00 167 mm[Hg] [facility] Diastolic blood pressure 2022-08-08 15:09:00 77 mm[Hg] [facility] Heart rate 2022-08-08 15:05:00 57 /min [facility] Body weight 2022-08-08 15:05:00 78.427 kg [facility] BMI 2022-08-08 15:05:00 25.53 kg/m2 [facility] Oxygen saturation in Arterial blood by Pulse oximetry 2022-08-08 15:05:00 98 /min [facility] Systolic blood pressure 2022-08-01 14:30:00 191 mm[Hg] [facility] Diastolic blood pressure 2022-08-01 14:30:00 78 mm[Hg] [facility] Heart rate 2022-08-01 14:30:00 49 /min [facility]ive [facility] Body height 2022-08-01 14:19:00 175.3 cm [facility] Body weight 2022-08-01 14:19:00 79.788 kg [facility] BMI 2022-08-01 14:19:00 25.98 kg/m2 [facility] Oxygen saturation in Arterial blood by Pulse oximetry 2022-08-01 14:19:00 99 /min [facility] Systolic blood pressure 2022-04-10 15:59:00 173 mm[Hg] [facility] Diastolic blood pressure 2022-04-10 15:59:00 73 mm[Hg] [facility] Heart rate 2022-04-10 15:58:00 65 /min [facility]ive [facility] Body height 2022-04-10 15:58:00 175.3 cm [facility] Body weight 2022-04-10 15:58:00 79.742 kg [facility] BMI 2022-04-10 15:58:00 25.96 kg/m2 [facility] Oxygen saturation in Arterial blood by Pulse oximetry 2022-04-10 15:58:00 99 /min [facility] Body height 2022-01-10 14:50:00 175.3 cm [facility] Body weight 2022-01-10 14:50:00 77.111 kg [facility] BMI 2022-01-10 14:50:00 25.10 kg/m2 [facility] Procedures Procedure Date / Time Performed Performing Clinician Source IR SPINAL LUMBAR PUNCTURE DIAGNOSTIC 2023-01-02 17:06:31 Moris Acosta [facility] CEREBROSPINAL FLUID PROTEIN 2023-01-02 16:43:00 Moris Acosta [facility] CEREBROSPINAL FLUID GLUCOSE 2023-01-02 16:43:00 Moris Acosta [facility] BODY FLUID DIRECT COUNT 2023-01-02 16:43:00 Shruti Acosta [facility] CSF CULTURE 2023-01-02 16:43:00 Moris Acosta [facility] MR BRAIN W WO CONTRAST WITH NEUROQUANT 2022-10-18 17:00:00 Cristofer Mitchell [facility] ASSIGNMENT OF BENEFITS 2022-08-01 14:15:21 Docto r Unassigned, [place] [facility] EXTERNAL PROVIDER RECORDS 2022-06-21 06:01:00 Doctor Unassigned, [place] [facility] EXTERNAL PROVIDER RECORDS 2022-03-28 06:01:00 Doctor Unassigned, [place] [facility] MEDICAL RELEASE/CLEARANCE FORMS 2021-12-21 05:01:00 Doctor Unassigned, [place] [facility] Encounters Start Date/Time End Date/Time Encounter Type Admission Type Attending [facility] Facility Care Department Encounter ID Source 2023-08-06 09:30:00 2023-08-06 09:30:00 Outpatient MARK FAJARDO [facility] [id number] [facility] 2023-08-01 08:30:00 2023-08-01 08:30:00 Outpatient NANCY EDWARDS CRAIG [facility] [id number] [facility] 2023-08-01 00:00:00 2023-08-01 00:00:00 [facility]ity [facility] 1.2.840.114 350.1.13.10 4.2.7.2.686 [id number] [facility] 2023-07-29 00:00:00 2023-07-29 00:00:00 Charity Granados [facility] DESTINY?[facility] MEDICAL OFFICE BUILDING 1.2.840.114 350.1.13.10 4.2.7.2.686 [id number] [facility] 2023-07-29 00:00:00 2023-07-29 00:00:00 [facility] OFF[facility] BUILD[facility] 1.2.840.114 350.1.13.10 4.2.7.2.686 [id number] [facility] 2023-07-04 00:00:00 2023-07-04 00:00:00 Refill Roberta [facility] MED[facility] OFF[facility] BU[facility] 1.2840.114 350.1.13.10 4.2.7.2.686 [id number] [facility] 2023-06-06 00:00:00 2023-06-06 00:00:00 Refill Roberta [facility] DESTINY?[facility] MEDICAL OFFICE BUILDING 1.2840.114 350.1.13.10 4.2.7.2.686 [id number] [facility] 2023-05-31 10:20:00 2023-05-31 10:20:00 Outpatient R UNKNOWN, ATTENDING [facility] [id number] [facility] 2023-05-12 00:00:00 2023-05-12 00:00:00 Refill Roberta [facility] DESTINY?[facility] MEDICAL OFFICE BUILDING 1.2840.114 350.1.13.10 4.2.7.2.686 [id number] [facility] 2023-05-07 08:15:00 2023-05-07 08:30:00 [facility] MED[facility] OFF[facility] BUILD[facility] 1.2.840.114 350.1.13.10 4.2.7.2.686 [id number] [facility] 2023-05-07 08:15:00 2023-05-07 08:15:00 Outpatient MARK FAJARDO [facility] [id number] [facility] 2023-04-29 10:00:00 2023-04-29 10:00:00 Outpatient MARK FAJARDO [facility] [id number] [facility] 2023-04-08 00:00:00 2023-04-08 00:00:00 [facility]phone [facility] 1.2840.114 350.1.13.10 4.2.7.2.686 [id number] [facility] 2023-04-03 00:00:00 2023-04-03 00:00:00 [facility] 1.2840.114 350.1.13.10 4.2.7.2.686 [id number] [facility] 2023-03-26 00:00:00 2023-03-26 00:00:00 Telephone Cristofer Mitchell [facility] MED[facility] OFF[facility] BUILDING 1.2840.114 350.1.13.10 4.2.7.2.686 [id number] [facility] 2023-02-27 00:00:00 2023-02-27 00:00:00 Refill [facility] MED[facility] OFF[facility] BUILD[facility] 1.2840.114 350.1.13.10 4.2.7.2.686 [id number] [facility] 2023-02-07 00:00:00 2023-02-07 00:00:00 Refill [facility]er [facility] OFF[facility] BUILD[facility] 1.2840.114 350.1.13.10 4.2.7.2.686 [id number] [facility] 2023-02-01 00:00:00 2023-02-01 00:00:00 Refill Roberta [facility] DESTINY?[facility] OFF[facility] BUILDING 1.2.840.114 350.1.13.10 4.2.7.2.686 [id number] [facility] 2023-01-22 09:15:00 2023-01-22 09:35:13 Outpatient R MARK GRANADOS [facility] [id number] [facility] 2023-01-22 09:15:00 2023-01-22 09:35:13 Office Visit [facility] [place] [facility] 1.2.840.114 350.1.13.10 4.2.7.2.686 [id number] [facility] 2023-01-17 00:00:00 2023-01-17 00:00:00 Telephone Roberta [facility] 1.2.840.114 350.1.13.10 4.2.7.2.686 [id number] [facility] 2023-01-14 10:00:00 2023-01-14 16:40:14 Outpatient CRISTOFER BEAUCHAMP HOWARD [facility] [id number] [facility] 2023-01-14 10:00:00 2023-01-14 16:40:14 Office Visit [facility] MED[facility] OFF[facility] BUILD[facility] 1.2.840.114 350.1.13.10 4.2.7.2.686 [id number] [facility] 2023-01-02 09:58:30 2023-01-02 23:59:00 Outpatient R MORIS ACOSTA [facility] [id number] [facility] 2023-01-02 09:58:30 2023-01-02 23:59:00 Hospital Encounter Moris Acosta [facility] 1.840.114 350.1.13.10 4.2.7.2.686 [id number] [facility] 2022-12-31 00:00:00 2022-12-31 00:00:00 Outpatient R MORIS ACOSTA [facility] [id number] [facility] 2022-12-15 00:00:00 2022-12-15 00:00:00 [facility] 1..840.114 350.1.13.10 4.2.7.2.686 [id number] [facility] 2022-12-13 00:00:00 2022-12-13 00:00:00 Refill Mark Granados [facility] MED[facility] OFF[facility] BUILD[facility] 1..840.114 350.1.13.10 4.2.7.2.686 [id number] [facility] 2022-11-30 10:30:00 2022-11-30 10:30:00 Outpatient R MORIS ACOSTA [facility] [id number] [facility] 2022-11-29 00:00:00 2022-11-29 00:00:00 [facility] OFF[facility] BUILD[facility] 1..840.114 350.1.13.10 4.2.7.2.686 [id number] [facility] 2022-11-19 00:00:00 2022-11-19 00:00:00 Outpatient MORIS ELIZONDO [facility] [id number] [facility] 2022-11-12 00:00:00 2022-11-12 00:00:00 [facility] MED[facility] OFF[facility] BUILD[facility] 1.2.840.114 350.1.13.10 4.2.7.2.686 [id number] [facility] 2022-11-09 00:00:00 2022-11-09 00:00:00 [facility] 1.2.840.114 350.1.13.10 4.2.7.2.686 [id number] [facility] 2022-11-02 00:00:00 2022-11-02 00:00:00 Refill Roberta [facility] DESTINY?[facility] MEDICAL OFFICE BUILDING 1.2.840.114 350.1.13.10 4.2.7.2.686 [id number] [facility] 2022-10-29 08:00:00 2022-10-29 08:43:32 [id number] 2022-10-29 08:00:00 2022-10-29 08:43:32 Office Visit Olu [facility] DESTINY?[facility] MEDICAL OFFICE BUILDING 1.2.840.114 350.1.13.10 4.2.7.2.686 [id number] [facility] 2022-10-24 00:00:00 2022-10-24 00:00:00 Refkaye Granados [facility] DESTINY?[facility] MEDICAL OFFICE BUILDING 1.2.840.114 350.1.13.10 4.2.7.2.686 [id number] [facility] 2022-10-18 10:57:07 2022-10-18 23:59:00 Outpatient CRISTOFER BEAUCHAMP [facility] [id number] [facility] 2022-10-18 10:57:07 2022-10-18 23:59:00 Hospital Encounter Cristofer Mitchell [facility] 1.840.114 350.1.13.10 4.2.7.2.686 [id number] [facility] 2022-10-12 00:00:00 2022-10-12 00:00:00 Refill Roberta [facility] DESTINY?[facility] 1..114 350.1.13.10 4.2.7.2.686 [id number] 044 [id number] [facility] 2022-10-01 09:45:00 2022-10-01 10:00:00 Chopper Feeder Visit Lab, Cb Jackman Paula [facility] DESTINY?[facility] MEDICAL OFFICE BUILD[facility] 1..114 350.1.13.10 4.2.7.2.686 [id number] [facility] 2022-10-01 09:00:00 2022-10-01 09:47:13 Outpatient R CRISTOFER MITCHELL [facility]ARD [facility] [id number] [facility] 2022-10-01 09:00:00 2022-10-01 09:47:13 Office Visit Cristofer Mitchell [facility] DESTINY?[facility] [place] [facility] 1.84.114 350.1.13.10 4.2.7.2.686 [id number] [facility] 2022-10-01 00:00:00 2022-10-01 00:00:00 Telephone Paula [facility] DESTINY?[facility] MEDICAL OFFICE BUILD[facility] 1.84.114 350.1.13.10 4.2.7.2.686 [id number] [facility] 2022-09-25 00:00:00 2022-09-25 00:00:00 Telephone Rowena [facility] DE[facility]INY?[facility]ILD[facility] 1.2.840.114 350.1.13.10 4.2.7.2.686 [id number] [facility] 2022-09-20 00:00:00 2022-09-20 00:00:00 Refill [facility] MEDICAL OFFICE BUILD[facility] 1.2.840.114 350.1.13.10 4.2.7.2.686 [id number] [facility] 2022-09-18 00:00:00 2022-09-18 00:00:00 Refill Mark [facility]ados [facility] MED[facility] OFF[facility] BUILD[facility] 1.2.840.114 350.1.13.10 4.2.7.2.686 [id number] [facility] 2022-09-13 15:15:00 2022-09-13 15:30:00 Office Visit Mark [facility] BUILD[facility] 1.2.840.114 350.1.13.10 4.2.7.2.686 [id number] [facility] 2022-09-13 15:15:00 2022-09-13 15:15:00 Outpatient R ROBERTA MARK [facility] [id number] [facility] 2022-09-12 00:00:00 2022-09-12 00:00:00 Telephone Mark Granados [facility] MEDICAL OFFICE BUILDING 1.2.840.114 350.1.13.10 4.2.7.2.686 [id number] [facility] 2022-09-04 10:00:00 2022-09-04 10:00:00 Outpatient R MARK GRANADOS [facility] [id number] [facility] 2022-08-30 00:00:00 2022-08-30 00:00:00 Refill Roberta [facility] DESTINY?[facility] MEDICAL OFFICE BUILDING 1.84114 350.1.13.10 4.2.7.2.686 [id number] [facility] 2022-08-14 00:00:00 2022-08-14 00:00:00 [facility] MED[facility] OFF[facility] BUILD[facility] 1.84114 350.1.13.10 4.2.7.2.686 [id number] [facility] 2022-08-08 10:15:00 2022-08-08 10:32:21 Outpatient R GRANADOSMARK RICCI [facility] [id number] [facility] 2022-08-08 10:15:00 2022-08-08 10:32:21 [facility] MED[facility] OFF[facility] BUILD[facility] 1.114 350.1.13.10 4.2.7.2.686 [id number] [facility] 2022-08-07 10:30:00 2022-08-07 10:30:00 Outpatient R DANIA DARBY [facility] [id number] [facility] 2022-08-01 09:30:00 2022-08-01 09:45:00 Office Visit Mark Granados [facility] MEDICAL OFFICE BUILDING 1.114 350.1.13.10 4.2.7.2.686 [id number] 044 [id number] [facility] 2022-08-01 09:30:00 2022-08-01 09:30:00 Outpatient R MARK GRANADOS [facility] [id number] [facility] 2022-08-01 00:00:00 2022-08-01 00:00:00 Orders Only Doctor Unassigned, Sabattus [facility] 1.114 350.1.13.10 4.2.7.2.686 [id number] [id number] [facility] 2022-07-10 00:00:00 2022-07-10 00:00:00 [facility]ill [facility] 1.2840.114 350.1.13.10 4.2.7.2.686 [id number] 044 [id number] [facility] 2022-07-10 00:00:00 2022-07-10 00:00:00 Telephone [facility] 1.840.114 350.1.13.10 4.2.7.2.686 [id number] 044 [id number] [facility] 2022-06-21 00:00:00 2022-06-21 00:00:00 Orders Only Doctor Unassigned, Sabattus [facility] 1.840.114 350.1.13.10 4.2.7.2.686 [id number] [id number] [facility] 2022-06-04 00:00:00 2022-06-04 00:00:00 Telephone [facility] 1.2840.114 350.1.13.10 4.2.7.2.686 [id number] 044 [id number] [facility] 2022-05-28 00:00:00 2022-05-28 00:00:00 Telephone [facility] 1.840.114 350.1.13.10 4.2.7.2.686 [id number] 044 [id number] [facility] 2022-05-24 00:00:00 2022-05-24 00:00:00 Refill [facility] 1.2840.114 350.1.13.10 4.2.7.2.686 [id number] 044 [id number] [facility] 2022-04-10 10:00:00 2022-04-10 10:13:24 Outpatient R GRANADOS MARK [facility] [id number] [facility] 2022-04-10 10:00:00 2022-04-10 10:13:24 Office Visit Roberta [facility] OFF[facility] BUILDING 1.114 350.1.13.10 4.2.7.2.686 [id number] 044 [id number] [facility] 2022-04-10 00:00:00 2022-04-10 00:00:00 Letter (Out) Doctor Unassigned, Sabattus [facility] 1.114 350.1.13.10 4.2.7.2.686 [id number] 044 [id number] [facility] 2022-03-28 00:00:00 2022-03-28 00:00:00 Orders Only Doctor Unassigned, Sabattus [facility] 1.114 350.1.13.10 4.2.7.2.686 [id number] 009 [id number] [facility] 2022-03-08 00:00:00 2022-03-08 00:00:00 Refill Roberta [facility] MEDICAL OFFICE BUILDING 1.114 350.1.13.10 4.2.7.2.686 [id number] 044 [id number] [facility] 2022-02-13 09:00:00 2022-02-13 09:00:00 Outpatient R MILAN DOBBS [facility] [id number] [facility] 2022-01-24 00:00:00 2022-01-24 00:00:00 Refill Roberta [facility] MEDICAL OFFICE BUILDING 1.84114 350.1.13.10 4.2.7.2.686 [id number] 044 [id number] [facility] 2022-01-10 10:30:00 2022-01-10 10:45:00 Chopper Feeder Visit Lab, Cb [facility] MEDICAL OFFICE BUILDING 1..840.114 350.1.13.10 4.2.7.2.686 [id number] [facility] 2022-01-10 10:30:00 2022-01-10 10:30:00 Outpatient Hannah [facility]NOR [facility] [id number] [facility] 2022-01-10 09:45:00 2022-01-10 10:00:00 [facility] MEDICAL OFFICE BUILDING 1..840.114 350.1.13.10 4.2.7.2.686 [id number] [facility] 2022-01-10 09:45:00 2022-01-10 09:45:00 Outpatient Hannah ANASTASIA [facility] [id number] [facility] 2022-01-10 09:45:00 2022-01-10 09:45:00 Outpatient Hannah OCONNOR [facility] [id number] [facility] 2022-01-09 08:45:00 2022-01-09 09:04:23 [facility] MEDICAL OFFICE BUILDING 1..840.114 350.1.13.10 4.2.7.2.686 [id number] 044 [id number] [facility] 2022-01-09 08:45:00 2022-01-09 09:04:23 Outpatient R [facility] [id number] [facility] 2022-01-09 08:45:00 2022-01-09 09:04:23 Office Visit Granados [facility] MEDICAL OFFICE BUILDING 1.840.114 350.1.13.10 4.2.7.2.686 [id number] 044 [id number] [facility] 2022-01-09 08:45:00 2022-01-09 08:45:00 Outpatient MARK FAJARDO [facility] [id number] [facility] 2022-01-09 08:45:00 2022-01-09 08:45:00 [facility] [id number] 2022-01-09 00:00:00 2022-01-09 00:00:00 Telephone [facility] MEDICAL OFFICE BUILDING 1..840.114 350.1.13.10 4.2.7.2.686 [id number] [id number] [facility] 2022-01-08 14:45:00 2022-01-08 14:45:00 Outpatient MARK FAJARDO [facility] [id number] [facility] 2022-01-03 13:15:00 2022-01-03 13:15:00 Outpatient SAMMIE PATTON [facility] [id number] [facility] 2022-01-01 14:15:00 2022-01-01 14:15:00 Outpatient SAMMIE PATTON [facility] [id number] [facility] 2022-01-01 00:00:00 2022-01-01 00:00:00 Orders Only Doctor Unassigned, Sabattus [facility] 1.840.114 350.1.13.10 4.2.7.2.686 [id number] [id number] [facility] 2021-12-25 11:45:00 2021-12-25 11:45:00 Outpatient R [facility] [id number] [facility] 2021-12-22 00:00:00 2021-12-22 00:00:00 Telephone Nancy Dillon [facility] MEDICAL OFFICE BUILDING 1.84.114 350.1.13.10 4.2.7.2.686 [id number] [facility] 2021-12-21 00:00:00 2021-12-21 00:00:00 Orders Only Doctor Unassigned, Sabattus [facility] 1.114 350.1.13.10 4.2.7.2.686 [id number] 009 [id number] [facility] 2021-12-14 00:00:00 2021-12-14 00:00:00 Refill Mark Granados [facility] MEDICAL OFFICE BUILDING 1.84.114 350.1.13.10 4.2.7.2.686 [id number] 044 [id number] [facility] 2021-12-08 09:15:00 2021-12-08 09:30:00 [facility] MEDICAL OFFICE BUILDING 1.84.114 350.1.13.10 4.2.7.2.686 [id number] [facility] 2021-12-08 09:15:00 2021-12-08 09:15:00 Outpatient Hannah OCONNOR [facility] [id number] [facility] 2021-12-01 09:34:35 2021-12-01 23:59:00 Outpatient SAMMIE PATTON [facility] [id number] [facility] 2021-12-01 10:45:00 2021-12-01 11:00:00 Chopper Feeder Visit Lab, Cb - Gasper [facility] MEDICAL OFFICE BUILDING 1.840.114 350.1.13.10 4.2.7.2.686 [id number] [facility] 2021-12-01 09:30:00 2021-12-01 10:00:00 [facility] MEDICAL OFFICE BUILDING 1.114 350.1.13.10 4.2.7.2.686 [id number] [facility] 2021-12-01 09:30:00 2021-12-01 09:30:00 Outpatient Hannah OCONNORSAMMIE [facility] [id number] [facility] 2021-11-24 00:00:00 2021-11-24 00:00:00 Telephone Roberta [facility]STINY[facility] MEDICAL OFFICE BUILDING 1.114 350.1.13.10 4.2.7.2.686 [id number] [facility] 2021-11-23 15:15:00 2021-11-23 15:15:00 Outpatient SAMMIE PATTON [facility] [id number] [facility] 2021-11-22 00:00:00 2021-11-22 00:00:00 Refill Roberta [facility] DESTINY[facility] MEDICAL OFFICE BUILDING 1.84.114 350.1.13.10 4.2.7.2.686 [id number] [id number] [facility] 2021-10-25 09:45:00 2021-10-25 10:03:02 Outpatient R [facility] [id number] [facility] 2021-10-25 09:45:00 2021-10-25 10:00:00 Chopper Feeder Visit Lab, Cb Granados [facility] DESTINY?ZHANG [facility] MEDICAL OFFICE BUILDING 1.84114 350.1.13.10 4.2.7.2.686 [id number] [facility] 2021-10-25 09:30:00 2021-10-25 09:45:00 [facility] MEDICAL OFFICE BUILDING 1.114 350.1.13.10 4.2.7.2.686 [id number] 044 [id number] [facility] 2021-10-25 09:30:00 2021-10-25 09:30:00 Outpatient MARK FAJARDO [facility] [id number] [facility] 2021-10-09 09:45:00 2021-10-09 09:45:00 Outpatient MARK FAJARDO [facility] [id number] [facility] 2021-09-21 00:00:00 2021-09-21 00:00:00 Refill Roberta [facility] DESTINY[facility] MEDICAL OFFICE BUILDING 1.2.840.114 350.1.13.10 4.2.7.2.686 [id number] 044 [id number] [facility] 2021-09-01 09:40:00 2021-09-01 23:59:00 Outpatient SAMMIE PATTON [facility] [id number] [facility] 2021-09-01 09:30:00 2021-09-01 10:46:30 Office Visit Sammie Oconnor [facility]PLACED [facility] DESTINY?[facility] MEDICAL OFFICE BUILDING 1.2.840.114 350.1.13.10 4.2.7.2.686 [id number] [facility] 2021-09-01 09:40:00 2021-09-01 09:40:00 Outpatient SAMMIE PATTON [facility] [id number] [facility] 2021-08-30 00:00:00 2021-08-30 00:00:00 Refkaye Granados [facility] DESTINY?[facility] MEDICAL OFFICE BUILDING 1.2.840.114 350.1.13.10 4.2.7.2.686 [id number] 044 [id number] [facility] 2021-08-24 00:00:00 2021-08-24 00:00:00 Refill Rowena [facility] [place] MEDICAL OFFICE BUILDING 1..840.114 350.1.13.10 4.2.7.2.686 [id number] [id number] [facility] 2021-07-10 09:45:00 2021-07-10 10:01:24 Outpatient R MARK GRANADOS [facility] [id number] [facility] 2021-07-10 09:45:00 2021-07-10 10:00:00 Office Visit Mark [facility]ados [facility] MEDICAL OFFICE BUILDING 1.840.114 350.1.13.10 4.2.7.2.686 [id number] 044 [id number] [facility] 2021-07-10 09:45:00 2021-07-10 09:45:00 Outpatient R MARK GRANADOS [facility] [id number] [facility] 2021-06-16 00:00:00 2021-06-16 00:00:00 Telephone Mark Granados [facility]?ZHANG [facility] MEDICAL OFFICE BUILDING 1..840.114 350.1.13.10 4.2.7.2.686 [id number] 044 [id number] [facility] 2021-06-13 00:00:00 2021-06-13 00:00:00 Refill Mark Granados [facility] MEDICAL OFFICE BUILDING 1..840.114 350.1.13.10 4.2.7.2.686 [id number] 044 [id number] [facility] 2021-05-15 00:00:00 2021-05-15 00:00:00 Refill Mark Granados [facility] MEDICAL OFFICE BUILDING 1..840.114 350.1.13.10 4.2.7.2.686 [id number] 044 [id number] [facility] 2021-04-06 10:04:54 2021-04-06 10:19:54 Office Visit Mark Granados [facility] MED[facility] OFF[facility] BUILDING 1.2.840.114 350.1.13.10 4.2.7.2.686 [id number] 044 [id number] [facility] 2021-04-06 10:00:00 2021-04-06 10:18:30 Outpatient MARK FAJARDO [facility] [id number] [facility] 2021-04-06 10:00:00 2021-04-06 10:00:00 Outpatient MARK FAJARDO [facility] [id number] [facility] 2021-03-29 00:00:00 2021-03-29 00:00:00 RefMark Davis [facility] MEDICAL OFFICE BUILDING 1.2.840.114 350.1.13.10 4.2.7.2.686 [id number] 044 [id number] [facility] 2021-03-10 00:00:00 2021-03-10 00:00:00 [facility] Medical Office Building 1..840.114 350.1.13.10 4.2.7.2.686 [id number] 044 [id number] [facility] 2021-02-21 00:00:00 2021-02-21 00:00:00 [facility] Medical Office Building 1.2.840.114 350.1.13.10 4.2.7.2.686 [id number] 044 [id number] [facility] 2021-02-09 00:00:00 2021-02-09 00:00:00 Refkaye [facility]ados [facility] Walker?[facility] Medical Office Building 1.2.840.114 350.1.13.10 4.2.7.2.686 [id number] 044 [id number] [facility] 2021-01-05 14:15:00 2021-01-05 14:15:00 Outpatient R GRANADOS MARK [facility] [id number] [facility] 2021-01-04 14:30:00 2021-01-04 14:30:00 Outpatient R GRANADOSROWENA RICCIONY [facility] [id number] [facility] 2021-01-04 13:15:00 2021-01-04 13:15:00 Outpatient MARK FAJARDO [facility] [id number] [facility] 2021-01-04 09:45:00 2021-01-04 09:45:00 Outpatient R GRANADOS, MARK [facility] [id number] [facility] 2020-12-16 00:00:00 2020-12-16 00:00:00 Refill Granados [facility] Office Building One 1..840.114 350.1.13.10 4.2.7.2.686 [id number] 044 [id number] [facility] 2020-12-06 00:00:00 2020-12-06 00:00:00 Refill Roberta [facility] Office Building One 1..840.114 350.1.13.10 4.2.7.2.686 [id number] 044 [id number] [facility] 2020-11-24 12:44:01 2020-11-24 13:46:00 Office Visit Granados Mark [facility] Office Building One 1.840.114 350.1.13.10 4.2.7.2.686 [id number] 044 [id number] [facility] 2020-11-24 12:45:00 2020-11-24 12:45:00 Outpatient R GRANADOSMARK [facility] [id number] [facility] 2020-11-24 00:00:00 2020-11-24 00:00:00 Rina Granados Mark [facility] Office Building One 1.2.840.114 350.1.13.10 4.2.7.2.686 [id number] 044 [id number] [facility] 2020-11-04 00:00:00 2020-11-04 00:00:00 Refill Roberta [facility] Office Building One 1.2.840.114 350.1.13.10 4.2.7.2.686 [id number] 044 [id number] [facility] 2020-10-25 00:00:00 2020-10-25 00:00:00 Refill Roberta [facility] Office Building One 1.2840.114 350.1.13.10 4.2.7.2.686 [id number] 044 [id number] [facility] 2020-10-05 00:00:00 2020-10-05 00:00:00 Telephone Roberta [facility] Office Building One 1.2840.114 350.1.13.10 4.2.7.2.686 [id number] 044 [id number] [facility] 2020-10-04 00:00:00 2020-10-04 00:00:00 Refill Roberta [facility] Office Building One 1.2.840.114 350.1.13.10 4.2.7.2.686 [id number] 044 [id number] [facility] 2020-09-06 00:00:00 2020-09-06 00:00:00 Refill Roberta [facility] Office Building One 1.2.840.114 350.1.13.10 4.2.7.2.686 [id number] 044 [id number] [facility] 2020-08-31 09:22:05 2020-08-31 09:37:05 Office Visit Roberta [facility] Office Building One 1.2.840.114 350.1.13.10 4.2.7.2.686 [id number] 044 [id number] [facility] 2020-08-31 09:30:00 2020-08-31 09:30:00 Outpatient R MARK GRANADOS [facility] [id number] [facility] 2020-08-08 00:00:00 2020-08-08 00:00:00 Refill Roberta Mark [facility] Office Building One 1..114 350.1.13.10 4.2.7.2.686 [id number] 044 [id number] [facility] 2020-07-08 00:00:00 2020-07-08 00:00:00 Refill Granados [facility] Office Building One 1..114 350.1.13.10 4.2.7.2.686 [id number] 044 [id number] [facility] 2020-07-01 00:00:00 2020-07-01 00:00:00 Telephone Mark Granados [facility] Office Building One 1.114 350.1.13.10 4.2.7.2.686 [id number] 044 [id number] [facility] 2020-06-01 09:18:52 2020-06-01 09:33:52 Office Visit Mark Granados [facility] Office Building One 1..114 350.1.13.10 4.2.7.2.686 [id number] 044 [id number] [facility] 2020-06-01 09:30:00 2020-06-01 09:30:00 Outpatient R MARK GRANADOS [facility] [id number] [facility] 2020-05-04 00:00:00 2020-05-04 00:00:00 Refill Roberta [facility] Office Building One 1..114 350.1.13.10 4.2.7.2.686 [id number] 044 [id number] [facility] 2020-04-26 00:00:00 2020-04-26 00:00:00 Refkaye Granados [facility] Office Building One 1.0.114 350.1.13.10 4.2.7.2.686 [id number] 044 [id number] [facility] 2020-04-04 00:00:00 2020-04-04 00:00:00 Refill Roberta [facility] Office Building One 1..114 350.1.13.10 4.2.7.2.686 [id number] 044 [id number] [facility] 2020-03-24 00:00:00 2020-03-24 00:00:00 Refill Roberta [facility] Office Building One 1..114 350.1.13.10 4.2.7.2.686 [id number] 044 [id number] [facility] 2020-02-29 13:54:59 2020-02-29 14:09:59 Office Visit Roberta [facility] Office Building One 1..114 350.1.13.10 4.2.7.2.686 [id number] 044 [id number] [facility] 2020-02-29 14:00:00 2020-02-29 14:00:00 Outpatient R MARK GRANADOS [facility] [id number] [facility] 2020-02-29 00:00:00 2020-02-29 00:00:00 Letter (Out) Doctor Unassigned, Sabattus [facility] 1.0.114 350.1.13.10 4.2.7.2.686 [id number] 044 [id number] [facility] 2020-02-18 00:00:00 2020-02-18 00:00:00 Refill Roberta [facility] Office Building One 1.2.840.114 350.1.13.10 4.2.7.2.686 [id number] 044 [id number] [facility] 2020-01-31 00:00:00 2020-01-31 00:00:00 Charity Granados [facility] Office Building One 1.2.840.114 350.1.13.10 4.2.7.2.686 [id number] 044 [id number] [facility] 2020-01-28 00:00:00 2020-01-28 00:00:00 Mark Lala [facility] Building 1.2.840.114 350.1.13.10 4.2.7.2.686 [id number] 044 [id number] [facility] 2020-01-12 00:00:00 2020-01-12 00:00:00 Charity Granados [facility] Office Building One 1.2.840.114 350.1.13.10 4.2.7.2.686 [id number] 044 [id number] [facility] 2019-12-28 00:00:00 2019-12-28 00:00:00 Charity Granados [facility] Building One 1.2840.114 350.1.13.10 4.2.7.2.686 [id number] 044 [id number] [facility] 2019-11-25 00:00:00 2019-11-25 00:00:00 Refkaye Granados [facility] Office Building One 1.2.840.114 350.1.13.10 4.2.7.2.686 [id number] 044 [id number] [facility] 2019-11-24 00:00:00 2019-11-24 00:00:00 Refkaye Granados [facility] Office Building One 1.2.840.114 350.1.13.10 4.2.7.2.686 [id number] 044 [id number] [facility] 2019-11-12 00:00:00 2019-11-12 00:00:00 Refill Mark Granados [facility] Office Building One 1.114 350.1.13.10 4.2.7.2.686 [id number] 044 [id number] [facility] 2019-10-26 09:15:00 2019-10-26 09:15:00 Outpatient R MARK GRANADOS [facility] [id number] [facility] 2019-10-21 07:01:10 2019-10-21 10:32:59 Telemedici ne Visit Mark Granados [facility] Building 1.114 350.1.13.10 4.2.7.2.686 [id number] 044 [id number] [facility] 2019-10-21 10:15:00 2019-10-21 10:15:00 Outpatient R MARK GRANADOS [facility] [id number] [facility] 2019-09-17 00:00:00 2019-09-17 00:00:00 Refill Alexei Anderson [facility] Office Building One .114 350.1.13.10 4.2.7.2.686 [id number] 044 [id number] [facility] 2019-09-07 00:00:00 2019-09-07 00:00:00 Refill Roberta [facility] Office Building One .114 350.1.13.10 4.2.7.2.686 [id number] 044 [id number] [facility] 2019-08-13 00:00:00 2019-08-13 00:00:00 Refill Roberta Mark [facility] Office Building One 1.2.840.114 350.1.13.10 4.2.7.2.686 [id number] 044 [id number] [facility] 2019-08-05 00:00:00 2019-08-05 00:00:00 Refill Mark Granados [facility] Office Building One 1.2840.114 350.1.13.10 4.2.7.2.686 [id number] 044 [id number] [facility] 2019-07-28 00:00:00 2019-07-28 00:00:00 Refill Mark Granados [facility] Office Building One 1.840.114 350.1.13.10 4.2.7.2.686 [id number] [id number] [facility] 2019-07-15 08:50:45 2019-07-15 09:05:45 Office Visit Mark Granados [facility] 1.20.114 350.1.13.10 4.2.7.2.686 [id number] [id number] [facility] 2019-07-15 09:00:00 2019-07-15 09:00:00 Outpatient R MARK GRANADOS [facility] [id number] [facility] 2019-06-17 00:00:00 2019-06-17 00:00:00 Refkaye Mark Granados [facility] 1.0.114 350.1.13.10 4.2.7.2.686 [id number] [id number] [facility] 2019-02-03 00:00:00 2019-02-03 00:00:00 Refill Mark Granados [facility] 1.2840.114 350.1.13.10 4.2.7.2.686 [id number] [id number] [facility] 2019-01-26 00:00:00 2019-01-26 00:00:00 Refill Granados, [facility] 1.2840.114 350.1.13.10 4.2.7.2.686 [id number] [id number] [facility] 2019-01-26 00:00:00 2019-01-26 00:00:00 Orders Only Doctor Unassigned, [place] [facility] 1.2840.114 350.1.13.10 4.2.7.2.686 [id number] [facility] 2018-12-31 09:19:02 2018-12-31 09:41:42 [facility] 1.2840.114 350.1.13.10 4.2.7.2.686 [id number] [id number] [facility] 2018-12-31 00:00:00 2018-12-31 00:00:00 Orders Only Doctor Unassigned, [place] [facility] 1.20.114 350.1.13.10 4.2.7.2.686 [id number] [facility] 2018-12-15 00:00:00 2018-12-15 00:00:00 [facility] 1.2840.114 350.1.13.10 4.2.7.2.686 [id number] 044 [id number] [facility] Procedure Notes Date/Time Note Provider Source 2023-01-02 10:00:00 [id number]:00:00F ormatting of this note might be different from the original.VASCULAR AND INTERVENTIONAL RADIOLOGY PROCEDURE NOTE 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 71505-8Hvbxkhrwk baofLA7019-49-65F46:27:22Pro cedure noteTXT1.2.840.033562.1.13.1 04.2.7.2.143128|[id number] Available for patient mavf18554-3Bdugsbjfi noteLNRAD-DIAGNOSTIC RADIOLOGY STAFFRAD-DIAGNOSTIC RADIOLOGY STAFF[facility] - [address] YftpLztcjxxysXjarljurqUNIR04 [id number] VE8987-69-83D50:27:221.2.840 .854233.1.72.3.15|1.2.840.11 4350.1.13.104.2.7.2.727879_1 [id number] RAD-DIAGNOSTIC RADIOLOGY STAFF [facility] Notes Date/Time Note Provider Source 2023-08-01 13:26:17 D73ODEX95VuqTOubWEQs jQ5xaV1ef0yIhdZ TVXpb/BhShyl22rPG5qNkPlQhydkx3155-4 3:26:17 Images from the original note were not included.Requested Renewalsdextroamphetamine-amphetami ne (ADDERALL) 20 mg tabletSig: Take 1 tablet by mouth in the morning and 1 tablet in the evening.Disp: 60 tablet Refills: 0Start: 08/01/2023Earliest Fill Date: 08/01/2023lass: eRXFor: ADD (attention deficit disorder) without hyperactivityLast ordered: 4 weeks ago (07/04/2023) by Cornel Abraham Review Required Ayriam5508/01/2023 01:08 PMProtocol Details This refill cannot be delegatedValid encounter within last 12 monthsHEB :[place] [facility] VisitsDate Type Provider Dept107/08/22 Office Visit Mark Granados MD Ang-Db [facility] Med01/22/23 Office Visit Mark Granados MD Ang-Db [facility] Med09/13/22 Office Visit Mark Granados MD Ang-Db [facility] Med08/08/22 Office Visit Mark Granados MD Ang-Db [facility] Med08/01/22 Office Visit Mark Granados MD Ang-Db [facility] Med04/10/22 Office Visit Mark Granados MD Ang-Db [facility] MedShowing recent visits within past 540 days with a meds authorizing provider and meeting all other requirementsFuture AppointmentsDate Type Provider Dept08/06/23 Appointment Mark Granados MD Ang-Db [facility] MedShowing future appointments within next 150 days with a meds authorizing provider and meeting all other requirements 89996-8Bqaxskrdg encounter EmgwBT4693-16-02V21:26:55Telephone encounter NoteTXT1.2.840.271330.1.13.104.2.7. 2.470470|[id number] for patient rffv03521-7GjmwRNVLRYGNUWPKmalsmnvy C-CDA narrative [id number] M Fisher [address] Ff[id number] 6GBWLETYIHURKMSYZOIOGKV3314-58-08H2 3:26:551.2.840.502550.1.72.3.15|1.2 .840.509030.1.13.104.2.7.2.727879_2 [id number] Mirna Rodríguez [facility] 2023-08-01 13:06:58 PR43W2A2wWWprCnGUnLt MN153+LTtm8wBIn yEBrrxR3K8hO3YBdRG0lAXrEKfU9p8918-7 3:06:58 Anup Quinones is a 67 year old malePt called requesting refill on (dextroamphetamine-amphetamine (ADDERALL) 20 mg tablet) states he is out of medPlease [phone] (home)[facility] [address] & [address] [facility] [address]Qyjpi: [phone] Xoijwnmrbxdcsw signed by Patel Waggoner at 08/01/2023 1:08 PM QHY80180-0Rjxvuitrr encounter ZqcnZO8535-35-11I38:08:35Telephone encounter NoteTXT1.2.840.290110.1.13.104.2.7. 2.588031|[id number] for patient pdhg39527-9FotqLGTLUKLGHNQLcfsfrdmm C-CDA narrative text[address] Cz[id number] 1WGXVRZTGMCURHZKZDYVBRX3507-37-87U7 3:08:351.2.840.915007.1.72.3.15|1.2 .840.620804.1.13.104.2.7.2.727879_2 [id number] [facility] 2023-07-29 12:38:35 uko4oc3M0q5HiY/mLnUO DjlwiTEFrfJ/QHA tAMKyv4Ke+69pXV/brL0tdDXUomr38138-3 2:38:35 Images from the original note were not included.Requested RenewalsdiazePAM (VALIUM) 10 mg tabletSig: Take 1 tablet by mouth in the morning and 1 tablet at noon and 1 tablet in the evening.Disp: 90 tablet Refills: 2Start: 4Class: eRXFor: AnxietyLast ordered: 3 months ago (04/08/2023) by Cornel Abraham Review Required Gaugnl7107/29/2023 12:33 PMProtocol Details This refill cannot be delegatedValid encounter within last 12 monthsTo be filled at: [facility] [address] DrRecemma VisitsDate Type Provider Dept107/08/22 Office Visit Mark Granados MD Ang-Db [facility] Med01/22/23 Office Visit Mark Granados MD Ang-Db [facility] Med09/13/22 Office Visit Mark Granados MD Ang-Db [facility] Med08/08/22 Office Visit Mark Granados MD Ang-Db [facility] Med08/01/22 Office Visit Mark Granados MD Ang-Db [facility] Med04/10/22 Office Visit Mark Granados MD Ang-Db [facility] MedShowing recent visits within past 540 days with a meds authorizing provider and meeting all other requirementsFuture AppointmentsDate Type Provider Dept08/06/23 Appointment Mark Granados MD Ang-Db [facility] MedShowing future appointments within next 150 days with a meds authorizing provider and meeting all other requirements 32962-8Jjjxfwila encounter XuasEZ3721-23-26W88:38:43Telephone encounter NoteTXT1.2.840.136766.1.13.104.2.7. 2.046456|[id number] for patient yqje92048-7WhcsLYQQODCVOEJFcdjldsqr C-CDA narrative [id number] M Fisher [address] Brm[id number] 6QGPEOZVCGLJYYIWOKXSLWF0812-58-88Z1 2:38:431.2.840.055247.1.72.3.15|1.2 .840.526077.1.13.104.2.7.2.727879_2 [id number] Mirna Rodríguez [facility] 2023-07-29 12:32:35 3KlaYwdNuX0C3lFuoiFm /B5dZZuX7Dxf1T+ s5/Ezr/JJhEE2sc4giiuae9YOMpaP1816-0 2:32:35 Copied from [facility] #[id number]. Topic: Clinical - Order>> Jul 29, 2023 12:32 PM Patient Heel Former wrote:Anup Quinones Jr. is a 67 year old male calling in requesting refill.[facility] [place], [place] - [address] AT [facility]97 [facility] [address]Ypowb: [phone] Dprlwhirazzvjf signed by Joselito Joshua at 07/29/2023 12:33 PM ZTC26420-2Qxazezsld encounter TgowBE1623-51-65K74:33:24Telephone encounter NoteTXT1.2.840.696435.1.13.104.2.7. 2.275085|[id number] for patient lrxt37879-2AasxOHWCAXLLFQQXudrrgsvy C-CDA narrative textUT[address] Mmpp[id number] 0JNOOGPQLMOTUDJKEJJKVDI2114-71-02Q2 2:33:241.2.840.539891.1.72.3.15|1.2 .840.034670.1.13.104.2.7.2.727879_2 [id number] [facility] 2023-07-04 08:18:37 tmcSUO/Nts0YEZP4epCb P60vR0eR++ff/zS Iugz0VdqnzGjc9RYMkGVucQVnJ5cW9290-7 07-04T08:18:37 Images from the original note were not included.Requested Renewalsdextroamphetamine-amphetami ne (ADDERALL) 20 mg tabletSig: Take 1 tablet by mouth in the morning and 1 tablet in the evening.Disp: 60 tablet Refills: 0Start: 07/04/2023Earliest Fill Date: 07/04/2023lass: eRXFor: ADD (attention deficit disorder) without hyperactivityLast ordered: 4 weeks ago (06/06/2023) by Cornel Abraham Review Required Xthgjv9807/04/2023 08:16 AMProtocol Details This refill cannot be delegatedValid encounter within last 12 monthsTo be filled at: [facility]/pharmacy #[id number] - [place], [place] - [address] [facility] [address] WAY STREETRecent VisitsDate Type Provider Dept107/08/22 Office Visit Mark Granados MD Ang-Db [facility] Med01/22/23 Office Visit Mark Granados MD Ang[facility] Med09/13/22 Office Visit Mark Granados MD Ang[facility] Med08/08/22 Office Visit Mark Granados MD Ang[facility] Med08/01/22 Office Visit Mark Granados MD Ang[facility] Med04/10/22 Office Visit Mark Granados MD Ang[facility]Db [facility] MedShowing recent visits within past 540 days with a meds authorizing provider and meeting all other requirementsFuture AppointmentsDate Type Provider Dept08/06/23 Appointment Mark Granados MD Ang-[facility] MedShowing future appointments within next 150 days with a meds authorizing provider and meeting all other requirements 91789-0Vczlbbfvl encounter BqytPJ0670-23-49I64:18:44Telephone encounter NoteTXT1.2.840.851748.1.13.104.2.7. 2.381969|[id number] for patient rpdm86736-3BjtwIAYJWTAJRACKvrlbtppo C-CDA narrative [id number] M Fisher [address] UhclX[id number] 8PEECOSGGUHPSDQTXRTIRZR0168-75-69B4 8:18:441.2.840.785060.1.72.3.15|1.2 .840.533948.1.13.104.2.7.2.727879_2 [id number] Mirna Rodríguez [employer] [facility] 2023-06-06 08:31:08 ISUyYG5q7PDDhM1JupTH qkof/SOcnu4hoiq ygicxi0ziAXxAG0EI7YOGqZ9WQbJU6290-9 08:31:08 Last Refilled:Disp Refills Start End DAWdextroamphetamine-amphetamine (ADDERALL) 20 mg tablet 60 tablet 0 05/07/2023 -- --Sig: Take 1 tablet by mouth in the morning and 1 tablet in the evening.Sent to pharmacy as: dextroamphetamine-amphetamine 20 mg tablet (AdderalL)Class: eRXEarliest Fill Date: 05/07/2023Route: OralOrder: [id number]/Time Signed: 05/07/2023 08:23E-Prescribing Status: Receipt confirmed by pharmacy (05/07/2023 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)Notes:Recent VisitsDate Type Provider Dept107/08/22 Office Visit Mark Granados MD Ang-Db [facility] Med01/22/23 Office Visit Mark Granados MD Ang-Db [facility] Med09/13/22 Office Visit Mark Granados MD Ang-Db [facility] Med08/08/22 Office Visit Mark Granados MD Ang-Db [facility] Med08/01/22 Office Visit Mark Granados MD Ang-Db [facility] Med04/10/22 Office Visit Mark Granados MD Ang-Db [facility] Med01/09/22 [facility] visits within past 540 days with a meds authorizing provider and meeting all other requirementsFuture AppointmentsDate Type Provider Dept08/06/23 Appointment Mark Granados MD [facility] MedShowing future appointments within next 150 days with a meds authorizing provider and meeting all other requirements 91971-8Zfptpnfjo encounter TkuoNU6852-62-92H95:31:37Telephone encounter NoteTXT1.2.840.458200.1.13.104.2.7. 2.925314|[id number] for patient ylvh03036-7NjnvASZBTNOBGWVZpoektaji C-CDA narrative [id number] J Bunte RNUT[address] Adams [id number] 1GGXNFDJKCGGVZPTDDQKOFA6650-28-68K9 8:31:371.2.840.647297.1.72.3.15|1.2 .840.857351.1.13.104.2.7.2.727879_2 [id number] Kaitlin Mendoza RN [facility] 2023-06-06 08:24:28 6AL2+8zvmCUb7o2fVJo1 BL4eMlq1r1W0YcX Qjnc7v2y69QmfEiy4CHo2bRCLr4Gy4029-4 08:24:28 Anup Quinones Jr. is a 67 year old male is requesting a refill of dextroamphetamine-amphetamine (ADDERALL) 20 mg tablet. Patient is out of the medication. Please advise. [phone] (home) Patient needs medicine JENNIFER. 16051-5Jxatrijwh encounter MrvgCH4836-27-05E29:26:26Telephone encounter NoteTXT1.2.840.661341.1.13.104.2.7. 2.538687|[id number] for patient uyzt64790-0EsgnCHTXFBILQJRFouwdlxuu C-CDA narrative text[address] [id number] 3PPRGUWZVICPGVORHVPQUBL2230-60-05G9 8:26:261.2.840.662054.1.72.3.15|1.2 .840.538343.1.13.104.2.7.2.727879_2 [id number] [facility] 2023-01-18 08:42:01 /rlavTClHA8gTRKEWPB7 7Px41s6dscSYrks C2aIBNpdtZWE2GwGWiPgFureofGBY0346-7 01-18T08:42:01 I called and left V/M for patient advising Dr. Granados was out of office til saturday 60321-3Enpkxgfwr encounter IdrqSL4366-82-81C53:42:36Telephone encounter NoteTXT1.2.840.958776.1.13.104.2.7. 2.110930|[id number] for patient ymsq20488-6RcswLN985652006Erycezh R Leon MA[address] EmdaPgjkabiyuFrbwdxwtmXGFS664616230 6YGFJIPMROJLHDJKBZFTDLU4465-66-48Z0 8:42:361.2.840.599948.1.72.3.15|1.2 .840.570680.1.13.104.2.7.2.727879_1 [id number] Christine Cornell MA [facility] 2023-01-18 08:39:24 smPnfDntkikeOtSm7vMo RRmq4eGWb56EgQx XYSJbkaqIEsOvxbf5FayQ+HdTAZcx2449-0 01-18T08:39:24 DR Granados is out of the office until Saturday he has appointment schedule on 01/22/23 already so refill will be done at appointment 75378-8Nmiajvohu encounter RgwnLA9178-51-15M63:41:44Telephone encounter NoteTXT1.2.840.407697.1.13.104.2.7. 2.621647|[id number] for patient wlem06439-1NipgKU749489812Qhogpjr R Leon [address]G[id number] 5GKUBFBKXXNEXALZKBQFLPK4375-59-00F2 8:41:441.2.840.253313.1.72.3.15|1.2 .840.820470.1.13.104.2.7.2.727879_1 [id number] Christine Cornell [facility] 2023-01-17 13:59:36 NpIk7yumF1E69sb6W/tV kkHvR15n7S4USob W+lHj7mHkeyRhGuupeKOok61dpvSE0308-7 3:59:36 Anup Quinones is a 67 year old male Patient is calling to request a refill on his adderall. Please advise. Next appt is 01/22 at 9:15am [facility]/pharmacy #[id number] - [place], [place] - [facility] [address] [facility] [address] [place]Phone: [address]-4Eprybeiea encounter IgfsCY3074-33-96G44:01:07Telephone encounter NoteTXT1.2.840.367826.1.13.104.2.7. 2.205361|[id number] for patient jies84418-6YqdfPC128211231Opilxxc J [id number] 8RIUGMTDCNYCJBPTZHPIMFY6648-93-08Z1 4:01:071.2.840.216019.1.72.3.15|1.2 .840.005124.1.13.104.2.7.2.727879_1 [id number] Ghazala Alcala [facility] 2022-12-17 07:36:58 dvaZy1jRzr2YeKzrbHql AEIESTQtTYXks86 +Evnv2mU+NZ5imP1rsPaXLrNF++T92249-6 07:36:58 Pt requested 90 day supply instead of 30 day.Requested Prescriptions Signed Prescriptions Disp Refills RIVASTIGMINE TARTRATE 1.5 mg capsule 180 capsule 1 Sig: TAKE 1 CAPSULE BY MOUTH EVERY MORNING AND EVENING. Authorizing Provider: MORIS ACOSTA Ordering User: [place] 23453-4Wgutpzrbp encounter ZtxaWL1009-49-02Y67:39:15Telephone encounter NoteTXT1.2.840.688045.1.13.104.2.7. 2.036898|[id number] for patient vzsm85182-0VhtoJHXZTWTQQQ[address] BelwOklhgajtaRmtaenrkdHBMW722356038 7AGLYSVDYQUHBIXJSRDMKWI9233-48-32X5 7:39:151.2.840.017227.1.72.3.15|1.2 .840.947824.1.13.104.2.7.2.727879_1 [id number] [facility] 2022-12-14 17:12:59 akaLbDxeiI39uuLo0PDy 70GgUOpNqqqT7lv sXVpK2wJ8FEFb6GWtD8lIksO+ZkKK6818-0 12-14T17:12:59 Refill Request:Requested Prescriptions Signed Prescriptions Disp Refills RIVASTIGMINE TARTRATE 1.5 mg capsule 60 capsule 1 Sig: TAKE 1 CAPSULE BY MOUTH EVERY MORNING AND EVENING. Authorizing Provider: MORIS ACOSTA Ordering User: [place] Last office visit: 10/29/22Last refill date: 10/29/22Next appt date: 01/14/23We will send patient for a lumbar puncture and start rivastigmine 1.5 mg twice daily. Patient verbalizes understanding that rivastigmine may have little effect if his memory loss is due to normal pressure hydrocephalus. 87347-4Xxkqtfuhx encounter JvgyLU5939-78-98K99:18:22Telephone encounter NoteTXT1.2.840.059070.1.13.104.2.7. 2.692871|[id number] for patient [address] KoylD[id number] 5IOIIWERADUEHWSZMSYHNHK2177-17-38Q7 7:18:221.2.840.670066.1.72.3.15|1.2 .840.329609.1.13.104.2.7.2.727879_1 [id number] [facility] 2022-12-14 10:13:25 aGl/02ACSMhP99DS6+ci l8EZBsclLypQQcY YhWx3L6bM7//2HkR3KqymuW2Nnh3z7757-5 12-14T10:13:25 Recent VisitsDate Type Provider Dept 09/13/22 Office Visit Mark Granados MD Ang-[facility] 08/08/22 Office Visit Mark Granados MD Ang[facility] 08/01/22 Office Visit Mark Granados MD Ang[facility] 04/10/22 Office Visit Mark Granados MD Ang[facility] 01/09/22 Office Visit Mark Granados MD Ang[facility] 10/25/21 Office Visit Mark Granados MD Ang[facility] 07/10/21 Office Visit Mark Granados MD Ang[facility] Showing recent visits within past 540 days with a meds authorizing provider and meeting all other requirementsFuture AppointmentsNo visits were found meeting these conditions.Showing future appointments within next 150 days with a meds authorizing provider and meeting all other requirementsLast refill wasdextroamphetamine-amphetamine (ADDERALL) 20 mg tablet 60 tablet 0 11/11/2022 -- Sig: Take 1 tablet by mouth in the morning and 1 tablet in the evening. diazePAM (VALIUM) 10 mg tablet 90 tablet 2 09/19/2022 -- 32544-2Lkxsppuhm encounter VrkwRT0506-05-31G64:14:18Telephone encounter NoteTXT1.2.840.106239.1.13.104.2.7. 2.090320|[id number] for patient albl44646-7LalaIA393695834Wyknvqf R Leon MA[address] XidtThqlqakbpYzipddifeJHXF223892479 9CPNOMYFFFGLLVRMOCTRLUC0009-57-15W1 0:14:181.2.840.562366.1.72.3.15|1.2 .840.189719.1.13.104.2.7.2.727879_1 [id number] Christine Cornell MA [facility]
[2023-08-03] MEDS ORDERED: ASPIRIN 81 MG CHEWABLE TABLET ONE (18:45)
[2023-08-03 19:06] LABS: Absolute Basophils 0.1 K/uL (0-0.5); Absolute Eosinophils 0.1 K/uL (0-0.5); Absolute Monocytes 0.5 K/uL (0.1-1.3); Absolute Neutrophil 5.1 K/uL (1.8-8.0); Eosinophils % 0.9 % (0-4.4); Hematocrit 43.5 % (39.6-49.0); Hemoglobin 15.3 g/dL (13.6-17.9); Lymphocytes % 25.5 % (15.3-44.8); MCH 30.6 pg (27.0-35.0); MCHC 35.2 g/dL (32.0-36.0); MPV 7.6 fL (7.6-11.3); Monocytes % 5.9 % (3.3-12.3); Neutrophils % 66.7 % (41.7-73.7); Platelets 293 thou/uL (152-406); Red Cell Distribution Width 13.6 % (12.1-15.2)
--- NOTE | 2023-08-03 19:10 | RAD REPORT ---
EXAM DESCRIPTION: RAD - Chest Single View - 08/03/2023 7:03 pm CLINICAL HISTORY: CHEST PAIN Chest pain. COMPARISON: Chest Single View dated 06/11/2022; Chest Single View dated 06/09/2022; Chest Single View dated 03/18/2022; Chest Pa And Lat (2 Views) dated 08/02/2020 FINDINGS: Portable technique limits examination quality. The lungs are grossly clear. The heart is normal in size. No displaced fractures.Sternotomy wires. IMPRESSION: No acute intrathoracic process suspected.
[2023-08-03 19:19] LABS: Anion Gap 10.8 mEq/L (5.0-15.0); Magnesium 2.3 mg/dL (1.6-2.4); Potassium 3.8 mEq/L (3.5-5.1); Troponin High Sensitivity 6.9 pg/mL (<58.9)
[2023-08-03] MEDS ORDERED: ONDANSETRON 4 MG/2 ML VIAL ONE (20:09)
[2023-08-03] MEDS ORDERED: FENTANYL CITR 100 MCG/2 ML ONE ×2 (20:09→21:10)
--- NOTE | 2023-08-03 20:41 | ER ---
Nurse's Notes [facility] Name: Juancarlos Quinones Jr Age: 67 yrs Sex: Male : 1955 Arrival Date: 08/03/2023 Time: 18:24 Bed 7 Private MD: Diagnosis: Chest pain, unspecified Presentation: 08/02 18:35 Chief complaint: Midsternal chest pressure that radiates to left arm since yesterday, hb became severe today. Hx of [place] + triple bypass. Coronavirus screen: At this time, the client does not indicate any symptoms associated with coronavirus-19. Ebola Screen: No symptoms or risks identified at this time. Initial Sepsis Screen: Does the patient meet any 2 criteria? No. Patient's initial sepsis screen is negative. Does the patient have a suspected source of infection? No. Patient's initial sepsis screen is negative. Risk Assessment: Do you want to hurt yourself or someone else? Patient reports no desire to harm self or others. Onset of symptoms was August 02, 2023. 18:35 Method Of Arrival: Ambulatory hb 18:35 Acuity: SUNITA 2 hb Triage Assessment: 18:36 General: Appears in no apparent distress. uncomfortable, Behavior is cooperative, flat. hb Pain: Pain currently is 9 out of 10 on a pain scale. Neuro: Level of Consciousness is awake, alert, obeys commands, Oriented to person, place, time, situation. Cardiovascular: Reports chest pain, Patient's skin is warm and dry. Respiratory: Respiratory effort is even, unlabored, Respiratory pattern is regular, symmetrical. Historical: - Allergies: 18:36 Codeine; hb 18:36 Morphine; hb - PMHx: 18:36 Chronic pain; Hypertension; Myocardial infarction; RA; hb - PSHx: 18:36 left shoulder; right shoulder; triple bypass; hb - Immunization history:: Adult Immunizations up to date. - Social history:: Smoking status: Patient denies any tobacco usage or history of. Screenin:36 [facility] ED Fall Risk Assessment (Adult) History of falling in the last 3 months, ld1 including since admission No falls in past 3 months (0 pts). Abuse screen: Denies threats or abuse. Denies injuries from another. Nutritional screening: No deficits noted. Tuberculosis screening: No symptoms or risk factors identified. Assessment: 18:36 General: Appears in no apparent distress. comfortable, Behavior is calm, cooperative, ld1 appropriate for age. Pain: Complains of pain in chest Pain does not radiate. Pain currently is 8 out of 10 on a pain scale. Quality of pain is described as heavy, pressure, Pain began 1 day ago. Neuro: Level of Consciousness is awake, alert, obeys commands, Oriented to person, place, time, situation. Cardiovascular: Capillary refill < 3 seconds Patient's skin is warm and dry. Rhythm is sinus bradycardia. Respiratory: Airway is patent Respiratory effort is even, unlabored. GI: Abdomen is flat, non-distended. : No signs and/or symptoms were reported regarding the genitourinary system. EENT: No signs and/or symptoms were reported regarding the EENT system. Derm: No signs and/or symptoms reported regarding the dermatologic system. Musculoskeletal: No signs and/or symptoms reported regarding the musculoskeletal system. 18:38 Reassessment: ERP at bedside with patient. ld1 18:40 Neuro: Level of Consciousness is. Cardiovascular: Heart tones S1 S2 present Patient's mb9 skin is warm and dry. Rhythm is sinus bradycardia. Respiratory: Airway is patent Respiratory effort is even, unlabored, Respiratory pattern is regular, symmetrical, Breath sounds are clear bilaterally. GI: Bowel sounds present X 4 quads. Abd is soft and non tender X 4 quads. Reports nausea. : No signs and/or symptoms were reported regarding the genitourinary system. Derm: Skin is pink, warm \\T\\ dry. Musculoskeletal: Range of motion: intact in all extremities. 18:51 Reassessment: Patient appears in no apparent distress at this time. No changes from ld1 previously documented assessment. 19:16 Reassessment: pt states, "I'm hurting and want Dilaudid for my pain." ERP notified. mb9 19:47 Reassessment: No changes from previously documented assessment. Patient and/or family mb9 updated on plan of care and expected duration. Pain level reassessed. Patient is alert, oriented x 3, equal unlabored respirations, skin warm/dry/pink. 20:15 General: Appears in no apparent distress. comfortable, Behavior is calm, cooperative. cm10 Pain: Complains of pain in chest Pain does not radiate. Pain currently is 9 out of 10 on a pain scale. Quality of pain is described as heavy, pressure, Pain began 1 day ago. 20:15 Reassessment: Assumed care of patient at 1900. Pt currently reports that he is having cm10 left sided chest pain. Pt states that the pain "it feels like I am having a heart attack." Pt updated on plan of care, medicate per JUL. IV site clean, dry and intact. Call light in reach. Pt remains on continuous cardiac monitoring,. Neuro: No deficits noted. Level of Consciousness is awake, alert, obeys commands, Oriented to person, place, time, situation. Respiratory: Airway is patent Respiratory effort is even, unlabored, Respiratory pattern is regular, symmetrical, Breath sounds are clear bilaterally. GI: No deficits noted. Bowel sounds present X 4 quads. Abd is soft and non tender Reports nausea. : No deficits noted. No signs and/or symptoms were reported regarding the genitourinary system. EENT: No deficits noted. No signs and/or symptoms were reported regarding the EENT system. Derm: No deficits noted. No signs and/or symptoms reported regarding the dermatologic system. Skin is healthy with good turgor, Skin is pink, warm \\T\\ dry. Musculoskeletal: No deficits noted. Range of motion: intact in all extremities. 21:45 Reassessment: Patient appears in no apparent distress at this time. Patient and/or cm10 family updated on plan of care and expected duration. Pain level reassessed. Patient is alert, oriented x 3, equal unlabored respirations, skin warm/dry/pink. Vital Signs: 18:35 BP 171 / 83; Pulse 57; Resp 17; Temp 98(TE); Pulse Ox 100% on R/A; Weight 77.11 kg; hb Height 5 ft. 9 in. ; Pain 9/10; 18:36 BP 171 / 83; Pulse 52; Resp 18; Pulse Ox 100% on R/A; Pain 8/10; ld1 19:18 BP 160 / 72; Pulse 52; Resp 18; Pulse Ox 99% on R/A; mb9 20:00 BP 164 / 74; Pulse 50; Resp 16; Pulse Ox 100% on R/A; cm10 22:00 BP 132 / 65; Pulse 59; Resp 16; Pulse Ox 99% on R/A; Pain 2/10; cm10 18:35 Body Mass Index 25.10 (77.11 kg, 175.26 cm) hb 18:35 Pain Scale: Adult hb 18:36 Pain Scale: Adult ld1 22:00 Pain Scale: Adult cm10 ED Course: 18:27 Patient arrived in ED. im 18:29 Catie Mayorga FNP-C is [facility]. kb 18:29 Asiya Gruber MD is Attending Physician. kb 18:34 EKG done, by ED staff, reviewed by Asiya Gruber MD. hb 18:36 Nayla Llanos, RN is Primary Nurse. ld1 18:36 Triage completed. hb 18:36 Arm band placed on. hb 18:36 Patient has correct armband on for positive identification. Placed in gown. Bed in low ld1 position. Call light in reach. Side rails up X2. Door closed. Noise minimized. Warm blanket given. 18:36 No provider procedures requiring assistance completed. Patient maintains SpO2 ld1 saturation greater than 95% on room air. 18:38 Client placed on continuous cardiac and pulse oximetry monitoring. NIBP monitoring hb applied. surveillance monitor on. Pulse ox on. NIBP on. 18:39 Primary Nurse role handed off by Nayla Llanos, RN mb9 18:39 Shantell Reeves, CEE is Primary Nurse. mb9 18:39 Initial lab(s) drawn, by ED staff, EKG done, by ED staff, reviewed by Catie HERNANDEZ. 18:41 Provided Education on: press call light when needing something. mb9 18:41 Inserted saline lock: 18 gauge in right antecubital area, using aseptic technique. mb9 Blood collected. 19:05 XRAY Chest (1 view) In Process Unspecified. EDMS 19:17 Verbal reassurance given. One-on-one care X 15 minutes. mb9 19:19 Warm blanket given. kmf 19:53 Report given to Ana Maria RN. mb9 20:03 Patient requests pain medication. cm10 20:40 Orestes Saxena MD is Hospitalizing Provider. kb 21:33 Warm blanket given. Client placed on continuous cardiac and pulse oximetry monitoring. kmf NIBP monitoring applied. surveillance monitor on. Assisted to bathroom. 22:00 Patient admitted, IV remains in place. cm10 Administered Medications: 18:51 Drug: Aspirin PO Chewable Tablet 324 mg PO once; 81 mg tablets x 4 Route: PO; ld1 19:20 Follow up: Response: No adverse reaction mb9 20:15 Drug: Ondansetron IVP 4 mg IVP once; over 2 minutes Route: IVP; Site: right antecubital;cm10 21:13 Follow up: Response: No adverse reaction cm10 20:15 Drug: fentaNYL (PF) IVP 25 mcg IVP once Route: IVP; Site: right antecubital; cm10 21:13 Follow up: Response: No adverse reaction cm10 21:13 Drug: fentaNYL (PF) IVP 50 mcg IVP once Route: IVP; Site: right antecubital; cm10 22:01 Follow up: Response: No adverse reaction cm10 Medication: 18:36 VIS not applicable for this client. ld1 Outcome: 20:40 Decision to Hospitalize by Provider. kb 22:00 Admitted to ER Hold. Please see [facility] for further documentation. cm10 22:00 Condition: good 22:00 Instructed on the need for admit, 22:31 Patient left the ED. cm10 Signatures: Dispatcher [employer] EDMS Catie Mayorga, MEDICAL ASSISTANT FLOAT-C MEDICAL ASSISTANT FLOAT-Ckb Katelyn King RN RN Nayla Llanos RN RN ld1 Shantell Reeves RN RN mb9 Zoe Harvey Clarissa, RN RN cm10 Mechelle Capps km Corrections: (The following items were deleted from the chart) 19:18 18:51 BP 171 / 83; Pulse 52bpm; Resp 18bpm; Pulse Ox 99% RA; ld1 mb9
--- NOTE | 2023-08-03 20:41 | EDPHYS ---
Physician Documentation [facility] Name: Juancarlos Quinones Jr Age: 67 yrs Sex: Male : 1955 Arrival Date: 08/03/2023 Time: 18:24 Bed 7 Private MD: ED Physician Asiya Gruber HPI: 08/02 20:59 This 67 yrs old Male presents to ER via Ambulatory with complaints of Chest Pain. kb 21:01 Pt is a 67 year old male who presents for substernal chest pain that radiates to left kb arm that started yesterday. Reports nausea and shortness of breath as well. States this pain feels the same as when he had a heart attack. . Historical: - Allergies: 18:36 Codeine; hb 18:36 Morphine; hb - PMHx: 18:36 Chronic pain; Hypertension; Myocardial infarction; RA; hb - PSHx: 18:36 left shoulder; right shoulder; triple bypass; hb - Immunization history:: Adult Immunizations up to date. - Social history:: Smoking status: Patient denies any tobacco usage or history of. ROS: 21:00 Constitutional: As per HPI kb Exam: 21:00 Constitutional: This is a well developed, well nourished patient who is awake, alert, kb and in no acute distress. Head/Face: Normocephalic, atraumatic. ENT: Moist Mucous membranes Cardiovascular: Regular rate Respiratory: Respirations even and unlabored. No increased work of breathing. Talking in full sentences Abdomen/GI: Soft, non-tender. No distention Skin: Warm, dry with normal turgor. Normal color. MS/ Extremity: Pulses equal, no cyanosis. Neurovascular intact. Full, normal range of motion. Neuro: Awake and alert, GCS 15, oriented to person, place, time, and situation. Moves all extremities. Normal gait. Vital Signs: 18:35 BP 171 / 83; Pulse 57; Resp 17; Temp 98(TE); Pulse Ox 100% on R/A; Weight 77.11 kg; hb Height 5 ft. 9 in. ; Pain 9/10; 18:36 BP 171 / 83; Pulse 52; Resp 18; Pulse Ox 100% on R/A; Pain 8/10; ld1 19:18 BP 160 / 72; Pulse 52; Resp 18; Pulse Ox 99% on R/A; mb9 20:00 BP 164 / 74; Pulse 50; Resp 16; Pulse Ox 100% on R/A; cm10 22:00 BP 132 / 65; Pulse 59; Resp 16; Pulse Ox 99% on R/A; Pain 2/10; cm10 18:35 Body Mass Index 25.10 (77.11 kg, 175.26 cm) hb 18:35 Pain Scale: Adult hb 18:36 Pain Scale: Adult ld1 22:00 Pain Scale: Adult cm10 MDM: 18:29 Patient medically screened. kb 20:41 Data reviewed: vital signs, nurses notes. Counseling: I had a detailed discussion with kb the patient and/or guardian regarding the historical points, exam findings, and any diagnostic results supporting the discharge/admit diagnosis, lab results, radiology results, the need for further work-up and treatment in the hospital. ED course: HEART score 5. 21:01 Differential diagnosis: abnormal EKG, acute myocardial infarction, coronary artery kb disease chest wall pain. The patient was given aspirin in the Emergency Department. Consideration of Admission/Observation Patient was admitted/placed on observation. Escalation of care including admission/observation considered. Management of patient was discussed with the following: Hospitalist: Mehdi accepts pt for admission under Dr Saxena. 08/02 18:40 Order name: Basic Metabolic Panel; Complete Time: 19:22 kb 08/02 18:40 Order name: CBC with Diff; Complete Time: 19:12 kb 08/02 18:40 Order name: Magnesium; Complete Time: 19:22 kb 08/02 18:40 Order name: NT PRO-BNP; Complete Time: 19:22 kb 08/02 18:40 Order name: Troponin HS; Complete Time: 19:22 kb 08/02 18:40 Order name: XRAY Chest (1 view); Complete Time: 19:12 kb 08/02 18:40 Order name: EKG; Complete Time: 18:41 kb 08/02 20:52 Order name: CONS Physician Consult EDMS 08/02 18:40 Order name: Cardiac monitoring; Complete Time: 18:41 kb 08/02 18:40 Order name: EKG - Nurse/Tech; Complete Time: 18:41 kb 08/02 18:40 Order name: IV Saline Lock; Complete Time: 18:43 kb 08/02 18:40 Order name: Labs collected and sent; Complete Time: 18:43 kb 08/02 18:40 Order name: O2 Per Protocol; Complete Time: 18:42 kb 08/02 18:40 Order name: O2 Sat Monitoring; Complete Time: 18:42 kb Administered Medications: 18:51 Drug: Aspirin PO Chewable Tablet 324 mg PO once; 81 mg tablets x 4 Route: PO; ld1 19:20 Follow up: Response: No adverse reaction mb9 20:15 Drug: Ondansetron IVP 4 mg IVP once; over 2 minutes Route: IVP; Site: right antecubital;cm10 21:13 Follow up: Response: No adverse reaction cm10 20:15 Drug: fentaNYL (PF) IVP 25 mcg IVP once Route: IVP; Site: right antecubital; cm10 21:13 Follow up: Response: No adverse reaction cm10 21:13 Drug: fentaNYL (PF) IVP 50 mcg IVP once Route: IVP; Site: right antecubital; cm10 22:01 Follow up: Response: No adverse reaction cm10 Disposition: 08/03 08:17 Co-signature as Attending Physician, Asiya Gruber MD I agree with the assessment and cp3 plan of care. Disposition Summary: 08/03/23 20:40 Hospitalization Ordered Notes: Hospitalization Status: Observation Provider: [facility]restes Saxena [facility] Condition: Stable kb Problem: new kb Symptoms: are unchanged kb Bed/Room Type: Standard Room Assignment: Diagnosis - Chest pain, unspecified kb Forms: - Medication Reconciliation Form kb - SBAR form kb - Leadership Thank You Letter kb Signatures: Dispatcher [employer] Catie Munoz FNP-C FNP-Asiya Pantoja MD MD cp3 Katelyn King RN RN Nayla Chan RN RN ld1 Pari Allison RN RN cm10 Shantell Reeves RN mb9
--- NOTE | 2023-08-03 20:49 | P.HP ---
Certification for Inpatient Patient admitted to: Observation Practitioner: I am a practitioner with admitting privileges, knowledge of patient current condition, hospital course, and medical plan of care. Services: Services provided to patient in accordance with Admission requirements found in Title 42 Section 412.3 of the Code of Federal Regulations Patient History Date of Service: 08/03/23 History of Present Illness: 67-year-old male with a past medical history of hypertension, myocardial infarction, rheumatoid arthritis, chronic pain, presents to the emergency room with chest pain. He reports chest pain started 2 days ago is progressively getting worse. The chest pain was 6 out of 10 substernal radiated to the left arm. He reports current chest pain is 2 out of 10. Relieved with as needed analgesics in the emergency room. No reported nausea vomiting diaphoresis, shortness of breath. He reports history of anxiety, is on Valium, is on p.o. oxycodone for pain. He reports multiple bilateral shoulder surgery surgery, knee surgeries. he reports history of a triple bypass, hypertension on arrival to the emergency room BP 171 / 83; Pulse 57; Resp 17; Temp 98(TE); Pulse Ox 100% on R/A; Weight 77.11 kg; Height 5 ft. 9 in. ; Pain 9/10; EKG sinus bradycardia with a first-degree block rate 54, no ST elevation. Patient treated with 324 p.o. x 1 aspirin, 25 mcg x 1 fentanyl, Zofran 4 mg IVP x 1 plan to admit for chest pain rule out [place]. Laboratory evaluation acute kidney injury BUN 16, 1.34, elevated BNP 214, CBC unremarkable, initial troponin normal at 6.9 Allergies morphine Adverse Reaction (Mild, Verified 01/08/19 16:01) Rash codeine Adverse Reaction (Verified 01/08/19 16:01) Nausea/Vomiting Home Medications: Oxycodone HCl 15 mg PO QID 11/09/16 clonazePAM [Klonopin*] 1 mg PO QID 11/09/16 Dextroamphetamine/Amphetamine [Adderall 10 mg Tablet] 20 mg PO DAILY 01/08/19 Aspirin [Aspirin EC] 81 mg PO DAILY 03/18/22 Lisinopril [Zestril] 1 tab PO DAILY 03/18/22 Atorvastatin Calcium [Lipitor] 40 mg PO BEDTIME #30 tab 06/10/22 - Past Medical/Surgical History Diabetic: No -: CAD -: spinal stenosis -: chronic pain (sees pain management) -: RA,shoulder,hand -: [place] -: HTN -: triple bypass 2000 -: 6 shoulder surgeries -: hernia repair -: knee surgery Psychosocial/ Personal History: Patient lives at home. - Family History Father -: Heart disease, Stroke Notes: heart attacks and bypass surgery half sister -: Diabetes - Social History Alcohol use: No CD- Drugs: No Caffeine use: Yes Review of Systems Per HPI Physical Examination - Physical Exam General: Alert, In no apparent distress, Oriented x3 HEENT: Atraumatic, PERRLA Neck: 2+ carotid pulse no bruit, JVD not distended Respiratory: Clear to auscultation bilaterally, Normal air movement Cardiovascular: No edema, Normal pulses, Other (Sinus bradycardia 52 first- degree block) Capillary refill: <2 Seconds Gastrointestinal: Normal bowel sounds, Soft and benign Musculoskeletal: No clubbing, No swelling Integumentary: No breakdown, No significant lesion Neurological: Normal speech, Normal strength at 5/5 x4 extr - Studies Laboratory Data (last 24 hrs) 08/03/23 08/03/23 18:52 18:52 WBC 7.70 Hgb 15.3 Hct 43.5 Plt Count 293 Sodium 140 Potassium 3.8 BUN 16 Creatinine 1.34 H Glucose 122 H Magnesium 2.3 Assessment and Plan - Plan Assessment plan Chest pain rule out [place] Cardiology consult, telemetry, As needed analgesics, antiemetics, He reports chest pain started 2 days ago is progressively getting worse. The chest pain was 6 out of 10 substernal radiated to the left arm. He reports current chest pain is 2 out of 10. Relieved with as needed analgesics in the emergency room. He reports history of anxiety, is on Valium, is on p.o. oxycodone for pain. He reports multiple bilateral shoulder surgery surgery, knee surgeries. he reports history of a triple bypass, hypertension on arrival to the emergency room BP 171 / 83; Pulse 57; Resp 17; Temp 98(TE); Pulse Ox 100% on R/A; Weight 77.11 kg; Height 5 ft. 9 in. ; Pain 9/10; EKG sinus bradycardia with a first-degree block rate 54 patient treated with 324 p.o. x 1 aspirin, 25 mcg x 1 fentanyl, Zofran 4 mg IVP x 1 08/02 Laboratory evaluation CBC unremarkable, initial troponin normal at 6.9, BNP 240 Acute kidney injury unknown baseline Trend kidney function, avoid nephrotoxic medication acute kidney injury BUN 16, 1.34 Essential hypertension History myocardial infarction CAD Resume home meds, lipid panel in the a.m. rheumatoid arthritis chronic pain Anxiety Resume appropriate home analgesics, with analytics Full code DVT Lovenox Diet n.p.o. after midnight Discharge Plan: Home - Advance Directives Does patient have a Living Will: No Does patient have a Durable POA for Healthcare: No - Code Status/Comfort Care Code Status: Full Code Critical Care: No Time Spent Managing Pts Care (In Minutes): 55
[2023-08-03] MEDS ORDERED: ACETAMINOPHEN 500 MG TAB PO PRN (20:51)
[2023-08-03] MEDS ORDERED: ONDANSETRON 4 MG/2 ML VIAL IV PRN (20:51)
[2023-08-03] MEDS ORDERED: NA CHLORIDE 0.9% 1,000 ML IV SCH (21:00)
[2023-08-03] MEDS ORDERED: INSULIN REGULAR (HUMAN) 100 UNIT/ML SQ SCH (21:00)
[2023-08-03 22:51] VITALS: BP 132/65; TEMP 98; O2SAT 99
== END 2023-08-03 22:20 | disposition left against medical advice (07) ==
LOC: ER 18:24 → ERHOLD 20:49
PROVIDERS: ADMIT Hospitalist; ATTEND Hospitalist
DX: R07.9 Chest pain, unspecified (principal); R00.1 Bradycardia, unspecified; I44.0 Atrioventricular block, first degree; I10 Essential (primary) hypertension; I25.2 Old myocardial infarction; I25.10 Atherosclerotic heart disease of native coronary artery without angina pectoris; N17.9 Acute kidney failure, unspecified; M06.9 Rheumatoid arthritis, unspecified; G89.29 Other chronic pain; F41.9 Anxiety disorder, unspecified; Z88.5 Allergy status to narcotic agent
CPT/HCPCS: 85025; 80048; 36415; 83735; 84484; 83880; 71045; J3010 ×2; J2405; 93005; 96374; 96375; 99285; G0378